=== PATIENT | male | born 1975 | race Caucasian/White ===

== ENCOUNTER → 2016-10-27 | Outpatient (CLI) | payer OTHER ==
--- NOTE | 2016-10-27 22:58 | CONS ---
DATE OF CONSULTATION: This patient is a 41-year-old male patient coming in for obstructive sleep apnea treatment. This patient was diagnosed having obstructive sleep apnea 12 years ago. Back then he was offered UPPP, and this was performed by Dr. Gómez. Over the years, the patient's condition gradually got worse, especially over the past one year when he gained around 25 pounds; he is at the point where he is having poor sleep quality, sleep fragmentation, frequent nocturnal arousals for urination in addition to loud snoring and witnessed apneas. He goes to bed around 6:30 p.m., as the patient feels very tired and fatigued, and he wakes up around 3:30 a.m. in the morning. He averages around 9 hours of sleep; however, he feels like he has slept only a few hours. He has no trouble falling asleep at any time. He works for [employer]. He works shifts between 7 a.m. and 3 p.m. Tuesdays through Fridays, and on Saturdays he works between 11 a.m. and 8 p.m. He gets exhausted by the end of the day, and by the time he arrives home he falls asleep immediately. No history of any motor vehicle accident because of feeling drowsy or sleepy. No falling asleep while driving. No falling asleep while doing day-to-day activities at the [facility]. His [place] score is 17. PAST MEDICAL HISTORY: 1. Obstructive sleep apnea with previous UPPP 12 years ago. 2. Hypertension. 3. Gout. 4. Obesity. 5. Diabetes. 6. Diabetic retinopathy. Surgical history includes: 1. UPPP. 2. Sinus surgery. 3. Appendectomy. 4. Bunionectomy. ALLERGIES: NOT KNOWN. Outpatient medication list includes: 1. Lasix 40 daily. 2. Paxil 40 daily. 3. Norvasc 10 daily. 4. Metformin 1000 mg twice a day. 5. Metoprolol 25 mg once a day. 6. Januvia 100 mg p.o. daily. 7. Allopurinol 100 daily. 8. Pravastatin 40 daily. 9. Lisinopril 20 mg twice a day. 10. Klor-Con 20 mEq twice a day. 11. Lomotil on a p.r.n. basis. SOCIAL HISTORY: The patient is a nonsmoker. No history of alcoholism. No history of IV drugs. FAMILY HISTORY: Noncontributory. REVIEW OF SYSTEMS: Twelve-point review of systems was done. Positive findings were all mentioned above in the history of present illness. BP is 128/78, pulse 70, respiration 16, temperature 97.9, saturation 95% on room air. Neck size 19-1/2. Weight is 267. Height is 6 feet 0 inches. BMI is 36.2. GENERAL APPEARANCE: Obese, calm, comfortable. HEENT: Short neck. Crowding of posterior pharynx. Soft palate is absent, as the patient is post UPPP. Nevertheless, despite this, the patient has significant crowding of the posterior pharynx. Mallampati class III. Tonsils are absent. LUNGS: Clear to auscultation. HEART: Sounds are regular rate and rhythm. Normal S1, S2. No S3. No S4. No murmurs. ABDOMEN: Soft, nontender. No organomegaly. EXTREMITIES: No edema. No cyanosis or clubbing. IMPRESSION: 1. Symptomatic obstructive sleep apnea. The patient is coming in for re-evaluation. His diagnosis was established 12 years ago and he is post UPPP. Despite that, the patient is actively symptomatic at this point. 2. Hypersomnia. [place] score of 17. 3. Obesity with a body mass index of 36.2. 4. Hypertension. 5. Gout. 6. Diabetes mellitus with diabetic retinopathy. PLAN: 1. Encourage weight loss. 2. No driving, especially while feeling drowsy or sleepy. 3. Proceed with a screening polysomnogram and CPAP therapy if needed.
== END | disposition home or self-care (01) ==
CPT/HCPCS: 99211

== ENCOUNTER → 2017-10-22 | Outpatient (CLI) | payer BC ==
--- NOTE | 2017-10-22 08:50 | CT ---
EXAMINATION TYPE: CT abdomen pelvis wo con DATE OF EXAM: 10/22/2017 COMPARISON: NONE HISTORY: 42-year-old male Bilateral flank pain, gross hematuria CT DLP: 1271.4 mGycm. Automated exposure control for dose reduction was used. TECHNIQUE: Contiguous axial scanning of the abdomen and pelvis without IV contrast. Coronal and sagit lewis reconstructions performed. FINDINGS: Heart normal size with trace anterior basilar pericardial fluid. A calcified granuloma basilar right middle lobe. No pleural effusion. Noncontrast appearance of the liver, adrenal glands, left kidney, spleen, and pancreas show no gross abnormality. There is a 3.4 cm hypodense lesion in the upper pole right kidney. The prior exam report dated 2002 is reviewed and makes no mention of a right kidney lesion. No nephrolithiasis, hydronephrosis, or suspicious calcification along the course of either ureter. No dilated small bowel, free fluid, or free air. No mesenteric or retroperitoneal lymphadenopathy. Sc attered small mesenteric lymph nodes are noted. Mild stool burden without pericolonic inflammatory change. Bladder urine distended. Multiple pelvic phleboliths. No abnormal fluid collection in the pelvis or p elvic lymphadenopathy seen. Bones: Mild degenerative changes at the hips and SI joints. No osseous destructive process. IMPRESSION: 1. No nephrolithiasis or hydronephrosis. 2. A 3.4 cm hypodense lesion upper pole right kidney most likely represents a cyst. Recommend confir mation with renal ultrasound.
== END | disposition home or self-care (01) ==
LOC: RADCTMAIN 06:45
PROVIDERS: ATTEND Family Medicine
DX: N28.9 Disorder of kidney and ureter, unspecified (principal)
CPT/HCPCS: 74176

== ENCOUNTER → 2017-11-16 | Outpatient (CLI) | payer BC ==
[2017-11-16 17:04] LABS: Appearance,Urine Clear (Clear); Bacteria,Urine Rare /hpf; Bilirubin,Urine Negative (Negative); Blood,Urine Small (Negative); Color,Urine Light Yellow; Glucose,Urine (UA) Negative (Negative); Ketones,Urine Negative (Negative); Leukocyte Esterase,Urine Negative (Negative); Mucus,Urine Rare /hpf; Nitrite,Urine Negative (Negative); PH, Urine 5.5 (5.0-8.0); Protein,Urine 2+ (Negative); RBC,Urine 1 /hpf (0-5); Specific Gravity,Urine 1.009 (1.001-1.035); Squamous Epithelial Cell,Urine <1 /hpf (0-4); Urobilinogen,Urine <2.0 mg/dL (<2.0); WBC,Urine <1 /hpf (0-5)
--- NOTE | 2017-11-17 09:11 | US ---
EXAMINATION TYPE: US kidneys/renal and bladder DATE OF EXAM: 11/16/2017 COMPARISON: CT abdomen pelvis 10/22/2017 without contrast CLINICAL HISTORY: R31.9 Hematuria. Hematuria, right kidney lesion seen on recent CT EXAM MEASUREMENTS: Right Kidney: 14.4 x 6.2 x 6.2 cm Left Kidney: 13.6 x 6.4 x 6.1 cm Difficult and limited study due to patient body habitus Right Kidney: 3.0 x 2.5 x 3.1cm hypoechoic lesion superior pole Left Kidney: no hydro or masses seen Bladder: wnl Bilateral Jets seen: yes The upper pole focus shows no abnormal internal echoes, imperceptible wall, increased through transmi ssion and is anechoic. No pathologic calcification or hydronephrosis bilaterally. Cortical medullary differentiation is maintained. IMPRESSION: Findings compatible with simple cyst upper pole right kidney. Hepatic steatosis suspected.
== END | disposition home or self-care (01) ==
LOC: RADUSMAIN 15:24
PROVIDERS: ATTEND Urology
DX: K76.0 Fatty (change of) liver, not elsewhere classified (principal); R31.21 Asymptomatic microscopic hematuria
CPT/HCPCS: 76770; 81001

== ENCOUNTER → 2019-03-09 | Outpatient (CLI) | payer BC ==
--- NOTE | 2019-03-09 15:22 | US ---
EXAMINATION TYPE: US kidneys/renal and bladder DATE OF EXAM: 03/09/2019 COMPARISON: US 11/16/2017, CT 10/22/2017 CLINICAL HISTORY: R94.4 ABN KIDNEY FUNCTIONS. EXAM MEASUREMENTS: Right Kidney: 14.0 x 7.0 x 6.6 cm Left Kidney: 12.6 x 6.1 x 6.1 cm Right Kidney: No hydronephrosis. Cystic mass visualized 2.4 x 2.3 x 2.2 cm . This previously measured up to 3.4 cm on the exam of 10/22/2017. Left Kidney: No hydronephrosis or masses seen Bladder: wnl Bilateral Jets seen: Yes There is no evidence for hydronephrosis at this point in time. No nephrolithiasis is seen. The urin jaren bladder is anechoic. Bilateral ureteral jets are seen. IMPRESSION: Similar size of the right renal cyst. No hydronephrosis or nephrolithiasis. Slightly lobulated contou r of both kidneys without other sonographic evidence of medical renal disease.
== END | disposition home or self-care (01) ==
LOC: RADUSWWP 14:38
PROVIDERS: ATTEND Family Medicine
DX: R94.4 Abnormal results of kidney function studies (principal); N28.1 Cyst of kidney, acquired
CPT/HCPCS: 76770

== ENCOUNTER → 2019-07-19 | Outpatient (CLI) | payer BC | LOC: LABWHC1 13:00 | PROVIDERS: ATTEND Internal Medicine | DX: N18.9 Chronic kidney disease, unspecified (principal) | CPT/HCPCS: 36415; 80051; 82565; 84520; 85025; 85610; 85730; 86850; 86900; 86901 ==

== ENCOUNTER → 2019-07-21 | Day surgery (SDC) | payer BC ==
[2019-07-19 14:49] LABS: Basophils # (A) 0.1 k/uL (0-0.2); Basophils % (A) 2 %; Eosinophils # (A) 0.2 k/uL (0-0.7); Eosinophils % (A) 4 %; HCT 37.6 % (39.0-53.0); HGB 11.8 gm/dL (13.0-17.5); Lymphocytes # (A) 0.8 k/uL (1.0-4.8); Lymphocytes % (A) 14 %; MCH 28.1 pg (25.0-35.0); MCHC 31.5 g/dL (31.0-37.0); MCV 89.2 fL (80.0-100.0); Mean Platelet Volume 7.4; Monocytes # (A) 0.6 k/uL (0-1.0); Monocytes % (A) 10 %; Neutrophils # (A) 3.9 k/uL (1.3-7.7); Neutrophils % (A) 67 %; Platelet Count 191 k/uL (150-450); RBC 4.21 m/uL (4.30-5.90); RDW 13.4 % (11.5-15.5); WBC 5.8 k/uL (3.8-10.6)
[2019-07-19 15:00] LABS: INR 0.9 (<1.2); Partial Thromboplastin Time 25.3 sec (22.0-30.0); Prothrombin Time 9.4 sec (9.0-12.0)
[2019-07-19 18:37] LABS: African American GFR (CKD) 28.7 (60.0-200.0); Anion Gap 9.1 mmol/L (4.00-12.00); Carbon Dioxide 17.9 mmol/L (21.6-31.8); Potassium 5.1 mmol/L (3.5-5.5)
[~2019-07-21] MED LIST: ALPRAZolam 0.5 MG TAB PO STA; DESMOPRESSIN ACETATE 36 MCG in SODIUM CHLORIDE 0.9% 50 ML IVPB ONE; HYDROmorphone 1 MG/ML 1 ML SYRINGE IVP STA; SODIUM CHLORIDE 0.9% 500 ML 250 ML IV ONE
[2019-07-21 08:20] VITALS: TEMP 97.9
[2019-07-21 13:18] VITALS: RESP 16
--- NOTE | 2019-07-21 14:30 | CT ---
DATE OF EXAM: 07/21/2019 COMPARISON: NONE CT DLP: 2484 mGycm HISTORY: Renal failure PROCEDURE: Maximal barrier technique was utilized. After informed consent, the skin overlying a suit able path to the left kidney was localized using CT guidance, the skin was prepped and draped. Lidoc daysi was used for local anesthesia. A skin nayana made with a scalpel. Using CT guidance, a 17-gauge needle was advanced into in position at the lateral and inferior cortex of the left kidney where coax ial placement of an 18-gauge needle was used and core biopsy obtained. Three passes made in total. Hemostasis was achieved. There was no immediate complication and patient remained in stable conditio n. Specimen submitted to Pathology. IMPRESSION: Status post CT guided core biopsy of left renal cortex, pathology pending. This procedur e performed by the undersigned.
[2019-07-21 14:51] LABS: Basophils % (A) 1 %; Eosinophils # (A) 0.2 k/uL (0-0.7); Eosinophils % (A) 3 %; HCT 33.4 % (39.0-53.0); HGB 10.7 gm/dL (13.0-17.5); Lymphocytes # (A) 0.7 k/uL (1.0-4.8); Lymphocytes % (A) 14 %; MCH 28.6 pg (25.0-35.0); MCHC 31.9 g/dL (31.0-37.0); MCV 89.6 fL (80.0-100.0); Mean Platelet Volume 7.4; Monocytes # (A) 0.4 k/uL (0-1.0); Monocytes % (A) 7 %; Neutrophils # (A) 3.9 k/uL (1.3-7.7); Neutrophils % (A) 73 %; Platelet Count 176 k/uL (150-450); RBC 3.73 m/uL (4.30-5.90); RDW 13.5 % (11.5-15.5); WBC 5.3 k/uL (3.8-10.6)
[2019-07-21 15:15] VITALS: BP 156/86; PULSE 75
== END ==
LOC: RADPROMAIN 07:57
PROVIDERS: ATTEND Internal Medicine
DX: I12.9 Hypertensive chronic kidney disease with stage 1 through stage 4 chronic kidney disease, or unspecified chronic kidney disease (principal); E11.22 Type 2 diabetes mellitus with diabetic chronic kidney disease; E11.21 Type 2 diabetes mellitus with diabetic nephropathy; N18.3 Chronic kidney disease, stage 3 (moderate); N17.9 Acute kidney failure, unspecified; R80.9 Proteinuria, unspecified; R60.0 Localized edema; E66.9 Obesity, unspecified; Z68.35 Body mass index [BMI] 35.0-35.9, adult; Z79.899 Other long term (current) drug therapy; Z79.4 Long term (current) use of insulin; Z98.890 Other specified postprocedural states; Z82.49 Family history of ischemic heart disease and other diseases of the circulatory system; Z84.1 Family history of disorders of kidney and ureter; Z83.3 Family history of diabetes mellitus; Z91.09 Other allergy status, other than to drugs and biological substances
CPT/HCPCS: 86900; 86901; 80051; 82565; 82947; 84520; 85025; 85610; 85730; 86850; 36415 ×2; 50200; 77012; J1170; J2597

== ENCOUNTER → 2019-09-21 | Outpatient (CLI) | payer BC ==
[2019-09-21 13:11] LABS: Basophils % (A) 0 %; Eosinophils # (A) 0.2 k/uL (0-0.7); Eosinophils % (A) 3 %; HCT 40.6 % (39.0-53.0); HGB 12.3 gm/dL (13.0-17.5); Lymphocytes # (A) 1.1 k/uL (1.0-4.8); Lymphocytes % (A) 17 %; MCH 27.4 pg (25.0-35.0); MCHC 30.4 g/dL (31.0-37.0); MCV 90.1 fL (80.0-100.0); Mean Platelet Volume 8.4; Monocytes # (A) 0.6 k/uL (0-1.0); Monocytes % (A) 9 %; Neutrophils # (A) 4.3 k/uL (1.3-7.7); Neutrophils % (A) 68 %; Platelet Count 197 k/uL (150-450); RBC 4.51 m/uL (4.30-5.90); RDW 12.8 % (11.5-15.5); WBC 6.4 k/uL (3.8-10.6)
[2019-09-21 13:55] LABS: Appearance,Urine Clear (Clear); Bilirubin,Urine Negative (Negative); Blood,Urine Negative (Negative); Color,Urine Yellow; Glucose,Urine (UA) Negative (Negative); Hyaline Casts,Urine 136 /lpf (0-2); Ketones,Urine Negative (Negative); Leukocyte Esterase,Urine Negative (Negative); Mucus,Urine Rare /hpf; Nitrite,Urine Negative (Negative); PH, Urine 5.5 (5.0-8.0); Protein,Urine 3+ (Negative); RBC,Urine 2 /hpf (0-5); Specific Gravity,Urine 1.014 (1.001-1.035); Squamous Epithelial Cell,Urine <1 /hpf (0-4); Urobilinogen,Urine <2.0 mg/dL (<2.0); WBC,Urine <1 /hpf (0-5)
[2019-09-21 14:19] LABS: ALT 28 U/L (4-49); AST 23 U/L (17-59); African American GFR (CKD) 28 (>60 ml/min/1.73 sqM); Albumin 4.5 g/dL (3.5-5.0); Albumin/Globulin Ratio 1.5; Alkaline Phosphatase 70 U/L (38-126); Anion Gap 8 mmol/L; Blood Urea Nitrogen 49 mg/dL (9-20); Calcium 9.6 mg/dL (8.4-10.2); Carbon Dioxide 21 mmol/L (22-30); Chloride 111 mmol/L (98-107); Globulin 3.1 g/dL; Glucose 130 mg/dL (74-99); Magnesium 2.1 mg/dL (1.6-2.3); Non-African American GFR(CKD) 24 (>60 ml/min/1.73 sqM); Sodium 140 mmol/L (137-145); Total Bilirubin 0.5 mg/dL (0.2-1.3); Total Protein 7.6 g/dL (6.3-8.2); Uric Acid 8.8 mg/dL (3.5-8.5)
[2019-09-21 14:50] LABS: Potassium 6.1 mmol/L (3.5-5.1)
[2019-09-21 19:23] LABS: % Iron Saturation 26.32 (15.00-50.00); Iron 85 ug/dL (65-175); Total Iron Binding Capacity 323 ug/dL (228-460)
== END | disposition home or self-care (01) ==
LOC: LABWHC1 12:37
PROVIDERS: ATTEND Nurse Practitioner Family
DX: I10 Essential (primary) hypertension (principal); E87.5 Hyperkalemia; Z79.899 Other long term (current) drug therapy
CPT/HCPCS: 36415; 80053; 81001; 82043; 82570; 82728; 83540; 83550; 83735; 83970; 84550; 85025

== ENCOUNTER 2020-05-16 08:34 | Observation (INO) | payer BC ==
--- NOTE | 2020-05-16 09:00 | ED ---
General Adult HPI - General Chief complaint: Abdominal Pain Stated complaint: Abd Pain, Diarrhea Time Seen by Provider: 05/16/20 08:40 Source: patient Mode of arrival: ambulatory Limitations: no limitations - History of Present Illness Initial comments: Dictation was produced using [employer] dictation software. please excuse any grammatical, word or spelling errors. This patient was cared for during a federal and state declared state of emergency secondary to Covid 19 Chief Complaint: 45-year-old male presents with concerns of kidney function. History of Present Illness: Patient 45-year-old male who has been having several days of diarrhea. Patient reports that he has history of kidney disease. He states that his kidney disease has been getting worse. Try to follow-up with his gunner's mate g. Recommendation by primary care physician however is his kidney doctor was in the office. Patient states he's had multiple days of foul- smelling diarrhea. Denies any recent antibiotic use. No recent hospitalizations. Denies any nausea. No vomiting. He does have some mild suprapubic abdominal pain. The ROS documented in this emergency department record has been reviewed and confirmed by me. Those systems with pertinent positive or negative responses have been documented in the HPI. All other systems are other negative and/or noncontributory. PHYSICAL EXAM: General Impression: Alert and oriented x3, not in acute distress HEENT: Normocephalic atraumatic, extra-ocular movements intact, pupils equal and reactive to light bilaterally, mucous membranes moist. Cardiovascular: Heart regular rate and rhythm Chest: Able to complete full sentences, no retractions, no tachypnea Abdomen: abdomen soft, mild tenderness to his regular care, non-distended, no organomegaly Musculoskeletal: Pulses present and equal in all extremities, no peripheral edema Motor: no focal deficits noted Neurological: CN II-XII grossly intact, no focal motor or sensory deficits noted Skin: Intact with no visualized rashes Psych: Normal affect and mood ED course: 45-year-old male presents with diarrhea and concerns of kidney function. Vital signs upon arrival are within acceptable limits. Laboratory evaluation obtained. CBC unremarkable. Metabolic panel was obtained. Patient's crit is elevated 2.55 with BUN of 60. This is slightly above patient's baseline. Patient's baseline is around 2.9. Patient given fluids. Urinalysis shows 2+ protein. Chart review shows that patient had a renal biopsy with diagnosis of diabetic nephropathy and glomerulosclerosis. Case is discussed with patient's gunner's mate g Dr. Stephenson.Dr. Stephenson at bedside and evaluated patient. He requested patient be admitted observation for monitoring of renal function. Patient given fluids. Discussed patient case Dr. Ghosh who is on-call for Dr. Roman was agreeable with patient's admission and observation. - Related Data Home Medications Medication Instructions Recorded Confirmed Insulin Glargine/Lixisenatide 42 units SQ DAILY 07/10/19 07/21/19 [Soliqua 100 Unit-33 Mcg/ml Pen] Loratadine [Claritin] 10 mg PO DAILY 07/10/19 07/21/19 Nebivolol HCl [Bystolic] 10 mg PO DAILY 07/10/19 07/21/19 Pravastatin Sodium [Pravachol] 40 mg PO DAILY 07/10/19 07/21/19 Vilazodone HCl [Viibryd] 40 mg PO DAILY 07/10/19 07/21/19 amLODIPine [Norvasc] 5 mg PO DAILY 07/10/19 07/21/19 hydrALAZINE HCL [Apresoline] 50 mg PO TID 07/10/19 07/21/19 metFORMIN HCL [Glucophage] 1,000 mg PO BID 07/10/19 07/21/19 sitaGLIPtin [Januvia] 100 mg PO DAILY 07/10/19 07/21/19 Allergies Allergy/AdvReac Type Severity Reaction Status Date / Time No Known Allergies Allergy Verified 07/21/19 08:20 Review of Systems ROS Statement: Those systems with pertinent positive or pertinent negative responses have been documented in the HPI. ROS Other: All systems not noted in ROS Statement are negative. Past Medical History Past Medical History: Diabetes Mellitus, Hyperlipidemia, Hypertension, Renal Disease, Sleep Apnea/CPAP/BIPAP Additional Past Medical History / Comment(s): Stage 4 kidney failure History of Any Multi-Drug Resistant Organisms: None Reported Past Surgical History: Appendectomy Additional Past Surgical History / Comment(s): bilateral knee sugery, "sleep apnea surgery" Past Anesthesia/Blood Transfusion Reactions: No Reported Reaction Past Psychological History: Depression Smoking Status: Never smoker Past Alcohol Use History: Rare Past Drug Use History: None Reported - Past Family History Mother Family Medical History: Renal Disease Additional Family Medical History / Comment(s): mother is on dialysis General Exam Limitations: no limitations Course Vital Signs 05/16/20 05/16/20 08:35 09:46 Temperature 97.9 F Pulse Rate 80 76 Respiratory 18 18 Rate Blood Pressure 162/94 127/72 O2 Sat by Pulse 97 98 Oximetry Medical Decision Making - Lab Data Result diagrams: 05/16/20 08:52 05/16/20 08:52 Lab Results 05/16/20 05/16/20 05/16/20 Range/Units 08:52 08:52 08:52 WBC 6.5 (3.8-10.6) k/uL RBC 4.60 (4.30-5.90) m/uL Hgb 12.9 L (13.0-17.5) gm/dL Hct 39.4 (39.0-53.0) % MCV 85.7 (80.0-100.0) fL MCH 28.0 (25.0-35.0) pg MCHC 32.7 (31.0-37.0) g/dL RDW 12.8 (11.5-15.5) % Plt Count 173 (150-450) k/uL Neutrophils % 70 % Lymphocytes % 15 % Monocytes % 10 % Eosinophils % 3 % Basophils % 1 % Neutrophils # 4.5 (1.3-7.7) k/uL Lymphocytes # 1.0 (1.0-4.8) k/uL Monocytes # 0.6 (0-1.0) k/uL Eosinophils # 0.2 (0-0.7) k/uL Basophils # 0.0 (0-0.2) k/uL Sodium 135 L (137-145) mmol/L Potassium 4.8 (3.5-5.1) mmol/L Chloride 101 (98-107) mmol/L Carbon Dioxide 24 (22-30) mmol/L Anion Gap 10 mmol/L BUN 60 H (9-20) mg/dL Creatinine 3.55 H (0.66-1.25) mg/dL Est GFR (CKD-EPI)AfAm 22 (>60 ml/min/1.73 sqM) Est GFR (CKD-EPI)NonAf 19 (>60 ml/min/1.73 sqM) Glucose 167 H (74-99) mg/dL Calcium 9.4 (8.4-10.2) mg/dL Total Bilirubin 0.7 (0.2-1.3) mg/dL AST 23 (17-59) U/L ALT 20 (4-49) U/L Alkaline Phosphatase 80 (38-126) U/L Total Protein 7.1 (6.3-8.2) g/dL Albumin 4.3 (3.5-5.0) g/dL Lipase 292 (23-300) U/L Urine Color Yellow Urine Appearance Clear (Clear) Urine pH 5.5 (5.0-8.0) Ur Specific [place] 1.011 (1.001-1.035) Urine Protein 2+ H (Negative) Urine Glucose (UA) Negative (Negative) Urine Ketones Negative (Negative) Urine Blood Negative (Negative) Urine Nitrite Negative (Negative) Urine Bilirubin Negative (Negative) Urine Urobilinogen <2.0 (<2.0) mg/dL Ur Leukocyte Esterase Negative (Negative) Urine RBC 1 (0-5) /hpf Hyaline Casts 4 H (0-2) /lpf Urine Mucus Rare H (None) /hpf Disposition Clinical Impression: KIRA (acute kidney injury) Disposition: ADMITTED IP TO THIS HOSP Condition: Fair Referrals: Amadou Roman MD [Primary Care Provider] - 1-2 days Decision Time: 10:01
[2020-05-16 09:22] LABS: Basophils % (A) 1 %; Eosinophils # (A) 0.2 k/uL (0-0.7); Eosinophils % (A) 3 %; HCT 39.4 % (39.0-53.0); HGB 12.9 gm/dL (13.0-17.5); Lymphocytes % (A) 15 %; MCHC 32.7 g/dL (31.0-37.0); MCV 85.7 fL (80.0-100.0); Mean Platelet Volume 8.2; Monocytes # (A) 0.6 k/uL (0-1.0); Monocytes % (A) 10 %; Neutrophils # (A) 4.5 k/uL (1.3-7.7); Neutrophils % (A) 70 %; Platelet Count 173 k/uL (150-450); RDW 12.8 % (11.5-15.5); WBC 6.5 k/uL (3.8-10.6)
[2020-05-16 09:34] LABS: Albumin 4.3 g/dL (3.5-5.0); Calcium 9.4 mg/dL (8.4-10.2); Potassium 4.8 mmol/L (3.5-5.1); Total Bilirubin 0.7 mg/dL (0.2-1.3); Total Protein 7.1 g/dL (6.3-8.2)
[2020-05-16 09:35] LABS: Appearance,Urine Clear (Clear); Bilirubin,Urine Negative (Negative); Blood,Urine Negative (Negative); Color,Urine Yellow; Glucose,Urine (UA) Negative (Negative); Hyaline Casts,Urine 4 /lpf (0-2); Ketones,Urine Negative (Negative); Leukocyte Esterase,Urine Negative (Negative); Mucus,Urine Rare /hpf; Nitrite,Urine Negative (Negative); PH, Urine 5.5 (5.0-8.0); Protein,Urine 2+ (Negative); RBC,Urine 1 /hpf (0-5); Specific Gravity,Urine 1.011 (1.001-1.035); Urobilinogen,Urine <2.0 mg/dL (<2.0)
[2020-05-16] MEDS ORDERED: SODIUM CHLORIDE 0.9% 1,000 ML IV STA ×2 (09:36→09:57)
[2020-05-16] MEDS ORDERED: NALOXONE 0.4 MG/ML 1 ML VIAL IV PRN (10:54)
--- NOTE | 2020-05-16 11:31 | P.NPCON ---
History of Present Illness - Reason for Consult acute renal failure, chronic renal failure - History of Present Illness Reason for consultation: Acute kidney injury on chronic kidney disease History of present illness: Patient is a 45-year-old male seen in consultation for acute kidney injury on chronic kidney disease. Patient has chronic kidney disease stage IV secondary to biopsy-proven diabetic kidney disease. Patient states he's been feeling unwell the last few days. She states he did see his primary care physician and have blood work done. Due to worsening GFR he was advised to come to the hospital. Patient states he developed severe diarrhea last night. He has been voiding. No hematuria or dysuria. She states his blood sugar has been running in the range of 200-250 recently. No fever or chills. No cough. No edema. He is maintained on Lasix 40 mg orally twice daily at home. No evidence of hypotension. Afebrile. No evidence of UTI. No other complaints at this time. He is awake and alert. No abdominal pain. No syncopal episodes. Vital signs are stable. General: The patient appeared well nourished and normally developed. HEENT: Head exam is unremarkable. Neck is without jugular venous distension. LUNGS: Lungs are clear to auscultation and percussion. Breath sounds decreased. HEART: Rate and Rhythm are regular. ABDOMEN: Soft, nontender. EXTREMITITES: No clubbing, cyanosis, or edema. Past Medical History Past Medical History: Diabetes Mellitus, Hyperlipidemia, Hypertension, Renal Disease, Sleep Apnea/CPAP/BIPAP Additional Past Medical History / Comment(s): Stage 4 kidney failure History of Any Multi-Drug Resistant Organisms: None Reported Past Surgical History: Appendectomy Additional Past Surgical History / Comment(s): bilateral knee sugery, "sleep apnea surgery" Past Anesthesia/Blood Transfusion Reactions: No Reported Reaction Past Psychological History: Depression Smoking Status: Never smoker Past Alcohol Use History: Rare Past Drug Use History: None Reported - Past Family History Mother Family Medical History: Renal Disease Additional Family Medical History / Comment(s): mother is on dialysis Medications and Allergies Home Medications Medication Instructions Recorded Confirmed Type Insulin Glargine/Lixisenatide 63 units SQ DAILY 07/10/19 05/16/20 History [Soliqua 100 Unit-33 Mcg/ml Pen] Nebivolol HCl [Bystolic] 10 mg PO DAILY 07/10/19 05/16/20 History Pravastatin Sodium [Pravachol] 40 mg PO HS 07/10/19 05/16/20 History Vilazodone HCl [Viibryd] 40 mg PO DAILY 07/10/19 05/16/20 History hydrALAZINE HCL [Apresoline] 100 mg PO TID 07/10/19 05/16/20 History Allopurinol [Zyloprim] 100 mg PO DAILY 05/16/20 05/16/20 History Ergocalciferol [Vitamin D2] 50,000 unit PO SA 05/16/20 05/16/20 History Fish Oil/Dha/Epa [Fish Oil 1,200 1 cap PO DAILY 05/16/20 05/16/20 History mg Fish Oil] Icosapent Ethyl [Vascepa] 2 gm PO BID 05/16/20 05/16/20 History Sodium Bicarbonate Tab 1,300 mg PO TID 05/16/20 05/16/20 History Spironolactone [Aldactone] 25 mg PO DAILY 05/16/20 05/16/20 History amLODIPine [Norvasc] 10 mg PO DAILY 05/16/20 05/16/20 History calcitrioL [Rocaltrol] 0.25 mcg PO TH 05/16/20 05/16/20 History cloNIDine HCL [Catapres] 0.2 mg PO TID 05/16/20 05/16/20 History Allergies Allergy/AdvReac Type Severity Reaction Status Date / Time No Known Allergies Allergy Verified 05/16/20 10:32 Physical Exam Vitals: Vital Signs Temp Pulse Resp BP Pulse Ox 05/16/20 11:22 76 18 139/84 99 05/16/20 09:46 76 18 127/72 98 05/16/20 08:35 97.9 F 80 18 162/94 97 Intake and Output 05/15/20 05/16/20 05/16/20 22:59 06:59 14:59 Other: Weight 117.934 kg Results - Lab Results Most recent lab results Calcium 9.4 mg/dL (8.4-10.2) 05/16/20 08:52 05/16/20 08:52 05/16/20 08:52 Assessment and Plan Plan: Assessment: 1. Acute kidney injury mostly prerenal secondary to intravascular volume depletion from diarrhea and diuretics. Creatinine 3.55 on admission. 2. Chronic kidney disease stage IV with baseline creatinine in the range of 2.5-3 secondary to biopsy-proven diabetic kidney disease. 3. Insulin-dependent diabetes mellitus. 4. Hypertension with chronic kidney disease. Stable. 5. Chronic kidney disease mineral bone disease maintained on calcitriol. Plan: Maintain normal saline at 70 mL an hour. Hold diuretics. Continue to monitor renal function and urine output. Thank you for the consultation. I will continue to follow the patient with you during his hospital stay.
--- NOTE | 2020-05-16 13:29 | P.HPIM ---
History of Present Illness H&P Date: 05/16/20 Chief Complaint: General malaise, progressing renal failure Mr. Novak is a 45-year-old male well-known to the practice was sent to the hospital this morning by one of the nurse practitioners regarding progressing renal disease. Patient stated he been feeling somewhat unwell for the last few days states that sugars have started to climb and he recently had blood work done at our office apparently on discussion with the patient he hasn't been drinking more than 40 fluid balance is a day of free water in addition he states he has 2 or 3 cups a copy and throughout the day he completes a 2 L of diet Mountain Dew Review of Systems Constitutional: Reports as per HPI Ears, nose, mouth and throat: Reports as per HPI Cardiovascular: Reports as per HPI Respiratory: Reports as per HPI Gastrointestinal: Reports as per HPI (Decreased outputs ongoing renal failure) Musculoskeletal: Reports as per HPI Integumentary: Reports as per HPI Neurological: Reports as per HPI Psychiatric: Reports as per HPI Endocrine: Reports as per HPI Past Medical History Past Medical History: Diabetes Mellitus, Hyperlipidemia, Hypertension, Renal Disease, Sleep Apnea/CPAP/BIPAP Additional Past Medical History / Comment(s): IDDM type II, diabetic nephropathy-stage IV and pt states it is getting worse, nephrolithiasis-pt passed stone on his own, diabetic retinopathy with bilateral retinal bleeds, gout bilateral elbows and R footOSA without device, History of Any Multi-Drug Resistant Organisms: None Reported Past Surgical History: Adenoidectomy, Appendectomy, Orthopedic Surgery, Tonsillectomy Additional Past Surgical History / Comment(s): UVPPP, renal biopsy, bilateral laser eye surgery for retinal bleeds, R knee arthroscopy, L knee open surgery for ACL Past Anesthesia/Blood Transfusion Reactions: No Reported Reaction Additional Past Anesthesia/Blood Transfusion Reaction / Comment(s): Issue with pt's sleep apnea during surgery. Smoking Status: Never smoker - Past Family History Mother Family Medical History: Renal Disease Additional Family Medical History / Comment(s): ESRD with dialysis-mother of renal failure at the age of 77yrs Father Family Medical History: No Reported History Additional Family Medical History / Comment(s): Father is healthy Medications and Allergies Home Medications Medication Instructions Recorded Confirmed Type Insulin Glargine/Lixisenatide 63 units SQ DAILY 07/10/19 05/16/20 History [Soliqua 100 Unit-33 Mcg/ml Pen] Nebivolol HCl [Bystolic] 10 mg PO DAILY 07/10/19 05/16/20 History Pravastatin Sodium [Pravachol] 40 mg PO HS 07/10/19 05/16/20 History Vilazodone HCl [Viibryd] 40 mg PO DAILY 07/10/19 05/16/20 History hydrALAZINE HCL [Apresoline] 100 mg PO TID 07/10/19 05/16/20 History Allopurinol [Zyloprim] 100 mg PO DAILY 05/16/20 05/16/20 History Ergocalciferol [Vitamin D2] 50,000 unit PO SA 05/16/20 05/16/20 History Fish Oil/Dha/Epa [Fish Oil 1,200 1 cap PO DAILY 05/16/20 05/16/20 History mg Fish Oil] Icosapent Ethyl [Vascepa] 2 gm PO BID 05/16/20 05/16/20 History Sodium Bicarbonate Tab 1,300 mg PO TID 05/16/20 05/16/20 History Spironolactone [Aldactone] 25 mg PO DAILY 05/16/20 05/16/20 History amLODIPine [Norvasc] 10 mg PO DAILY 05/16/20 05/16/20 History calcitrioL [Rocaltrol] 0.25 mcg PO TH 05/16/20 05/16/20 History cloNIDine HCL [Catapres] 0.2 mg PO TID 05/16/20 05/16/20 History Allergies Allergy/AdvReac Type Severity Reaction Status Date / Time No Known Allergies Allergy Verified 05/16/20 10:32 Physical Exam Osteopathic Statement: *. No significant issues noted on an osteopathic structural exam other than those noted in the History and Physical/Consult. Vitals: Vital Signs Temp Pulse Resp BP Pulse Ox 05/16/20 11:22 76 18 139/84 99 05/16/20 09:46 76 18 127/72 98 05/16/20 08:35 97.9 F 80 18 162/94 97 Intake and Output 05/15/20 05/16/20 05/16/20 22:59 06:59 14:59 Other: Weight 117.934 kg General: [Patient awake, alert and oriented times 3. Patient in no acute distress.] HEENT: [PERRL. EOMI. No pharyngeal erythema or exudate.] Neck: [No adenopathy.] Cardiac: [Heart regular in rate and rhythm. No S3. No S4. No clicks, rubs. No murmur.] Lungs: [Clear to auscultation bilaterally.] Abdomen: [No mass. No organomegaly. Bowel sounds presnt and normoactive in all 4 quadrants.] Obese, has had significant weight loss recently Extremes: [No edema no cyanosis no claudication normal pulses] : Normal male genitalia Musculoskeletal: [No joint erythema, edema or tenderness.] Skin: [No rash.] Neurologic: [No lateralizing deficits. CN II - XII grossly intact.] Lymphatic: [No adenopathy.] Results CBC & Chem 7: 05/16/20 08:52 05/16/20 08:52 Labs: Abnormal Lab Results - Last 24 Hours (Table) 05/16/20 05/16/20 05/16/20 Range/Units 08:52 08:52 08:52 Hgb 12.9 L (13.0-17.5) gm/dL Sodium 135 L (137-145) mmol/L BUN 60 H (9-20) mg/dL Creatinine 3.55 H (0.66-1.25) mg/dL Glucose 167 H (74-99) mg/dL Urine Protein 2+ H (Negative) Hyaline Casts 4 H (0-2) /lpf Urine Mucus Rare H (None) /hpf Thrombosis Risk Factor Assmnt - Choose All That Apply Any of the Below Risk Factors Present?: Yes Each Factor Represents 1 point: Age 41-60 years, Obesity (BMI >25) Other Risk Factors: No Other congenital or acquired thrombophilia - If yes, enter type in comment: No Thrombosis Risk Factor Assessment Total Risk Factor Score: 2 Thrombosis Risk Factor Assessment Level: Low Risk Assessment and Plan (1) DM (diabetes mellitus), secondary, with renal complications Current Visit: Yes Status: Acute Code(s): E13.29 - OTH DIABETES MELLITUS WITH OTH DIABETIC KIDNEY COMPLICATION SNOMED Code(s): 6670852 (2) Hypertension associated with chronic kidney disease due to type 2 diabetes mellitus Current Visit: Yes Status: Acute Code(s): E11.22 - TYPE 2 DIABETES MELLITUS W DIABETIC CHRONIC KIDNEY DISEASE; I12.9 - HYPERTENSIVE CHRONIC KIDNEY DISEASE W STG 1-4/UNSP CHR KDNY SNOMED Code(s): 94774628339591 Plan: Has been admitted for observation for her rehydration repeat kidney functions improved anticipate discharge home Patient has already been seen by Dr. Alejandro JAVED nephrology This date patient being followed up in the office Wednesday or Wednesday next week Time with Patient: Greater than 30
[2020-05-16 14:48] VITALS: PULSE 72
[2020-05-16 15:26] VITALS: BP 132/84; RESP 18; TEMP 97.9
[2020-05-16] MEDS ORDERED: ACETAMINOPHEN TAB 325 MG TAB PO PRN (16:40)
--- NOTE | 2020-05-16 18:24 | P.DS ---
Providers Date of admission: 05/16/20 10:54 Expected date of discharge: 05/16/20 Attending physician: Hollis Ghosh Consults: 05/16/20 09:56 Consult Physician Routine Consulting Provider: Andrew Stephenson Consult Reason/Comments: jaki Do you want consulting provider notified?: Already Contacted Primary care physician: Amadou Roman - Discharge Diagnosis(es) (1) DM (diabetes mellitus), secondary, with renal complications Current Visit: Yes Status: Acute (2) Hypertension associated with chronic kidney disease due to type 2 diabetes mellitus Current Visit: Yes Status: Acute Patient Condition at Discharge: Fair Plan - Discharge Summary Discharge Rx Participant: No New Discharge Prescriptions: No Action Pravastatin Sodium [Pravachol] 40 mg PO HS Nebivolol HCl [Bystolic] 10 mg PO DAILY hydrALAZINE HCL [Apresoline] 100 mg PO TID Vilazodone HCl [Viibryd] 40 mg PO DAILY Insulin Glargine/Lixisenatide [Soliqua 100 Unit-33 Mcg/ml Pen] 63 units SQ DAILY amLODIPine [Norvasc] 10 mg PO DAILY Icosapent Ethyl [Vascepa] 2 gm PO BID Allopurinol [Zyloprim] 100 mg PO DAILY Spironolactone [Aldactone] 25 mg PO DAILY RX: Sodium Bicarbonate Tab 1,300 mg PO TID Ergocalciferol [Vitamin D2] 50,000 unit PO SA cloNIDine HCL [Catapres] 0.2 mg PO TID calcitrioL [Rocaltrol] 0.25 mcg PO TH Fish Oil/Dha/Epa [Fish Oil 1,200 mg Fish Oil] 1 cap PO DAILY Discharge Medication List Insulin Glargine/Lixisenatide [Soliqua 100 Unit-33 Mcg/ml Pen] 63 units SQ DAILY 07/10/19 [History] Nebivolol HCl [Bystolic] 10 mg PO DAILY 07/10/19 [History] Pravastatin Sodium [Pravachol] 40 mg PO HS 07/10/19 [History] Vilazodone HCl [Viibryd] 40 mg PO DAILY 07/10/19 [History] hydrALAZINE HCL [Apresoline] 100 mg PO TID 07/10/19 [History] Allopurinol [Zyloprim] 100 mg PO DAILY 05/16/20 [History] Ergocalciferol [Vitamin D2] 50,000 unit PO SA 05/16/20 [History] Fish Oil/Dha/Epa [Fish Oil 1,200 mg Fish Oil] 1 cap PO DAILY 05/16/20 [History] Icosapent Ethyl [Vascepa] 2 gm PO BID 05/16/20 [History] RX: Sodium Bicarbonate Tab 1,300 mg PO TID 05/16/20 [History] Spironolactone [Aldactone] 25 mg PO DAILY 05/16/20 [History] amLODIPine [Norvasc] 10 mg PO DAILY 05/16/20 [History] calcitrioL [Rocaltrol] 0.25 mcg PO TH 05/16/20 [History] cloNIDine HCL [Catapres] 0.2 mg PO TID 05/16/20 [History] Follow up Appointment(s)/Referral(s): Amadou Roman MD [Primary Care Provider] - 1-2 days
== END 2020-05-16 18:35 | disposition home or self-care (01) ==
LOC: EC 08:34 → 1SOBS 10:54
PROVIDERS: ADMIT Family Medicine; ATTEND Family Medicine
DX: N17.9 Acute kidney failure, unspecified (principal); E86.9 Volume depletion, unspecified; E11.22 Type 2 diabetes mellitus with diabetic chronic kidney disease; N18.4 Chronic kidney disease, stage 4 (severe); I12.9 Hypertensive chronic kidney disease with stage 1 through stage 4 chronic kidney disease, or unspecified chronic kidney disease; E11.21 Type 2 diabetes mellitus with diabetic nephropathy; R19.7 Diarrhea, unspecified; R10.30 Lower abdominal pain, unspecified; E78.5 Hyperlipidemia, unspecified; F32.9 Major depressive disorder, single episode, unspecified; E11.319 Type 2 diabetes mellitus with unspecified diabetic retinopathy without macular edema; M1A.0220 Idiopathic chronic gout, left elbow, without tophus (tophi); M1A.0210 Idiopathic chronic gout, right elbow, without tophus (tophi); M1A.0710 Idiopathic chronic gout, right ankle and foot, without tophus (tophi); G47.33 Obstructive sleep apnea (adult) (pediatric); M89.9 Disorder of bone, unspecified; E83.9 Disorder of mineral metabolism, unspecified; E66.9 Obesity, unspecified; Z68.35 Body mass index [BMI] 35.0-35.9, adult; Z79.4 Long term (current) use of insulin; Z79.899 Other long term (current) drug therapy; Z99.89 Dependence on other enabling machines and devices; Z90.49 Acquired absence of other specified parts of digestive tract; Z98.890 Other specified postprocedural states; Z87.442 Personal history of urinary calculi; Z90.89 Acquired absence of other organs; Z87.39 Personal history of other diseases of the musculoskeletal system and connective tissue; Z91.89 Other specified personal risk factors, not elsewhere classified; Z84.1 Family history of disorders of kidney and ureter
CPT/HCPCS: 96360; 96361; 99285; 36415; 80053; 82565; 83690; 84520; 85025; 81001; G0378

== ENCOUNTER 2020-06-14 21:25 | Emergency (ER) | payer BC ==
[2020-06-14 21:38] VITALS: BP 121/69; PULSE 77; RESP 18; TEMP 98.5
--- NOTE | 2020-06-14 22:42 | ED ---
General Adult HPI - General Chief complaint: ENT Stated complaint: ENT Time Seen by Provider: 06/14/20 21:39 Source: patient, RN notes reviewed Mode of arrival: ambulatory Limitations: no limitations - History of Present Illness Initial comments: 45-year-old male presents to the emergency room for a chief complaint of moth in right ear. Patient states he was walking inside when a more often flew into his right ear. States it is still alive.Patient has no other complaints at this time including shortness of breath, chest pain, abdominal pain, nausea or vomiting, headache, or visual changes. - Related Data Home Medications Medication Instructions Recorded Confirmed Insulin Glargine/Lixisenatide 63 units SQ DAILY 07/10/19 05/16/20 [Soliqua 100 Unit-33 Mcg/ml Pen] Nebivolol HCl [Bystolic] 10 mg PO DAILY 07/10/19 05/16/20 Pravastatin Sodium [Pravachol] 40 mg PO HS 07/10/19 05/16/20 Vilazodone HCl [Viibryd] 40 mg PO DAILY 07/10/19 05/16/20 hydrALAZINE HCL [Apresoline] 100 mg PO TID 07/10/19 05/16/20 Allopurinol [Zyloprim] 100 mg PO DAILY 05/16/20 05/16/20 Ergocalciferol [Vitamin D2] 50,000 unit PO SA 05/16/20 05/16/20 Fish Oil/Dha/Epa [Fish Oil 1,200 1 cap PO DAILY 05/16/20 05/16/20 mg Fish Oil] Icosapent Ethyl [Vascepa] 2 gm PO BID 05/16/20 05/16/20 Sodium Bicarbonate Tab 1,300 mg PO TID 05/16/20 05/16/20 Spironolactone [Aldactone] 25 mg PO DAILY 05/16/20 05/16/20 amLODIPine [Norvasc] 10 mg PO DAILY 05/16/20 05/16/20 calcitrioL [Rocaltrol] 0.25 mcg PO TH 05/16/20 05/16/20 cloNIDine HCL [Catapres] 0.2 mg PO TID 05/16/20 05/16/20 Allergies Allergy/AdvReac Type Severity Reaction Status Date / Time No Known Allergies Allergy Verified 05/16/20 10:32 Review of Systems ROS Statement: Those systems with pertinent positive or pertinent negative responses have been documented in the HPI. ROS Other: All systems not noted in ROS Statement are negative. Past Medical History Past Medical History: Diabetes Mellitus, Hyperlipidemia, Hypertension, Renal Disease, Sleep Apnea/CPAP/BIPAP Additional Past Medical History / Comment(s): IDDM type II, diabetic nephropathy-stage IV and pt states it is getting worse, nephrolithiasis-pt passed stone on his own, diabetic retinopathy with bilateral retinal bleeds, gout bilateral elbows and R footOSA without device, History of Any Multi-Drug Resistant Organisms: None Reported Past Surgical History: Adenoidectomy, Appendectomy, Orthopedic Surgery, Tonsillectomy Additional Past Surgical History / Comment(s): UVPPP, renal biopsy, bilateral laser eye surgery for retinal bleeds, R knee arthroscopy, L knee open surgery for ACL Past Anesthesia/Blood Transfusion Reactions: No Reported Reaction Additional Past Anesthesia/Blood Transfusion Reaction / Comment(s): Issue with pt's sleep apnea during surgery. Past Psychological History: Depression Smoking Status: Never smoker - Past Family History Mother Family Medical History: Renal Disease Additional Family Medical History / Comment(s): ESRD with dialysis-mother of renal failure at the age of 77yrs Father Family Medical History: No Reported History Additional Family Medical History / Comment(s): Father is healthy General Exam Limitations: no limitations General appearance: alert, in no apparent distress Head exam: Present: atraumatic, normocephalic, normal inspection Eye exam: Present: normal appearance, PERRL, EOMI. Absent: scleral icterus, conjunctival injection, periorbital swelling ENT exam: Present: normal exam, normal oropharynx, mucous membranes moist, TM's normal bilaterally. Absent: normal external ear exam (Patient has live moth noted in right ear. No bleeding or drainage) Neck exam: Present: normal inspection, full ROM. Absent: tenderness, meningismus, lymphadenopathy Respiratory exam: Present: normal lung sounds bilaterally. Absent: respiratory distress, wheezes, rales, rhonchi, stridor Cardiovascular Exam: Present: regular rate, normal rhythm, normal heart sounds. Absent: systolic murmur, diastolic murmur, rubs, gallop, clicks Course Vital Signs 06/14/20 21:37 Temperature 98.5 F Pulse Rate 77 Respiratory 18 Rate Blood Pressure 121/69 O2 Sat by Pulse 98 Oximetry Procedures - Foreign Body Removal Ear Location: ear canal (R) Foreign Body Suspected: insect If Insect Suspected: ear canal instilled with Lidocaine Foreign Body Removed: yes Foreign Body Removal Technique: forceps Tympanic Membrane Intact: Yes Patient Tolerated Procedure: well Medical Decision Making - Medical Decision Making Lidocaine was instilled into the ear until moth . The ear was then irrigated with saline until moth was visible. It was then removed with forceps. Tympanic membrane was inspected and appears intact after removal. Patient will follow up with primary care and return for any worsening symptoms. Disposition Clinical Impression: Ear foreign body Disposition: HOME SELF-CARE Condition: Good Instructions (If sedation given, give patient instructions): Ear Foreign Body ( ED) Additional Instructions: Please follow up with primary care. If you have any drainage from the area return to the emergency room. Is patient prescribed a controlled substance at d/c from ED?: No Referrals: Amadou Roman MD [Primary Care Provider] - 1-2 days Time of Disposition: 22:42
== END 2020-06-14 22:57 | disposition home or self-care (01) ==
LOC: EC 21:25
DX: T16.1XXA Foreign body in right ear, initial encounter (principal); E78.5 Hyperlipidemia, unspecified; I10 Essential (primary) hypertension; E11.40 Type 2 diabetes mellitus with diabetic neuropathy, unspecified; E11.319 Type 2 diabetes mellitus with unspecified diabetic retinopathy without macular edema; M10.9 Gout, unspecified; F32.9 Major depressive disorder, single episode, unspecified; Z79.4 Long term (current) use of insulin; Z79.899 Other long term (current) drug therapy; X58.XXXA Exposure to other specified factors, initial encounter; Y93.01 Activity, walking, marching and hiking
CPT/HCPCS: 69200; 99282

== ENCOUNTER 2021-10-18 06:55 | Observation (INO) | payer BC ==
[2021-10-18] MEDS ORDERED: ASPIRIN 81 MG PO STA (07:18)
[2021-10-18] MEDS ORDERED: NITROGLYCERIN OINT 1 INCH/GM PACKET TOPICAL STA (07:18)
[2021-10-18] MEDS ORDERED: NITROGLYCERIN SL TABS 0.4 MG TAB SUBLINGUAL STA (07:18)
--- NOTE | 2021-10-18 07:23 | ED ---
Chest Pain HPI - General Chief Complaint: Chest Pain Stated Complaint: HBP, Chest Tightness, Covid+ Time Seen by Provider: 10/18/21 07:12 Source: patient, RN notes reviewed Mode of arrival: ambulatory Limitations: no limitations - History of Present Illness Initial Comments: This is a pleasant 46-year-old male with a history of renal dysfunction. Patient states that he tested positive yesterday for COVID-19 after having some symptoms. He states he had a mild headache and a runny nose. Patient states he woke up this morning with chest discomfort about 1 AM. He is describing a pressure type feeling across his chest which as been constant. No alleviating or exacerbating factors. No relationship to breathing. No shortness of breath. no fever or chills, no changes in vision or hearing, no sore throat or difficulty with speech, no neck pain, no shortness of breath, no abdominal pain, no nausea or vomiting, no changes in urination or bowel movements, no numbness or tingling, no extremity pain, no skin rashes or lesions. - Related Data Home Medications Medication Instructions Recorded Confirmed Insulin Glargine/Lixisenatide 100 units SQ DAILY 07/10/19 10/18/21 [Soliqua 100 Unit-33 Mcg/ml Pen] Nebivolol HCl [Bystolic] 10 mg PO DAILY 07/10/19 10/18/21 Pravastatin Sodium [Pravachol] 40 mg PO HS 07/10/19 10/18/21 hydrALAZINE HCL [Apresoline] 100 mg PO TID 07/10/19 10/18/21 Allopurinol [Zyloprim] 100 mg PO DAILY 05/16/20 10/18/21 Ergocalciferol [Vitamin D2] 50,000 unit PO SA 05/16/20 10/18/21 Fish Oil/Dha/Epa [Fish Oil 1,200 1 cap PO DAILY 05/16/20 10/18/21 mg Fish Oil] Sodium Bicarbonate Tab 650 mg PO TID 05/16/20 10/18/21 amLODIPine [Norvasc] 10 mg PO DAILY 05/16/20 10/18/21 calcitrioL [Rocaltrol] 0.25 mcg PO TUTH 05/16/20 10/18/21 cloNIDine HCL [Catapres] 0.2 mg PO TID 05/16/20 10/18/21 ALPRAZolam [Xanax] 0.25 mg PO Q6H PRN 10/18/21 10/18/21 Doxazosin [Cardura] 4 mg PO DAILY 10/18/21 10/18/21 Furosemide [Lasix] 20 mg PO DAILY 10/18/21 10/18/21 Sodium Zirconium Cyclosilicate 10 gm PO DAILY 10/18/21 10/18/21 [Lokelma] Spironolactone [Aldactone] 25 mg PO DAILY 10/18/21 10/18/21 Vortioxetine Hydrobromide 20 mg PO DAILY 10/18/21 10/18/21 [Trintellix] Zinc 50 mg PO DAILY 10/18/21 10/18/21 buPROPion HCL [buPROPion HCL Xl] 150 mg PO DAILY 10/18/21 10/18/21 Allergies Allergy/AdvReac Type Severity Reaction Status Date / Time No Known Allergies Allergy Verified 10/18/21 08:35 Review of Systems ROS Statement: Those systems with pertinent positive or pertinent negative responses have been documented in the HPI. ROS Other: All systems not noted in ROS Statement are negative. Past Medical History Past Medical History: Diabetes Mellitus, Hyperlipidemia, Hypertension, Renal Disease, Sleep Apnea/CPAP/BIPAP Additional Past Medical History / Comment(s): IDDM type II, diabetic nephropathy-stage IV and pt states it is getting worse, nephrolithiasis-pt passed stone on his own, diabetic retinopathy with bilateral retinal bleeds, gout bilateral elbows and R footOSA without device, History of Any Multi-Drug Resistant Organisms: None Reported Past Surgical History: Adenoidectomy, Appendectomy, Orthopedic Surgery, Tonsillectomy Additional Past Surgical History / Comment(s): UVPPP, renal biopsy, bilateral laser eye surgery for retinal bleeds, R knee arthroscopy, L knee open surgery for ACL Past Anesthesia/Blood Transfusion Reactions: No Reported Reaction Additional Past Anesthesia/Blood Transfusion Reaction / Comment(s): Issue with pt's sleep apnea during surgery. Past Psychological History: Depression Smoking Status: Never smoker Past Alcohol Use History: None Reported Past Drug Use History: None Reported - Past Family History Mother Family Medical History: Renal Disease Additional Family Medical History / Comment(s): ESRD with dialysis-mother of renal failure at the age of 77yrs Father Family Medical History: No Reported History Additional Family Medical History / Comment(s): Father is healthy General Exam - General Exam Comments Initial Comments: Nontoxic appearing male in no significant distress. Vital signs noted. Does not appear to be ill or toxic. Limitations: no limitations General appearance: alert, in no apparent distress Head exam: Present: atraumatic, normocephalic, normal inspection Eye exam: Present: normal appearance, PERRL, EOMI. Absent: scleral icterus, conjunctival injection, periorbital swelling ENT exam: Present: normal exam, mucous membranes moist Neck exam: Present: normal inspection. Absent: tenderness, meningismus, lymphadenopathy Respiratory exam: Present: normal lung sounds bilaterally. Absent: respiratory distress, wheezes, rales, rhonchi, stridor Cardiovascular Exam: Present: regular rate, normal rhythm, normal heart sounds. Absent: systolic murmur, diastolic murmur, rubs, gallop, clicks GI/Abdominal exam: Present: soft, normal bowel sounds. Absent: distended, tenderness, guarding, rebound, rigid Extremities exam: Present: normal inspection, full ROM, normal capillary refill. Absent: tenderness, pedal edema, joint swelling, calf tenderness Back exam: Present: normal inspection Neurological exam: Present: alert, oriented X3, CN II-XII intact Psychiatric exam: Present: normal affect, normal mood Skin exam: Present: warm, dry, intact, normal color. Absent: rash Course Vital Signs 10/18/21 10/18/21 10/18/21 07:05 08:08 09:00 Temperature 98.3 F Pulse Rate 79 82 81 Respiratory 22 18 18 Rate Blood Pressure 179/100 146/101 144/94 O2 Sat by Pulse 95 95 95 Oximetry 10/18/21 10:35 Temperature Pulse Rate 84 Respiratory 18 Rate Blood Pressure 132/83 O2 Sat by Pulse 97 Oximetry Chest Pain MDM - Differential Diagnosis AMI, ACS, Pericarditis, Pleurisy-Other, GERD, Esophageal Spasm, Biliary Colic, Pancreatitis At this is unlikely before embolism due to the pressure type feeling, heart - MDM Case discussed in detail with Dr. Fletcher who agrees to admit the patient for chest pain. Patient will be given monoclonal antibody due to positive COVID-19 and risk factors. However patient really has no issues with shortness of breath. Note that the patient is medically for chest pain and not for symptoms of COVID- 19. Disposition Clinical Impression: Chest pain, COVID-19 Disposition: ADMITTED IP TO THIS HOSP
[2021-10-18 07:44] LABS: Basophils % (A) 1 %; Eosinophils # (A) 0.4 k/uL (0-0.7); Eosinophils % (A) 7 %; HCT 39.9 % (39.0-53.0); Lymphocytes # (A) 0.9 k/uL (1.0-4.8); Lymphocytes % (A) 17 %; MCHC 32.6 g/dL (31.0-37.0); MCV 88.9 fL (80.0-100.0); Mean Platelet Volume 7.6; Monocytes # (A) 0.4 k/uL (0-1.0); Monocytes % (A) 7 %; Neutrophils # (A) 3.2 k/uL (1.3-7.7); Neutrophils % (A) 64 %; Platelet Count 178 k/uL (150-450); RBC 4.48 m/uL (4.30-5.90); RDW 13.4 % (11.5-15.5); WBC 4.9 k/uL (3.8-10.6)
[2021-10-18 07:52] LABS: Albumin 3.7 g/dL (3.5-5.0); Calcium 9.1 mg/dL (8.4-10.2); Total Bilirubin 0.8 mg/dL (0.2-1.3); Total Protein 6.9 g/dL (6.3-8.2)
[2021-10-18 07:55] LABS: Magnesium 1.9 mg/dL (1.6-2.3); Phosphorus 4.5 mg/dL (2.5-4.5); Potassium 5.1 mmol/L (3.5-5.1)
[2021-10-18 08:02] LABS: INR 0.9 (<1.2); Prothrombin Time 9.6 sec (9.0-12.0)
[2021-10-18 08:03] LABS: Partial Thromboplastin Time 21.6 sec (22.0-30.0)
--- NOTE | 2021-10-18 08:08 | XR ---
EXAMINATION TYPE: XR chest 1V DATE OF EXAM: 10/18/2021 COMPARISON: None HISTORY: Chest pain TECHNIQUE: Single frontal view of the chest is obtained. FINDINGS: There is no focal air space opacity, pleural effusion, or pneumothorax seen. The cardiac silhouette size is within normal limits. The osseous structures are intact. IMPRESSION: No acute process.
[2021-10-18] MEDS ORDERED: NITROGLYCERIN SL TABS 0.4 MG TAB SUBLINGUAL PRN (08:39)
[2021-10-18] MEDS ORDERED: SODIUM CHLORIDE 0.9% 50 ML IVPB ONE ×3 (09:15→09:45)
[2021-10-18] MEDS ORDERED: BAMLANIVIMAB (EUA) 700 MG, ETESEVIMAB (EUA) 1,400 MG in SODIUM CHLORIDE 0.9% 100 ML IVPB ONE ×3 (09:15→09:45)
[2021-10-18] MEDS ORDERED: ONDANSETRON 4 MG/2 ML VIAL IVP STA (09:29)
[2021-10-18] MEDS ORDERED: MORPHINE SULFATE 4 MG/ML SYRINGE IV STA (09:29)
[2021-10-18] MEDS ORDERED: ALPRAZolam 0.25 MG TAB PO PRN (12:29)
[2021-10-18] MEDS ORDERED: buPROPion XL 150 MG TAB.ER.24H PO SCH (12:30)
[2021-10-18] MEDS ORDERED: NON FORMULARY DRUG (Fish Oil/Dha/Epa [Fish Oil 1,200 Mg Fish Oil] 1 EACH Capsule) PO SCH (12:30)
[2021-10-18] MEDS ORDERED: amLODIPine 10 MG TAB PO SCH (12:30)
[2021-10-18] MEDS ORDERED: DOXAZOSIN 4 MG TAB PO SCH (12:30)
[2021-10-18] MEDS ORDERED: FUROSEMIDE 20 MG TAB PO SCH (12:30)
[2021-10-18] MEDS ORDERED: VORTIOXETINE HYDROBROMIDE 20 MG TABLET PO SCH (12:30)
[2021-10-18] MEDS ORDERED: SODIUM ZIRCONIUM CYCLOSILICATE 10 GM PACKET PO SCH (12:30)
[2021-10-18] MEDS ORDERED: ZINC SULFATE 220 MG CAP PO SCH (12:30)
[2021-10-18] MEDS ORDERED: SPIRONOLACTONE 25 MG TAB PO SCH (12:30)
[2021-10-18] MEDS ORDERED: allopurinoL 100 MG TAB PO SCH (12:30)
[2021-10-18] MEDS ORDERED: NEBIVOLOL 5 MG TAB PO SCH (12:30)
[2021-10-18 12:35] LABS: Glucose,Whole Blood 69 mg/dL (75-99)
[2021-10-18 12:55] LABS: Glucose,Whole Blood 69 mg/dL (75-99)
--- NOTE | 2021-10-18 13:26 | P.HPIM ---
History of Present Illness H&P Date: 10/18/21 Chief Complaint: covid 19 poss, chest pain primarily right side right epigas trium This is a 46-year-old gentleman well-known to my practice well-known to myself, type II diabetic fairly well controlled complaining of runny nose and mild sore throat and nasal congestion mild cough, tested positive for covid 19 with a home test. Patient has extremely mild symptoms for SARS Covid, was infused with monoclonal antibody in the emergency room prior to the admission, troponins thus far were negative and on further investigation patient complains of discomfort primarily radiating from the right lower chest and epigastrium across the lower chest which may be atypical presentation of cardiac discomfort however my index of suspicion for gallbladder disease has peaked, will obtain ultrasound of the abdomen with concentration on the gallbladder, patient also has cardiology co nsultation and echo ordered Review of Systems Constitutional: Reports malaise Ears, nose, mouth and throat: Reports nasal congestion (Anterior cervical adenopathy) Cardiovascular: Reports chest pain (Primarily on the right side) Respiratory: Reports congestion (Mild congestion) Gastrointestinal: Reports as per HPI, Reports belching (Right lower chest pain radiating across to the left and epigastrium) Genitourinary: Reports as per HPI Musculoskeletal: Reports as per HPI Integumentary: Reports as per HPI Past Medical History Past Medical History: Diabetes Mellitus, Hyperlipidemia, Hypertension, Renal Disease, Sleep Apnea/CPAP/BIPAP Additional Past Medical History / Comment(s): IDDM type II, diabetic nephropathy-stage IV and pt states it is getting worse, nephrolithiasis-pt passed stone on his own, diabetic retinopathy with bilateral retinal bleeds, gout bilateral elbows and R footOSA without device, History of Any Multi-Drug Resistant Organisms: None Reported Past Surgical History: Adenoidectomy, Appendectomy, Orthopedic Surgery, Tonsillectomy Additional Past Surgical History / Comment(s): UVPPP, renal biopsy, bilateral laser eye surgery for retinal bleeds, R knee arthroscopy, L knee open surgery for ACL Past Anesthesia/Blood Transfusion Reactions: No Reported Reaction Additional Past Anesthesia/Blood Transfusion Reaction / Comment(s): Issue with pt's sleep apnea during surgery. Past Psychological History: Depression Additional Psychological History / Comment(s): Pt resides with his adult son. Pt is independent. Smoking Status: Never smoker Past Alcohol Use History: None Reported Past Drug Use History: None Reported - Past Family History Mother Family Medical History: Renal Disease Additional Family Medical History / Comment(s): ESRD with dialysis-mother of renal failure at the age of 77yrs Father Family Medical History: No Reported History Additional Family Medical History / Comment(s): Father is healthy Medications and Allergies Home Medications Medication Instructions Recorded Confirmed Type Insulin Glargine/Lixisenatide 100 units SQ DAILY 07/10/19 10/18/21 History [Soliqua 100 Unit-33 Mcg/ml Pen] Nebivolol HCl [Bystolic] 10 mg PO DAILY 07/10/19 10/18/21 History Pravastatin Sodium [Pravachol] 40 mg PO HS 07/10/19 10/18/21 History hydrALAZINE HCL [Apresoline] 100 mg PO TID 07/10/19 10/18/21 History Allopurinol [Zyloprim] 100 mg PO DAILY 05/16/20 10/18/21 History Ergocalciferol [Vitamin D2] 50,000 unit PO SA 05/16/20 10/18/21 History Fish Oil/Dha/Epa [Fish Oil 1,200 1 cap PO DAILY 05/16/20 10/18/21 History mg Fish Oil] Sodium Bicarbonate Tab 650 mg PO TID 05/16/20 10/18/21 History amLODIPine [Norvasc] 10 mg PO DAILY 05/16/20 10/18/21 History calcitrioL [Rocaltrol] 0.25 mcg PO TUTH 05/16/20 10/18/21 History cloNIDine HCL [Catapres] 0.2 mg PO TID 05/16/20 10/18/21 History ALPRAZolam [Xanax] 0.25 mg PO Q6H PRN 10/18/21 10/18/21 History Doxazosin [Cardura] 4 mg PO DAILY 10/18/21 10/18/21 History Furosemide [Lasix] 20 mg PO DAILY 10/18/21 10/18/21 History Sodium Zirconium Cyclosilicate 10 gm PO DAILY 10/18/21 10/18/21 History [Lokelma] Spironolactone [Aldactone] 25 mg PO DAILY 10/18/21 10/18/21 History Vortioxetine Hydrobromide 20 mg PO DAILY 10/18/21 10/18/21 History [Trintellix] Zinc 50 mg PO DAILY 10/18/21 10/18/21 History buPROPion HCL [buPROPion HCL Xl] 150 mg PO DAILY 10/18/21 10/18/21 History Allergies Allergy/AdvReac Type Severity Reaction Status Date / Time No Known Allergies Allergy Verified 10/18/21 08:35 Physical Exam Osteopathic Statement: *. No significant issues noted on an osteopathic structural exam other than those noted in the History and Physical/Consult. Vitals: Vital Signs Temp Pulse Resp BP Pulse Ox 10/18/21 10:35 84 18 132/83 97 10/18/21 09:00 81 18 144/94 95 10/18/21 08:08 82 18 146/101 95 10/18/21 07:05 98.3 F 79 22 179/100 95 Intake and Output 10/17/21 10/18/21 10/18/21 22:59 06:59 14:59 Other: Weight 127.006 kg General: [Patient awake, alert and oriented times 3. Patient in no acute distress. Morbidly obese HEENT: [PERRL. EOMI. No pharyngeal erythema or exudate.] Neck: [No adenopathy.] Cardiac: [Heart regular in rate and rhythm. No S3. No S4. No clicks, rubs. No murmur.] Lungs: [Clear to auscultation bilaterally.] Abdomen: [No mass. No organomegaly. Bowel sounds presnt and normoactive in all 4 quadrants.] Extremes: [No edema no cyanosis no claudication normal pulses] : Normal male genitalia Musculoskeletal: [No joint erythema, edema or tenderness.] Skin: [No rash.] Neurologic: [No lateralizing deficits. CN II - XII grossly intact.] Lymphatic: [No adenopathy.] Results CBC & Chem 7: 10/18/21 07:35 10/18/21 07:35 Labs: Abnormal Lab Results - Last 24 Hours (Table) 10/18/21 10/18/21 10/18/21 Range/Units 07:35 07:35 07:35 Lymphocytes # 0.9 L (1.0-4.8) k/uL APTT 21.6 L (22.0-30.0) sec Sodium 135 L (137-145) mmol/L Chloride 108 H (98-107) mmol/L BUN 47 H (9-20) mg/dL Creatinine 3.00 H (0.66-1.25) mg/dL POC Glucose (mg/dL) (75-99) mg/dL 10/18/21 Range/Units 12:33 Lymphocytes # (1.0-4.8) k/uL APTT (22.0-30.0) sec Sodium (137-145) mmol/L Chloride (98-107) mmol/L BUN (9-20) mg/dL Creatinine (0.66-1.25) mg/dL POC Glucose (mg/dL) 69 L (75-99) mg/dL Thrombosis Risk Factor Assmnt - Choose All That Apply Each Factor Represents 1 point: Age 41-60 years, Obesity (BMI >25) Other Risk Factors: No Other congenital or acquired thrombophilia - If yes, enter type in comment: No Thrombosis Risk Factor Assessment Total Risk Factor Score: 2 Thrombosis Risk Factor Assessment Level: Low Risk Assessment and Plan (1) Right upper quadrant pain Current Visit: Yes Status: Acute Code(s): R10.11 - RIGHT UPPER QUADRANT PAIN SNOMED Code(s): 967446109 (2) COVID-19 Current Visit: Yes Status: Acute Code(s): U07.1 - COVID-19 SNOMED Code(s): 841958283 (3) Chest pain Current Visit: Yes Status: Acute Code(s): R07.9 - CHEST PAIN, UNSPECIFIED SNOMED Code(s): 76621022 (4) KIRA (acute kidney injury) Current Visit: No Status: Acute Code(s): N17.9 - ACUTE KIDNEY FAILURE, UNSPECIFIED SNOMED Code(s): 91627547 (5) DM (diabetes mellitus), secondary, with renal complications Current Visit: No Status: Acute Code(s): E13.29 - OTH DIABETES MELLITUS WITH OTH DIABETIC KIDNEY COMPLICATION SNOMED Code(s): 3614307 (6) Hypertension associated with chronic kidney disease due to type 2 diabetes mellitus Current Visit: No Status: Acute Code(s): E11.22 - TYPE 2 DIABETES MELLITUS W DIABETIC CHRONIC KIDNEY DISEASE; I12.9 - HYPERTENSIVE CHRONIC KIDNEY DISEASE W STG 1-4/UNSP CHR KDNY SNOMED Code(s): 62713597246280 Plan: Patient presents with chest discomfort across the lower chest radiating from right to left complains of mild right-sided back pain First 2 troponins are negative Doubt cardiac in nature Acute kidney injury Kidney stone versus biliary obstruction(less likely) Known history of gout Type 2 diabetes Hypertension We'll re-evaluate diagnostic studies in the morning possible discharge late this afternoon and ultrasound and troponins are negative Cardiology consultation pending Time with Patient: Greater than 30
[2021-10-18] MEDS: cloNIDine HCL 0.2 MG TAB PO SCH ×2 (13:31→17:33)
[2021-10-18] MEDS ORDERED: ONDANSETRON 4 MG/2 ML VIAL IVP PRN (13:47)
[2021-10-18] MEDS ORDERED: HYDROcodone/APAP 5-325MG 1 EACH TAB PO PRN (13:48)
[2021-10-18] MEDS: hydrALAZINE HCL 50 MG TAB PO SCH ×2 (14:27→16:25)
[2021-10-18] MEDS: SODIUM BICARBONATE TAB 650 MG TAB PO SCH ×2 (14:28→16:25)
--- NOTE | 2021-10-18 14:57 | US ---
EXAMINATION TYPE: US abdomen comp/pelvis limited DATE OF EXAM: 10/18/2021 COMPARISON: US 2018, CT 2019 CLINICAL HISTORY: ruq pain. Exam done portable on covid patient EXAM MEASUREMENTS: Liver Length: 20.2 cm Gallbladder Wall: 0.3 cm CBD: 0.4 cm Spleen: 14.9 cm Right Kidney: 12.1 x 5.6 x 5.3 cm Left Kidney: 11.9 x 6.3 x 5.0 cm Difficult and limited study due to patient body habitus Pancreas: obscured by overlying midline bowel gas Liver: enlarged, hyperattenuating heterogeneous parenchyma Gallbladder: wnl CBD: visualized portions wnl, limited by overlying bowel gas Spleen: visualized portions wnl, limited by overlying bowel gas Right Kidney: 1.3cm cystic area inferior pole, larger superior pole cystic area seen on previous lexi dy not seen on today's exam Left Kidney: wnl Upper IVC: wnl Abd Aorta: obscured by overlying midline bowel gas Bladder: wnl IMPRESSION: Limited study by patient body habitus and bowel gas. 1. Hyperechoic heterogeneous hepatic parenchyma suggestive of steatosis. A 4 mm hypoechoic/anechoic l esion in the left hepatic lobe is likely on the basis of cyst. Difficult to exclude other lesions due to heterogeneous parenchyma. 2. No sonographic evidence for cholelithiasis or acute cholecystitis. 3. A 1.3 cm hypoechoic lesion in the right kidney was not seen on prior study, may be reflective of s imple or complex cyst. This may be followed with ultrasound in 3-6 months.
[2021-10-18 14:58] LABS: Glucose,Whole Blood 75 mg/dL (75-99)
[2021-10-18 15:56] VITALS: BP 159/83; PULSE 72; RESP 17; TEMP 97.7
[2021-10-18 17:30] LABS: Glucose,Whole Blood 100 mg/dL (75-99)
[2021-10-18] MEDS ORDERED: PANTOPRAZOLE 40 MG/10 ML VIAL IVP SCH (17:30)
[2021-10-18] MEDS ORDERED: SCOPOLAMINE 1.5MG/72HR PATCH TRANSDERM SCH (17:30)
--- NOTE | 2021-10-18 17:51 | P.GSCN ---
History of Present Illness Consult date: 10/18/21 Reason for Consult: Hepatic and renal cysts, hepatic steatosis seen on ultrasound, epigastric abdominal pain, COVID-19 infection History of present illness: Patient is a 46-year-old gentleman who presents to [facility] emergency department 10/18/2020 with chief complaint of an approximately 24-hour history of nasal congestion and runny nose, sore throat, subjective fever and chills, nonproductive cough, malaise, nausea with dry heaves and nonbloody emesis, as well as epigastric and right upper quadrant abdominal pain. He denies a ttendance symptoms of dysphagia, no reported problems with heartburn. He hasn't had these kinds of symptoms in the past. He tested positive on a home COVID-19 test. Repeat testing in the ER was negative. He is reportedly been treated with antibody infusion and has been admitted for further workup of atypical chest pain. No previous endoscopy, no known personal history of peptic ulcer disease or H. pylori infection. He tells me that he was exposed to someone her tested positive for Covid about a week ago, sounds like his reclaimer or decreased and there have been multiple coworkers are of recently tested positive for Covid as well. Laboratory studies on presentation were essentially unimpressive. White blood cell count was 4.9, hemoglobin 13.0, platelet count of 178. MCV and MCH indices were within normal limits as was RDW. INR normal range of 0.9. Serum electrolytes revealed a trivially low sodium at 135, creatinine was elevated 3.0. Patient admits to chronic kidney disease and has reportedly been referred for transplant evaluation. He tells me is never been on hemodialysis. Patient's had some low blood glucose readings over the course of his stay thus far at around 69 this afternoon. All within normal limits with AST and healthy of 31 and 29 respectively, alkaline phosphatase of 56, total bilirubin normal at 0.8. Lipase acceptable at 228. Albumin normal range at 3.7. Serial troponins have been below detectable threshold. BNP was a bit elevated at 819. His re peat Covid PCR in the ER was negative. Abdominal ultrasound reveals a very small 4 mm left hepatic lobe cyst, no evidence of gallstones or gallbladder wall thickening, no pericholecystic fluid described, and a 1.3 cm right renal cyst was noted. Chest x-ray on admission was read as revealing no acute process. Inspection of the images does seem to show some mild cephalization of vasculature. He continues to have nausea and recurrent dry heaves and epigastric soreness. Review of Systems All systems: negative - Constitutional Reports as per HPI, Reports chills, Reports fatigue, Reports fever Past Medical History Past Medical History: Diabetes Mellitus, Hyperlipidemia, Hypertension, Renal Disease, Sleep Apnea/CPAP/BIPAP Additional Past Medical History / Comment(s): IDDM type II, diabetic nephropathy-stage IV and pt states it is getting worse, nephrolithiasis-pt passed stone on his own, diabetic retinopathy with bilateral retinal bleeds, gout bilateral elbows and R footOSA without device, History of Any Multi-Drug Resistant Organisms: None Reported Past Surgical History: Adenoidectomy, Appendectomy, Orthopedic Surgery, Tonsillectomy Additional Past Surgical History / Comment(s): UVPPP, renal biopsy, bilateral laser eye surgery for retinal bleeds, R knee arthroscopy, L knee open surgery for ACL Past Anesthesia/Blood Transfusion Reactions: No Reported Reaction Additional Past Anesthesia/Blood Transfusion Reaction / Comm: Issue with pt's sleep apnea during surgery. Past Psychological History: Depression Smoking Status: Never smoker Past Alcohol Use History: None Reported Past Drug Use History: None Reported - Past Family History Mother Family Medical History: Renal Disease Additional Family Medical History / Comment(s): ESRD with dialysis-mother of renal failure at the age of 77yrs Father Family Medical History: No Reported History Additional Family Medical History / Comment(s): Father is healthy Medications and Allergies Home Medications Medication Instructions Recorded Confirmed Type Insulin Glargine/Lixisenatide 100 units SQ DAILY 07/10/19 10/18/21 History [Soliqua 100 Unit-33 Mcg/ml Pen] Nebivolol HCl [Bystolic] 10 mg PO DAILY 07/10/19 10/18/21 History Pravastatin Sodium [Pravachol] 40 mg PO HS 07/10/19 10/18/21 History hydrALAZINE HCL [Apresoline] 100 mg PO TID 07/10/19 10/18/21 History Allopurinol [Zyloprim] 100 mg PO DAILY 05/16/20 10/18/21 History Ergocalciferol [Vitamin D2] 50,000 unit PO SA 05/16/20 10/18/21 History Fish Oil/Dha/Epa [Fish Oil 1,200 1 cap PO DAILY 05/16/20 10/18/21 History mg Fish Oil] Sodium Bicarbonate Tab 650 mg PO TID 05/16/20 10/18/21 History amLODIPine [Norvasc] 10 mg PO DAILY 05/16/20 10/18/21 History calcitrioL [Rocaltrol] 0.25 mcg PO TUTH 05/16/20 10/18/21 History cloNIDine HCL [Catapres] 0.2 mg PO TID 05/16/20 10/18/21 History ALPRAZolam [Xanax] 0.25 mg PO Q6H PRN 10/18/21 10/18/21 History Doxazosin [Cardura] 4 mg PO DAILY 10/18/21 10/18/21 History Furosemide [Lasix] 20 mg PO DAILY 10/18/21 10/18/21 History Sodium Zirconium Cyclosilicate 10 gm PO DAILY 10/18/21 10/18/21 History [Lokelma] Spironolactone [Aldactone] 25 mg PO DAILY 10/18/21 10/18/21 History Vortioxetine Hydrobromide 20 mg PO DAILY 10/18/21 10/18/21 History [Trintellix] Zinc 50 mg PO DAILY 10/18/21 10/18/21 History buPROPion HCL [buPROPion HCL Xl] 150 mg PO DAILY 10/18/21 10/18/21 History Allergies Allergy/AdvReac Type Severity Reaction Status Date / Time No Known Allergies Allergy Verified 10/18/21 08:35 Surgical - Exam Osteopathic Statement: *. No significant issues noted on an osteopathic structural exam other than those noted in the History and Physical/Consult. Vital Signs Temp Pulse Resp BP Pulse Ox 98.3 F 79 22 179/100 95 10/18/21 07:05 10/18/21 07:05 10/18/21 07:05 10/18/21 07:05 10/18/21 07:05 - General well developed, no distress, obese - Eyes PERRL - ENT normal pinna - Neck no masses - Respiratory normal expansion, normal respiratory effort - Cardiovascular Rhythm: regular - Abdomen Abdomen: soft, non tender - Neurologic normal coordination, normal sensation - Psychiatric oriented to time, oriented to person, oriented to place Results - Labs 10/18/21 07:35 01/15/22 07:35 Abnormal Lab Results - Last 24 Hours (Table) 10/18/21 10/18/21 10/18/21 Range/Units 07:35 07:35 07:35 Lymphocytes # 0.9 L (1.0-4.8) k/uL APTT 21.6 L (22.0-30.0) sec Sodium 135 L (137-145) mmol/L Chloride 108 H (98-107) mmol/L BUN 47 H (9-20) mg/dL Creatinine 3.00 H (0.66-1.25) mg/dL POC Glucose (mg/dL) (75-99) mg/dL 10/18/21 10/18/21 Range/Units 12:33 12:54 Lymphocytes # (1.0-4.8) k/uL APTT (22.0-30.0) sec Sodium (137-145) mmol/L Chloride (98-107) mmol/L BUN (9-20) mg/dL Creatinine (0.66-1.25) mg/dL POC Glucose (mg/dL) 69 L 69 L (75-99) mg/dL Diabetes panel 10/18/21 Range/Units 07:35 Sodium 135 L (137-145) mmol/L Potassium 5.1 (3.5-5.1) mmol/L Chloride 108 H (98-107) mmol/L Carbon Dioxide 22 (22-30) mmol/L BUN 47 H (9-20) mg/dL Creatinine 3.00 H (0.66-1.25) mg/dL Glucose 94 (74-99) mg/dL Calcium 9.1 (8.4-10.2) mg/dL AST 31 (17-59) U/L ALT 29 (4-49) U/L Alkaline Phosphatase 56 (38-126) U/L Total Protein 6.9 (6.3-8.2) g/dL Albumin 3.7 (3.5-5.0) g/dL Calcium panel 10/18/21 Range/Units 07:35 Calcium 9.1 (8.4-10.2) mg/dL Phosphorus 4.5 (2.5-4.5) mg/dL Albumin 3.7 (3.5-5.0) g/dL Pituitary panel 10/18/21 Range/Units 07:35 Sodium 135 L (137-145) mmol/L Potassium 5.1 (3.5-5.1) mmol/L Chloride 108 H (98-107) mmol/L Carbon Dioxide 22 (22-30) mmol/L BUN 47 H (9-20) mg/dL Creatinine 3.00 H (0.66-1.25) mg/dL Glucose 94 (74-99) mg/dL Calcium 9.1 (8.4-10.2) mg/dL Adrenal panel 10/18/21 Range/Units 07:35 Sodium 135 L (137-145) mmol/L Potassium 5.1 (3.5-5.1) mmol/L Chloride 108 H (98-107) mmol/L Carbon Dioxide 22 (22-30) mmol/L BUN 47 H (9-20) mg/dL Creatinine 3.00 H (0.66-1.25) mg/dL Glucose 94 (74-99) mg/dL Calcium 9.1 (8.4-10.2) mg/dL Total Bilirubin 0.8 (0.2-1.3) mg/dL AST 31 (17-59) U/L ALT 29 (4-49) U/L Alkaline Phosphatase 56 (38-126) U/L Total Protein 6.9 (6.3-8.2) g/dL Albumin 3.7 (3.5-5.0) g/dL Assessment and Plan Assessment: 46 year-old gentleman with epigastric abdominal pain and right upper quadrant pain in the setting of what appear to be acute viral illness, initial Covid screening test was positive at home, follow-up in the ER negative. Const ellation of symptoms and a history highly indicative of a COVID-19 infection. Nausea and recurrent dry heaves, may implicate a simple muscular strain injury. Patient's abdominal exam is entirely benign, no tenderness whatsoever on deep epigastric and right upper quadrant palpation. Liver function studies are all within normal limits. No evidence of leukocytosis. Patient is afebrile, normotensive to hypertensive and appears hemodynamically stable. No clinical signs of GI bleeding. The simple appearing hepatic cyst on ultrasound is miniscule, is not the kind of thing that could contribute to any manner of abdominal symptoms. His right renal cyst could be followed with a renal ultrasound in 3-6 months, patient is presently following with nephrology. There is no evidence of acute cholecystitis no gallbladder wall thickening no pericholecystic fluid no gallstone burden no appreciable microlithiasis seen on ultrasound. Transaminases within normal limits, lipase nonelevated, I don't suspect an acute pancreatitis at present. Possible underlying reflux or gastritis given reports of atypical chest pain on initial presentation. Plan: Patient was advised that his renal cyst, hepatic cyst and fatty hepatic infiltration don't require any manner of surgical intervention. An ultrasound guided liver biopsy at some point in the future could be of benefit to clarify presence or absence of steatohepatitis. A HIDA scan in the short-term to investigate for dyskinesia is not going to be of value in the setting of acute viral illness. If he did have signs of biliary colic on imaging, that is not the kind of thing that we would pursue surgically within 4-6 weeks of Covid diagnosis as patients are at a markedly increased risk for thromboembolic complications on the table and in the postoperative period. Patient's ultrasound shows no such evidence of gallstone burden. Will try to get a better handle on the patient's nausea and dry heaves with scopolamine patch. Add Protonix daily for empiric treatment of reflux or gastritis in the setting of atypical chest pain. Diagnostic EGD could be considered on an outpatient basis 4-6 weeks after recovery from Covid if the patient has persistent symptoms to screen for erosive esophagitis, gastritis and peptic ulcer disease in the absence of cardiac etiology. Serial troponins thus far nonelevated. Okay for discharge at any time from a surgical standpoint. Will reassess at your request.
[2021-10-18] MEDS ORDERED: PRAVASTATIN SODIUM 40 MG TAB PO SCH (21:00)
[2021-10-19] MEDS ORDERED: ASPIRIN 325 MG TAB PO SCH (09:00)
[2021-10-19] MEDS ORDERED: NON FORMULARY DRUG (Insulin Glargine/Lixisenatide [Soliqua 100 Unit-33 Mcg/Ml Pen] 3 ML In SQ SCH (09:00)
[2021-10-25] MEDS ORDERED: ERGOCALCIFEROL 1,250 MCG (50,000 IU) CAPSULE PO SCH (09:00)
--- NOTE | 2021-10-25 12:54 | P.DS ---
Providers Date of admission: 10/18/21 09:54 Expected date of discharge: 10/25/21 Attending physician: Hollis Ghosh Consults: 10/18/21 08:40 Consult Physician Urgent Consulting Provider: Al Yi Consult Reason/Comments: Chest pain Do you want consulting provider notified?: Yes 10/18/21 15:40 Consult Physician Routine Consulting Provider: Ariel Schaffer Consult Reason/Comments: fatty liver hepatic cyst and renal cyst Do you want consulting provider notified?: Yes Primary care physician: Amadou Roman - Discharge Diagnosis(es) (1) Right upper quadrant pain Status: Acute (2) COVID-19 Status: Acute (3) Chest pain Status: Acute (4) KIRA (acute kidney injury) Status: Acute (5) DM (diabetes mellitus), secondary, with renal complications Status: Acute (6) Hypertension associated with chronic kidney disease due to type 2 diabetes mellitus Status: Acute Hospital Course: General: [Patient awake, alert and oriented times 3. Patient in no acute distress.] HEENT: [PERRL. EOMI. No pharyngeal erythema or exudate.] Neck: [No adenopathy.] Cardiac: [Heart regular in rate and rhythm. No S3. No S4. No clicks, rubs. No murmur.] Lungs: Mild bibasilar crackles Abdomen: [No mass. No organomegaly. Bowel sounds presnt and normoactive in all 4 quadrants.] Extremes: [No edema no cyanosis no claudication normal pulses] : Normal male genitalia Musculoskeletal: [No joint erythema, edema or tenderness.] Skin: [No rash.] Neurologic: [No lateralizing deficits. CN II - XII grossly intact.] Lymphatic: [No adenopathy.] Assessment: Patient's covid Positive sats are stable Discharge home with specific instructions regarding personal care and returning to the hospital and patient becoming short of breath O2 desats We'll follow in the office on the next regular office today Known history of type 2 diabetes currently well controlled Known history of renal insufficiency stage III Known history of controlled hypertension We'll follow closely as needed Patient Condition at Discharge: Fair Plan - Discharge Summary Discharge Rx Participant: No New Discharge Prescriptions: No Action Pravastatin Sodium [Pravachol] 40 mg PO HS Nebivolol HCl [Bystolic] 10 mg PO DAILY hydrALAZINE HCL [Apresoline] 100 mg PO TID Insulin Glargine/Lixisenatide [Soliqua 100 Unit-33 Mcg/ml Pen] 100 units SQ DAILY amLODIPine [Norvasc] 10 mg PO DAILY Allopurinol [Zyloprim] 100 mg PO DAILY Sodium Bicarbonate Tab 650 mg PO TID Ergocalciferol [Vitamin D2] 50,000 unit PO SA cloNIDine HCL [Catapres] 0.2 mg PO TID calcitrioL [Rocaltrol] 0.25 mcg PO TUTH Fish Oil/Dha/Epa [Fish Oil 1,200 mg Fish Oil] 1 cap PO DAILY Zinc 50 mg PO DAILY Vortioxetine Hydrobromide [Trintellix] 20 mg PO DAILY buPROPion HCL [buPROPion HCL Xl] 150 mg PO DAILY ALPRAZolam [Xanax] 0.25 mg PO Q6H PRN PRN Reason: Anxiety Sodium Zirconium Cyclosilicate [Lokelma] 10 gm PO DAILY Furosemide [Lasix] 20 mg PO DAILY Doxazosin [Cardura] 4 mg PO DAILY Spironolactone [Aldactone] 25 mg PO DAILY Discharge Medication List Insulin Glargine/Lixisenatide [Soliqua 100 Unit-33 Mcg/ml Pen] 100 units SQ DAILY 07/10/19 [History] Nebivolol HCl [Bystolic] 10 mg PO DAILY 07/10/19 [History] Pravastatin Sodium [Pravachol] 40 mg PO HS 07/10/19 [History] hydrALAZINE HCL [Apresoline] 100 mg PO TID 07/10/19 [History] Allopurinol [Zyloprim] 100 mg PO DAILY 05/16/20 [History] Ergocalciferol [Vitamin D2] 50,000 unit PO SA 05/16/20 [History] Fish Oil/Dha/Epa [Fish Oil 1,200 mg Fish Oil] 1 cap PO DAILY 05/16/20 [History] Sodium Bicarbonate Tab 650 mg PO TID 05/16/20 [History] amLODIPine [Norvasc] 10 mg PO DAILY 05/16/20 [History] calcitrioL [Rocaltrol] 0.25 mcg PO TUTH 05/16/20 [History] cloNIDine HCL [Catapres] 0.2 mg PO TID 05/16/20 [History] ALPRAZolam [Xanax] 0.25 mg PO Q6H PRN 10/18/21 [History] Doxazosin [Cardura] 4 mg PO DAILY 10/18/21 [History] Furosemide [Lasix] 20 mg PO DAILY 10/18/21 [History] Sodium Zirconium Cyclosilicate [Lokelma] 10 gm PO DAILY 10/18/21 [History] Spironolactone [Aldactone] 25 mg PO DAILY 10/18/21 [History] Vortioxetine Hydrobromide [Trintellix] 20 mg PO DAILY 10/18/21 [History] Zinc 50 mg PO DAILY 10/18/21 [History] buPROPion HCL [buPROPion HCL Xl] 150 mg PO DAILY 10/18/21 [History] Follow up Appointment(s)/Referral(s): Amadou Roman MD [Primary Care Provider] - 1-2 days Patient Instructions/Handouts: Coronavirus Disease 2019 (COVID-19) Discharge Disposition: HOME SELF-CARE
== END 2021-10-18 18:18 | disposition home or self-care (01) ==
LOC: EC 06:55 → 6NMEDSUR 09:54
PROVIDERS: ADMIT Family Medicine; ATTEND Family Medicine
DX: R10.11 Right upper quadrant pain (principal); U07.1 COVID-19; R07.89 Other chest pain; N17.9 Acute kidney failure, unspecified; I12.9 Hypertensive chronic kidney disease with stage 1 through stage 4 chronic kidney disease, or unspecified chronic kidney disease; E11.22 Type 2 diabetes mellitus with diabetic chronic kidney disease; N18.4 Chronic kidney disease, stage 4 (severe); E11.319 Type 2 diabetes mellitus with unspecified diabetic retinopathy without macular edema; E78.5 Hyperlipidemia, unspecified; K76.89 Other specified diseases of liver; K76.0 Fatty (change of) liver, not elsewhere classified; N28.1 Cyst of kidney, acquired; G47.30 Sleep apnea, unspecified; M10.9 Gout, unspecified; R50.9 Fever, unspecified; R11.2 Nausea with vomiting, unspecified; R10.13 Epigastric pain; R09.81 Nasal congestion; R05.9 Cough, unspecified; R51.9 Headache, unspecified; R53.81 Other malaise; R06.02 Shortness of breath; R19.8 Other specified symptoms and signs involving the digestive system and abdomen; R11.0 Nausea; M54.9 Dorsalgia, unspecified; E66.01 Morbid (severe) obesity due to excess calories; Z68.38 Body mass index [BMI] 38.0-38.9, adult; F32.A Depression, unspecified; Z79.4 Long term (current) use of insulin; Z79.899 Other long term (current) drug therapy; Z87.442 Personal history of urinary calculi; Z90.49 Acquired absence of other specified parts of digestive tract; Z84.1 Family history of disorders of kidney and ureter
CPT/HCPCS: 99285; 96376; 96375 ×2; 96374; 36415; 93005; 83880; 80053; 83690; 83735; 84100; 84484; 85025; 85610; 85730; 87635; 71045; 76700; 76857; G0378; M0245; J2270; J2405; C9113; J3490

== ENCOUNTER → 2022-01-21 | Outpatient (CLI) | payer BC ==
--- NOTE | 2022-01-21 15:49 | US ---
EXAMINATION TYPE: US kidneys/renal and bladder DATE OF EXAM: 01/21/2022 COMPARISON: NONE CLINICAL HISTORY: Z01.818 PRE TRANSPLANT EVAL FOR KIDNEY TRANSPLANT. EXAM MEASUREMENTS: Right Kidney: 12.1 x 5.2 x 5.1 cm Left Kidney: 12.5 x 5.7 x 5.6 cm Right Kidney: 2 cysts measuring 1.4 x 1.1 x 1.5, and 1.0 x 1. 0 x 1.0cm, upper limites of normal i n size Left Kidney: measures large Bladder: wnl Bilateral Jets seen: Yes There is no evidence for hydronephrosis at this point in time. No nephrolithiasis is seen. No solid masses are identified. The urinary bladder is anechoic. Bilateral ureteral jets are seen. IMPRESSION: Simple cysts right kidney
== END | disposition home or self-care (01) ==
LOC: RADUSWWP 15:04
PROVIDERS: ATTEND Internal Medicine
DX: Z01.818 Encounter for other preprocedural examination (principal)
CPT/HCPCS: 76770

== ENCOUNTER → 2022-01-30 | Outpatient (CLI) | payer BC ==
[~2022-01-30] MED LIST changes: -ALPRAZolam 0.5 MG TAB PO STA; -DESMOPRESSIN ACETATE 36 MCG in SODIUM CHLORIDE 0.9% 50 ML IVPB ONE; +DOBUTamine DRIP for NUC MED 500 MG in DEXTROSE/WATER 1 250ML.BAG IV PRN; -HYDROmorphone 1 MG/ML 1 ML SYRINGE IVP STA; -SODIUM CHLORIDE 0.9% 500 ML 250 ML IV ONE
--- NOTE | 2022-01-30 11:26 | CA ---
Transthoracic Echo Report Name: Roge Novak Age: 46 Gender: M : 1975 Exam Date: 01/30/2022 09:39 Exam Location: [facility] Ht (in): 72 Wt (lb): 280 Ordering Physician: Kory Buitrago DO ([email or web address]) Attending/Referring Phys: Open Claims Representative Alem Rondon RDCS Procedure CPT: Indications: r06.02 Cardiac Hx: No cardiac HX Technical Quality: Good Contrast 1: Total Dose (mL): Contrast 2: Total Dose (mL): MEASUREMENTS (Male / Female) Normal Values 2D ECHO LA Volume 81.4 cm 18 - 58 / 22 - 52 cm M-MODE Aortic Root Diameter MM 4.0 cm LA Systolic Diameter MM 3.4 cm LA Ao Ratio MM 0.8 MV E Point Septal Separation 2.1 cm AV Cusp Separation MM 2.7 cm DOPPLER AV Peak Velocity 136.2 cm/s AV Peak Gradient 7.4 mmHg MV Area PHT 4.0 cm MR Peak Velocity 309.6 cm/s MR Peak Gradient 38.3 mmHg Mitral E Point Velocity 121.4 cm/s Mitral A Point Velocity 82.6 cm/s Mitral E to A Ratio 1.5 MV Deceleration Time 191.9 ms MV E' Velocity 9.8 cm/s Mitral E to MV E' Ratio 12.4 TR Peak Velocity 181.0 cm/s TR Peak Gradient 13.1 mmHg Right Ventricular Systolic Press 18.1 mmHg FINDINGS Left Ventricle Left ventricular ejection fraction is estimated at 55-60 %. .Normal Left ventricular size, wall thickness, systolic function with no obvious regional wall motion abnormalities. Normal Left ventricular diastolic filling pattern. Right Ventricle The right ventricle is normal in size and function. Right Atrium The right atrium is normal in size. Normal interatrial septum Left Atrium Severely increased left atrial volume. Mildly increased left atrial area. Mitral Valve Structurally normal mitral valve without significant stenosis or prolapse. There is a trace of mitral regurgitation. Aortic Valve Structurally normal aortic valve without significant sclerosis or stenosis. There is no aortic regurgitation. Tricuspid Valve Structurally normal tricuspid valve without significant stenosis. Pulmonary artery systolic pressure is normal. Trace tricuspid regurgitation. Pulmonic Valve Structurally normal pulmonic valve without significant stenosis. There is no pulmonic regurgitation. Pericardium Normal pericardium without effusion. Aorta Normal aortic root dimension. CONCLUSIONS Normal LV size and systolic function with mild concentric LVH. There is mitral valve calcification and aortic sclerosis without stenosis. No significant pulmonary hypertension no pericardial effusion Previewed by: Dr. Rona Guerra MD (Electronically Signed) Final Date: 30 January 2022 11:25
--- NOTE | 2022-01-30 13:35 | CA ---
Dobutamine Stress Echocardiogram Report Roge Novak Age: 46 Gender: M : 1975 Exam Date: 01/30/2022 10:24 Exam Location: [facility] Ordering Physician: Kory Buitrago DO ([email or web address]) Referring Physician: ,, Psychology Teacher: Alem Rondon RDCS Technologist: Ht (in): 72 Wt (lb): 280 Procedure CPT: Indication: r06.02 ICD-9 Codes: Rhythm: Patient History: Hypertension, Diabetes and Hypercholesterolemia Cardiac Medications: Protonix, Rizatuiptau, Loficur, Nortiptiline Medications in past 24 hours: Contrast: N/A Total Dose (mL): Stress Results Protocol: Dobutamine Peak Dose (g/kg/min): 40 Duration (min:sec): Atropine:(mg) 0.5 Target HR: 146 Double Product: Resting HR: 77 Resting BP: 133 / 73 Peak HR: 116 Peak BP: 171 / 60 Max Predicted HR: 172 67 % Max Predicted HR Stress Summary: BP Response: Reason for Termination: Exam terminated by Niranjan Song. Cardiac Symptoms: Asymptomatic ECG Analysis Resting EKG: Stress EKG: Arrhythmia: Echo Analysis Base Echo Analysis: Low Echo Anaylsis: Peak Echo Analysis: Recovery Echo: MEASUREMENTS (Male/Female) Normal Values CONCLUSIONS Baseline EKG revealed normal sinus rhythm without significant ST-T changes. With the dobutamine administration as per protocol and atropine 0.5 mg administration, heart rate went up to a maximum of 116 bpm which is less than 85% of predicted maximum. This is therefore an inconclusive stress test. The stress level there was no evidence of any ischemic changes. There was no arrhythmia. This is an inconclusive stress test with unremarkable EKG at a rate of 116 bpm There was no evidence of any ischemia on the stress echo at a heart rate of 116 bpm, but this is inconclusive because of inadequate chronotropic response with dobutamine and atropine. Dr. Rona Guerra MD (Electronically Signed) Final Date: 30 January 2022 13:33
== END | disposition home or self-care (01) ==
LOC: RADNMMAIN 09:25
PROVIDERS: ATTEND Internal Medicine
DX: R06.02 Shortness of breath (principal)
CPT/HCPCS: 93306; 93351

== ENCOUNTER 2022-02-02 08:04 | Emergency (ER) | payer BC ==
[2022-02-02 08:08] VITALS: RESP 16; TEMP 97.8
[2022-02-02 08:40] LABS: Glucose,Whole Blood 157 mg/dL (75-99)
[2022-02-02 09:08] LABS: Basophils % (A) 1 %; Eosinophils # (A) 0.2 k/uL (0-0.7); Eosinophils % (A) 4 %; HCT 36.8 % (39.0-53.0); Lymphocytes # (A) 0.8 k/uL (1.0-4.8); Lymphocytes % (A) 13 %; MCH 29.1 pg (25.0-35.0); MCHC 32.7 g/dL (31.0-37.0); Mean Platelet Volume 8.3; Monocytes # (A) 0.5 k/uL (0-1.0); Monocytes % (A) 8 %; Neutrophils # (A) 4.5 k/uL (1.3-7.7); Neutrophils % (A) 74 %; Platelet Count 206 k/uL (150-450); RBC 4.13 m/uL (4.30-5.90); RDW 13.2 % (11.5-15.5); WBC 6.1 k/uL (3.8-10.6)
--- NOTE | 2022-02-02 09:10 | ED ---
General Adult HPI - General Chief complaint: Abdominal Pain Stated complaint: dizziness, left side pain Time Seen by Provider: 02/02/22 08:05 Source: patient Mode of arrival: ambulatory Limitations: no limitations - History of Present Illness Initial comments: Dictation was produced using [employer] dictation software. please excuse any grammatical, word or spelling errors. Chief Complaint: 46-year-old male presents emergency Department with fatigue, body aches and left lower quadrant abdominal pain History of Present Illness: Patient is a 46-year-old male he has multiple comorbidities. As of late he has had worsening kidney function. He has hopes for being cleared for renal transplant for acute kidney injury. 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 He has past medical history of diabetes, dyslipidemia and hypertension. Over the last several hours he has developed left lower quadrant pain, fatigue and body aches. States body aches is more towards the left side of his body. His also been very fatigued able to perform his activities of daily living. He also has left lower quadrant pain. Denies any fever or constitutional symptoms. He has baseline diarrhea and denies any changes in his bowel habits. Patient has any history of diverticulitis. The ROS documented in this emergency department record has been reviewed and confirmed by me. Those systems with pertinent positive or negative responses have been documented in the HPI. All other systems are other negative and/or noncontributory. PHYSICAL EXAM: General Impression: Alert and oriented x3, not in acute distress HEENT: Normocephalic atraumatic, extra-ocular movements intact, pupils equal and reactive to light bilaterally, mucous membranes moist. Cardiovascular: Heart regular rate and rhythm Chest: Able to complete full sentences, no retractions, no tachypnea Abdomen: abdomen soft, palpatory tenderness to the left lower quadrant, non- distended, no organomegaly Musculoskeletal: Pulses present and equal in all extremities, no peripheral edema Motor: no focal deficits noted Neurological: CN II-XII grossly intact, no focal motor or sensory deficits noted Skin: Intact with no visualized rashes Psych: Normal affect and mood ED course: 46-year-old male presents emergency department for body aches, fatigue and left lower quadrant abdominal pain. Vital signs upon arrival are within acceptable limits. Laboratory evaluation obtained. CBC unremarkable. Metabolic panel shows creatinine of 4.79. This is above patient's baseline since October of this year. Coag tests negative. Computed tomography scan abdomen and pelvis shows small pericardial effusion, coronary artery disease. EKG interpretation: Ventricular rate 75, sinus rhythm,. 166, QS 80, QTc 423. No NH prolongation, no QTC prolongation, no ST or T-wave changes noted. Overall, this EKG is unremarkable Patient observed in the emergency department for 2 hours and 34 minutes. Patient reevaluated at bedside at 1040 and found to be in stable medical condition. Disposition options were discussed with patient. States that his GFR from recent nephrology appointment was 14. Today it is 13. Patient states his college professor is Dr. Stephenson. Spoke with patient's college professor Dr. Stephenson was made aware of patient's ER visitation today, the results of the CT and blood work. Dr. Stephenson reviewed patient's records in the office and request the patient be given 500 mL bolus of fluids before his appointment tomorrow. Dr. Stephenson did not feel patient met criteria for hospital admission today. - Related Data Home Medications Medication Instructions Recorded Confirmed Insulin Glargine/Lixisenatide 60 units SQ DAILY 07/10/19 02/02/22 [Soliqua 100 Unit-33 Mcg/ml Pen] Nebivolol HCl [Bystolic] 10 mg PO DAILY 07/10/19 02/02/22 Pravastatin Sodium [Pravachol] 40 mg PO HS 07/10/19 02/02/22 hydrALAZINE HCL [Apresoline] 100 mg PO TID 07/10/19 02/02/22 Allopurinol [Zyloprim] 100 mg PO DAILY 05/16/20 02/02/22 Sodium Bicarbonate Tab 650 mg PO BID 05/16/20 02/02/22 amLODIPine [Norvasc] 10 mg PO DAILY 05/16/20 02/02/22 calcitrioL [Rocaltrol] 0.25 mcg PO TUTH 05/16/20 02/02/22 cloNIDine HCL [Catapres] 0.2 mg PO TID 05/16/20 02/02/22 ALPRAZolam [Xanax] 0.25 mg PO Q6H PRN 10/18/21 02/02/22 Doxazosin [Cardura] 4 mg PO HS 10/18/21 02/02/22 Sodium Zirconium Cyclosilicate 10 gm PO DAILY 10/18/21 02/02/22 [Lokelma] Spironolactone [Aldactone] 25 mg PO DAILY 10/18/21 02/02/22 Vortioxetine Hydrobromide 20 mg PO DAILY 10/18/21 02/02/22 [Trintellix] buPROPion HCL [buPROPion HCL Xl] 150 mg PO DAILY 10/18/21 02/02/22 Ergocalciferol (Vitamin D2) 1,250 mcg PO SA 02/02/22 02/02/22 [Drisdol (50,000 Iu)] Furosemide [Lasix] 40 mg PO BID 02/02/22 02/02/22 Nortriptyline HCl [Pamelor] 10 mg PO HS 02/02/22 02/02/22 Nortriptyline [Pamelor] 25 mg PO HS 02/02/22 02/02/22 [place]-3 Fatty Acids/Fish Oil [Fish 1 cap PO BID 02/02/22 02/02/22 Oil 1,000 mg Softgel] Ondansetron [Zofran] 4 mg PO Q8HR PRN 02/02/22 02/02/22 Pantoprazole Sodium [Protonix] 40 mg PO DAILY 02/02/22 02/02/22 Rizatriptan Benzoate [Rizatriptan] 10 mg PO DAILY PRN 02/02/22 02/02/22 Allergies Allergy/AdvReac Type Severity Reaction Status Date / Time No Known Allergies Allergy Verified 02/02/22 09:56 Review of Systems ROS Statement: Those systems with pertinent positive or pertinent negative responses have been documented in the HPI. ROS Other: All systems not noted in ROS Statement are negative. Past Medical History Past Medical History: Diabetes Mellitus, Hyperlipidemia, Hypertension, Renal Disease, Sleep Apnea/CPAP/BIPAP Additional Past Medical History / Comment(s): IDDM type II, diabetic nephropathy-stage IV and pt states it is getting worse, nephrolithiasis-pt passed stone on his own, diabetic retinopathy with bilateral retinal bleeds, gout bilateral elbows and R footOSA without device, History of Any Multi-Drug Resistant Organisms: None Reported Past Surgical History: Adenoidectomy, Appendectomy, Orthopedic Surgery, Tonsillectomy Additional Past Surgical History / Comment(s): UVPPP, renal biopsy, bilateral laser eye surgery for retinal bleeds, R knee arthroscopy, L knee open surgery for ACL Past Anesthesia/Blood Transfusion Reactions: No Reported Reaction Additional Past Anesthesia/Blood Transfusion Reaction / Comment(s): Issue with pt's sleep apnea during surgery. Past Psychological History: Depression Smoking Status: Never smoker Past Alcohol Use History: None Reported Past Drug Use History: None Reported - Past Family History Mother Family Medical History: Renal Disease Additional Family Medical History / Comment(s): ESRD with dialysis-mother of renal failure at the age of 77yrs Father Family Medical History: No Reported History Additional Family Medical History / Comment(s): Father is healthy General Exam Limitations: no limitations Course Vital Signs 02/02/22 08:05 Temperature 97.8 F Pulse Rate 78 Respiratory 16 Rate Blood Pressure 112/68 O2 Sat by Pulse 95 Oximetry Medical Decision Making - Lab Data Result diagrams: 02/02/22 08:36 02/02/22 08:36 Lab Results 02/02/22 02/02/22 02/02/22 Range/Units 08:36 08:36 08:36 WBC 6.1 (3.8-10.6) k/uL RBC 4.13 L (4.30-5.90) m/uL Hgb 12.0 L (13.0-17.5) gm/dL Hct 36.8 L (39.0-53.0) % MCV 89.0 (80.0-100.0) fL MCH 29.1 (25.0-35.0) pg MCHC 32.7 (31.0-37.0) g/dL RDW 13.2 (11.5-15.5) % Plt Count 206 (150-450) k/uL MPV 8.3 Neutrophils % 74 % Lymphocytes % 13 % Monocytes % 8 % Eosinophils % 4 % Basophils % 1 % Neutrophils # 4.5 (1.3-7.7) k/uL Lymphocytes # 0.8 L (1.0-4.8) k/uL Monocytes # 0.5 (0-1.0) k/uL Eosinophils # 0.2 (0-0.7) k/uL Basophils # 0.0 (0-0.2) k/uL Sodium 137 (137-145) mmol/L Potassium 4.8 (3.5-5.1) mmol/L Chloride 105 (98-107) mmol/L Carbon Dioxide 22 (22-30) mmol/L Anion Gap 10 mmol/L BUN 68 H (9-20) mg/dL Creatinine 4.79 H (0.66-1.25) mg/dL Est GFR (CKD-EPI)AfAm 15 (>60 ml/min/1.73 sqM) Est GFR (CKD-EPI)NonAf 13 (>60 ml/min/1.73 sqM) Glucose 138 H (74-99) mg/dL POC Glucose (mg/dL) (75-99) mg/dL POC Glu Skinning Machine Feeder ID Calcium 8.3 L (8.4-10.2) mg/dL Total Bilirubin 0.7 (0.2-1.3) mg/dL AST 21 (17-59) U/L ALT 23 (4-49) U/L Alkaline Phosphatase 58 (38-126) U/L Total Protein 6.5 (6.3-8.2) g/dL Albumin 3.6 (3.5-5.0) g/dL Coronavirus (PCR) Not Detected (Not Detectd) 02/02/22 Range/Units 08:38 WBC (3.8-10.6) k/uL RBC (4.30-5.90) m/uL Hgb (13.0-17.5) gm/dL Hct (39.0-53.0) % MCV (80.0-100.0) fL MCH (25.0-35.0) pg MCHC (31.0-37.0) g/dL RDW (11.5-15.5) % Plt Count (150-450) k/uL MPV Neutrophils % % Lymphocytes % % Monocytes % % Eosinophils % % Basophils % % Neutrophils # (1.3-7.7) k/uL Lymphocytes # (1.0-4.8) k/uL Monocytes # (0-1.0) k/uL Eosinophils # (0-0.7) k/uL Basophils # (0-0.2) k/uL Sodium (137-145) mmol/L Potassium (3.5-5.1) mmol/L Chloride (98-107) mmol/L Carbon Dioxide (22-30) mmol/L Anion Gap mmol/L BUN (9-20) mg/dL Creatinine (0.66-1.25) mg/dL Est GFR (CKD-EPI)AfAm (>60 ml/min/1.73 sqM) Est GFR (CKD-EPI)NonAf (>60 ml/min/1.73 sqM) Glucose (74-99) mg/dL POC Glucose (mg/dL) 157 H (75-99) mg/dL POC Glu Skinning Machine Feeder ID Lucas Babcock Calcium (8.4-10.2) mg/dL Total Bilirubin (0.2-1.3) mg/dL AST (17-59) U/L ALT (4-49) U/L Alkaline Phosphatase (38-126) U/L Total Protein (6.3-8.2) g/dL Albumin (3.5-5.0) g/dL Coronavirus (PCR) (Not Detectd) Disposition Clinical Impression: Abdominal pain, Kidney injury, Weakness Disposition: HOME SELF-CARE Condition: Fair Instructions (If sedation given, give patient instructions): Acute Kidney Injury (DC) Is patient prescribed a controlled substance at d/c from ED?: No Referrals: Andrew Stephenson DO [STAFF PHYSICIAN] - 1-2 days
[2022-02-02 09:20] LABS: Albumin 3.6 g/dL (3.5-5.0); Calcium 8.3 mg/dL (8.4-10.2); Potassium 4.8 mmol/L (3.5-5.1); Total Bilirubin 0.7 mg/dL (0.2-1.3); Total Protein 6.5 g/dL (6.3-8.2)
--- NOTE | 2022-02-02 09:45 | CT ---
EXAMINATION TYPE: CT abdomen pelvis wo con DATE OF EXAM: 02/02/2022 COMPARISON: CT dated 10/22/2017 HISTORY: LLQ adbdominal pain, diverticulitis suspected CT DLP: 1385.4 mGycm Automated exposure control for dose reduction was used. TECHNIQUE: Helical acquisition of images from the lung bases through the pelvis. FINDINGS: Lack of contrast may compromise sensitivity. Small pericardial effusion and coronary calcif ications are present. Focal calcification is present along the epicardial fat on the right, benign. LUNG BASES: No significant abnormality is appreciated. AORTA: No significant abnormality is appreciated. LIVER/GB: Liver span is 21 cm, no mass, gallbladder normal. PANCREAS: No significant abnormality is seen. SPLEEN: No significant abnormality is seen. ADRENALS: No significant abnormality is seen. KIDNEYS: No significant interval change is seen. REPRODUCTIVE ORGANS: Transverse diameter of the prostate measures approximately 5.1 cm. URINARY BLADDER: No significant abnormality is seen. BOWEL: Hypodense stool present along the transverse and descending colon. FREE AIR: No Free Air is visible. ASCITES: None visible. PELVIC ADENOPATHY: None visualized. RETROPERITONEAL ADENOPATHY: No Retroperitoneal Adenopathy visible. OSSEOUS STRUCTURES: No significant abnormality is seen. IMPRESSION: NONCONTRAST EXAM. SMALL PERICARDIAL EFFUSION NOTED ANTERIORLY, CORONARY ARTERY DISEASE. NO ABNORMALIT Y EVIDENT TO ACCOUNT FOR PATIENT'S SYMPTOMS..
[2022-02-02] MEDS ORDERED: SODIUM CHLORIDE 0.9% 500 ML 500 ML IV STA (11:22)
[2022-02-02 12:02] VITALS: BP 121/60; PULSE 74
== END 2022-02-02 12:00 | disposition home or self-care (01) ==
LOC: EC 08:04
DX: S37.009A Unspecified injury of unspecified kidney, initial encounter (principal); E11.9 Type 2 diabetes mellitus without complications; I10 Essential (primary) hypertension; R53.1 Weakness; Z20.822 Contact with and (suspected) exposure to COVID-19
CPT/HCPCS: 36415; 74176; 80053; 85025; 87635; 99284

== ENCOUNTER 2022-02-16 06:29 | Day surgery (SDC) | payer BC ==
[2022-02-13 10:01] VITALS: BMI 38.0
[2022-02-16] MEDS ORDERED: SODIUM CHLORIDE 0.9% 1,000 ML IV ONE (06:55)
[2022-02-16 07:05] LABS: Glucose,Whole Blood 140 mg/dL (75-99)
[2022-02-16 07:10] VITALS: RESP 16
[2022-02-16] MEDS ORDERED: fentaNYL (PF) 50 MCG/ML 2 ML AMP ONE ×2 (07:33→08:26)
[2022-02-16] MEDS ORDERED: MIDAZOLAM 2 MG/2 ML VIAL IVP ONE ×3 (07:35→07:59)
--- NOTE | 2022-02-16 07:50 | P.ANPRN ---
Procedure Note - Anesthesia - Nerve Block Performed Left Supraclavicular Single Time Out Performed: Yes Date of Procedure: 02/16/22 Procedure Start Time: 07:32 Procedure Stop Time: 07:40 Location of Patient: [facility] Indication: Requested by Surgeon Specifically requested for management of pain by DrTracie: Mando Mccarty Sedation Type: Sedate with meaningful contact maintained Preparation: Sterile Prep Position: Supine Needle Types: Pajunk Needle Gauge: 21 Ultrasound used to visualize needle placement: Yes Ultrasound used to observe medication spread: Yes Injectate: 0.5% Ropivacaine (see comment for volume) (30) Blood Aspirated: No Pain Paresthesia on Injection Noted: No Resistance on Injection: Normal Image Stored and Saved: Yes Events: Uneventful and Well Tolerated
[2022-02-16] MEDS ORDERED: VERAPAMIL 2.5 MG/ML 2 ML AMP ONE (08:01)
[2022-02-16] MEDS ORDERED: HEPARIN SODIUM 1,000 UN/ML (10ML VL) ONE (08:01)
[2022-02-16 08:03] VITALS: TEMP 97.1
[2022-02-16] MEDS ORDERED: LIDOCAINE 2% INJ 20 MG/ML (2 ML VIAL) ONE (08:26)
[2022-02-16] MEDS ORDERED: KETAMINE 10 MG/ML 20 ML VIAL ONE (08:26)
[2022-02-16] MEDS ORDERED: ROPIVACAINE 5 MG/ML 30 ML VIAL ONE (08:26)
[2022-02-16] MEDS ORDERED: GLYCOPYRROLATE 0.2 MG/ML 2 ML VIAL ONE (08:26)
[2022-02-16] MEDS ORDERED: PROPOFOL 10 MG/ML 20 ML VIAL IV ONE (08:26)
[2022-02-16] MEDS ORDERED: MIDAZOLAM 2 MG/2 ML VIAL ONE (08:26)
[2022-02-16] MEDS: LIDOCAINE 1% INJ 10MG/ML (30 ML VIAL-PF) SQ ONE ×2 (08:47→08:58)
[2022-02-16] MEDS ORDERED: NITROGLYCERIN 1000MCG/10ML SYRINGE INTRAARTER ONE (08:50)
[2022-02-16] MEDS ORDERED: VERAPAMIL SYRINGE (5 MG/10 ML) INTRAARTER ONE (08:50)
[2022-02-16] MEDS ORDERED: HEPARIN SODIUM 1,000 UN/ML (10ML VL) IV ONE (08:50)
[2022-02-16 10:01] LABS: Albumin 4.1 g/dL (3.5-5.0); Calcium 8.7 mg/dL (8.4-10.2); Potassium 4.6 mmol/L (3.5-5.1); Total Bilirubin 0.5 mg/dL (0.2-1.3)
[2022-02-16] MEDS ORDERED: IOPAMIDOL-250 100ML BTL INTRAARTER ONE (10:19)
--- NOTE | 2022-02-16 10:38 | P.OP ---
Date of Procedure: 02/16/22 Preoperative Diagnosis: ESRD Postoperative Diagnosis: same Procedure(s) Performed: 1. Ultrasound guided left radial artery and vein access 2. Selective left radial artery angiogram 3. Selective left radial vein venogram 4. Left medial brachial vein coil embolization with Penumbra 5x30mm and 4x15mm packing coil 5. Left radial artery to radial vein endovascular [place] Q fistula creation 6. Left upper extremity fistulagram 7. Right tunneled hemodialysis catheter via ultrasound guided right internal jugular vein access Anesthesia: MAC Surgeon: Mando Mccarty Estimated Blood Loss (ml): 20 Pathology: none sent Condition: stable Disposition: PACU Indications for Procedure: 46 year old gentleman with renal disease presents to the label printer for percutaneous fistula creation of the left upper extremity. He underwent ultrasound and had poor cephalic vein at the wrist and therefore due to his age a percutaneous fistula was recommended. His numbers had worsened and he is in need of urgent dialysis and therefore we will place a tunneled HD catheter as well. Description of Procedure: After written and informed consent was obtained from the patient and all risks, benefits, and complications were discussed the patient was brought to the operative suite and laid in a supine position with her [] arm outstretched on an arm board. A block was performed in PACU per anesthesia. The area of the left arm was prepped and draped in the usual fashion. Time out was performed and antibiotics were administered prior to access. Under ultrasound guidance the left radial artery and radial vein were accessed and a 5F sheath was placed in each vessel utilizing Seldinger technique. Once access was obtained a 3000 units heparin, 2.5mg verapamil and 400mcg of nitro mixture was injected into the artery and vein. Selective angiogram was then obtained through the radial artery sheath demonstrating good radial and ulnar anatomy. 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 A wire follow by a angled catheter was placed into the brachial vein and utilizing 5x30mm and 4x15 Penumbra coils the vein was embolized to improve flow to the basilic and cephalic veins. The radial veins were good size at the desired fistula site. Two 014 wires were placed into the radial artery and radial vein and the Bard 4F [place]Q arterial catheter was then advanced in a monorail fashion over the 014 wire to the designated fistula site. The Bard 4F [place]Q venous catheter was then guided to the same location. The filament on the venous catheter was seen bowing at the arterial catheter site indicating appropriate coaptation. Once this was deemed adequate the wires were removed and the catheters were turned on and the fistula was created with good coaptation. The catheter was fired and fistula was created. Once completed the venous catheter was removed and fistulagram was performed demonstrating good fistula creation with filling of the cephalic and basilic veins. . All catheters and sheaths were removed and pressure was held for hemostasis. The area was cleaned and dressings were placed. Attention was then placed to the tunneled hemodialysis catheter placement, the right neck and chest was prepped and draped in usual sterile fashion. Utilizing ultrasound the right internal jugular vein was located and shown to be patent without any thrombus. Utilizing a micro-access needle after local anesthetic wa s infused overlying the access area the internal jugular vein was accessed. A guidewire was placed followed by a 4-Korean sheath and the sheath was upsized to an 035 Glidewire. This was directed into the inferior vena cava. A 23 cm palindrome straight hemodialysis catheter was then chosen and measured. Proximal a 2 finger breaths below the angle of the clavicle a small incision was created with 11 blade scalpel after this area was infused with local anesthetic. The tunneled tract was then localized as well aerated the 23 cm hemodialysis catheter was tunneled to the neck incision site. Serial dilation was then performed over the wire and breakaway sheath was placed under direct visualization of fluoroscopy. The catheter was then guided through the breakaway sheath and sheath was removed. The sheath was then assessed for patency injured flushed easily and then was hep-locked. He was sutured in place with 3-0 nylon suture. The skin incision at the neck was closed with 4-0 Vicryl suture. The area was then cleansed and dressings were placed. Patient tolerated procedure well and was sent to recovery for chest x-ray. Plan - Discharge Summary Discharge Rx Participant: Yes New Discharge Prescriptions: No Action Pravastatin Sodium [Pravachol] 40 mg PO HS Nebivolol HCl [Bystolic] 10 mg PO DAILY hydrALAZINE HCL [Apresoline] 100 mg PO TID Insulin Glargine/Lixisenatide [[place] 100 Unit-33 Mcg/ml Pen] 60 units SQ DAILY amLODIPine [Norvasc] 10 mg PO DAILY Allopurinol [Zyloprim] 100 mg PO DAILY Sodium Bicarbonate Tab 650 mg PO BID cloNIDine HCL [Catapres] 0.2 mg PO TID calcitrioL [Rocaltrol] 0.25 mcg PO TH Vortioxetine Hydrobromide [Trintellix] 20 mg PO DAILY ALPRAZolam [Xanax] 0.25 mg PO Q6H PRN PRN Reason: Anxiety [place]-3 Fatty Acids/Fish Oil [Fish Oil 1,000 mg Softgel] 1,000 cap PO BID Rizatriptan Benzoate [Rizatriptan] 10 mg PO DAILY PRN PRN Reason: Migraine Headache Pantoprazole Sodium [Protonix] 40 mg PO DAILY Ergocalciferol (Vitamin D2) [Drisdol (50,000 Iu)] 1,250 mcg PO TUSA Ondansetron [Zofran] 8 mg PO QID PRN PRN Reason: Nausea Nortriptyline [Pamelor] 25 mg PO HS Sodium Zirconium Cyclosilicate [Lokelma] 10 gm PO HS Doxazosin [Cardura] 4 mg PO HS Spironolactone [Aldactone] 25 mg PO DAILY Nortriptyline HCl [Pamelor] 10 mg PO HS Furosemide [Lasix] 40 mg PO BID buPROPion [Wellbutrin] 75 mg PO QAM Discharge Medication List Insulin Glargine/Lixisenatide [[place] 100 Unit-33 Mcg/ml Pen] 60 units SQ DAILY 07/10/19 [History] Nebivolol HCl [Bystolic] 10 mg PO DAILY 07/10/19 [History] Pravastatin Sodium [Pravachol] 40 mg PO HS 07/10/19 [History] hydrALAZINE HCL [Apresoline] 100 mg PO TID 07/10/19 [History] Allopurinol [Zyloprim] 100 mg PO DAILY 05/16/20 [History] Sodium Bicarbonate Tab 650 mg PO BID 05/16/20 [History] amLODIPine [Norvasc] 10 mg PO DAILY 05/16/20 [History] calcitrioL [Rocaltrol] 0.25 mcg PO TH 05/16/20 [History] cloNIDine HCL [Catapres] 0.2 mg PO TID 05/16/20 [History] ALPRAZolam [Xanax] 0.25 mg PO Q6H PRN 10/18/21 [History] Doxazosin [Cardura] 4 mg PO HS 10/18/21 [History] Spironolactone [Aldactone] 25 mg PO DAILY 10/18/21 [History] Vortioxetine Hydrobromide [Trintellix] 20 mg PO DAILY 10/18/21 [History] Ergocalciferol (Vitamin D2) [Drisdol (50,000 Iu)] 1,250 mcg PO TUSA 02/02/22 [History] Furosemide [Lasix] 40 mg PO BID 02/02/22 [History] Nortriptyline HCl [Pamelor] 10 mg PO HS 02/02/22 [History] Nortriptyline [Pamelor] 25 mg PO HS 02/02/22 [History] [place]-3 Fatty Acids/Fish Oil [Fish Oil 1,000 mg Softgel] 1,000 cap PO BID 02/02/22 [History] Ondansetron [Zofran] 8 mg PO QID PRN 02/02/22 [History] Pantoprazole Sodium [Protonix] 40 mg PO DAILY 02/02/22 [History] Rizatriptan Benzoate [Rizatriptan] 10 mg PO DAILY PRN 02/02/22 [History] Sodium Zirconium Cyclosilicate [Lokelma] 10 gm PO HS 02/13/22 [History] buPROPion [Wellbutrin] 75 mg PO QAM 02/13/22 [History] Follow up Appointment(s)/Referral(s): Mando Mccarty DO [STAFF PHYSICIAN] - 2 Weeks Patient Instructions/Handouts: Moderate Sedation (DC), Peripheral Nerve Block (DC) Activity/Diet/Wound Care/Special Instructions: no lifting greater than 15lbs x 1 week. squeeze left hand 10x/hour with stress ball. Discharge Disposition: HOME SELF-CARE
--- NOTE | 2022-02-16 11:05 | XR ---
EXAMINATION TYPE: XR chest 1V portable DATE OF EXAM: 02/16/2022 COMPARISON: 10/18/2021 HISTORY: Post catheter placement TECHNIQUE: Single frontal view of the chest is obtained. FINDINGS: There is no focal air space opacity, pleural effusion, or pneumothorax seen. The cardiac silhouette size is within normal limits. The osseous structures are intact. Dialysis catheter seen with the tip overlying the SVC. Heart size normal. No overt failure. IMPRESSION: No acute process.
--- NOTE | 2022-02-16 11:48 | IR ---
EXAMINATION TYPE: IR cvc insert central tunneled DATE OF EXAM: 02/16/2022 COMPARISON: NONE HISTORY: Fluoroscopy time. Fluoroscopy was provided to the referring clinician.
--- NOTE | 2022-02-16 11:49 | IR ---
EXAMINATION TYPE: IR fistula/abscess/sinus tract DATE OF EXAM: 02/16/2022 COMPARISON: NONE HISTORY: Fluoroscopy time. Fluoroscopy was provided to the referring clinician.
[2022-02-16] MEDS ORDERED: HYDROcodone/APAP 7.5-325MG 1 EACH TAB ONE (12:41)
[2022-02-16 14:57] LABS: Hepatitis B Surface AB- Quant 3.5 mIU/mL; Hepatitis B Surface Antibody Nonreactive (Nonreactive)
[2022-02-16 15:10] LABS: Hepatitis A Antibody IgM Nonreactive (Nonreactive); Hepatitis B Core IgM Nonreactive (Nonreactive); Hepatitis B Surface Antigen Nonreactive (Nonreactive); Hepatitis C IgG Antibody Nonreactive (Nonreactive)
[2022-02-16 15:56] VITALS: BP 128/74; PULSE 64
== END 2022-02-16 14:35 | disposition home or self-care (01) ==
LOC: OR 06:29
PROVIDERS: ATTEND Surgery
DX: E11.22 Type 2 diabetes mellitus with diabetic chronic kidney disease (principal); I13.11 Hypertensive heart and chronic kidney disease without heart failure, with stage 5 chronic kidney disease, or end stage renal disease; N18.6 End stage renal disease; D63.1 Anemia in chronic kidney disease; Z86.16 Personal history of COVID-19; F32.A Depression, unspecified; R60.9 Edema, unspecified; E21.3 Hyperparathyroidism, unspecified; H35.30 Unspecified macular degeneration; E11.40 Type 2 diabetes mellitus with diabetic neuropathy, unspecified; E55.9 Vitamin D deficiency, unspecified; Z90.49 Acquired absence of other specified parts of digestive tract; Z98.890 Other specified postprocedural states; Z82.49 Family history of ischemic heart disease and other diseases of the circulatory system; Z83.3 Family history of diabetes mellitus; Z80.9 Family history of malignant neoplasm, unspecified; Z79.84 Long term (current) use of oral hypoglycemic drugs; Z79.4 Long term (current) use of insulin; Z79.899 Other long term (current) drug therapy; Z84.1 Family history of disorders of kidney and ureter
CPT/HCPCS: 36558; 77001; 37241; 64415; 76942; 80053; 80074; 86706; 71045; C1894 ×2; C1769 ×4; C1750; C1889; G2171; J2250; J2001 ×2; J3010; J1644; J2795; J2704; Q9966; 64999; 76937

== ENCOUNTER 2022-02-18 15:23 | Emergency (ER) | payer BC ==
[2022-02-18 15:57] VITALS: TEMP 98.8
--- NOTE | 2022-02-18 18:50 | ED ---
General Adult HPI - General Chief complaint: Recheck/Abnormal Lab/Rx Stated complaint: 02/16 Procedure Done/Not feeling well Time Seen by Provider: 02/18/22 18:40 Source: patient, family, RN notes reviewed, old records reviewed Mode of arrival: ambulatory Limitations: no limitations - History of Present Illness Initial comments: 46-year-old male, alert and oriented 4, presents to the emergency room with complaints of shortness of breath and lightheadedness. Patient was supposed to go to dialysis for the first time today but was not feeling well and they wanted a negative covid test. He did call his offbearer Dr. Stephenson who recommended he come to the emergency room for evaluation. Patient had a recent port placed on Wednesday for dialysis which has not been used yet. -: days(s) (1) Severity scale (1-10): 8 Associated Symptoms: shortness of breath, weakness - Related Data Home Medications Medication Instructions Recorded Confirmed Insulin Glargine/Lixisenatide 60 units SQ DAILY 07/10/19 02/18/22 [Soliqua 100 Unit-33 Mcg/ml Pen] Nebivolol HCl [Bystolic] 10 mg PO DAILY 07/10/19 02/18/22 Pravastatin Sodium [Pravachol] 40 mg PO HS 07/10/19 02/18/22 hydrALAZINE HCL [Apresoline] 100 mg PO TID 07/10/19 02/18/22 Allopurinol [Zyloprim] 100 mg PO DAILY 05/16/20 02/18/22 Sodium Bicarbonate Tab 650 mg PO BID 05/16/20 02/18/22 amLODIPine [Norvasc] 10 mg PO DAILY 05/16/20 02/18/22 calcitrioL [Rocaltrol] 0.25 mcg PO TH 05/16/20 02/18/22 cloNIDine HCL [Catapres] 0.2 mg PO TID 05/16/20 02/18/22 ALPRAZolam [Xanax] 0.25 mg PO Q6H PRN 10/18/21 02/18/22 Doxazosin [Cardura] 4 mg PO HS 10/18/21 02/18/22 Spironolactone [Aldactone] 25 mg PO DAILY 10/18/21 02/18/22 Vortioxetine Hydrobromide 20 mg PO DAILY 10/18/21 02/18/22 [Trintellix] Ergocalciferol (Vitamin D2) 1,250 mcg PO TUSA 02/02/22 02/18/22 [Drisdol (50,000 Iu)] Furosemide [Lasix] 40 mg PO BID 02/02/22 02/18/22 Nortriptyline HCl [Pamelor] 10 mg PO HS 02/02/22 02/18/22 Nortriptyline [Pamelor] 25 mg PO HS 02/02/22 02/18/22 [place]-3 Fatty Acids/Fish Oil [Fish 1,000 cap PO BID 02/02/22 02/18/22 Oil 1,000 mg Softgel] Ondansetron [Zofran] 4 mg PO Q6H PRN 02/02/22 02/18/22 Pantoprazole Sodium [Protonix] 40 mg PO DAILY 02/02/22 02/18/22 Rizatriptan Benzoate [Rizatriptan] 10 mg PO DAILY PRN 02/02/22 02/18/22 Sodium Zirconium Cyclosilicate 10 gm PO HS 02/13/22 02/18/22 [Lokelma] HYDROcodone/APAP 7.5-325MG [[place] 1 tab PO Q6H PRN 02/18/22 02/18/22 7.5-325] buPROPion HCL [Wellbutrin XL] 150 mg PO DAILY 02/18/22 02/18/22 Allergies Allergy/AdvReac Type Severity Reaction Status Date / Time No Known Allergies Allergy Verified 02/18/22 19:13 Review of Systems ROS Statement: Those systems with pertinent positive or pertinent negative responses have been documented in the HPI. ROS Other: All systems not noted in ROS Statement are negative. Past Medical History Past Medical History: Diabetes Mellitus, Hyperlipidemia, Hypertension, Prostate Disorder, Renal Disease, Sleep Apnea/CPAP/BIPAP Additional Past Medical History / Comment(s): renal disease-stage IV(waiting kidney transplant), diabetic retinopathy with bilateral retinal bleeds, gout, no cpap used, gastroporesis, anemia, high potassium History of Any Multi-Drug Resistant Organisms: None Reported Past Surgical History: Adenoidectomy, Appendectomy, Orthopedic Surgery, Tonsillectomy Additional Past Surgical History / Comment(s): UVPPP, renal biopsy, bilateral laser eye surgery for retinal bleeds, R knee arthroscopy, L knee open surgery for ACL, colonoscopy. dialysis port Past Anesthesia/Blood Transfusion Reactions: No Reported Reaction Additional Past Anesthesia/Blood Transfusion Reaction / Comment(s): Issue with pt's sleep apnea during surgery.-pt denies Past Psychological History: Anxiety, Depression Smoking Status: Never smoker Past Alcohol Use History: None Reported Past Drug Use History: None Reported - Past Family History Mother Family Medical History: Cancer, Renal Disease Additional Family Medical History / Comment(s): ESRD with dialysis-mother of renal failure at the age of 77yrs Father Family Medical History: No Reported History Additional Family Medical History / Comment(s): Father is healthy General Exam Limitations: no limitations General appearance: alert, in no apparent distress Respiratory exam: Present: normal lung sounds bilaterally. Absent: respiratory distress, accessory muscle use Cardiovascular Exam: Present: regular rate GI/Abdominal exam: Present: soft. Absent: tenderness Extremities exam: Present: full ROM, normal capillary refill, pedal edema (2+ bilateral lower extremity) Neurological exam: Present: alert, oriented X3 Psychiatric exam: Present: normal affect, normal mood Skin exam: Present: warm, normal color. Absent: cyanosis, diaphoretic Course Vital Signs 02/18/22 02/18/22 15:53 19:39 Temperature 98.8 F Pulse Rate 77 76 Respiratory 18 16 Rate Blood Pressure 108/71 138/92 O2 Sat by Pulse 93 L 96 Oximetry EKG Findings - EKG Results: EKG: sinus rhythm (Ventricular rate of 73, HI interval 0.178, QRS 0.93, QTC 0.431) Medical Decision Making - Medical Decision Making Potassium is 4.7, BUN 72 and creatinine is 4.27 which is consistent with patient's previous labs. There is no evidence of lactic acidosis. Urinalysis is clear. Coronavirus test is negative. EKG shows no ST elevation in troponin is negative at 0.012. Patient has been afebrile. Abdomen is soft and nontender. No nausea vomiting or diarrhea. No chest pain. Lungs are clear. Chest x-ray shows no acute cardiopulmonary disease. Covid test is negative. Blood cultures were sent as patient had dialysis catheter placed on Wednesday. Patient is likely not feeling well related to his need for dialysis however there is no emergent need at this time. Patient is stable to be discharged home and he was directed to follow up with his primary care doctor and reschedule dialysis. Patient is agreeable to this plan of care. Case discussed with Dr. Trinidad - Lab Data Result diagrams: 02/18/22 19:24 02/18/22 19:24 Lab Results 02/18/22 02/18/22 02/18/22 Range/Units 19:24 19:24 19:24 WBC 6.6 (3.8-10.6) k/uL RBC 4.00 L (4.30-5.90) m/uL Hgb 11.5 L (13.0-17.5) gm/dL Hct 35.6 L (39.0-53.0) % MCV 88.9 (80.0-100.0) fL MCH 28.7 (25.0-35.0) pg MCHC 32.3 (31.0-37.0) g/dL RDW 12.8 (11.5-15.5) % Plt Count 192 (150-450) k/uL MPV 7.4 Neutrophils % 65 % Lymphocytes % 16 % Monocytes % 9 % Eosinophils % 6 % Basophils % 1 % Neutrophils # 4.3 (1.3-7.7) k/uL Lymphocytes # 1.1 (1.0-4.8) k/uL Monocytes # 0.6 (0-1.0) k/uL Eosinophils # 0.4 (0-0.7) k/uL Basophils # 0.1 (0-0.2) k/uL PT 10.5 (9.0-12.0) sec INR 1.0 (<1.2) Sodium (137-145) mmol/L Potassium (3.5-5.1) mmol/L Chloride (98-107) mmol/L Carbon Dioxide (22-30) mmol/L Anion Gap mmol/L BUN (9-20) mg/dL Creatinine (0.66-1.25) mg/dL Est GFR (CKD-EPI)AfAm (>60 ml/min/1.73 sqM) Est GFR (CKD-EPI)NonAf (>60 ml/min/1.73 sqM) Glucose (74-99) mg/dL Plasma Lactic Acid [place] (0.7-2.0) mmol/L Calcium (8.4-10.2) mg/dL Total Bilirubin (0.2-1.3) mg/dL AST (17-59) U/L ALT (4-49) U/L Alkaline Phosphatase (38-126) U/L Total Protein (6.3-8.2) g/dL Albumin (3.5-5.0) g/dL Urine Color Light Yellow Urine Appearance Clear (Clear) Urine pH 6.0 (5.0-8.0) Ur Specific [place] 1.011 (1.001-1.035) Urine Protein 3+ H (Negative) Urine Glucose (UA) Negative (Negative) Urine Ketones Negative (Negative) Urine Blood Negative (Negative) Urine Nitrite Negative (Negative) Urine Bilirubin Negative (Negative) Urine Urobilinogen <2.0 (<2.0) mg/dL Ur Leukocyte Esterase Negative (Negative) Urine RBC 1 (0-5) /hpf Urine WBC 1 (0-5) /hpf Urine Mucus Rare H (None) /hpf Coronavirus (PCR) (Not Detectd) 02/18/22 02/18/22 02/18/22 Range/Units 19:24 19:24 19:24 WBC (3.8-10.6) k/uL RBC (4.30-5.90) m/uL Hgb (13.0-17.5) gm/dL Hct (39.0-53.0) % MCV (80.0-100.0) fL MCH (25.0-35.0) pg MCHC (31.0-37.0) g/dL RDW (11.5-15.5) % Plt Count (150-450) k/uL MPV Neutrophils % % Lymphocytes % % Monocytes % % Eosinophils % % Basophils % % Neutrophils # (1.3-7.7) k/uL Lymphocytes # (1.0-4.8) k/uL Monocytes # (0-1.0) k/uL Eosinophils # (0-0.7) k/uL Basophils # (0-0.2) k/uL PT (9.0-12.0) sec INR (<1.2) Sodium 135 L (137-145) mmol/L Potassium 4.7 (3.5-5.1) mmol/L Chloride 102 (98-107) mmol/L Carbon Dioxide 22 (22-30) mmol/L Anion Gap 11 mmol/L BUN 72 H (9-20) mg/dL Creatinine 4.27 H (0.66-1.25) mg/dL Est GFR (CKD-EPI)AfAm 18 (>60 ml/min/1.73 sqM) Est GFR (CKD-EPI)NonAf 15 (>60 ml/min/1.73 sqM) Glucose 89 (74-99) mg/dL Plasma Lactic Acid [place] 0.5 L (0.7-2.0) mmol/L Calcium 8.2 L (8.4-10.2) mg/dL Total Bilirubin 0.4 (0.2-1.3) mg/dL AST 21 (17-59) U/L ALT 15 (4-49) U/L Alkaline Phosphatase 65 (38-126) U/L Total Protein 6.8 (6.3-8.2) g/dL Albumin 4.0 (3.5-5.0) g/dL Urine Color Urine Appearance (Clear) Urine pH (5.0-8.0) Ur Specific [place] (1.001-1.035) Urine Protein (Negative) Urine Glucose (UA) (Negative) Urine Ketones (Negative) Urine Blood (Negative) Urine Nitrite (Negative) Urine Bilirubin (Negative) Urine Urobilinogen (<2.0) mg/dL Ur Leukocyte Esterase (Negative) Urine RBC (0-5) /hpf Urine WBC (0-5) /hpf Urine Mucus (None) /hpf Coronavirus (PCR) Not Detected (Not Detectd) Disposition Clinical Impression: Shortness of breath Disposition: HOME SELF-CARE Condition: Good Instructions (If sedation given, give patient instructions): Shortness of Breath (ED) Additional Instructions: Call your primary care doctor and offbearer to reschedule your dialysis appointment. Return to the emergency room with any new or concerning symptoms including fever, persistent nausea or vomiting, chest pain or worsening difficulty in breathing. Is patient prescribed a controlled substance at d/c from ED?: No Referrals: Hollis Ghosh Jr, DO [Primary Care Provider] - 1-2 days Time of Disposition: 20:59
--- NOTE | 2022-02-18 19:27 | XR ---
EXAMINATION TYPE: XR chest 2V DATE OF EXAM: 02/18/2022 COMPARISON: 02/16/2022 HISTORY: Shortness of breath TECHNIQUE: Frontal and lateral views of the chest are obtained. FINDINGS: There is no focal air space opacity, pleural effusion, or pneumothorax seen. The cardiac silhouette size is within normal limits. The osseous structures are intact. The right IJ dialysis t ype catheter remains in place. IMPRESSION: No acute cardiopulmonary process.
[2022-02-18 19:40] VITALS: BP 138/92; PULSE 76; RESP 16
[2022-02-18 19:40] LABS: Basophils # (A) 0.1 k/uL (0-0.2); Basophils % (A) 1 %; Eosinophils # (A) 0.4 k/uL (0-0.7); Eosinophils % (A) 6 %; HCT 35.6 % (39.0-53.0); HGB 11.5 gm/dL (13.0-17.5); Lymphocytes # (A) 1.1 k/uL (1.0-4.8); Lymphocytes % (A) 16 %; MCH 28.7 pg (25.0-35.0); MCHC 32.3 g/dL (31.0-37.0); MCV 88.9 fL (80.0-100.0); Mean Platelet Volume 7.4; Monocytes # (A) 0.6 k/uL (0-1.0); Monocytes % (A) 9 %; Neutrophils # (A) 4.3 k/uL (1.3-7.7); Neutrophils % (A) 65 %; Platelet Count 192 k/uL (150-450); RDW 12.8 % (11.5-15.5); WBC 6.6 k/uL (3.8-10.6)
[2022-02-18 19:51] LABS: Prothrombin Time 10.5 sec (9.0-12.0)
[2022-02-18 19:56] LABS: Calcium 8.2 mg/dL (8.4-10.2); Potassium 4.7 mmol/L (3.5-5.1); Total Bilirubin 0.4 mg/dL (0.2-1.3); Total Protein 6.8 g/dL (6.3-8.2)
[2022-02-18 20:39] LABS: Appearance,Urine Clear (Clear); Bilirubin,Urine Negative (Negative); Blood,Urine Negative (Negative); Color,Urine Light Yellow; Glucose,Urine (UA) Negative (Negative); Ketones,Urine Negative (Negative); Leukocyte Esterase,Urine Negative (Negative); Mucus,Urine Rare /hpf; Nitrite,Urine Negative (Negative); Protein,Urine 3+ (Negative); RBC,Urine 1 /hpf (0-5); Specific Gravity,Urine 1.011 (1.001-1.035); Urobilinogen,Urine <2.0 mg/dL (<2.0); WBC,Urine 1 /hpf (0-5)
== END 2022-02-18 21:15 | disposition home or self-care (01) ==
LOC: EC 15:23
DX: E11.9 Type 2 diabetes mellitus without complications (principal); I10 Essential (primary) hypertension; E78.5 Hyperlipidemia, unspecified; R06.02 Shortness of breath; Z20.822 Contact with and (suspected) exposure to COVID-19
CPT/HCPCS: 36415; 71046; 80053; 81001; 83605; 85025; 85610; 87040; 87635; 93005; 99285

== ENCOUNTER 2022-03-10 09:24 | Inpatient (IN) | payer BC, MEDICARE ==
[2022-03-10 10:16] LABS: Basophils # (A) 0.1 k/uL (0-0.2); Basophils % (A) 1 %; Eosinophils # (A) 0.2 k/uL (0-0.7); Eosinophils % (A) 4 %; HCT 35.6 % (39.0-53.0); HGB 11.4 gm/dL (13.0-17.5); Lymphocytes # (A) 0.7 k/uL (1.0-4.8); Lymphocytes % (A) 14 %; MCH 28.2 pg (25.0-35.0); MCHC 32.1 g/dL (31.0-37.0); MCV 88.1 fL (80.0-100.0); Mean Platelet Volume 8.4; Monocytes # (A) 0.6 k/uL (0-1.0); Monocytes % (A) 12 %; Neutrophils # (A) 3.5 k/uL (1.3-7.7); Neutrophils % (A) 67 %; Platelet Count 176 k/uL (150-450); RBC 4.04 m/uL (4.30-5.90); RDW 12.2 % (11.5-15.5); WBC 5.3 k/uL (3.8-10.6)
[2022-03-10 10:27] LABS: VBG PH 7.4 (7.31-7.41)
[2022-03-10 10:28] LABS: Albumin 4.1 g/dL (3.5-5.0); Calcium 8.7 mg/dL (8.4-10.2); Magnesium 2.1 mg/dL (1.6-2.3); Total Bilirubin 0.4 mg/dL (0.2-1.3); Total Protein 7.3 g/dL (6.3-8.2)
[2022-03-10 10:32] LABS: Appearance,Urine Clear (Clear); Bilirubin,Urine Negative (Negative); Blood,Urine Negative (Negative); Color,Urine Yellow; Glucose,Urine (UA) Negative (Negative); Ketones,Urine Negative (Negative); Leukocyte Esterase,Urine Negative (Negative); Nitrite,Urine Negative (Negative); Protein,Urine 3+ (Negative); RBC,Urine 2 /hpf (0-5); Specific Gravity,Urine 1.009 (1.001-1.035); Squamous Epithelial Cell,Urine <1 /hpf (0-4); Urobilinogen,Urine <2.0 mg/dL (<2.0); WBC,Urine <1 /hpf (0-5)
[2022-03-10] MEDS ORDERED: ACETAMINOPHEN TAB 500 MG TAB PO STA (10:45)
--- NOTE | 2022-03-10 10:46 | ED ---
General Adult HPI - General Chief complaint: Neuro Symptoms/Deficit Stated complaint: Tremors after dialysis Time Seen by Provider: 03/10/22 09:31 Source: patient, RN notes reviewed, old records reviewed Mode of arrival: ambulatory Limitations: no limitations - History of Present Illness Initial comments: 46-year-old male presenting with tremor, shaking chills, this began yesterday. Patient had his third vaccine on Wednesday. He's had symptoms since that time for the past. 4 days. He has right chest wall permacath and is currently on hemodialysis. He had a left upper extremity fistula which is not currently being used. He denies measured fever. - Related Data Home Medications Medication Instructions Recorded Confirmed Insulin Glargine/Lixisenatide 60 units SQ DAILY 07/10/19 03/10/22 [Soliqua 100 Unit-33 Mcg/ml Pen] Nebivolol HCl [Bystolic] 10 mg PO DAILY 07/10/19 03/10/22 Pravastatin Sodium [Pravachol] 40 mg PO HS 07/10/19 03/10/22 hydrALAZINE HCL [Apresoline] 100 mg PO TID 07/10/19 03/10/22 Allopurinol [Zyloprim] 100 mg PO DAILY 05/16/20 03/10/22 Sodium Bicarbonate Tab 650 mg PO BID 05/16/20 03/10/22 amLODIPine [Norvasc] 10 mg PO DAILY 05/16/20 03/10/22 calcitrioL [Rocaltrol] 0.25 mcg PO TH 05/16/20 03/10/22 cloNIDine HCL [Catapres] 0.2 mg PO TID 05/16/20 03/10/22 ALPRAZolam [Xanax] 0.25 mg PO Q6H PRN 10/18/21 03/10/22 Doxazosin [Cardura] 4 mg PO HS 10/18/21 03/10/22 Spironolactone [Aldactone] 25 mg PO DAILY 10/18/21 03/10/22 Vortioxetine Hydrobromide 20 mg PO DAILY 10/18/21 03/10/22 [Trintellix] Ergocalciferol (Vitamin D2) 1,250 mcg PO TUSA 02/02/22 03/10/22 [Drisdol (50,000 Iu)] Furosemide [Lasix] 40 mg PO BID 02/02/22 03/10/22 Nortriptyline HCl [Pamelor] 10 mg PO HS 02/02/22 03/10/22 Nortriptyline [Pamelor] 25 mg PO HS 02/02/22 03/10/22 [place]-3 Fatty Acids/Fish Oil [Fish 1,000 cap PO BID 02/02/22 03/10/22 Oil 1,000 mg Softgel] Ondansetron [Zofran] 4 mg PO Q6H PRN 02/02/22 03/10/22 Pantoprazole Sodium [Protonix] 40 mg PO DAILY 02/02/22 03/10/22 Rizatriptan Benzoate [Rizatriptan] 10 mg PO DAILY PRN 02/02/22 03/10/22 Sodium Zirconium Cyclosilicate 10 gm PO HS 02/13/22 03/10/22 [Lokelma] buPROPion HCL [Wellbutrin XL] 150 mg PO DAILY 02/18/22 03/10/22 Cephalexin [Keflex] 500 mg PO QID 03/10/22 03/10/22 HYDROcodone/APAP 5-325MG [[place] 1 tab PO Q4HR PRN 03/10/22 03/10/22 5-325] Allergies Allergy/AdvReac Type Severity Reaction Status Date / Time No Known Allergies Allergy Verified 03/10/22 11:03 Review of Systems ROS Statement: Those systems with pertinent positive or pertinent negative responses have been documented in the HPI. ROS Other: All systems not noted in ROS Statement are negative. Past Medical History Past Medical History: Diabetes Mellitus, Hyperlipidemia, Hypertension, Prostate Disorder, Renal Disease, Sleep Apnea/CPAP/BIPAP Additional Past Medical History / Comment(s): renal disease-stage IV(waiting kidney transplant), diabetic retinopathy with bilateral retinal bleeds, gout, no cpap used, gastroporesis, anemia, high potassium History of Any Multi-Drug Resistant Organisms: None Reported Past Surgical History: Adenoidectomy, Appendectomy, Orthopedic Surgery, Tonsillectomy Additional Past Surgical History / Comment(s): UVPPP, renal biopsy, bilateral laser eye surgery for retinal bleeds, R knee arthroscopy, L knee open surgery fo r ACL, colonoscopy. dialysis port Past Anesthesia/Blood Transfusion Reactions: No Reported Reaction Additional Past Anesthesia/Blood Transfusion Reaction / Comment(s): Issue with pt's sleep apnea during surgery.-pt denies Past Psychological History: Anxiety, Depression Smoking Status: Never smoker Past Alcohol Use History: None Reported Past Drug Use History: None Reported - Past Family History Mother Family Medical History: Cancer, Renal Disease Additional Family Medical History / Comment(s): ESRD with dialysis-mother of renal failure at the age of 77yrs Father Family Medical History: No Reported History Additional Family Medical History / Comment(s): Father is healthy General Exam Limitations: no limitations General appearance: alert, in no apparent distress, appears intoxicated Head exam: Present: atraumatic, normocephalic Eye exam: Present: normal appearance, PERRL Neck exam: Present: normal inspection Respiratory exam: Present: normal lung sounds bilaterally. Absent: respiratory distress, wheezes Cardiovascular Exam: Present: regular rate, normal rhythm GI/Abdominal exam: Present: soft. Absent: distended, tenderness Extremities exam: Present: normal inspection, normal capillary refill Neurological exam: Present: alert, oriented X3, CN II-XII intact. Absent: motor sensory deficit Psychiatric exam: Present: normal affect, normal mood Skin exam: Present: warm, dry, intact. Absent: cyanosis, diaphoretic Course Vital Signs 03/10/22 03/10/22 03/10/22 09:25 09:32 11:30 Temperature 97.3 F L 98.8 F 98.9 F Pulse Rate 86 87 82 Respiratory 16 18 18 Rate Blood Pressure 194/100 150/98 146/88 O2 Sat by Pulse 97 96 97 Oximetry - Reevaluation(s) Reevaluation #1: 03/10/22 10:45 I did discuss case with Dr. Stephenson would send the patient, recommends cultures and vancomycin. 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 Blood cultures are obtained both peripherally and from his permacath. Laboratory studies are obtained which are consistent with end-stage renal disease without other acute abnormality. She started on IV antibiotics. Was preferred that the patient be admitted awaiting culture results for continued IV antibiotics. Admitted to Dr. Ghosh who is aware. - Lab Data Result diagrams: 03/10/22 09:46 03/10/22 09:46 Lab Results 03/10/22 03/10/22 03/10/22 Range/Units 09:46 09:46 09:46 WBC 5.3 (3.8-10.6) k/uL RBC 4.04 L (4.30-5.90) m/uL Hgb 11.4 L (13.0-17.5) gm/dL Hct 35.6 L (39.0-53.0) % MCV 88.1 (80.0-100.0) fL MCH 28.2 (25.0-35.0) pg MCHC 32.1 (31.0-37.0) g/dL RDW 12.2 (11.5-15.5) % Plt Count 176 (150-450) k/uL MPV 8.4 Neutrophils % 67 % Lymphocytes % 14 % Monocytes % 12 % Eosinophils % 4 % Basophils % 1 % Neutrophils # 3.5 (1.3-7.7) k/uL Lymphocytes # 0.7 L (1.0-4.8) k/uL Monocytes # 0.6 (0-1.0) k/uL Eosinophils # 0.2 (0-0.7) k/uL Basophils # 0.1 (0-0.2) k/uL VBG pH (7.31-7.41) VBG pCO2 (37-51) mmHg VBG HCO3 (24-28) mmol/L Sodium (137-145) mmol/L Potassium (3.5-5.1) mmol/L Chloride (98-107) mmol/L Carbon Dioxide (22-30) mmol/L Anion Gap mmol/L BUN (9-20) mg/dL Creatinine (0.66-1.25) mg/dL Est GFR (CKD-EPI)AfAm (>60 ml/min/1.73 sqM) Est GFR (CKD-EPI)NonAf (>60 ml/min/1.73 sqM) Glucose (74-99) mg/dL Calcium (8.4-10.2) mg/dL Magnesium (1.6-2.3) mg/dL Total Bilirubin (0.2-1.3) mg/dL AST (17-59) U/L ALT (4-49) U/L Alkaline Phosphatase (38-126) U/L Total Protein (6.3-8.2) g/dL Albumin (3.5-5.0) g/dL Urine Color Urine Appearance (Clear) Urine pH (5.0-8.0) Ur Specific [place] (1.001-1.035) Urine Protein (Negative) Urine Glucose (UA) (Negative) Urine Ketones (Negative) Urine Blood (Negative) Urine Nitrite (Negative) Urine Bilirubin (Negative) Urine Urobilinogen (<2.0) mg/dL Ur Leukocyte Esterase (Negative) Urine RBC (0-5) /hpf Urine WBC (0-5) /hpf Ur Squamous Epith Cells (0-4) /hpf Coronavirus (PCR) Not Detected (Not Detectd) Influenza Type A RNA Not Detected (Not Detectd) Influenza Type B (PCR) Not Detected (Not Detectd) 03/10/22 03/10/22 03/10/22 Range/Units 09:46 09:46 09:46 WBC (3.8-10.6) k/uL RBC (4.30-5.90) m/uL Hgb (13.0-17.5) gm/dL Hct (39.0-53.0) % MCV (80.0-100.0) fL MCH (25.0-35.0) pg MCHC (31.0-37.0) g/dL RDW (11.5-15.5) % Plt Count (150-450) k/uL MPV Neutrophils % % Lymphocytes % % Monocytes % % Eosinophils % % Basophils % % Neutrophils # (1.3-7.7) k/uL Lymphocytes # (1.0-4.8) k/uL Monocytes # (0-1.0) k/uL Eosinophils # (0-0.7) k/uL Basophils # (0-0.2) k/uL VBG pH 7.40 (7.31-7.41) VBG pCO2 52 H (37-51) mmHg VBG HCO3 32 H (24-28) mmol/L Sodium 138 (137-145) mmol/L Potassium 5.0 (3.5-5.1) mmol/L Chloride 99 (98-107) mmol/L Carbon Dioxide 33 H (22-30) mmol/L Anion Gap 6 mmol/L BUN 26 H (9-20) mg/dL Creatinine 3.19 H (0.66-1.25) mg/dL Est GFR (CKD-EPI)AfAm 25 (>60 ml/min/1.73 sqM) Est GFR (CKD-EPI)NonAf 22 (>60 ml/min/1.73 sqM) Glucose 138 H (74-99) mg/dL Calcium 8.7 (8.4-10.2) mg/dL Magnesium 2.1 (1.6-2.3) mg/dL Total Bilirubin 0.4 (0.2-1.3) mg/dL AST 41 (17-59) U/L ALT 45 (4-49) U/L Alkaline Phosphatase 76 (38-126) U/L Total Protein 7.3 (6.3-8.2) g/dL Albumin 4.1 (3.5-5.0) g/dL Urine Color Yellow Urine Appearance Clear (Clear) Urine pH 8.0 (5.0-8.0) Ur Specific [place] 1.009 (1.001-1.035) Urine Protein 3+ H (Negative) Urine Glucose (UA) Negative (Negative) Urine Ketones Negative (Negative) Urine Blood Negative (Negative) Urine Nitrite Negative (Negative) Urine Bilirubin Negative (Negative) Urine Urobilinogen <2.0 (<2.0) mg/dL Ur Leukocyte Esterase Negative (Negative) Urine RBC 2 (0-5) /hpf Urine WBC <1 (0-5) /hpf Ur Squamous Epith Cells <1 (0-4) /hpf Coronavirus (PCR) (Not Detectd) Influenza Type A RNA (Not Detectd) Influenza Type B (PCR) (Not Detectd) Disposition Clinical Impression: Shaking chills Narrative: Concern for bacteremia Disposition: ADMITTED IP TO THIS HOSP Condition: Stable Is patient prescribed a controlled substance at d/c from ED?: No Referrals: Amadou Roman MD [Primary Care Provider] - 1-2 days Time of Disposition: 12:16
--- NOTE | 2022-03-10 11:25 | XR ---
EXAMINATION TYPE: XR chest 2V DATE OF EXAM: 03/10/2022 COMPARISON: 02/19/2020 TECHNIQUE: PA and lateral views submitted. HISTORY: Fever FINDINGS: A dialysis catheter is seen with elevated left hemidiaphragm and subsegmental linear changes. Biapica l pleural thickening. No overt failure. Heart size normal. Hypertrophic changes of the spine. IMPRESSION: 1. Bibasilar linear changes more typical of atelectasis from hemidiaphragm elevation.
[2022-03-10] MEDS ORDERED: VANCOMYCIN 2,500 MG in SODIUM CHLORIDE 0.9% 500 ML 500 ML IVPB ONE (11:30)
[2022-03-10] MEDS ORDERED: VANCOMYCIN 2,250 MG in SODIUM CHLORIDE 0.9% 500 ML 500 ML IVPB ONE (11:30)
[2022-03-10] MEDS ORDERED: ACETAMINOPHEN TAB 325 MG TAB PO PRN (12:10)
[2022-03-10] MEDS ORDERED: NALOXONE 0.4 MG/ML 1 ML VIAL IV PRN (12:10)
[2022-03-10] MEDS ORDERED: cefTRIAXone IN SWFI 1,000 MG/10 ML SYRINGE IVP STA (12:12)
--- NOTE | 2022-03-10 12:37 | P.NPCON ---
History of Present Illness - Reason for Consult end stage renal disease - History of Present Illness Reason for consultation: End-stage renal disease History of present illness: Patient is a 46-year-old male seen in consultation for end-stage renal disease. Patient was seen and examined in the emergency room. He is maintained on hemodialysis on Wednesday schedule via permacath. Etiology is biopsy proven diabetic kidney disease and arterionephrosclerosis. He does have a left upper extremity AV graft which is currently not being used. Patient states he got the Moderna Covid booster vaccine on Wednesday. Wednesday he felt weak with body aches. He did go to hemodialysis on Wednesday but Wednesday night developed severe night sweats and tremors. This morning he came to the hospital due to the tremors primarily. Patient states he was also admitted in [facility] about a week ago and at that time was being treated for infection of his graft. Patient states he still completing oral antibiotics. Hemodynamically stable. No fever in the hospital. He is on room air. Denies vomiting or diarrhea. Oral intake is fair. He does make urine. He denies any drainage from his graft site or the permacath. Vital signs are stable. General: Awake and alert. No acute distress. HEENT: Head exam is unremarkable. LUNGS: Breath sounds decreased. HEART: Rate and Rhythm are regular. ABDOMEN: Soft, no distention. EXTREMITITES: No edema. Past Medical History Past Medical History: Diabetes Mellitus, Hyperlipidemia, Hypertension, Prostate Disorder, Renal Disease, Sleep Apnea/CPAP/BIPAP Additional Past Medical History / Comment(s): renal disease-stage IV(waiting kidney transplant), diabetic retinopathy with bilateral retinal bleeds, gout, no cpap used, gastroporesis, anemia, high potassium History of Any Multi-Drug Resistant Organisms: None Reported Past Surgical History: Adenoidectomy, Appendectomy, Orthopedic Surgery, Tonsillectomy Additional Past Surgical History / Comment(s): UVPPP, renal biopsy, bilateral laser eye surgery for retinal bleeds, R knee arthroscopy, L knee open surgery for ACL, colonoscopy. dialysis port Past Anesthesia/Blood Transfusion Reactions: No Reported Reaction Additional Past Anesthesia/Blood Transfusion Reaction / Comment(s): Issue with pt's sleep apnea during surgery.-pt denies Past Psychological History: Anxiety, Depression Smoking Status: Never smoker Past Alcohol Use History: None Reported Past Drug Use History: None Reported - Past Family History Mother Family Medical History: Cancer, Renal Disease Additional Family Medical History / Comment(s): ESRD with dialysis-mother of renal failure at the age of 77yrs Father Family Medical History: No Reported History Additional Family Medical History / Comment(s): Father is healthy Medications and Allergies Home Medications Medication Instructions Recorded Confirmed Type Insulin Glargine/Lixisenatide 60 units SQ DAILY 07/10/19 03/10/22 History [[place] 100 Unit-33 Mcg/ml Pen] Nebivolol HCl [Bystolic] 10 mg PO DAILY 07/10/19 03/10/22 History Pravastatin Sodium [Pravachol] 40 mg PO HS 07/10/19 03/10/22 History hydrALAZINE HCL [Apresoline] 100 mg PO TID 07/10/19 03/10/22 History Allopurinol [Zyloprim] 100 mg PO DAILY 05/16/20 03/10/22 History Sodium Bicarbonate Tab 650 mg PO BID 05/16/20 03/10/22 History amLODIPine [Norvasc] 10 mg PO DAILY 05/16/20 03/10/22 History calcitrioL [Rocaltrol] 0.25 mcg PO TH 05/16/20 03/10/22 History cloNIDine HCL [Catapres] 0.2 mg PO TID 05/16/20 03/10/22 History ALPRAZolam [Xanax] 0.25 mg PO Q6H PRN 10/18/21 03/10/22 History Doxazosin [Cardura] 4 mg PO HS 10/18/21 03/10/22 History Spironolactone [Aldactone] 25 mg PO DAILY 10/18/21 03/10/22 History Vortioxetine Hydrobromide 20 mg PO DAILY 10/18/21 03/10/22 History [Trintellix] Ergocalciferol (Vitamin D2) 1,250 mcg PO TUSA 02/02/22 03/10/22 History [Drisdol (50,000 Iu)] Furosemide [Lasix] 40 mg PO BID 02/02/22 03/10/22 History Nortriptyline HCl [Pamelor] 10 mg PO HS 02/02/22 03/10/22 History Nortriptyline [Pamelor] 25 mg PO HS 02/02/22 03/10/22 History [place]-3 Fatty Acids/Fish Oil [Fish 1,000 cap PO BID 02/02/22 03/10/22 History Oil 1,000 mg Softgel] Ondansetron [Zofran] 4 mg PO Q6H PRN 02/02/22 03/10/22 History Pantoprazole Sodium [Protonix] 40 mg PO DAILY 02/02/22 03/10/22 History Rizatriptan Benzoate [Rizatriptan] 10 mg PO DAILY PRN 02/02/22 03/10/22 History Sodium Zirconium Cyclosilicate 10 gm PO HS 02/13/22 03/10/22 History [Lokelma] buPROPion HCL [Wellbutrin XL] 150 mg PO DAILY 02/18/22 03/10/22 History Cephalexin [Keflex] 500 mg PO QID 03/10/22 03/10/22 History HYDROcodone/APAP 5-325MG [[place] 1 tab PO Q4HR PRN 03/10/22 03/10/22 History 5-325] Allergies Allergy/AdvReac Type Severity Reaction Status Date / Time No Known Allergies Allergy Verified 03/10/22 11:03 Physical Exam Vitals: Vital Signs Temp Pulse Resp BP Pulse Ox 03/10/22 11:30 98.9 F 82 18 146/88 97 03/10/22 09:32 98.8 F 87 18 150/98 96 03/10/22 09:25 97.3 F L 86 16 194/100 97 Intake and Output 03/09/22 03/10/22 03/10/22 22:59 06:59 14:59 Other: Weight 123.377 kg Results - Lab Results Most recent lab results Calcium 8.7 mg/dL (8.4-10.2) 03/10/22 09:46 Magnesium 2.1 mg/dL (1.6-2.3) 03/10/22 09:46 03/10/22 09:46 03/10/22 09:46 Assessment and Plan Plan: Assessment: 1. End-stage renal disease maintained on hemodialysis on Wednesday schedule via permacath. Has a maturing left upper extremity AV graft. Etiology is diabetic kidney disease and arterionephrosclerosis. 2. Recent AV graft infection. 3. Shakes and tremors. Concern for infection. 4. Diabetes mellitus. 5. Chronic kidney disease mineral bone disease. 6. Hypertension with chronic kidney disease. Stable. Plan: Hemodialysis tomorrow. Patient given dose of IV vancomycin and Rocephin. Follow-up blood cultures. I will also check cultures from the permacat. Vascular surgery consulted. Consult infectious diseases well. Check phosphorus level. Resume home dose Lasix. Home antihypertensives to be resumed. Thank you for the consultation. I will continue to follow the patient with you during his hospital stay.
[2022-03-10] MEDS ORDERED: ALPRAZolam 0.25 MG TAB PO PRN (14:03)
[2022-03-10] MEDS: hydrALAZINE HCL 50 MG TAB PO SCH ×2 (14:20→22:24)
[2022-03-10] MEDS: cloNIDine HCL 0.2 MG TAB PO SCH ×2 (14:20→22:24)
[2022-03-10] MEDS: PANTOPRAZOLE 40 MG/10 ML VIAL IVP SCH (15:59)
[2022-03-10] MEDS: FUROSEMIDE 40 MG TAB PO SCH (16:01)
[2022-03-10 17:42] LABS: Glucose,Whole Blood 101 mg/dL (75-99)
[2022-03-10] MEDS: INSULIN ASPART (NovoLOG) 100 UNIT/ML VIAL SQ SCH ×2 (18:32→22:24)
[2022-03-10] MEDS ORDERED: SUMAtriptan succinate 50 MG TAB PO PRN (19:30)
[2022-03-10] MEDS ORDERED: HYDROcodone/APAP 5-325MG 1 EACH TAB PO PRN (19:30)
[2022-03-10] MEDS ORDERED: ONDANSETRON 4 MG TAB PO PRN (19:30)
[2022-03-10] MEDS ORDERED: ONDANSETRON 4 MG/2 ML VIAL IVP PRN (19:39)
[2022-03-10 20:40] LABS: Glucose,Whole Blood 156 mg/dL (75-99)
[2022-03-10] MEDS: PRAVASTATIN SODIUM 40 MG TAB PO SCH (22:24)
[2022-03-10] MEDS: NORTRIPTYLINE 25 MG CAP PO SCH (22:24)
[2022-03-10] MEDS: SODIUM BICARBONATE TAB 650 MG TAB PO SCH (22:24)
[2022-03-10] MEDS: SODIUM ZIRCONIUM CYCLOSILICATE 10 GM PACKET PO SCH (22:25)
[2022-03-10] MEDS: NORTRIPTYLINE 10 MG CAP PO SCH (22:25)
[2022-03-10] MEDS: DOXAZOSIN 4 MG TAB PO SCH (22:25)
--- NOTE | 2022-03-11 06:45 | P.CONS ---
History of Present Illness - Reason for Consult Consult date: 03/10/22 AV graft infection Requesting physician: Andrew Stephenson - Chief Complaint Shaking chills x one day - History of Present Illness Patient is a 46-year-old male with a past medical history significant for diabetes mellitus hypertension hyperlipidemia with recent diagnosis of end- stage renal disease with the patient be started on hemodialysis through the [facility], the patient recently had left upper extremity AV graft placement, patient has also got his Moderna COVID booster shot this Wednesday on Wednesday the patient started having feeling weak and did have body aches and the patient did went for his dialysis on Wednesday did okay that night but developed night sweats and tremors and the patient also complaining of pain to the left upper extremity at the site of his AV graft patient described the pain to be more of a sharp in nature 6-7 out of 10 and no radiation did have some associated swelling and patient mention there was some redness however by the time of my evaluation there was no redness patient apparently was recently treated at [facility] for his left arm AV graft site infection and the patient was supposed to be on some oral antibiotics however the patient not sure about the any specific positive culture on antibiotic he has been taking on presentation to the hospital the patient has been afebrile patient did have a normal white count. Care has been elevated liver enzymes are normal urine was negative cunningham and influenza PCR were negative patient did have a chest x-ray bibasilar atelectasis no consolidation the patient was started on vancomycin concerning for left arm AV graft infection infectious was consulted for further management of antibiotic therapy Review of Systems Positive point has been mentioned in the HPI rest of the systems are negative Past Medical History Past Medical History: Diabetes Mellitus, Hyperlipidemia, Hypertension, Prostate Disorder, Renal Disease, Sleep Apnea/CPAP/BIPAP Additional Past Medical History / Comment(s): renal disease-stage IV(waiting kidney transplant), diabetic retinopathy with bilateral retinal bleeds, gout, no cpap used, gastroporesis, anemia, high potassium History of Any Multi-Drug Resistant Organisms: None Reported Past Surgical History: Adenoidectomy, Appendectomy, Orthopedic Surgery, Tonsillectomy Additional Past Surgical History / Comment(s): UVPPP, renal biopsy, bilateral laser eye surgery for retinal bleeds, R knee arthroscopy, L knee open surgery for ACL, colonoscopy. dialysis port Past Anesthesia/Blood Transfusion Reactions: No Reported Reaction Additional Past Anesthesia/Blood Transfusion Reaction / Comm: Issue with pt's sleep apnea during surgery.-pt denies Past Psychological History: Anxiety, Depression Smoking Status: Never smoker Past Alcohol Use History: None Reported Past Drug Use History: None Reported - Past Family History Mother Family Medical History: Cancer, Renal Disease Additional Family Medical History / Comment(s): ESRD with dialysis-mother of renal failure at the age of 77yrs Father Family Medical History: No Reported History Additional Family Medical History / Comment(s): Father is healthy Medications and Allergies Home Medications Medication Instructions Recorded Confirmed Type Insulin Glargine/Lixisenatide 60 units SQ DAILY 07/10/19 03/10/22 History [[place] 100 Unit-33 Mcg/ml Pen] Nebivolol HCl [Bystolic] 10 mg PO DAILY 07/10/19 03/10/22 History Pravastatin Sodium [Pravachol] 40 mg PO HS 07/10/19 03/10/22 History hydrALAZINE HCL [Apresoline] 100 mg PO TID 07/10/19 03/10/22 History Sodium Bicarbonate Tab 650 mg PO BID 05/16/20 03/10/22 History allopurinoL [Zyloprim] 100 mg PO DAILY 05/16/20 03/10/22 History amLODIPine [Norvasc] 10 mg PO DAILY 05/16/20 03/10/22 History calcitrioL [Rocaltrol] 0.25 mcg PO TH 05/16/20 03/10/22 History cloNIDine HCL [Catapres] 0.2 mg PO TID 05/16/20 03/10/22 History ALPRAZolam [Xanax] 0.25 mg PO Q6H PRN 10/18/21 03/10/22 History Doxazosin [Cardura] 4 mg PO HS 10/18/21 03/10/22 History Spironolactone [Aldactone] 25 mg PO DAILY 10/18/21 03/10/22 History Vortioxetine Hydrobromide 20 mg PO DAILY 10/18/21 03/10/22 History [Trintellix] Ergocalciferol (Vitamin D2) 1,250 mcg PO TUSA 02/02/22 03/10/22 History [Drisdol (50,000 Iu)] Furosemide [Lasix] 40 mg PO BID 02/02/22 03/10/22 History Nortriptyline HCl [Pamelor] 10 mg PO HS 02/02/22 03/10/22 History Nortriptyline [Pamelor] 25 mg PO HS 02/02/22 03/10/22 History [place]-3 Fatty Acids/Fish Oil [Fish 1,000 cap PO BID 02/02/22 03/10/22 History Oil 1,000 mg Softgel] Ondansetron [Zofran] 4 mg PO Q6H PRN 02/02/22 03/10/22 History Pantoprazole Sodium [Protonix] 40 mg PO DAILY 02/02/22 03/10/22 History Rizatriptan Benzoate [Rizatriptan] 10 mg PO DAILY PRN 02/02/22 03/10/22 History Sodium Zirconium Cyclosilicate 10 gm PO HS 02/13/22 03/10/22 History [Lokelma] buPROPion HCL [Wellbutrin XL] 150 mg PO DAILY 02/18/22 03/10/22 History Cephalexin [Keflex] 500 mg PO QID 03/10/22 03/10/22 History HYDROcodone/APAP 5-325MG [[place] 1 tab PO Q4HR PRN 03/10/22 03/10/22 History 5-325] Allergies Allergy/AdvReac Type Severity Reaction Status Date / Time No Known Allergies Allergy Verified 03/10/22 11:03 Physical Exam Vitals: Vital Signs Temp Pulse Resp BP Pulse Ox 03/10/22 14:00 80 18 149/104 97 03/10/22 13:40 80 16 149/104 03/10/22 12:00 98.9 F 82 18 146/88 97 03/10/22 11:30 98.9 F 82 18 146/88 97 03/10/22 09:32 98.8 F 87 18 150/98 96 03/10/22 09:25 97.3 F L 86 16 194/100 97 Intake and Output 03/10/22 03/10/22 03/10/22 06:59 14:59 22:59 Other: Weight 123.377 kg GENERAL DESCRIPTION: Middle-aged male lying in bed, no distress. No tachypnea or accessory muscle of respiration use. HEENT: Shows Pallor , no scleral icterus. Oral mucous membrane is dry. No pharyngeal erythema or thrush NECK: Trachea central, no thyromegaly. LUNGS: Unlabored breathing. Clear to auscultation anteriorly. No wheeze or crackle. HEART: S1, S2, regular rate and rhythm. No loud murmur ABDOMEN: Soft, no tenderness , guarding or rigidity, no organomegaly EXTREMITIES: Left forearm currently with no swelling no redness or any drainage SKIN: No rash, no masses palpable. NEUROLOGICAL: The patient is awake, alert, oriented x3, mood and affect normal. Results CBC & Chem 7: 03/12/22 05:37 03/12/22 05:37 Labs: Abnormal Lab Results - Last 24 Hours (Table) 03/10/22 03/10/22 03/10/22 Range/Units 09:46 09:46 09:46 RBC 4.04 L (4.30-5.90) m/uL Hgb 11.4 L (13.0-17.5) gm/dL Hct 35.6 L (39.0-53.0) % Lymphocytes # 0.7 L (1.0-4.8) k/uL VBG pCO2 (37-51) mmHg VBG HCO3 (24-28) mmol/L Carbon Dioxide 33 H (22-30) mmol/L BUN 26 H (9-20) mg/dL Creatinine 3.19 H (0.66-1.25) mg/dL Glucose 138 H (74-99) mg/dL Urine Protein 3+ H (Negative) 03/10/22 Range/Units 09:46 RBC (4.30-5.90) m/uL Hgb (13.0-17.5) gm/dL Hct (39.0-53.0) % Lymphocytes # (1.0-4.8) k/uL VBG pCO2 52 H (37-51) mmHg VBG HCO3 32 H (24-28) mmol/L Carbon Dioxide (22-30) mmol/L BUN (9-20) mg/dL Creatinine (0.66-1.25) mg/dL Glucose (74-99) mg/dL Urine Protein (Negative) Assessment and Plan (1) Shaking chills Status: Acute Code(s): R68.83 - CHILLS (WITHOUT FEVER) SNOMED Code(s): 73396304 Plan: 1patient presented to hospital with not feeling well and chills and pain to his left arm AV graft patient mention there was some redness I did not appreciate any redness patient did not have any fever or elevated white count making the graft site infection to be less likely not entirely excluded. 2we will wait for the blood culture to finalize and check inflammatory markers. 3vancomycin pharmacy to dose while waiting for the culture to finalize. We will follow on clinical condition and cultures to further adjust medication if needed Thank you for this consultation will follow this patient along with you Time with Patient: Less than 30
[2022-03-11 06:53] LABS: Glucose,Whole Blood 152 mg/dL (75-99)
[2022-03-11 07:21] LABS: African American GFR (CKD) 21 (>60 ml/min/1.73 sqM); Non-African American GFR(CKD) 18 (>60 ml/min/1.73 sqM)
[2022-03-11] MEDS: INSULIN DETEMIR (LEVEMIR) 100 UNIT/ML SYR SQ SCH (07:49)
[2022-03-11] MEDS: SODIUM BICARBONATE TAB 650 MG TAB PO SCH (07:49)
[2022-03-11] MEDS: allopurinoL 100 MG TAB PO SCH (07:49)
[2022-03-11] MEDS: PANTOPRAZOLE 40 MG/10 ML VIAL IVP SCH (07:49)
[2022-03-11] MEDS: FUROSEMIDE 40 MG TAB PO SCH ×2 (07:49→16:56)
[2022-03-11] MEDS: INSULIN ASPART (NovoLOG) 100 UNIT/ML VIAL SQ SCH ×4 (07:49→20:55)
[2022-03-11] MEDS: amLODIPine 10 MG TAB PO SCH (07:50)
[2022-03-11] MEDS: cloNIDine HCL 0.2 MG TAB PO SCH ×3 (07:50→21:13)
[2022-03-11] MEDS: hydrALAZINE HCL 50 MG TAB PO SCH ×3 (07:50→21:13)
[2022-03-11] MEDS: buPROPion XL 150 MG TAB.ER.24H PO SCH (07:50)
[2022-03-11] MEDS: NEBIVOLOL 5 MG TAB PO SCH (07:50)
[2022-03-11] MEDS: VORTIOXETINE HYDROBROMIDE 20 MG TABLET PO SCH (07:51)
[2022-03-11] MEDS ORDERED: VANCOMYCIN IV PER PHARMACY 1 EACH MISC MISCELLANE PRN (08:40)
[2022-03-11] MEDS ORDERED: SPIRONOLACTONE 25 MG TAB PO SCH (09:00)
--- NOTE | 2022-03-11 10:44 | P.PN ---
Subjective Patient is seen in follow-up for end-stage renal disease. He is maintained on hemodialysis on Wednesday schedule. Denies chest pain or shortness of breath. Tremors resolved. Afebrile. No active complaints. Vital signs are stable. General: Awake and alert. No acute distress. HEENT: Head exam is unremarkable. LUNGS: Breath sounds decreased. HEART: Rate and Rhythm are regular. ABDOMEN: Soft, no distention. EXTREMITITES: No edema. Objective - Vital Signs Vital signs: Vital Signs Temp 99.6 F 03/11/22 08:00 Pulse 70 03/11/22 08:00 Resp 16 03/11/22 08:00 BP 140/82 03/11/22 08:00 Pulse Ox 92 L 03/11/22 08:00 FiO2 Intake & Output 03/10/22 03/11/22 03/11/22 18:59 06:59 18:59 Intake Total 222 Balance 222 Weight 123.377 kg 123.377 kg Intake: Oral 222 Other: Voiding Method Toilet Toilet - Labs CBC & Chem 7: 03/10/22 09:46 03/11/22 05:47 Labs: Abnormal Lab Results - Last 24 Hours (Table) 03/10/22 03/10/22 03/11/22 Range/Units 17:39 20:35 05:47 Creatinine 3.66 H (0.66-1.25) mg/dL POC Glucose (mg/dL) 101 H 156 H (75-99) mg/dL 03/11/22 Range/Units 06:51 Creatinine (0.66-1.25) mg/dL POC Glucose (mg/dL) 152 H (75-99) mg/dL Assessment and Plan Plan: Assessment: 1. End-stage renal disease maintained on hemodialysis on Wednesday schedule via permacath. Has a maturing left upper extremity AV graft. Etiology is diabetic kidney disease and arterionephrosclerosis. 2. Recent AV graft infection. 3. Shakes and tremors. Concern for infection. Seen by infectious disease. On IV antibiotics. 4. Diabetes mellitus. 5. Chronic kidney disease mineral bone disease maintained on calcitriol. Phosphorus level III.7 dated 03/10/2022. 6. Hypertension with chronic kidney disease. Stable. Plan: Hemodialysis today. Antibiotics per infectious disease. Monitor vancomycin levels. Dose to be adjusted for renal function. Follow-up cultures. Maintain oral Lasix. Stop Aldactone. Stop bicarb.
--- NOTE | 2022-03-11 11:35 | P.GSCN ---
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 Stephenson. Apparently on Wednesday he went to dialysis and had tremors and was not feeling well and it was questionable whether or not he had an infection from his recent AV graft placement. Apparently patient had his Moderna booster on Wednesday and Wednesday felt feverish, achy and chills. He was diagnosed with end-stage renal disease and started hemodialysis in February of this year. He follows with Dr. Stephenson. On 02/16/2022 Dr. Mccarty placed a right IJ tunneled catheter as well as a left radial vein [place] Q fistula. Apparently 2-3 days after the fistula was placed the patient was concerned that there was redness and swelling and was instructed to go to emergency department at [facility]. He states that at that time he did see Dr. Mccarty who is recommended some oral antibiotics for possible infection. Due to his tremors and body aches Dr. Socorro Umanzor recommended he come to the emergency department to be evaluated for possible infection. He does state that he has some discomfort in that arm and feels like it's pulsating however he's denies any redness no drainage he has full range of motion of the left upper extremity. He's been afebrile. WBC 5.3 hemoglobin 11.4 hematocrit 35 platelet count 176,000 sodium 138 potassium 5.0 BUN 26 creatinine 3.19 glucose 138. She denies any shortness of breath, chest pain, abdominal pain, fevers or chills. Review of Systems A 14 point review systems was completed all pertinent positives and negatives as stated in the HPI. Past Medical History Past Medical History: Diabetes Mellitus, Hyperlipidemia, Hypertension, Prostate Disorder, Renal Disease, Sleep Apnea/CPAP/BIPAP Additional Past Medical History / Comment(s): renal disease-stage IV(waiting kidney transplant), diabetic retinopathy with bilateral retinal bleeds, gout, no cpap used, gastroporesis, anemia, high potassium History of Any Multi-Drug Resistant Organisms: None Reported Past Surgical History: Adenoidectomy, Appendectomy, Orthopedic Surgery, Tonsillectomy Additional Past Surgical History / Comment(s): UVPPP, renal biopsy, bilateral laser eye surgery for retinal bleeds, R knee arthroscopy, L knee open surgery for ACL, colonoscopy. dialysis port Past Anesthesia/Blood Transfusion Reactions: No Reported Reaction Additional Past Anesthesia/Blood Transfusion Reaction / Comm: Issue with pt's sleep apnea during surgery.-pt denies Past Psychological History: Anxiety, Depression Smoking Status: Never smoker Past Alcohol Use History: None Reported Past Drug Use History: None Reported - Past Family History Mother Family Medical History: Cancer, Renal Disease Additional Family Medical History / Comment(s): ESRD with dialysis-mother of renal failure at the age of 77yrs Father Family Medical History: No Reported History Additional Family Medical History / Comment(s): Father is healthy Medications and Allergies Home Medications Medication Instructions Recorded Confirmed Type Insulin Glargine/Lixisenatide 60 units SQ DAILY 07/10/19 03/10/22 History [Soliqua 100 Unit-33 Mcg/ml Pen] Nebivolol HCl [Bystolic] 10 mg PO DAILY 07/10/19 03/10/22 History Pravastatin Sodium [Pravachol] 40 mg PO HS 07/10/19 03/10/22 History hydrALAZINE HCL [Apresoline] 100 mg PO TID 07/10/19 03/10/22 History Allopurinol [Zyloprim] 100 mg PO DAILY 05/16/20 03/10/22 History Sodium Bicarbonate Tab 650 mg PO BID 05/16/20 03/10/22 History amLODIPine [Norvasc] 10 mg PO DAILY 05/16/20 03/10/22 History calcitrioL [Rocaltrol] 0.25 mcg PO TH 05/16/20 03/10/22 History cloNIDine HCL [Catapres] 0.2 mg PO TID 05/16/20 03/10/22 History ALPRAZolam [Xanax] 0.25 mg PO Q6H PRN 10/18/21 03/10/22 History Doxazosin [Cardura] 4 mg PO HS 10/18/21 03/10/22 History Spironolactone [Aldactone] 25 mg PO DAILY 10/18/21 03/10/22 History Vortioxetine Hydrobromide 20 mg PO DAILY 10/18/21 03/10/22 History [Trintellix] Ergocalciferol (Vitamin D2) 1,250 mcg PO TUSA 02/02/22 03/10/22 History [Drisdol (50,000 Iu)] Furosemide [Lasix] 40 mg PO BID 02/02/22 03/10/22 History Nortriptyline HCl [Pamelor] 10 mg PO HS 02/02/22 03/10/22 History Nortriptyline [Pamelor] 25 mg PO HS 02/02/22 03/10/22 History [place]-3 Fatty Acids/Fish Oil [Fish 1,000 cap PO BID 02/02/22 03/10/22 History Oil 1,000 mg Softgel] Ondansetron [Zofran] 4 mg PO Q6H PRN 02/02/22 03/10/22 History Pantoprazole Sodium [Protonix] 40 mg PO DAILY 02/02/22 03/10/22 History Rizatriptan Benzoate [Rizatriptan] 10 mg PO DAILY PRN 02/02/22 03/10/22 History Sodium Zirconium Cyclosilicate 10 gm PO HS 02/13/22 03/10/22 History [Lokelma] buPROPion HCL [Wellbutrin XL] 150 mg PO DAILY 02/18/22 03/10/22 History Cephalexin [Keflex] 500 mg PO QID 03/10/22 03/10/22 History HYDROcodone/APAP 5-325MG [[place] 1 tab PO Q4HR PRN 03/10/22 03/10/22 History 5-325] Allergies Allergy/AdvReac Type Severity Reaction Status Date / Time No Known Allergies Allergy Verified 03/10/22 11:03 Surgical - Exam Vital Signs Temp Pulse Resp BP Pulse Ox 97.3 F L 86 16 194/100 97 03/10/22 09:25 03/10/22 09:25 03/10/22 09:25 03/10/22 09:25 03/10/22 09:25 General appearance: The patient is alert, oriented, appears in no acute distress. HET: Head is normocephalic and atraumatic. Pupils are equal and reactive. Neck: Supple without lymphadenopathy. Trachea midline. Heart: S1 S2. Regular rate and rhythm. Lungs: Clear to auscultation bilaterally. Abdomen: Soft, nontender, nondistended. Extremities: Normal skin color and turgor. No cyanosis, rash, ulceration, clubbing, or edema. Radial and pedal pulses are 2/4 bilaterally. Left upper extremity fistula with audible bruit, palpable thrill. Neurological: No focal deficits. Strength and sensation are grossly intact. Results - Labs 03/11/22 05:47 03/12/22 05:37 Abnormal Lab Results - Last 24 Hours (Table) 03/10/22 03/10/22 03/10/22 Range/Units 09:46 09:46 09:46 RBC 4.04 L (4.30-5.90) m/uL Hgb 11.4 L (13.0-17.5) gm/dL Hct 35.6 L (39.0-53.0) % Lymphocytes # 0.7 L (1.0-4.8) k/uL VBG pCO2 (37-51) mmHg VBG HCO3 (24-28) mmol/L Carbon Dioxide 33 H (22-30) mmol/L BUN 26 H (9-20) mg/dL Creatinine 3.19 H (0.66-1.25) mg/dL Glucose 138 H (74-99) mg/dL POC Glucose (mg/dL) (75-99) mg/dL Urine Protein 3+ H (Negative) 03/10/22 03/10/22 03/10/22 Range/Units 09:46 17:39 20:35 RBC (4.30-5.90) m/uL Hgb (13.0-17.5) gm/dL Hct (39.0-53.0) % Lymphocytes # (1.0-4.8) k/uL VBG pCO2 52 H (37-51) mmHg VBG HCO3 32 H (24-28) mmol/L Carbon Dioxide (22-30) mmol/L BUN (9-20) mg/dL Creatinine (0.66-1.25) mg/dL Glucose (74-99) mg/dL POC Glucose (mg/dL) 101 H 156 H (75-99) mg/dL Urine Protein (Negative) 03/11/22 03/11/22 Range/Units 05:47 06:51 RBC (4.30-5.90) m/uL Hgb (13.0-17.5) gm/dL Hct (39.0-53.0) % Lymphocytes # (1.0-4.8) k/uL VBG pCO2 (37-51) mmHg VBG HCO3 (24-28) mmol/L Carbon Dioxide (22-30) mmol/L BUN (9-20) mg/dL Creatinine 3.66 H (0.66-1.25) mg/dL Glucose (74-99) mg/dL POC Glucose (mg/dL) 152 H (75-99) mg/dL Urine Protein (Negative) Diabetes panel 03/10/22 03/11/22 Range/Units 09:46 05:47 Sodium 138 (137-145) mmol/L Potassium 5.0 (3.5-5.1) mmol/L Chloride 99 (98-107) mmol/L Carbon Dioxide 33 H (22-30) mmol/L BUN 26 H (9-20) mg/dL Creatinine 3.19 H 3.66 H (0.66-1.25) mg/dL Glucose 138 H (74-99) mg/dL Calcium 8.7 (8.4-10.2) mg/dL AST 41 (17-59) U/L ALT 45 (4-49) U/L Alkaline Phosphatase 76 (38-126) U/L Total Protein 7.3 (6.3-8.2) g/dL Albumin 4.1 (3.5-5.0) g/dL Calcium panel 03/10/22 03/10/22 Range/Units 09:46 09:46 Calcium 8.7 (8.4-10.2) mg/dL Phosphorus 3.7 (2.4-5.1) mg/dL Albumin 4.1 (3.5-5.0) g/dL Pituitary panel 03/10/22 03/11/22 Range/Units 09:46 05:47 Sodium 138 (137-145) mmol/L Potassium 5.0 (3.5-5.1) mmol/L Chloride 99 (98-107) mmol/L Carbon Dioxide 33 H (22-30) mmol/L BUN 26 H (9-20) mg/dL Creatinine 3.19 H 3.66 H (0.66-1.25) mg/dL Glucose 138 H (74-99) mg/dL Calcium 8.7 (8.4-10.2) mg/dL Adrenal panel 03/10/22 03/11/22 Range/Units 09:46 05:47 Sodium 138 (137-145) mmol/L Potassium 5.0 (3.5-5.1) mmol/L Chloride 99 (98-107) mmol/L Carbon Dioxide 33 H (22-30) mmol/L BUN 26 H (9-20) mg/dL Creatinine 3.19 H 3.66 H (0.66-1.25) mg/dL Glucose 138 H (74-99) mg/dL Calcium 8.7 (8.4-10.2) mg/dL Total Bilirubin 0.4 (0.2-1.3) mg/dL AST 41 (17-59) U/L ALT 45 (4-49) U/L Alkaline Phosphatase 76 (38-126) U/L Total Protein 7.3 (6.3-8.2) g/dL Albumin 4.1 (3.5-5.0) g/dL Assessment and Plan Assessment: 1. End-stage renal disease requiring hemodialysis 2. Recent placement of right IJ tunneled catheter and left radial vein [place] Q fistula on 02/16/22 3. Chills/body aches concern for possible bacteremia 4. Diabetes mellitus 5. Recent COVID-19 Moderno booster 03/07/22 Plan: 1. Continue dialysis as ordered per recommendations from nephrology 2. There is no signs of infection at graft site or tunneled fistula site. Low suspicion for infected fistula. Likely chills and body aches due to vaccine. 3. Continue medical management 4. Await recommendations from infectious disease Thank you for this consultation, the patient is cleared from vascular surgery f or discharge The impression and plan of care has been dictated as directed. Dr. Perez I performed a history and examination of this patient, discussed the same with the dictator. I agree with the dictator's note ,documented as a scribe. Any additional findings or plans will be noted.
[2022-03-11 11:49] LABS: Glucose,Whole Blood 196 mg/dL (75-99)
[2022-03-11 11:59] LABS: Basophils % (A) 1 %; Eosinophils # (A) 0.2 k/uL (0-0.7); Eosinophils % (A) 6 %; HCT 34.2 % (39.0-53.0); Lymphocytes # (A) 0.6 k/uL (1.0-4.8); Lymphocytes % (A) 16 %; MCH 29.2 pg (25.0-35.0); MCV 91.1 fL (80.0-100.0); Mean Platelet Volume 8.5; Monocytes # (A) 0.4 k/uL (0-1.0); Monocytes % (A) 10 %; Neutrophils # (A) 2.6 k/uL (1.3-7.7); Neutrophils % (A) 64 %; Platelet Count 186 k/uL (150-450); RBC 3.75 m/uL (4.30-5.90); RDW 12.8 % (11.5-15.5)
[2022-03-11] MEDS ORDERED: VANCOMYCIN 2,000 MG in SODIUM CHLORIDE 0.9% 500 ML 500 ML IVPB ONE (12:00)
[2022-03-11 12:04] LABS: Anion Gap 10 mmol/L; Blood Urea Nitrogen 32 mg/dL (9-20); Calcium 8.9 mg/dL (8.4-10.2); Carbon Dioxide 26 mmol/L (22-30); Chloride 100 mmol/L (98-107); Glucose 141 mg/dL (74-99); Potassium 4.8 mmol/L (3.5-5.1); Sodium 136 mmol/L (137-145)
--- NOTE | 2022-03-11 13:30 | P.HPIM ---
History of Present Illness H&P Date: 03/11/22 This is a 46-year-old gentleman with past medical history of end-stage renal disease, hemodialysis Wednesday, Wednesday, Wednesday via permacath, awaiting kidney transplant, diabetes mellitus, diabetic retinopathy, anemia, hypertension, hyperlipidemia, prostate disorder, sleep apnea, wears BiPAP, anxiety, depression, obesity and multiple other medical issues. He reports he recently received his fourth [place]/Covid vaccine-booster on Wednesday and on Wednesday developed increased weakness, body aches, chills. Wednesday morning proceeded to Dr. Buitrago's for chemical stress test followed by HD. Wednesday night after dialysis developed tremors with night sweats. Denies nausea vomiting or diarrhea. Denies abdominal pain. Denies chest pain, palpitations or shortness of breath. Denies syncope. Reports evaluated by vascular surgery at [facility] ER approximately 2 weeks ago and placed on empiric Keflex. Left arm site without redness, or drainage T-max 99.6, WBC 5.3. Coronavirus, influenza type a and B not detected. Shaking and chills have subsided. Denies nausea vomiting or diarrhea. Denies lightheadedness, dizziness or focal deficits. Denies chest pain, palpitations or shortness of breath. Vascular, nephrology, infectious disease consult in place. Currently maintained on IV vancomycin per pharmacy dosing. Review of Systems ROS Statement: Those systems with pertinent positive or pertinent negative responses have been documented in the HPI. ROS Other: All systems not noted in ROS Statement are negative. Past Medical History Past Medical History: Diabetes Mellitus, Hyperlipidemia, Hypertension, Prostate Disorder, Renal Disease, Sleep Apnea/CPAP/BIPAP Additional Past Medical History / Comment(s): renal disease-stage IV(waiting kidney transplant), diabetic retinopathy with bilateral retinal bleeds, gout, no cpap used, gastroporesis, anemia, high potassium History of Any Multi-Drug Resistant Organisms: None Reported Past Surgical History: Adenoidectomy, Appendectomy, Orthopedic Surgery, Tons illectomy Additional Past Surgical History / Comment(s): UVPPP, renal biopsy, bilateral laser eye surgery for retinal bleeds, R knee arthroscopy, L knee open surgery for ACL, colonoscopy. dialysis port Past Anesthesia/Blood Transfusion Reactions: No Reported Reaction Additional Past Anesthesia/Blood Transfusion Reaction / Comment(s): Issue with pt's sleep apnea during surgery.-pt denies Past Psychological History: Anxiety, Depression Smoking Status: Never smoker Past Alcohol Use History: None Reported Past Drug Use History: None Reported - Past Family History Mother Family Medical History: Cancer, Renal Disease Additional Family Medical History / Comment(s): ESRD with dialysis-mother of renal failure at the age of 77yrs Father Family Medical History: No Reported History Additional Family Medical History / Comment(s): Father is healthy Medications and Allergies Home Medications Medication Instructions Recorded Confirmed Type Insulin Glargine/Lixisenatide 60 units SQ DAILY 07/10/19 03/10/22 History [Soliqua 100 Unit-33 Mcg/ml Pen] Nebivolol HCl [Bystolic] 10 mg PO DAILY 07/10/19 03/10/22 History Pravastatin Sodium [Pravachol] 40 mg PO HS 07/10/19 03/10/22 History hydrALAZINE HCL [Apresoline] 100 mg PO TID 07/10/19 03/10/22 History Allopurinol [Zyloprim] 100 mg PO DAILY 05/16/20 03/10/22 History Sodium Bicarbonate Tab 650 mg PO BID 05/16/20 03/10/22 History amLODIPine [Norvasc] 10 mg PO DAILY 05/16/20 03/10/22 History calcitrioL [Rocaltrol] 0.25 mcg PO TH 05/16/20 03/10/22 History cloNIDine HCL [Catapres] 0.2 mg PO TID 05/16/20 03/10/22 History ALPRAZolam [Xanax] 0.25 mg PO Q6H PRN 10/18/21 03/10/22 History Doxazosin [Cardura] 4 mg PO HS 10/18/21 03/10/22 History Spironolactone [Aldactone] 25 mg PO DAILY 10/18/21 03/10/22 History Vortioxetine Hydrobromide 20 mg PO DAILY 10/18/21 03/10/22 History [Trintellix] Ergocalciferol (Vitamin D2) 1,250 mcg PO TUSA 02/02/22 03/10/22 History [Drisdol (50,000 Iu)] Furosemide [Lasix] 40 mg PO BID 02/02/22 03/10/22 History Nortriptyline HCl [Pamelor] 10 mg PO HS 02/02/22 03/10/22 History Nortriptyline [Pamelor] 25 mg PO HS 02/02/22 03/10/22 History [place]-3 Fatty Acids/Fish Oil [Fish 1,000 cap PO BID 02/02/22 03/10/22 History Oil 1,000 mg Softgel] Ondansetron [Zofran] 4 mg PO Q6H PRN 02/02/22 03/10/22 History Pantoprazole Sodium [Protonix] 40 mg PO DAILY 02/02/22 03/10/22 History Rizatriptan Benzoate [Rizatriptan] 10 mg PO DAILY PRN 02/02/22 03/10/22 History Sodium Zirconium Cyclosilicate 10 gm PO HS 02/13/22 03/10/22 History [Lokelma] buPROPion HCL [Wellbutrin XL] 150 mg PO DAILY 02/18/22 03/10/22 History Cephalexin [Keflex] 500 mg PO QID 03/10/22 03/10/22 History HYDROcodone/APAP 5-325MG [[place] 1 tab PO Q4HR PRN 03/10/22 03/10/22 History 5-325] Allergies Allergy/AdvReac Type Severity Reaction Status Date / Time No Known Allergies Allergy Verified 03/10/22 11:03 Physical Exam Vitals: Vital Signs Temp Pulse Pulse Resp BP BP Pulse Ox 03/11/22 08:00 99.6 F 70 16 140/82 92 L 03/11/22 00:48 97.3 F L 70 15 130/75 96 03/10/22 19:03 98.0 F 70 15 140/85 96 03/10/22 18:34 74 18 158/100 94 L 03/10/22 17:47 68 16 139/94 94 L 03/10/22 14:00 80 18 149/104 97 03/10/22 13:40 80 16 149/104 03/10/22 12:00 98.9 F 82 18 146/88 97 03/10/22 11:30 98.9 F 82 18 146/88 97 Intake and Output 03/10/22 03/11/22 03/11/22 22:59 06:59 14:59 Intake Total 222 Balance 222 Intake: Oral 222 Other: Voiding Method Toilet Toilet Weight 123.377 kg General: [Sitting up at side of bed, Awake, alert and oriented times 3. No acute distress.] HEENT: [PERRL. EOMI. No pharyngeal erythema or exudate.] Right chest permacath present. Neck: [Supple, no JVD, No adenopathy.] Cardiac: [Heart regular in rate and rhythm. No S3. No S4. No clicks, rubs. No murmur.] Lungs: [Clear to auscultation bilaterally.] Abdomen: [Soft, nontender ,No organomegaly. No guarding. Bowel sounds presnt and normoactive in all 4 quadrants.] Extremes: [No edema no cyanosis no claudication normal pulses. Left arm fistula present with positive auscultated bruit, no palpable thrill,no redness, no drainage, no edema appreciated.] Skin: [Warm and dry, No rash.] Neurologic: Cranial nerves II through XII grossly intact. No focal deficits. Strength and sensation grossly intact. Results CBC & Chem 7: 03/11/22 05:47 03/11/22 05:47 Labs: Abnormal Lab Results - Last 24 Hours (Table) 03/10/22 03/10/22 03/11/22 Range/Units 17:39 20:35 05:47 Creatinine 3.66 H (0.66-1.25) mg/dL POC Glucose (mg/dL) 101 H 156 H (75-99) mg/dL 03/11/22 Range/Units 06:51 Creatinine (0.66-1.25) mg/dL POC Glucose (mg/dL) 152 H (75-99) mg/dL Thrombosis Risk Factor Assmnt - Choose All That Apply Each Factor Represents 1 point: Age 41-60 years, Obesity (BMI >25) Thrombosis Risk Factor Assessment Total Risk Factor Score: 2 Thrombosis Risk Factor Assessment Level: Low Risk Assessment and Plan Assessment: Left radial fistula pain , recently placed on 02/16/2022 accompanied by tremors, chills, body aches, status post 4th Moderna Vaccine On Wednesday03/07/2022, Chemical stress test and HD on Wednesday03/09/2022, ruling out bacteremia, T-max 99.6, WBC normal. Reports evaluated by vascular surgery at [facility] and placed on empiric Keflex. End-stage renal disease, HD on via permacath Diabetes mellitus, A1c pending, reports his hemoglobin A1c 6.1, blood sugars controlled Anxiety Hypertension Hyperlipidemia Prostate disorder Sleep apnea, wears BiPAP Depression Plan: Continue on current medication regime ,monitoring and symptomatic treatment. Blood cultures pending, continue on IV antibiotics as per ID. Evaluated by vascular surgery with recommendations noted and appreciated and they have signed off. Recommending ice and Tylenol for arm pain that is currently subsided. Hemodialysis pending today. Discharge planning in progress for potentially as early as tomorrow pending clearance from both nephrology and infectious disease. The impression and plan of care has been dictated as directed. : I performed a history and examination of this patient, discussed the same with the dictator. I agree with the dictator's note ,documented as a scribe. Any additional findings or plans will be noted.
[2022-03-11 16:51] LABS: Glucose,Whole Blood 117 mg/dL (75-99)
[2022-03-11 20:27] LABS: Glucose,Whole Blood 165 mg/dL (75-99)
[2022-03-11] MEDS: PRAVASTATIN SODIUM 40 MG TAB PO SCH (20:53)
[2022-03-11] MEDS: DOXAZOSIN 4 MG TAB PO SCH (20:55)
[2022-03-11] MEDS: NORTRIPTYLINE 25 MG CAP PO SCH (20:55)
[2022-03-11] MEDS: NORTRIPTYLINE 10 MG CAP PO SCH (20:55)
[2022-03-11] MEDS: SODIUM ZIRCONIUM CYCLOSILICATE 10 GM PACKET PO SCH (20:56)
[2022-03-12 06:57] LABS: African American GFR (CKD) 24 (>60 ml/min/1.73 sqM); Anion Gap 7 mmol/L; Blood Urea Nitrogen 34 mg/dL (9-20); Calcium 8.4 mg/dL (8.4-10.2); Carbon Dioxide 27 mmol/L (22-30); Chloride 104 mmol/L (98-107); Glucose 161 mg/dL (74-99); Non-African American GFR(CKD) 21 (>60 ml/min/1.73 sqM); Potassium 4.8 mmol/L (3.5-5.1); Sodium 138 mmol/L (137-145)
[2022-03-12 07:09] LABS: Glucose,Whole Blood 162 mg/dL (75-99)
[2022-03-12 07:44] VITALS: BP 133/77; PULSE 76; RESP 17; TEMP 98.1
[2022-03-12 07:55] LABS: Vancomycin,Random 18.4 ug/mL
[2022-03-12] MEDS: INSULIN DETEMIR (LEVEMIR) 100 UNIT/ML SYR SQ SCH (09:13)
[2022-03-12] MEDS: INSULIN ASPART (NovoLOG) 100 UNIT/ML VIAL SQ SCH ×2 (09:13→11:43)
[2022-03-12] MEDS: VORTIOXETINE HYDROBROMIDE 20 MG TABLET PO SCH (09:13)
[2022-03-12] MEDS: hydrALAZINE HCL 50 MG TAB PO SCH (09:13)
[2022-03-12] MEDS: NEBIVOLOL 5 MG TAB PO SCH (09:13)
[2022-03-12] MEDS: cloNIDine HCL 0.2 MG TAB PO SCH (09:14)
[2022-03-12] MEDS: FUROSEMIDE 40 MG TAB PO SCH (09:14)
[2022-03-12] MEDS: amLODIPine 10 MG TAB PO SCH (09:14)
[2022-03-12] MEDS: buPROPion XL 150 MG TAB.ER.24H PO SCH (09:14)
[2022-03-12] MEDS: allopurinoL 100 MG TAB PO SCH (09:14)
[2022-03-12 09:24] LABS: Basophils # (A) 0.05 X 10*3/uL (0.00-0.10); Eosinophils # (A) 0.23 X 10*3/uL (0.04-0.35); Eosinophils % (A) 4.6 %; HCT 32.6 % (39.6-50.0); HGB 10.3 g/dL (13.0-17.0); Immature Grans, Automated 0.6 %; Lymphocytes % (A) 16.1 %; MCHC 31.6 g/dL (32.0-37.0); MCV 88.6 fL (80.0-97.0); Mean Platelet Volume 10.2 fL (9.5-12.2); Monocytes # (A) 0.61 X 10*3/uL (0.20-1.00); Monocytes % (A) 12.2 %; NRBC Per 100 WBC 0 /100 WBCS (0.0-0.0); Neutrophils # (A) 3.26 X 10*3/uL (1.80-7.70); Neutrophils % (A) 65.5 %; Platelet Count 186 X 10*3/uL (140-440); RBC 3.68 X 10*6/uL (4.40-5.60); RDW 12.1 % (11.5-14.5); WBC 4.98 X 10*3/uL (4.50-10.00)
[2022-03-12] MEDS: PANTOPRAZOLE 40 MG/10 ML VIAL IVP SCH (09:53)
[2022-03-12] MEDS ORDERED: VANCOMYCIN 2,000 MG in SODIUM CHLORIDE 0.9% 500 ML 500 ML IVPB ONE (10:00)
--- NOTE | 2022-03-12 10:28 | P.PN ---
Subjective Patient is seen in follow-up for end-stage renal disease. He is maintained on hemodialysis on Wednesday schedule. Denies chest pain or shortness of breath. Tremors resolved. Afebrile. No active complaints. Blood cultures negative so far. Vital signs are stable. General: Awake and alert. No acute distress. HEENT: Head exam is unremarkable. LUNGS: Breath sounds decreased. HEART: Rate and Rhythm are regular. ABDOMEN: Soft, no distention. EXTREMITITES: No edema. Objective - Vital Signs Vital signs: Vital Signs Temp 98.1 F 03/12/22 07:43 Pulse 76 03/12/22 07:43 Resp 17 03/12/22 07:43 BP 133/77 03/12/22 07:43 Pulse Ox 93 L 03/12/22 07:43 FiO2 Intake & Output 03/11/22 03/12/22 03/12/22 18:59 06:59 18:59 Intake Total 220 Output Total 1000 Balance -780 Intake: Oral 220 Output: Hemodialysis 1000 Other: Voiding Method Toilet Toilet # Voids 1 2 # Bowel Movements 2 - Labs CBC & Chem 7: 03/12/22 05:37 03/12/22 05:37 Labs: Abnormal Lab Results - Last 24 Hours (Table) 03/11/22 03/11/22 03/11/22 Range/Units 05:47 05:47 11:45 RBC 3.75 L (4.30-5.90) m/uL Hgb 11.0 L (13.0-17.5) gm/dL Hct 34.2 L (39.0-53.0) % MCHC (32.0-37.0) g/dL Lymphocytes # 0.6 L (1.0-4.8) k/uL Sodium 136 L (137-145) mmol/L BUN 32 H (9-20) mg/dL Creatinine 3.66 H (0.66-1.25) mg/dL Glucose 141 H (74-99) mg/dL POC Glucose (mg/dL) 196 H (75-99) mg/dL 03/11/22 03/11/22 03/12/22 Range/Units 16:49 20:20 05:37 RBC (4.30-5.90) m/uL Hgb (13.0-17.5) gm/dL Hct (39.0-53.0) % MCHC (32.0-37.0) g/dL Lymphocytes # (1.0-4.8) k/uL Sodium (137-145) mmol/L BUN 34 H (9-20) mg/dL Creatinine 3.30 H (0.66-1.25) mg/dL Glucose 161 H (74-99) mg/dL POC Glucose (mg/dL) 117 H 165 H (75-99) mg/dL 03/12/22 03/12/22 Range/Units 05:37 07:06 RBC 3.68 L (4.30-5.90) m/uL Hgb 10.3 L (13.0-17.5) gm/dL Hct 32.6 L (39.0-53.0) % MCHC 31.6 L (32.0-37.0) g/dL Lymphocytes # 0.80 L (1.0-4.8) k/uL Sodium (137-145) mmol/L BUN (9-20) mg/dL Creatinine (0.66-1.25) mg/dL Glucose (74-99) mg/dL POC Glucose (mg/dL) 162 H (75-99) mg/dL Microbiology - Last 24 Hours (Table) 03/10/22 09:46 Blood Culture - Preliminary Blood No Growth after 24 hours 03/10/22 09:46 Blood Culture - Preliminary Blood No Growth after 24 hours Assessment and Plan Plan: Assessment: 1. End-stage renal disease maintained on hemodialysis on Wednesday ay schedule via permacath. Has a maturing left upper extremity AV graft. Etiology is diabetic kidney disease and arterionephrosclerosis. 2. Recent AV graft infection. 3. Shakes and tremors. Concern for infection. Seen by infectious disease. On IV antibiotics. 4. Diabetes mellitus. 5. Chronic kidney disease mineral bone disease maintained on calcitriol. Phosphorus level III.7 dated 03/10/2022. 6. Hypertension with chronic kidney disease. Stable. Plan: Hemodialysis tomorrow. Antibiotics per infectious disease. Monitor vancomycin levels. Dose to be adjusted for renal function. Follow-up cultures. Maintain oral Lasix. Stable to be discharged home from nephrology standpoint once cleared by infectious disease.
[2022-03-12 11:31] LABS: Glucose,Whole Blood 110 mg/dL (75-99)
--- NOTE | 2022-03-12 15:37 | P.DS ---
Providers Date of admission: 03/10/22 12:12 Expected date of discharge: 03/12/22 Attending physician: Hollis Ghosh Consults: 03/10/22 12:11 Consult Physician Routine Consulting Provider: Mando Mccarty Consult Reason/Comments: Recent left upper extremity AV fistula Do you want consulting provider notified?: Yes Consult Physician Routine Consulting Provider: Andrew Stephenson Consult Reason/Comments: Shaking chills, end-stage renal disease Do you want consulting provider notified?: Yes 03/10/22 12:34 Consult Physician Routine Consulting Provider: Nakita Acevedo Consult Reason/Comments: avf graft infection Do you want consulting provider notified?: Yes Primary care physician: [facility] [place] Course: Final Diagnoses: Left AV fistula pain , recently placed on 02/16/2022 accompanied by tremors, chills, body aches, status post 4th Moderna Vaccine On Wednesday03/07/2022, Chemical stress test and HD on Wednesday03/09/2022, ruling out bacteremia, T-max 99.6, WBC normal. Reports evaluated by vascular surgery at [facility] and placed on empiric Keflex. End-stage renal disease, HD on via permacath Diabetes mellitus, hemoglobin A1c 6.0, blood sugars controlled Anxiety Hypertension Hyperlipidemia Prostate disorder Sleep apnea, wears BiPAP Depression Hospital course:This is a 46-year-old gentleman with past medical history of end-stage renal disease, hemodialysis Wednesday, Wednesday, Wednesday via permacath, awaiting kidney transplant, diabetes mellitus, diabetic retinopathy, anemia, hypertension, hyperlipidemia, prostate disorder, sleep apnea, wears BiPAP, anxiety, depression, obesity and multiple other medical issues. He reports he recently received his fourth Maderna/Covid vaccine-booster on Wednesday and on Wednesday developed increased weakness, body aches, chills. Wednesday morning proceeded to Dr. Buitrago's for chemical stress test followed by HD. Wednesday night after dialysis developed tremors with night sweats. Denies nausea vomiting or diarrhea. Denies abdominal pain. Denies chest pain, palpitations or shortness of breath. Denies syncope. Reports evaluated by vascular surgery at [facility] approximately 2 weeks ago and placed on empiric Keflex. Left arm site without redness, or drainage T-max 99.6, WBC 5.3. Coronavirus, influenza type a and B not detected. Shaking and chills have subsided. Denies nausea vomiting or diarrhea. Denies lightheadedness, dizziness or focal deficits. Denies chest pain, palpitations or shortness of breath. Vascular, nephrology, infectious disease consult in place. Currently maintained on IV vancomycin per pharmacy dosing. Maintained on empiric IV antibiotics of vancomycin per pharmacy dosing as per ID. Preliminary Blood cultures reporting no growth after 48 hours. Afebrile , T-max 99.6, normal WBC. Evaluated by a vascular surgery, cleared patient for discharge. Completed hemodialysis yesterday afternoon, tolerating well. Tremors have resolved. Denies chest pain, palpitations or shortness of breath. Denies lightheadedness, dizziness, focal deficits. Significant clinical improvement. Patient will be discharged home today in a stable condition with guarded prognosis pending infectious disease and nephrology clearance. The impression and plan of care has been dictated as directed. : I performed a history and examination of this patient, discussed the same with the dictator. I agree with the dictator's note ,documented as a scribe. Any additional findings or plans will be noted. Patient Condition at Discharge: Stable Plan - Discharge Summary New Discharge Prescriptions: No Action Pravastatin Sodium [Pravachol] 40 mg PO HS Nebivolol HCl [Bystolic] 10 mg PO DAILY hydrALAZINE HCL [Apresoline] 100 mg PO TID Insulin Glargine/Lixisenatide [[place] 100 Unit-33 Mcg/ml Pen] 60 units SQ DAILY amLODIPine [Norvasc] 10 mg PO DAILY Allopurinol [Zyloprim] 100 mg PO DAILY Sodium Bicarbonate Tab 650 mg PO BID cloNIDine HCL [Catapres] 0.2 mg PO TID calcitrioL [Rocaltrol] 0.25 mcg PO TH Vortioxetine Hydrobromide [Trintellix] 20 mg PO DAILY ALPRAZolam [Xanax] 0.25 mg PO Q6H PRN PRN Reason: Anxiety [place]-3 Fatty Acids/Fish Oil [Fish Oil 1,000 mg Softgel] 1,000 cap PO BID Rizatriptan Benzoate [Rizatriptan] 10 mg PO DAILY PRN PRN Reason: Migraine Headache Pantoprazole Sodium [Protonix] 40 mg PO DAILY Ergocalciferol (Vitamin D2) [Drisdol (50,000 Iu)] 1,250 mcg PO TUSA Ondansetron [Zofran] 4 mg PO Q6H PRN PRN Reason: Nausea Nortriptyline [Pamelor] 25 mg PO HS Sodium Zirconium Cyclosilicate [Lokelma] 10 gm PO HS Cephalexin [Keflex] 500 mg PO QID Doxazosin [Cardura] 4 mg PO HS Spironolactone [Aldactone] 25 mg PO DAILY Nortriptyline HCl [Pamelor] 10 mg PO HS Furosemide [Lasix] 40 mg PO BID buPROPion HCL [Wellbutrin XL] 150 mg PO DAILY HYDROcodone/APAP 5-325MG [[place] 5-325] 1 tab PO Q4HR PRN PRN Reason: Pain Discharge Medication List Insulin Glargine/Lixisenatide [[place] 100 Unit-33 Mcg/ml Pen] 60 units SQ DAILY 07/10/19 [History] Nebivolol HCl [Bystolic] 10 mg PO DAILY 07/10/19 [History] Pravastatin Sodium [Pravachol] 40 mg PO HS 07/10/19 [History] hydrALAZINE HCL [Apresoline] 100 mg PO TID 07/10/19 [History] Allopurinol [Zyloprim] 100 mg PO DAILY 05/16/20 [History] Sodium Bicarbonate Tab 650 mg PO BID 05/16/20 [History] amLODIPine [Norvasc] 10 mg PO DAILY 05/16/20 [History] calcitrioL [Rocaltrol] 0.25 mcg PO TH 05/16/20 [History] cloNIDine HCL [Catapres] 0.2 mg PO TID 05/16/20 [History] ALPRAZolam [Xanax] 0.25 mg PO Q6H PRN 10/18/21 [History] Doxazosin [Cardura] 4 mg PO HS 10/18/21 [History] Spironolactone [Aldactone] 25 mg PO DAILY 10/18/21 [History] Vortioxetine Hydrobromide [Trintellix] 20 mg PO DAILY 10/18/21 [History] Ergocalciferol (Vitamin D2) [Drisdol (50,000 Iu)] 1,250 mcg PO TUSA 02/02/22 [History] Furosemide [Lasix] 40 mg PO BID 02/02/22 [History] Nortriptyline HCl [Pamelor] 10 mg PO HS 02/02/22 [History] Nortriptyline [Pamelor] 25 mg PO HS 02/02/22 [History] [place]-3 Fatty Acids/Fish Oil [Fish Oil 1,000 mg Softgel] 1,000 cap PO BID 02/02/22 [History] Ondansetron [Zofran] 4 mg PO Q6H PRN 02/02/22 [History] Pantoprazole Sodium [Protonix] 40 mg PO DAILY 02/02/22 [History] Rizatriptan Benzoate [Rizatriptan] 10 mg PO DAILY PRN 02/02/22 [History] Sodium Zirconium Cyclosilicate [Lokelma] 10 gm PO HS 02/13/22 [History] buPROPion HCL [Wellbutrin XL] 150 mg PO DAILY 02/18/22 [History] Cephalexin [Keflex] 500 mg PO QID 03/10/22 [History] HYDROcodone/APAP 5-325MG [[place] 5-325] 1 tab PO Q4HR PRN 03/10/22 [History] Follow up Appointment(s)/Referral(s): Amadou Roman MD [Primary Care Provider] - 03/16/22 10:30 am Andrew Stephenson DO [STAFF PHYSICIAN] - 1 Week Discharge Disposition: HOME SELF-CARE
--- NOTE | 2022-03-17 19:37 | CDI ---
Documentation Clarification Form Date: 03/17/2022 From: JENNA Robles Admit Date: 03/10/2022 12:12:00 PM Patient Name: Roge Novak Visit Number: [id number] Discharge Date: 03/12/2022 02:48:00 PM ATTENTION: The Clinical Documentation Specialists (CDI) and [facility] Coding Staff appreciate your assistance in clarifying documentation. Please respond to the clarification below the line at the bottom and electronically sign. The CDI & [facility] Coding staff will review the response and follow-up if needed. Please note: Queries are made part of the Legal Health Record. If you have any questions, please contact the author of this message via ITS. Dr. Hollis Ghosh, DO Recent COVID booster shot is documented on the H&P, Consult 03/10 and 03/11 and also on the Discharge Summary and the patient is admitted with tremors, chills, body aches and felt feverish. Please clarify if there is a relationship between the COVID booster shot and the presenting symptoms. History/Risk Factors: Patient got his Moderna COVID booster shot this Wednesday on Wednesday the patient started having feeling weak and did have body aches and the patient did went for his dialysis on Wednesday did okay that night but developed night sweats and tremors Clinical Indicators: T-max 99.6, WBC normal, bacteremia ruled out Please clarify the relationship, if any, which is clinically appropriate for this patient: [ x] Body aches, chills, tremors, fever is due to COVID booster shot [ ] Body aches, chills, tremors, fever is not due to COVID booster shot [ ] Other explanation of clinical findings (please specify) [ ] Unable to determine (no explanation for clinical findings) I believe patient had recently undergone Covid booster and subsequently contracted the disease shortly after MTDD
--- NOTE | 2022-03-19 22:02 | P.PN ---
Subjective Progress Note Date: 03/11/22 Principal diagnosis: AV graft infection Patient is a 46-year-old male past medical history significant for diabetes mellitus hypertension hyperlipidemia and end-stage renal disease and this patient did have a left forearm AV graft recently placed presented to hospital with rigors and chills and concern for possible left arm AV graft infection. On today's evaluation that is 03/11/2022, patient denies having any fever or chills, patient pain to the left forearm has decreased in intensity patient currently do not have any of the wound or any drainage, no chest pain shortness of Objective - Vital Signs Vital signs: Vital Signs Temp 99.6 F 03/11/22 08:00 Pulse 70 03/11/22 08:00 Resp 16 03/11/22 08:00 BP 140/82 03/11/22 08:00 Pulse Ox 92 L 03/11/22 08:00 FiO2 Intake & Output 03/10/22 03/11/22 03/11/22 18:59 06:59 18:59 Intake Total 222 Balance 222 Weight 123.377 kg 123.377 kg Intake: Oral 222 Other: Voiding Method Toilet Toilet - Exam GENERAL DESCRIPTION: Middle-age male lying in bed in no distress RESPIRATORY SYSTEM: Unlabored breathing , decreased breath sounds at bases HEART: S1 S2 regular rate and rhythm , ABDOMEN: Soft , no tenderness EXTREMITIES: Left forearm currently with no swelling no redness or drainage - Labs CBC & Chem 7: 03/12/22 05:37 03/12/22 05:37 Labs: Abnormal Lab Results - Last 24 Hours (Table) 03/10/22 03/10/22 03/11/22 Range/Units 17:39 20:35 05:47 RBC (4.30-5.90) m/uL Hgb (13.0-17.5) gm/dL Hct (39.0-53.0) % Lymphocytes # (1.0-4.8) k/uL Sodium 136 L (137-145) mmol/L BUN 32 H (9-20) mg/dL Creatinine 3.66 H (0.66-1.25) mg/dL Glucose 141 H (74-99) mg/dL POC Glucose (mg/dL) 101 H 156 H (75-99) mg/dL 03/11/22 03/11/22 03/11/22 Range/Units 05:47 06:51 11:45 RBC 3.75 L (4.30-5.90) m/uL Hgb 11.0 L (13.0-17.5) gm/dL Hct 34.2 L (39.0-53.0) % Lymphocytes # 0.6 L (1.0-4.8) k/uL Sodium (137-145) mmol/L BUN (9-20) mg/dL Creatinine (0.66-1.25) mg/dL Glucose (74-99) mg/dL POC Glucose (mg/dL) 152 H 196 H (75-99) mg/dL Microbiology - Last 24 Hours (Table) 03/10/22 09:46 Blood Culture - Preliminary Blood No Growth after 24 hours 03/10/22 09:46 Blood Culture - Preliminary Blood No Growth after 24 hours Assessment and Plan (1) Shaking chills Status: Acute Code(s): R68.83 - CHILLS (WITHOUT FEVER) SNOMED Code(s): 75572784 Plan: 1patient presented to hospital with not feeling well and chills and pain to his left arm AV graft patient mention there was some redness I did not appreciate any redness patient did not have any fever or elevated white count making the graft site infection to be less likely not entirely excluded. 2we will wait for the blood culture to finalize . 3vancomycin pharmacy to dose while waiting for the culture to finalize.
--- NOTE | 2022-03-19 22:04 | P.PN ---
Subjective Progress Note Date: 03/12/22 Principal diagnosis: AV graft infection Patient is a 46-year-old male past medical history significant for diabetes mellitus hypertension hyperlipidemia and end-stage renal disease and this patient did have a left forearm AV graft recently placed presented to hospital with rigors and chills and concern for possible left arm AV graft infection. On today's evaluation that is 03/12/2022, patient continues to be afebrile, patient denies pain to the left forearm denies any chest pain shortness of breath and no cough no abdominal pain no diarrhea overall feeling better Objective - Vital Signs Vital signs: Vital Signs Temp 98.1 F 03/12/22 07:43 Pulse 76 03/12/22 07:43 Resp 17 03/12/22 07:43 BP 133/77 03/12/22 07:43 Pulse Ox 93 L 03/12/22 07:43 FiO2 Intake & Output 03/11/22 03/12/22 03/12/22 18:59 06:59 18:59 Intake Total 220 Output Total 1000 Balance -780 Intake: Oral 220 Output: Hemodialysis 1000 Other: Voiding Method Toilet Toilet # Voids 1 2 # Bowel Movements 2 - Exam GENERAL DESCRIPTION: Middle-age male lying in bed in no distress RESPIRATORY SYSTEM: Unlabored breathing , decreased breath sounds at bases HEART: S1 S2 regular rate and rhythm , ABDOMEN: Soft , no tenderness EXTREMITIES: Left forearm currently with no swelling no redness or drainage - Labs CBC & Chem 7: 03/12/22 05:37 03/12/22 05:37 Labs: Abnormal Lab Results - Last 24 Hours (Table) 03/11/22 03/11/22 03/12/22 Range/Units 16:49 20:20 05:37 RBC (4.40-5.60) X 10*6/uL Hgb (13.0-17.0) g/dL Hct (39.6-50.0) % MCHC (32.0-37.0) g/dL Lymphocytes # (0.90-5.00) X 10*3/uL BUN 34 H (9-20) mg/dL Creatinine 3.30 H (0.66-1.25) mg/dL Glucose 161 H (74-99) mg/dL POC Glucose (mg/dL) 117 H 165 H (75-99) mg/dL 03/12/22 03/12/22 03/12/22 Range/Units 05:37 07:06 11:28 RBC 3.68 L (4.40-5.60) X 10*6/uL Hgb 10.3 L (13.0-17.0) g/dL Hct 32.6 L (39.6-50.0) % MCHC 31.6 L (32.0-37.0) g/dL Lymphocytes # 0.80 L (0.90-5.00) X 10*3/uL BUN (9-20) mg/dL Creatinine (0.66-1.25) mg/dL Glucose (74-99) mg/dL POC Glucose (mg/dL) 162 H 110 H (75-99) mg/dL Microbiology - Last 24 Hours (Table) 03/10/22 09:46 Blood Culture - Preliminary Blood No Growth after 24 hours 03/10/22 09:46 Blood Culture - Preliminary Blood No Growth after 24 hours Assessment and Plan (1) Shaking chills Status: Acute Code(s): R68.83 - CHILLS (WITHOUT FEVER) SNOMED Code(s): 88448895 Plan: 1patient presented to hospital with not feeling well and shaking chills and pain to his left arm AV graft patient mention there was some redness I did not appreciate any redness patient did not have any fever or elevated white count making the graft site infection to be less likely not entirely excluded. 2blood culture has been negative 3with no evidence of any cellulitis clinically, cultures negative recommended discontinue vancomycin and no need for antibiotic on discharge Time with Patient: Less than 30
--- NOTE | 2022-03-20 16:34 | CDI ---
Documentation Clarification Form Date: 03/20/2022 From: JENNA Robles Admit Date: 03/10/2022 12:12:00 PM Patient Name: Roge Novak Visit Number: [id number] Discharge Date: 03/12/2022 02:48:00 PM ATTENTION: The Clinical Documentation Specialists (CDI) and [facility] Coding Staff appreciate your assistance in clarifying documentation. Please respond to the clarification below the line at the bottom and electronically sign. The CDI & [facility] Coding staff will review the response and follow-up if needed. Please note: Queries are made part of the Legal Health Record. If you have any questions, please contact the author of this message via ITS. Dr. Hollis Ghosh There is documentation of 'ruling out bacteremia' on the H&P and DC Summary. ED note and Consult 03/11 notes 'concern for bacteremia' and 'concern for possible bacteremia' respectively. Bacteremia is considered a lab finding. Additional clarification regarding bacteremia is requested. ED: Patient history/risk factors: 46-year-old male presenting with shaking, chills, patient was sent in by his financial specialist for concern for bacteremia. Clinical Impression: Concern for bacteremia H&P: Assessment: Left radial fistula pain , recently placed on 02/16/2022 accompanied by tremors, chills, body aches. T-max 99.6, WBC normal. Reports evaluated by vascular surgery at [facility] and placed on empiric Keflex. Treatment: IV Antibiotics Please provide additional clarification regarding the etiology/cause and/or clinical significance of the bacteremia: [ ] Bacteremia is ruled in and related to the presence of the left AV fistula [ ] Bacteremia is ruled in but not related to the presence of the left AV fistula [ ] Bacteremia is ruled out [ ] Bacteremia is due to infectious process, please specify: [x ] Other, please specify [ ] Unable to determine I believe patient was diagnosed with COVID-19 [id number] MTDD
== END 2022-03-12 14:48 | disposition home or self-care (01) | DRG 864 ==
LOC: EC 09:24 → 4SSUR 12:12
PROVIDERS: ADMIT Family Medicine; ATTEND Family Medicine
PROC: 5A1D70Z Performance of Urinary Filtration, Intermittent, Less than 6 Hours Per Day (ICD-10-PCS; principal; 2022-03-11)
DX: R50.83 Postvaccination fever (principal); N18.6 End stage renal disease; I12.0 Hypertensive chronic kidney disease with stage 5 chronic kidney disease or end stage renal disease; T82.848A Pain due to vascular prosthetic devices, implants and grafts, initial encounter; T50.B95A Adverse effect of other viral vaccines, initial encounter; R25.1 Tremor, unspecified; E11.22 Type 2 diabetes mellitus with diabetic chronic kidney disease; E11.319 Type 2 diabetes mellitus with unspecified diabetic retinopathy without macular edema; E78.5 Hyperlipidemia, unspecified; F41.9 Anxiety disorder, unspecified; F32.A Depression, unspecified; M89.8X9 Other specified disorders of bone, unspecified site; N42.9 Disorder of prostate, unspecified; Z20.822 Contact with and (suspected) exposure to COVID-19; D63.1 Anemia in chronic kidney disease; G47.30 Sleep apnea, unspecified; Y71.3 Surgical instruments, materials and cardiovascular devices (including sutures) associated with adverse incidents; E66.9 Obesity, unspecified; M10.9 Gout, unspecified; E11.43 Type 2 diabetes mellitus with diabetic autonomic (poly)neuropathy; K31.84 Gastroparesis; Z99.2 Dependence on renal dialysis; Z79.4 Long term (current) use of insulin; Z79.899 Other long term (current) drug therapy; Z68.36 Body mass index [BMI] 36.0-36.9, adult; Z86.19 Personal history of other infectious and parasitic diseases
CPT/HCPCS: 36415; 36556; 71046; 80048; 80053; 80202; 81001; 82803; 83036; 83735; 84100; 85025; 87040; 87502; 87635; 90935; 96365; 96366; 96375; 99285

== ENCOUNTER 2022-04-17 10:08 | Day surgery (SDC) | payer BC ==
[2022-04-17] MEDS ORDERED: SODIUM CHLORIDE 0.9% 1,000 ML IV ONE (10:35)
[2022-04-17 10:39] LABS: Glucose,Whole Blood 123 mg/dL (70-110)
[2022-04-17 10:39] LABS: Basophils # (A) 0.1 k/uL (0-0.2); Basophils % (A) 1 %; Eosinophils # (A) 0.4 k/uL (0-0.7); Eosinophils % (A) 5 %; HCT 38.7 % (39.0-53.0); HGB 12.5 gm/dL (13.0-17.5); Lymphocytes # (A) 0.7 k/uL (1.0-4.8); Lymphocytes % (A) 9 %; MCHC 32.4 g/dL (31.0-37.0); MCV 89.5 fL (80.0-100.0); Mean Platelet Volume 7.8; Monocytes # (A) 0.6 k/uL (0-1.0); Monocytes % (A) 7 %; Neutrophils # (A) 6.1 k/uL (1.3-7.7); Neutrophils % (A) 77 %; Platelet Count 198 k/uL (150-450); RBC 4.32 m/uL (4.30-5.90); RDW 12.5 % (11.5-15.5); WBC 7.8 k/uL (3.8-10.6)
[2022-04-17 10:50] LABS: Calcium 9.2 mg/dL (8.4-10.2); Potassium 4.3 mmol/L (3.5-5.1)
[2022-04-17] MEDS ORDERED: MIDAZOLAM 2 MG/2 ML VIAL IV ONE (12:43)
[2022-04-17] MEDS ORDERED: fentaNYL (PF) 50 MCG/ML 2 ML AMP ONE (12:46)
[2022-04-17] MEDS: fentaNYL (PF) 50 MCG/ML 2 ML AMP IV ONE ×2 (12:48→13:19)
[2022-04-17] MEDS ORDERED: VERAPAMIL 2.5 MG/ML 2 ML AMP ONE (12:54)
[2022-04-17] MEDS ORDERED: VERAPAMIL SYRINGE (5 MG/10 ML) INTRAARTER ONE (12:56)
[2022-04-17] MEDS: MIDAZOLAM 2 MG/2 ML VIAL IV ONE ×2 (12:57→13:02)
[2022-04-17] MEDS ORDERED: HEPARIN SODIUM 1,000 UN/ML (10ML VL) IV ONE (12:57)
[2022-04-17] MEDS ORDERED: NITROGLYCERIN 1000MCG/10ML SYRINGE INTRAARTER ONE (12:57)
[2022-04-17] MEDS ORDERED: HYDROmorphone 1 MG/ML 1 ML SYRINGE IVP ONE (13:30)
[2022-04-17] MEDS ORDERED: IOPAMIDOL-250 100ML BTL INTRAARTER ONE (13:47)
--- NOTE | 2022-04-17 14:24 | IR ---
Fluoroscopy HISTORY: Venous stenosis 14.9 minutes fluoroscopy time supplied to the referring clinician. 190 intraoperative C-arm images d ocument the procedure. See dictated report from vascular surgery.
--- NOTE | 2022-04-17 14:41 | P.OP ---
Date of Procedure: 04/17/22 Preoperative Diagnosis: ESRD, outflow stenosis left upper extremity percutaneous fistula outflow stenosis. Malfunctioning hemodialysis catheter Postoperative Diagnosis: Left upper extremity outflow stenosis at bung sewer and radial vein Procedure(s) Performed: 1. Ultrasound guided left radial artery retrograde access 2. Fistulagram left upper extremity 3. PTBA of the left radial vein and bung sewer vein 4. PTBA of the radial-radial anastomosis 5. Central SVC venogram 6. Conscious sedation x 65 minutes Anesthesia: local Surgeon: Mando Mccarty Estimated Blood Loss (ml): 5 Pathology: none sent Condition: stable Disposition: PACU Indications for Procedure: 47 year old male with history of ESRD with history of left upper extremity percutaneous fistula creation presents to the slabbing machine operator for fistulagram and possible intervention due to outflow stenosis and decreased flows to the cephalic and basilic veins. He also has been having some issues with his tunneled catheter and presents for evaluation and possible replacement. Operative Findings: Outflow stenosis at the radial, bung sewer and antecubital veins with appearance of scarring. Residual stenosis around 30%. Description of Procedure: After written and informed consent was obtained and all risks, benefits and complications were discussed the patient was brought to the slabbing machine operator and placed in a supine position with left arm outstretched on an armboard. The area of the left upper extremity was prepped and draped in the usual fashion. Timeout was done in usual fashion. Utilizing ultrasound the left radial artery was located and shown to be patent without any plaque noted. It was accessed in a retrograde fashion under ultrasound guidance. A 5F slender sheath was placed in usual fashion. A cocktail of heparin, nitro and verapamil was injected through the sheath. A retrograde angiogram was obtained demonstrating severe stenosis >90% just distal to the anastomosis involving the bung sewer and antecubital vein. A guidewire was placed across the area into the cephalic vein with the assistance of an angled glide catheter. Once in the cephalic vein multiple balloon angioplasties was performed across the stenosis with 4mm, and 5mm b alloons. There still was severe stenosis and the wire was exchanged for an 018 wire and utilizing an a cutting balloon was utilized across the lesion. A 5mm x 60mm Lutonix balloon was then placed and there still was severe stenosis across the area. A 5mm x 20mm balloon was then placed and angioplasty was performed with improvement noted with residual stenosis around 30%. Flow was brisk throughout and central venogram was obtained demonstrating no evidence of stenosis. All guidewires and catheter were removed and TR-band was placed for hemostasis. Attention was then placed to the central catheter which was prepped and draped in usual fashion. Central venogram through the catheter was obtained demonstrating brisk flow without any evidence of thrombus or kink in the catheter. The catheter was in the appropriate position as well. After discussion with the patient he does not want it exchanged unless he is put to sleep and therefore we will schedule at another time when anesthesia is available if his catheter malfunctions. He tolerated the procedure well and was sent to recovery in stable condition. Plan - Discharge Summary Discharge Rx Participant: No New Discharge Prescriptions: No Action Pravastatin Sodium [Pravachol] 40 mg PO HS Nebivolol HCl [Bystolic] 10 mg PO DAILY hydrALAZINE HCL [Apresoline] 100 mg PO TID Insulin Glargine/Lixisenatide [Soliqua 100 Unit-33 Mcg/ml Pen] 60 units SQ DAILY amLODIPine [Norvasc] 10 mg PO DAILY allopurinoL [Zyloprim] 100 mg PO DAILY cloNIDine HCL [Catapres] 0.2 mg PO TID calcitrioL [Rocaltrol] 0.25 mcg PO TUTH Vortioxetine Hydrobromide [Trintellix] 20 mg PO DAILY ALPRAZolam [Xanax] 0.25 mg PO Q6H PRN PRN Reason: Anxiety [place]-3 Fatty Acids/Fish Oil [Fish Oil 1,000 mg Softgel] 1,000 cap PO BID Rizatriptan Benzoate [Rizatriptan] 10 mg PO DAILY PRN PRN Reason: Migraine Headache Pantoprazole Sodium [Protonix] 40 mg PO DAILY Ergocalciferol (Vitamin D2) [Drisdol (50,000 Iu)] 1,250 mcg PO TUSA Ondansetron [Zofran] 4 mg PO Q6H PRN PRN Reason: Nausea Nortriptyline [Pamelor] 25 mg PO HS Sodium Zirconium Cyclosilicate [Lokelma] 10 gm PO HS Doxazosin [Cardura] 4 mg PO HS Spironolactone [Aldactone] 25 mg PO DAILY Nortriptyline HCl [Pamelor] 10 mg PO HS Furosemide [Lasix] 40 mg PO BID buPROPion HCL [Wellbutrin XL] 150 mg PO DAILY HYDROcodone/APAP 5-325MG [[place] 5-325] 1 tab PO Q4HR PRN PRN Reason: Pain Discharge Medication List Insulin Glargine/Lixisenatide [[place]iqu[place] 100 Unit-33 Mcg/ml Pen] 60 units SQ DAILY 07/10/19 [History] Nebivolol HCl [Bystolic] 10 mg PO DAILY 07/10/19 [History] Pravastatin Sodium [Pravachol] 40 mg PO HS 07/10/19 [History] hydrALAZINE HCL [Apresoline] 100 mg PO TID 07/10/19 [History] allopurinoL [Zyloprim] 100 mg PO DAILY 05/16/20 [History] amLODIPine [Norvasc] 10 mg PO DAILY 05/16/20 [History] calcitrioL [Rocaltrol] 0.25 mcg PO TUTH 05/16/20 [History] cloNIDine HCL [Catapres] 0.2 mg PO TID 05/16/20 [History] ALPRAZolam [Xanax] 0.25 mg PO Q6H PRN 10/18/21 [History] Doxazosin [Cardura] 4 mg PO HS 10/18/21 [History] Spironolactone [Aldactone] 25 mg PO DAILY 10/18/21 [History] Vortioxetine Hydrobromide [Trintellix] 20 mg PO DAILY 10/18/21 [History] Ergocalciferol (Vitamin D2) [Drisdol (50,000 Iu)] 1,250 mcg PO TUSA 02/02/22 [History] Furosemide [Lasix] 40 mg PO BID 02/02/22 [History] Nortriptyline HCl [Pamelor] 10 mg PO HS 02/02/22 [History] Nortriptyline [Pamelor] 25 mg PO HS 02/02/22 [History] [place]-3 Fatty Acids/Fish Oil [Fish Oil 1,000 mg Softgel] 1,000 cap PO BID 02/02/22 [History] Ondansetron [Zofran] 4 mg PO Q6H PRN 02/02/22 [History] Pantoprazole Sodium [Protonix] 40 mg PO DAILY 02/02/22 [History] Rizatriptan Benzoate [Rizatriptan] 10 mg PO DAILY PRN 02/02/22 [History] Sodium Zirconium Cyclosilicate [Lokelma] 10 gm PO HS 02/13/22 [History] buPROPion HCL [Wellbutrin XL] 150 mg PO DAILY 02/18/22 [History] HYDROcodone/APAP 5-325MG [[place] 5-325] 1 tab PO Q4HR PRN 03/10/22 [History] Follow up Appointment(s)/Referral(s): Mando Mccarty DO [STAFF PHYSICIAN] - 2 Weeks Discharge Disposition: HOME SELF-CARE
[2022-04-17 15:45] VITALS: BP 123/75; PULSE 74; RESP 18; TEMP 97.3
== END 2022-04-17 19:36 | disposition home or self-care (01) ==
LOC: OR 10:08 → 6NMEDSUR 14:19 → OR 19:36
PROVIDERS: ATTEND Surgery
DX: I87.1 Compression of vein (principal); I12.0 Hypertensive chronic kidney disease with stage 5 chronic kidney disease or end stage renal disease; E11.22 Type 2 diabetes mellitus with diabetic chronic kidney disease; Z99.2 Dependence on renal dialysis; S37.009A Unspecified injury of unspecified kidney, initial encounter; N18.6 End stage renal disease; Z79.4 Long term (current) use of insulin; Z79.899 Other long term (current) drug therapy; D64.9 Anemia, unspecified; Z86.16 Personal history of COVID-19; F32.A Depression, unspecified; R60.0 Localized edema; E21.3 Hyperparathyroidism, unspecified; H35.30 Unspecified macular degeneration; E11.40 Type 2 diabetes mellitus with diabetic neuropathy, unspecified; E55.9 Vitamin D deficiency, unspecified; Z90.49 Acquired absence of other specified parts of digestive tract; Z98.890 Other specified postprocedural states; Z82.49 Family history of ischemic heart disease and other diseases of the circulatory system; Z80.51 Family history of malignant neoplasm of kidney; Z83.3 Family history of diabetes mellitus
CPT/HCPCS: 36598; 36902; 80048; 85025; C1769 ×6; C1725 ×2; C1894; J2250; J3010; J1644; J1170; Q9966

== ENCOUNTER 2022-05-03 11:11 | Emergency (ER) | payer BC ==
[2022-05-03 11:36] VITALS: BP 128/73; PULSE 79; RESP 18; TEMP 97.5
[2022-05-03 12:36] LABS: Basophils # (A) 0.1 k/uL (0-0.2); Basophils % (A) 1 %; Eosinophils # (A) 0.3 k/uL (0-0.7); Eosinophils % (A) 7 %; HCT 35.6 % (39.0-53.0); HGB 11.7 gm/dL (13.0-17.5); Lymphocytes # (A) 0.8 k/uL (1.0-4.8); Lymphocytes % (A) 18 %; MCHC 32.9 g/dL (31.0-37.0); MCV 88.1 fL (80.0-100.0); Mean Platelet Volume 8.4; Monocytes # (A) 0.4 k/uL (0-1.0); Monocytes % (A) 9 %; Neutrophils # (A) 2.9 k/uL (1.3-7.7); Neutrophils % (A) 63 %; Platelet Count 150 k/uL (150-450); RBC 4.04 m/uL (4.30-5.90); RDW 12.6 % (11.5-15.5); WBC 4.6 k/uL (3.8-10.6)
[2022-05-03 12:45] LABS: Calcium 8.9 mg/dL (8.4-10.2); Potassium 5.1 mmol/L (3.5-5.1); Total Bilirubin 0.4 mg/dL (0.2-1.3); Total Protein 6.7 g/dL (6.3-8.2)
--- NOTE | 2022-05-03 12:51 | XR ---
EXAMINATION TYPE: XR chest 2V DATE OF EXAM: 05/03/2022 COMPARISON: 03/10/2022 INDICATION: Catheter placement TECHNIQUE: Frontal and lateral views of the chest are obtained. FINDINGS: The heart size is normal. The pulmonary vasculature is normal. The lungs are clear. There is a double-lumen catheter on right with the tips in the distal superior vena cava proximal rig ht atrium. This may advanced slightly over the interval IMPRESSION: 1. No acute pulmonary process. 2. Double lumen catheter on the right may have advanced somewhat from the comparison image.
--- NOTE | 2022-05-03 12:52 | XR ---
EXAMINATION TYPE: XR soft tissue neck DATE OF EXAM: 05/03/2022 COMPARISON: None HISTORY: Catheter placement TECHNIQUE: 2 view soft tissue neck FINDINGS: Prevertebral space is normal. Epiglottis is unremarkable. No suspicious radiographic findin gs evident IMPRESSION: 1. Normal soft tissue neck.
--- NOTE | 2022-05-03 13:27 | ED ---
General Adult HPI - General Chief complaint: Recheck/Abnormal Lab/Rx Stated complaint: heart cath issue Time Seen by Provider: 05/03/22 11:51 Source: patient, family Mode of arrival: ambulatory Limitations: no limitations - History of Present Illness Initial comments: Patient is a 47-year-old male presenting with chief complaint of permacath issues. Patient had permacath placed at the end of February for dialysis. Patient states that over the last 3 days it has felt like there something wrong with it. He states that when pressing directly over the catheter it feels as though it's broken or cane. He also states it feels "funny" when he swallows. Patient last received dialysis on Wednesday and is next scheduled received dialysis tomorrow. Patient states that he is working to have an appointment with Dr. Mccarty soon, as he has been having some issues with the catheter during dialysis. He denies any chest pain, shortness of breath, fever, chills, nausea, vomiting, abdominal pain, dysphasia, diarrhea, hematochezia, melena, dysuria, hematuria, pa lpitations, weakness. - Related Data Home Medications Medication Instructions Recorded Confirmed Insulin Glargine/Lixisenatide 60 units SQ DAILY 07/10/19 04/17/22 [Soliqua 100 Unit-33 Mcg/ml Pen] Nebivolol HCl [Bystolic] 10 mg PO DAILY 07/10/19 04/15/22 Pravastatin Sodium [Pravachol] 40 mg PO HS 07/10/19 04/15/22 hydrALAZINE HCL [Apresoline] 100 mg PO TID 07/10/19 04/15/22 allopurinoL [Zyloprim] 100 mg PO DAILY 05/16/20 04/15/22 amLODIPine [Norvasc] 10 mg PO DAILY 05/16/20 04/15/22 calcitrioL [Rocaltrol] 0.25 mcg PO TUTH 05/16/20 04/15/22 cloNIDine HCL [Catapres] 0.2 mg PO TID 05/16/20 04/15/22 ALPRAZolam [Xanax] 0.25 mg PO Q6H PRN 10/18/21 04/15/22 Doxazosin [Cardura] 4 mg PO HS 10/18/21 04/15/22 Spironolactone [Aldactone] 25 mg PO DAILY 10/18/21 04/15/22 Vortioxetine Hydrobromide 20 mg PO DAILY 10/18/21 04/15/22 [Trintellix] Ergocalciferol (Vitamin D2) 1,250 mcg PO TUSA 02/02/22 04/15/22 [Drisdol (50,000 Iu)] Furosemide [Lasix] 40 mg PO BID 02/02/22 04/15/22 Nortriptyline HCl [Pamelor] 10 mg PO HS 02/02/22 04/15/22 Nortriptyline [Pamelor] 25 mg PO HS 02/02/22 04/15/22 [place]-3 Fatty Acids/Fish Oil [Fish 1,000 cap PO BID 02/02/22 04/15/22 Oil 1,000 mg Softgel] Ondansetron [Zofran] 4 mg PO Q6H PRN 02/02/22 04/15/22 Pantoprazole Sodium [Protonix] 40 mg PO DAILY 02/02/22 04/15/22 Rizatriptan Benzoate [Rizatriptan] 10 mg PO DAILY PRN 02/02/22 04/15/22 Sodium Zirconium Cyclosilicate 10 gm PO 02/13/22 04/17/22 [Lokelma] buPROPion HCL [Wellbutrin XL] 150 mg PO DAILY 02/18/22 04/15/22 HYDROcodone/APAP 5-325MG [[place] 1 tab PO Q4HR PRN 03/10/22 04/15/22 5-325] Allergies Allergy/AdvReac Type Severity Reaction Status Date / Time No Known Allergies Allergy Verified 05/03/22 11:36 Review of Systems ROS Statement: Those systems with pertinent positive or pertinent negative responses have been documented in the HPI. ROS Other: All systems not noted in ROS Statement are negative. Past Medical History Past Medical History: Diabetes Mellitus, Hyperlipidemia, Hypertension, Prostate Disorder, Renal Disease, Sleep Apnea/CPAP/BIPAP Additional Past Medical History / Comment(s): renal disease-stage IV(waiting kidney transplant), diabetic retinopathy with bilateral retinal bleeds, gout, no cpap used, gastroporesis, anemia, high potassium, edema to bilateral lower legs. History of Any Multi-Drug Resistant Organisms: None Reported Past Surgical History: Adenoidectomy, Appendectomy, Orthopedic Surgery, Tonsillectomy Additional Past Surgical History / Comment(s): UVPPP, renal biopsy, bilateral laser eye surgery for retinal bleeds, R knee arthroscopy, L knee open surgery for ACL, colonoscopy. dialysis port Past Anesthesia/Blood Transfusion Reactions: No Reported Reaction Additional Past Anesthesia/Blood Transfusion Reaction / Comment(s): Issue with pt's sleep apnea during surgery.-pt denies Past Psychological History: Anxiety, Depression Smoking Status: Never smoker - Past Family History Mother Family Medical History: Cancer, Renal Disease Additional Family Medical History / Comment(s): ESRD with dialysis-mother of renal failure at the age of 77yrs Father Family Medical History: No Reported History Additional Family Medical History / Comment(s): Father is healthy General Exam Limitations: no limitations General appearance: alert, in no apparent distress Head exam: Present: atraumatic, normocephalic, normal inspection Eye exam: Present: normal appearance, EOMI, scleral icterus. Absent: periorbital swelling Neck exam: Present: normal inspection Respiratory exam: Present: normal lung sounds bilaterally. Absent: respiratory distress, wheezes, rales, rhonchi, stridor Cardiovascular Exam: Present: regular rate, normal rhythm, normal heart sounds. Absent: systolic murmur, diastolic murmur, rubs, gallop, clicks Neurological exam: Present: alert, oriented X3, CN II-XII intact Psychiatric exam: Present: normal affect, normal mood Skin exam: Present: warm, dry, intact, normal color. Absent: rash Course Vital Signs 05/03/22 11:33 Temperature 97.5 F L Pulse Rate 79 Respiratory 18 Rate Blood Pressure 128/73 O2 Sat by Pulse 97 Oximetry Medical Decision Making - Medical Decision Making Patient is a 47-year-old male presenting to the ER for evaluation of his permacath. Patient states that the catheter has felt like "there is something wrong" for the last 3 days. Patient states that at dialysis are not able to achieve the full volume they wish to. He admits to a strange sensation when swallowing. On examination there is no redness, swelling, warmth over the site. Patient denies any chest pain or shortness of breath. Heart and lungs are clear to auscultation. Patient's creatinine BUN are elevated, this appears consistent with his condition. No leukocytosis. Chest x-ray confirms proper placement of the catheter. No abnormalities seen on soft tissue neck x-ray. Patient will be discharged and instructed to follow-up with Dr. Mccarty. Report back to ER if any new or worsening symptoms. Discussed return parameters answered all questions. Patient conveyed verbal understanding and agreed to the plan. I discussed this case with my attending Dr. Trinidad. - Lab Data Result diagrams: 05/03/22 12:20 05/03/22 12:20 Lab Results 05/03/22 05/03/22 05/03/22 Range/Units 12:20 12:20 12:20 WBC 4.6 (3.8-10.6) k/uL RBC 4.04 L (4.30-5.90) m/uL Hgb 11.7 L (13.0-17.5) gm/dL Hct 35.6 L (39.0-53.0) % MCV 88.1 (80.0-100.0) fL MCH 29.0 (25.0-35.0) pg MCHC 32.9 (31.0-37.0) g/dL RDW 12.6 (11.5-15.5) % Plt Count 150 (150-450) k/uL MPV 8.4 Neutrophils % 63 % Lymphocytes % 18 % Monocytes % 9 % Eosinophils % 7 % Basophils % 1 % Neutrophils # 2.9 (1.3-7.7) k/uL Lymphocytes # 0.8 L (1.0-4.8) k/uL Monocytes # 0.4 (0-1.0) k/uL Eosinophils # 0.3 (0-0.7) k/uL Basophils # 0.1 (0-0.2) k/uL ABG Lactic Acid 0.7 (0.5-1.6) mmol/L Sodium 134 L (137-145) mmol/L Potassium 5.1 (3.5-5.1) mmol/L Chloride 102 (98-107) mmol/L Carbon Dioxide 25 (22-30) mmol/L Anion Gap 7 mmol/L BUN 48 H (9-20) mg/dL Creatinine 4.26 H (0.66-1.25) mg/dL Est GFR (CKD-EPI)AfAm 18 (>60 ml/min/1.73 sqM) Est GFR (CKD-EPI)NonAf 15 (>60 ml/min/1.73 sqM) Glucose 183 H (74-99) mg/dL Calcium 8.9 (8.4-10.2) mg/dL Total Bilirubin 0.4 (0.2-1.3) mg/dL AST 20 (17-59) U/L ALT 27 (4-49) U/L Alkaline Phosphatase 63 (38-126) U/L Total Protein 6.7 (6.3-8.2) g/dL Albumin 4.0 (3.5-5.0) g/dL Disposition Clinical Impression: Vascular dialysis catheter in place Disposition: HOME SELF-CARE Condition: Good Instructions (If sedation given, give patient instructions): Perma-cath Placement (DC) Additional Instructions: Follow-up with PCP and Dr. Mccarty in one to 2 days. Report back to ER with any new or worsening symptoms. Is patient prescribed a controlled substance at d/c from ED?: No Referrals: Hollis Ghosh Jr, DO [Primary Care Provider] - 1-2 days Mando Mccarty DO [STAFF PHYSICIAN] - 1-2 days Time of Disposition: 13:26
== END 2022-05-03 13:51 | disposition home or self-care (01) ==
LOC: EC 11:11
DX: Z49.01 Encounter for fitting and adjustment of extracorporeal dialysis catheter (principal); E11.9 Type 2 diabetes mellitus without complications; E78.5 Hyperlipidemia, unspecified; I10 Essential (primary) hypertension
CPT/HCPCS: 36415; 70360; 71046; 80053; 83605; 85025; 99283

== ENCOUNTER 2022-05-06 07:43 | Day surgery (SDC) | payer BC ==
[~2022-05-06 07:43] MED LIST changes: -DOBUTamine DRIP for NUC MED 500 MG in DEXTROSE/WATER 1 250ML.BAG IV PRN; +LACTATED RINGERS 1,000 ML IV SCH; +fentaNYL (PF) 50 MCG/ML 2 ML AMP IV PRN
[2022-05-06 08:04] VITALS: RESP 18; TEMP 97.7
[2022-05-06 08:05] LABS: Glucose,Whole Blood 139 mg/dL (70-110)
[2022-05-06] MEDS ORDERED: SODIUM CHLORIDE 0.9% 1,000 ML IV ONE (08:06)
[2022-05-06] MEDS ORDERED: MIDAZOLAM 2 MG/2 ML VIAL ONE (09:32)
[2022-05-06] MEDS ORDERED: PROPOFOL 10 MG/ML 20 ML VIAL IV ONE (09:32)
[2022-05-06] MEDS ORDERED: KETAMINE 10 MG/ML 20 ML VIAL ONE (09:32)
[2022-05-06] MEDS ORDERED: fentaNYL (PF) 50 MCG/ML 2 ML AMP ONE (09:32)
[2022-05-06] MEDS ORDERED: LIDOCAINE 1% INJ 10MG/ML (30 ML VIAL-PF) SQ ONE (09:55)
[2022-05-06] MEDS ORDERED: HYDROcodone/APAP 5-325MG 1 EACH TAB PO STA (11:23)
[2022-05-06] MEDS ORDERED: HYDROcodone/APAP 5-325MG 1 EACH TAB ONE (11:24)
--- NOTE | 2022-05-06 11:30 | P.OP ---
Date of Procedure: 05/06/22 Preoperative Diagnosis: Malfunctioning tunneled hemodialysis catheter. Postoperative Diagnosis: Same. Procedure(s) Performed: Guidewire exchange of a tunneled hemodialysis catheter with fluoroscopic guidance. Anesthesia: MAC, local (1% Xylocaine.) Surgeon: Alberto Hartley Estimated Blood Loss (ml): 10 Urine output (ml): 0 Pathology: none sent Condition: stable Disposition: no change Indications for Procedure: Patient is a 47-year-old male who suffers from chronic kidney disease requiring hemodialysis. He had a tunneled hemodialysis catheter placed via the right internal jugular vein approach. Unfortunately this catheter has not functioned generally well recently and patient is offered exchange of dysfunctional catheter for a new catheter. The procedure, risks and benefits were discussed with the patient. Patient wished to proceed. Description of Procedure: Patient was brought to the special procedures suite. He received 1 g of Ancef in the perioperative phase for prophylactic antibiotic therapy. He received attended anesthesia delivered by the department anesthesiology. The right lateral neck supraclavicular and anterior chest wall areas were sterilely prepped and draped in usual manner. 1% Xylocaine was utilized for local anesthesia of the tissues overlying the cuff portion of the catheter as well as at the previous neck wound and at the proposed new insertion site. Skin incision was made overlying the cuffed catheter through the anesthetized area. The incision was deepened through the subcutaneous tissues. The cuffed segment of the catheter was identified and dissected free of investing tissues. The catheter was then transected and the distal part discarded. A hemostat was placed on the catheter to avoid any air embolism as well as to secure the catheter in its subcutaneous tunnel. An incision was made through the anesthetized area in the neck at the site of previous incision. An incision was made through this anesthetized area and carried down through the subcu change tissues. The catheter was identified and mobilized. Hemostat was utilized to secure the catheter. Guidewire was advanced through the catheter into the superior vena cava. Its position was confirmed with fluoroscopy. The remaining segment of the catheter was fully removed and vessel dilator was advanced over the guidewire into the vein venotomy for hemostatic purposes. Skin incision was made just lateral to the previous cyst entry wound through which the catheter was tunneled to the neck wound. The dilator was removed and replaced over the guidewire with the catheter introducer sheath and dilator. The dilator and guidewire were withdrawn and the catheter was advanced through the introducer sheath and the sheath was peeled away. Fluoroscopy demonstrated the catheter to the without any acute angulation and to be in proper position at the level of the right heart. Blood was easily aspirated through both lumens of the catheter and each lumen was then flushed with heparinized saline solution and blocked with appropriate volume of heparinized saline solution. Caps were placed on each lumen of the catheter. The catheter was then secured to the skin with nylon suture. Surgical wounds were closed with Vicryl for deep sutures and nylon for skin. Proper dressings were applied. Patient tolerated procedure well and was transferred to the outpatient area satisfactory and stable condition. Plan - Discharge Summary New Discharge Prescriptions: No Action Pravastatin Sodium [Pravachol] 40 mg PO HS Nebivolol HCl [Bystolic] 10 mg PO DAILY hydrALAZINE HCL [Apresoline] 100 mg PO TID Insulin Glargine/Lixisenatide [Soliqua 100 Unit-33 Mcg/ml Pen] 60 units SQ DAILY amLODIPine [Norvasc] 10 mg PO DAILY allopurinoL [Zyloprim] 100 mg PO DAILY cloNIDine HCL [Catapres] 0.2 mg PO TID calcitrioL [Rocaltrol] 0.25 mcg PO TUTH Vortioxetine Hydrobromide [Trintellix] 20 mg PO DAILY ALPRAZolam [Xanax] 0.25 mg PO Q6H PRN PRN Reason: Anxiety [place]-3 Fatty Acids/Fish Oil [Fish Oil 1,000 mg Softgel] 1,000 cap PO BID Rizatriptan Benzoate [Rizatriptan] 10 mg PO DAILY PRN PRN Reason: Migraine Headache Pantoprazole Sodium [Protonix] 40 mg PO DAILY Ergocalciferol (Vitamin D2) [Drisdol (50,000 Iu)] 1,250 mcg PO TUSA Ondansetron [Zofran] 4 mg PO Q6H PRN PRN Reason: Nausea Nortriptyline [Pamelor] 25 mg PO HS Sodium Zirconium Cyclosilicate [Lokelma] 10 gm PO HS Doxazosin [Cardura] 4 mg PO HS Spironolactone [Aldactone] 25 mg PO DAILY Nortriptyline HCl [Pamelor] 10 mg PO HS Furosemide [Lasix] 40 mg PO BID buPROPion HCL [Wellbutrin XL] 150 mg PO DAILY HYDROcodone/APAP 5-325MG [[place] 5-325] 1 tab PO Q4HR PRN PRN Reason: Pain Discharge Medication List Insulin Glargine/Lixisenatide [Sol[place] 100 Unit-33 Mcg/ml Pen] 60 units SQ DAILY 07/10/19 [History] Nebivolol HCl [Bystolic] 10 mg PO DAILY 07/10/19 [History] Pravastatin Sodium [Pravachol] 40 mg PO HS 07/10/19 [History] hydrALAZINE HCL [Apresoline] 100 mg PO TID 07/10/19 [History] allopurinoL [Zyloprim] 100 mg PO DAILY 05/16/20 [History] amLODIPine [Norvasc] 10 mg PO DAILY 05/16/20 [History] calcitrioL [Rocaltrol] 0.25 mcg PO TUTH 05/16/20 [History] cloNIDine HCL [Catapres] 0.2 mg PO TID 05/16/20 [History] ALPRAZolam [Xanax] 0.25 mg PO Q6H PRN 10/18/21 [History] Doxazosin [Cardura] 4 mg PO HS 10/18/21 [History] Spironolactone [Aldactone] 25 mg PO DAILY 10/18/21 [History] Vortioxetine Hydrobromide [Trintellix] 20 mg PO DAILY 10/18/21 [History] Ergocalciferol (Vitamin D2) [Drisdol (50,000 Iu)] 1,250 mcg PO TUSA 02/02/22 [History] Furosemide [Lasix] 40 mg PO BID 02/02/22 [History] Nortriptyline HCl [Pamelor] 10 mg PO HS 02/02/22 [History] Nortriptyline [Pamelor] 25 mg PO HS 02/02/22 [History] [place]-3 Fatty Acids/Fish Oil [Fish Oil 1,000 mg Softgel] 1,000 cap PO BID 02/02/22 [History] Ondansetron [Zofran] 4 mg PO Q6H PRN 02/02/22 [History] Pantoprazole Sodium [Protonix] 40 mg PO DAILY 02/02/22 [History] Rizatriptan Benzoate [Rizatriptan] 10 mg PO DAILY PRN 02/02/22 [History] Sodium Zirconium Cyclosilicate [Lokelma] 10 gm PO HS 02/13/22 [History] buPROPion HCL [Wellbutrin XL] 150 mg PO DAILY 02/18/22 [History] HYDROcodone/APAP 5-325MG [[place] 5-325] 1 tab PO Q4HR PRN 03/10/22 [History] Follow up Appointment(s)/Referral(s): Alberto Hartley DO [Doctor of Osteopathic Medicine] - 1 Week (APPOINTMENT MADE ON May @ 12:[address] DUGAN ) Patient Instructions/Handouts: Perma-cath Placement (DC), Hemodialysis (DC) Activity/Diet/Wound Care/Special Instructions: *YOU MAY SHOWER BUT KEEP THE SITE COVERED AND DRY
[2022-05-06 11:35] VITALS: BP 135/80; PULSE 69
--- NOTE | 2022-05-06 13:52 | IR ---
EXAMINATION TYPE: IR cvc insert central tunneled DATE OF EXAM: 05/06/2022 COMPARISON: NONE HISTORY: Renal failure, needs central venous catheter for dialysis Fluoroscopy support supplied to the referring clinician. See dictated report from vascular surgery, 0.1 minutes fluoroscopy time, 73 intraoperative C-arm images document the procedure
== END 2022-05-06 11:50 | disposition home or self-care (01) ==
LOC: CATHCVL 07:43
PROVIDERS: ATTEND Surgery
DX: T82.41XA Breakdown (mechanical) of vascular dialysis catheter, initial encounter (principal); I12.0 Hypertensive chronic kidney disease with stage 5 chronic kidney disease or end stage renal disease; E11.22 Type 2 diabetes mellitus with diabetic chronic kidney disease; N18.6 End stage renal disease; Z99.2 Dependence on renal dialysis; E11.40 Type 2 diabetes mellitus with diabetic neuropathy, unspecified; E78.5 Hyperlipidemia, unspecified; G47.33 Obstructive sleep apnea (adult) (pediatric); N42.9 Disorder of prostate, unspecified; F32.A Depression, unspecified; E21.3 Hyperparathyroidism, unspecified; H35.30 Unspecified macular degeneration; E55.9 Vitamin D deficiency, unspecified; Z79.899 Other long term (current) drug therapy; Z90.89 Acquired absence of other organs; Z90.49 Acquired absence of other specified parts of digestive tract; Z98.890 Other specified postprocedural states; Z82.49 Family history of ischemic heart disease and other diseases of the circulatory system; Z84.1 Family history of disorders of kidney and ureter; Z83.3 Family history of diabetes mellitus
CPT/HCPCS: 36581; C1769 ×3; J2250; J2001; J3010; J2704

== ENCOUNTER 2022-07-29 14:55 | Inpatient (IN) | payer MEDICARE, OTHER ==
[2022-07-29] MEDS ORDERED: ACETAMINOPHEN TAB 500 MG TAB PO STA (16:18)
[2022-07-29 18:13] LABS: Basophils # (A) 0.1 k/uL (0-0.2); Basophils % (A) 1 %; Eosinophils # (A) 0.2 k/uL (0-0.7); Eosinophils % (A) 5 %; HGB 12.2 gm/dL (13.0-17.5); Lymphocytes # (A) 1.1 k/uL (1.0-4.8); Lymphocytes % (A) 24 %; MCH 29.6 pg (25.0-35.0); MCHC 33.8 g/dL (31.0-37.0); MCV 87.6 fL (80.0-100.0); Mean Platelet Volume 8.2; Monocytes # (A) 0.5 k/uL (0-1.0); Monocytes % (A) 10 %; Neutrophils # (A) 2.7 k/uL (1.3-7.7); Neutrophils % (A) 58 %; Platelet Count 164 k/uL (150-450); RDW 12.4 % (11.5-15.5); WBC 4.6 k/uL (3.8-10.6)
[2022-07-29 18:21] LABS: Calcium 8.7 mg/dL (8.4-10.2); Potassium 4.6 mmol/L (3.5-5.1); Total Bilirubin 0.5 mg/dL (0.2-1.3); Total Protein 6.6 g/dL (6.3-8.2)
--- NOTE | 2022-07-29 18:33 | ED ---
General Adult HPI - General Chief complaint: Recheck/Abnormal Lab/Rx Stated complaint: Dialysis cath issues Time Seen by Provider: 07/29/22 16:06 Source: patient Mode of arrival: ambulatory Limitations: no limitations - History of Present Illness Initial comments: Patient is a 47-year-old male with a past medical history of hypertension, hyperlipidemia, diabetes mellitus, and end-stage renal disease on hemodialysis M/W/F who presents to the emergency department per Dr. Stephenson due to positive cultures on his dialysis catheter. Patient has a temporary catheter in his right chest that was found to be infected with discharge on Wednesday. Patient had blood cultures which per Dr. Stephenson who I spoke with personally, showed gram- positive on the stain. Patient received vancomycin through his left fistula on Wednesday and today. He denies fever, chills, nausea, vomiting, pain near catheter site. Reports mild headache.Dr. Stephenson requests patient is admitted for IV antibiotics and consult to infectious disease. Does not request any further antibiotics in the emergency department. - Related Data Home Medications Medication Instructions Recorded Confirmed Nebivolol HCl [Bystolic] 10 mg PO DAILY 07/10/19 07/29/22 Pravastatin Sodium [Pravachol] 40 mg PO HS 07/10/19 07/29/22 allopurinoL [Zyloprim] 100 mg PO DAILY 05/16/20 07/29/22 amLODIPine [Norvasc] 10 mg PO DAILY 05/16/20 07/29/22 calcitrioL [Rocaltrol] [facility] 05/16/20 07/29/22 ALPRAZolam [Xanax] 0.25 mg PO DAILY PRN 10/18/21 07/29/22 Doxazosin [Cardura] 4 mg PO HS 10/18/21 07/29/22 Vortioxetine Hydrobromide 20 mg PO DAILY 10/18/21 07/29/22 [Trintellix] Ergocalciferol (Vitamin D2) 1,250 mcg PO SA 02/02/22 07/29/22 [Drisdol (50,000 Iu)] Furosemide [Lasix] 40 mg PO BID 02/02/22 07/29/22 Nortriptyline HCl [Pamelor] 10 mg PO HS 02/02/22 07/29/22 Nortriptyline [Pamelor] 25 mg PO 02/02/22 07/29/22 buPROPion HCL [Wellbutrin XL] 150 mg PO DAILY 02/18/22 07/29/22 Dulaglutide [Trulicity] 1.5 mg SQ TH 07/29/22 07/29/22 Insulin Glargine,Hum.rec.anlog 40 units SQ W/SUPPER 07/29/22 07/29/22 [[place] Solostar] icosapent ethyL [Icosapent Ethyl] 2 gm PO BID 07/29/22 07/29/22 Allergies Allergy/AdvReac Type Severity Reaction Status Date / Time No Known Allergies Allergy Verified 07/29/22 16:57 Review of Systems ROS Statement: Those systems with pertinent positive or pertinent negative responses have been documented in the HPI. ROS Other: All systems not noted in ROS Statement are negative. Past Medical History Past Medical History: Diabetes Mellitus, Hyperlipidemia, Hypertension, Prostate Disorder, Renal Disease, Sleep Apnea/CPAP/BIPAP Additional Past Medical History / Comment(s): renal disease-stage IV(waiting kidney transplant), diabetic retinopathy with bilateral retinal bleeds, gout, no cpap used, gastroporesis, anemia, high potassium, edema to bilateral lower legs. History of Any Multi-Drug Resistant Organisms: None Reported Past Surgical History: Adenoidectomy, Appendectomy, Orthopedic Surgery, Tonsillectomy Additional Past Surgical History / Comment(s): UVPPP, renal biopsy, bilateral laser eye surgery for retinal bleeds, R knee arthroscopy, L knee open surgery for ACL, colonoscopy. dialysis port Past Anesthesia/Blood Transfusion Reactions: No Reported Reaction Additional Past Anesthesia/Blood Transfusion Reaction / Comment(s): Issue with pt's sleep apnea during surgery.-pt denies Past Psychological History: Anxiety, Depression Smoking Status: Never smoker - Past Family History Mother Family Medical History: Cancer, Renal Disease Additional Family Medical History / Comment(s): ESRD with dialysis-mother of renal failure at the age of 77yrs Father Family Medical History: No Reported History Additional Family Medical History / Comment(s): Father is healthy General Exam Limitations: no limitations General appearance: alert, in no apparent distress Head exam: Present: atraumatic, normocephalic, normal inspection Eye exam: Present: normal appearance, PERRL, EOMI. Absent: scleral icterus, conjunctival injection, periorbital swelling Respiratory exam: Present: normal lung sounds bilaterally, other (right dialysis catheter in place without surrounding erythema or swelling. No drainage currently). Absent: respiratory distress, wheezes, rales, rhonchi, stridor, chest wall tenderness Cardiovascular Exam: Present: regular rate, normal rhythm, normal heart sounds. Absent: systolic murmur, diastolic murmur, rubs, gallop, clicks GI/Abdominal exam: Present: soft, normal bowel sounds. Absent: distended, tenderness, guarding, rebound, rigid Neurological exam: Present: alert, oriented X3, CN II-XII intact Psychiatric exam: Present: normal affect, normal mood Skin exam: Present: warm, dry, intact, normal color. Absent: rash Course Vital Signs 07/29/22 15:34 Temperature 98.5 F Pulse Rate 84 Respiratory 16 Rate Blood Pressure 106/67 O2 Sat by Pulse 96 Oximetry Medical Decision Making - Medical Decision Making This is a 47-year-old male presenting for positive cultures of his right chest dialysis catheter. Patient well-appearing and in no apparent distress. No fever, no tachycardia. Blood pressure stable. Laboratory studies obtained. There is no leukocytosis. Kidney function consis tent with end-stage renal disease. Vancomycin trough is 6.1. Will defer further antibiotics to infectious disease. Tylenol given for headache. Patient states headache is improved. He is agreeable to admission. Case discussed with Dr. Ghsoh who accepts admission. Infectious disease on consult as well as vascular surgery for possible replacement of dialysis catheter. Dr. Rodriguez is my attending. - Lab Data Result diagrams: 07/29/22 16:49 07/29/22 16:49 Lab Results 07/29/22 07/29/22 07/29/22 Range/Units 16:49 16:49 16:49 WBC 4.6 (3.8-10.6) k/uL RBC 4.10 L (4.30-5.90) m/uL Hgb 12.2 L (13.0-17.5) gm/dL Hct 36.0 L (39.0-53.0) % MCV 87.6 (80.0-100.0) fL MCH 29.6 (25.0-35.0) pg MCHC 33.8 (31.0-37.0) g/dL RDW 12.4 (11.5-15.5) % Plt Count 164 (150-450) k/uL MPV 8.2 Neutrophils % 58 % Lymphocytes % 24 % Monocytes % 10 % Eosinophils % 5 % Basophils % 1 % Neutrophils # 2.7 (1.3-7.7) k/uL Lymphocytes # 1.1 (1.0-4.8) k/uL Monocytes # 0.5 (0-1.0) k/uL Eosinophils # 0.2 (0-0.7) k/uL Basophils # 0.1 (0-0.2) k/uL Sodium 137 (137-145) mmol/L Potassium 4.6 (3.5-5.1) mmol/L Chloride 96 L (98-107) mmol/L Carbon Dioxide 29 (22-30) mmol/L Anion Gap 12 mmol/L BUN 22 H (9-20) mg/dL Creatinine 3.04 H (0.66-1.25) mg/dL Est GFR (CKD-EPI)AfAm 27 (>60 ml/min/1.73 sqM) Est GFR (CKD-EPI)NonAf 23 (>60 ml/min/1.73 sqM) Glucose 116 H (74-99) mg/dL Plasma Lactic Acid [place] 1.1 (0.7-2.0) mmol/L Calcium 8.7 (8.4-10.2) mg/dL Total Bilirubin 0.5 (0.2-1.3) mg/dL AST 24 (17-59) U/L ALT 27 (4-49) U/L Alkaline Phosphatase 71 (38-126) U/L Total Protein 6.6 (6.3-8.2) g/dL Albumin 4.0 (3.5-5.0) g/dL Vancomycin Trough ug/mL 07/29/22 Range/Units 16:49 WBC (3.8-10.6) k/uL RBC (4.30-5.90) m/uL Hgb (13.0-17.5) gm/dL Hct (39.0-53.0) % MCV (80.0-100.0) fL MCH (25.0-35.0) pg MCHC (31.0-37.0) g/dL RDW (11.5-15.5) % Plt Count (150-450) k/uL MPV Neutrophils % % Lymphocytes % % Monocytes % % Eosinophils % % Basophils % % Neutrophils # (1.3-7.7) k/uL Lymphocytes # (1.0-4.8) k/uL Monocytes # (0-1.0) k/uL Eosinophils # (0-0.7) k/uL Basophils # (0-0.2) k/uL Sodium (137-145) mmol/L Potassium (3.5-5.1) mmol/L Chloride (98-107) mmol/L Carbon Dioxide (22-30) mmol/L Anion Gap mmol/L BUN (9-20) mg/dL Creatinine (0.66-1.25) mg/dL Est GFR (CKD-EPI)AfAm (>60 ml/min/1.73 sqM) Est GFR (CKD-EPI)NonAf (>60 ml/min/1.73 sqM) Glucose (74-99) mg/dL Plasma Lactic Acid [place] (0.7-2.0) mmol/L Calcium (8.4-10.2) mg/dL Total Bilirubin (0.2-1.3) mg/dL AST (17-59) U/L ALT (4-49) U/L Alkaline Phosphatase (38-126) U/L Total Protein (6.3-8.2) g/dL Albumin (3.5-5.0) g/dL Vancomycin Trough 6.1 ug/mL Disposition Clinical Impression: ESRD (end stage renal disease) on dialysis, Hemodialysis catheter infection, Headache Disposition: ADMITTED IP TO THIS HOSP Condition: Good Referrals: Hollis Ghosh Jr, [Primary Care Provider] - 1-2 days
[2022-07-29 21:17] LABS: Glucose,Whole Blood 92 mg/dL (70-110)
[2022-07-30] MEDS: DOXAZOSIN 4 MG TAB PO SCH ×2 (01:26→21:56)
[2022-07-30] MEDS: NORTRIPTYLINE 25 MG CAP PO SCH ×2 (01:26→21:56)
[2022-07-30] MEDS: FUROSEMIDE 40 MG TAB PO SCH ×3 (01:26→15:58)
[2022-07-30] MEDS: PRAVASTATIN SODIUM 40 MG TAB PO SCH ×2 (01:26→21:56)
[2022-07-30] MEDS: INSULIN ASPART (NovoLOG) 100 UNIT/ML VIAL SQ SCH ×4 (07:04→21:57)
[2022-07-30 07:13] LABS: Glucose,Whole Blood 115 mg/dL (70-110)
[2022-07-30] MEDS: allopurinoL 100 MG TAB PO SCH (09:31)
[2022-07-30] MEDS: amLODIPine 10 MG TAB PO SCH (09:31)
[2022-07-30] MEDS: VORTIOXETINE HYDROBROMIDE 20 MG TABLET PO SCH (09:32)
[2022-07-30] MEDS: NEBIVOLOL 5 MG TAB PO SCH (09:32)
[2022-07-30] MEDS: buPROPion XL 150 MG TAB.ER.24H PO SCH (09:32)
[2022-07-30] MEDS: NON FORMULARY DRUG (Icosapent Ethyl [Icosapent Ethyl] 1 GM Capsule) PO SCH ×2 (09:33→21:40)
--- NOTE | 2022-07-30 10:30 | P.NPCON ---
History of Present Illness - Reason for Consult end stage renal disease - History of Present Illness Reason for consultation: End-stage renal disease History of present illness: Patient is a 47-year-old male seen in renal consultation for end-stage renal disease. He is maintained on hemodialysis on Wednesday schedule via left upper extremity AV fistula. The fistula has been used without any problems the last 2 weeks. Patient also has a right chest permacath. Patient complained of drainage around the catheter site earlier this week and cultures were drawn along with blood cultures. Patient blood culture came back positive for gram-positive cocci in clusters. Patient has received 2 doses of IV vancomycin at the dialysis unit. He denies chest pain or shortness of breath. No fever or chills. Bicarb normal. Patient does have history of diabetes. No vomiting or diarrhea. No chest pain or shortness of breath. Oral intake is fair. Vital signs are stable. General: Awake. No acute distress. HEENT: Head exam is unremarkable. LUNGS: Breath sounds decreased. HEART: Rate and Rhythm are regular. ABDOMEN: Soft, no distention. EXTREMITITES: 1+ edema. Past Medical History Past Medical History: Diabetes Mellitus, Hyperlipidemia, Hypertension, Prostate Disorder, Renal Disease, Sleep Apnea/CPAP/BIPAP Additional Past Medical History / Comment(s): renal disease-stage IV(waiting kidney transplant), diabetic retinopathy with bilateral retinal bleeds, gout, no cpap used, gastroporesis, anemia, high potassium, edema to bilateral lower legs. History of Any Multi-Drug Resistant Organisms: None Reported Past Surgical History: Adenoidectomy, Appendectomy, Orthopedic Surgery, Tonsillectomy Additional Past Surgical History / Comment(s): UVPPP, renal biopsy, bilateral laser eye surgery for retinal bleeds, R knee arthroscopy, L knee open surgery for ACL, colonoscopy. dialysis port. Eye injection last week (2021) Past Anesthesia/Blood Transfusion Reactions: No Reported Reaction Additional Past Anesthesia/Blood Transfusion Reaction / Comment(s): Issue with pt's sleep apnea during surgery.-pt denies Past Psychological History: Anxiety, Depression Additional Psychological History / Comment(s): . Smoking Status: Never smoker Past Alcohol Use History: None Reported Past Drug Use History: None Reported - Past Family History Mother Family Medical History: Cancer, Renal Disease Additional Family Medical History / Comment(s): ESRD with dialysis-mother of renal failure at the age of 77yrs Father Family Medical History: No Reported History Additional Family Medical History / Comment(s): Father is healthy Medications and Allergies Home Medications Medication Instructions Recorded Confirmed Type Nebivolol HCl [Bystolic] 10 mg PO DAILY 07/10/19 07/29/22 History Pravastatin Sodium [Pravachol] 40 mg PO HS 07/10/19 07/29/22 History allopurinoL [Zyloprim] 100 mg PO DAILY 05/16/20 07/29/22 History amLODIPine [Norvasc] 10 mg PO DAILY 05/16/20 07/29/22 History calcitrioL [Rocaltrol] 0.25 mcg PO TUTH 05/16/20 07/29/22 History ALPRAZolam [Xanax] 0.25 mg PO DAILY PRN 10/18/21 07/29/22 History Doxazosin [Cardura] 4 mg PO HS 10/18/21 07/29/22 History Vortioxetine Hydrobromide 20 mg PO DAILY 10/18/21 07/29/22 History [Trintellix] Ergocalciferol (Vitamin D2) 1,250 mcg PO SA 02/02/22 07/29/22 History [Drisdol (50,000 Iu)] Furosemide [Lasix] 40 mg PO BID 02/02/22 07/29/22 History Nortriptyline HCl [Pamelor] 10 mg PO HS 02/02/22 07/29/22 History Nortriptyline [Pamelor] 25 mg PO HS 02/02/22 07/29/22 History buPROPion HCL [Wellbutrin XL] 150 mg PO DAILY 02/18/22 07/29/22 History Dulaglutide [Trulicity] 1.5 mg SQ TH 07/29/22 07/29/22 History Insulin Glargine,Hum.rec.anlog 40 units SQ W/SUPPER 07/29/22 07/29/22 History [Tousteveo Solostar] icosapent ethyL [Icosapent Ethyl] 2 gm PO BID 07/29/22 07/29/22 History Allergies Allergy/AdvReac Type Severity Reaction Status Date / Time No Known Allergies Allergy Verified 07/29/22 16:57 Physical Exam Vitals: Vital Signs Temp Pulse Pulse Resp BP BP Pulse Ox 07/30/22 07:59 97.9 F 83 16 165/92 95 07/30/22 01:50 97.6 F 90 17 156/92 95 07/29/22 21:15 97.9 F 87 16 165/86 93 L 07/29/22 15:34 98.5 F 84 16 106/67 96 Intake and Output 07/29/22 07/30/22 07/30/22 22:59 06:59 14:59 Other: # Voids 3 Weight 124.738 kg Results - Lab Results Most recent lab results Calcium 8.7 mg/dL (8.4-10.2) 07/29/22 16:49 07/29/22 16:49 07/29/22 16:49 Assessment and Plan Plan: Assessment: 1. End-stage renal disease maintained on hemodialysis on Wednesday schedule via left upper extremity AV fistula. Also has a permacath. 2. Gram-positive bacteremia with concern for permacath infection. Status post 2 doses of IV vancomycin at the dialysis unit this week. 3. Hypertension with chronic kidney disease. 4. Diabetes mellitus. 5. Chronic kidney disease mineral bone disease maintained on calcitriol. 6. Diabetes mellitus. Plan: Hemodialysis tomorrow. DC permacath - currently using AVF for HD. Vascular surgery consulted. Follow-up cultures. Culture from permacath was also drawn yesterday. Home antihypertensives resumed. Antibiotics per ID. Check phosphorus level. Thank you for the consultation. I will continue to follow the patient with you during his hospital stay.
[2022-07-30] MEDS ORDERED: LIDOCAINE 1% INJ 10MG/ML (10 ML MDV) SQ ONE (11:48)
[2022-07-30] MEDS ORDERED: LIDOCAINE (PF) 10 MG/ML 2 ML VIAL SQ ONE (12:00)
[2022-07-30 12:12] LABS: Glucose,Whole Blood 107 mg/dL (70-110)
--- NOTE | 2022-07-30 15:02 | P.GSCN ---
History of Present Illness Consult date: 07/30/22 History of present illness: Patient is a 47-year-old male with end-stage renal disease who gets dialysis on Wednesday and Wednesday via a left upper extremity AV fistula. This has been used without any issues in the past 2 weeks. He also has a right chest permacath. There was complaints of drainage of the catheter site cultures. Reportedly blood cultures were taken and the blood cultures were positive for the patient was sent to the hospital for his bacteremia. Request is made to remove the tunneled dialysis catheter as his fistula is now functional. He denies any fevers, chills, nausea or vomiting or changes otherwise. Past Medical History Past Medical History: Diabetes Mellitus, Hyperlipidemia, Hypertension, Prostate Disorder, Renal Disease, Sleep Apnea/CPAP/BIPAP Additional Past Medical History / Comment(s): renal disease-stage IV(waiting kidney transplant), diabetic retinopathy with bilateral retinal bleeds, gout, no cpap used, gastroporesis, anemia, high potassium, edema to bilateral lower legs. History of Any Multi-Drug Resistant Organisms: None Reported Past Surgical History: Adenoidectomy, Appendectomy, Orthopedic Surgery, Tonsillectomy Additional Past Surgical History / Comment(s): UVPPP, renal biopsy, bilateral laser eye surgery for retinal bleeds, R knee arthroscopy, L knee open surgery for ACL, colonoscopy. dialysis port. Eye injection last week (2021) Past Anesthesia/Blood Transfusion Reactions: No Reported Reaction Additional Past Anesthesia/Blood Transfusion Reaction / Comm: Issue with pt's sleep apnea during surgery.-pt denies Past Psychological History: Anxiety, Depression Additional Psychological History / Comment(s): . Smoking Status: Never smoker Past Alcohol Use History: None Reported Past Drug Use History: None Reported - Past Family History Mother Family Medical History: Cancer, Renal Disease Additional Family Medical History / Comment(s): ESRD with dialysis-mother of renal failure at the age of 77yrs Father Family Medical History: No Reported History Additional Family Medical History / Comment(s): Father is healthy Medications and Allergies Home Medications Medication Instructions Recorded Confirmed Type Nebivolol HCl [Bystolic] 10 mg PO DAILY 07/10/19 07/29/22 History Pravastatin Sodium [Pravachol] 40 mg PO HS 07/10/19 07/29/22 History allopurinoL [Zyloprim] 100 mg PO DAILY 05/16/20 07/29/22 History amLODIPine [Norvasc] 10 mg PO DAILY 05/16/20 07/29/22 History calcitrioL [Rocaltrol] 0.25 mcg PO TUTH 05/16/20 07/29/22 History ALPRAZolam [Xanax] 0.25 mg PO DAILY PRN 10/18/21 07/29/22 History Doxazosin [Cardura] 4 mg PO HS 10/18/21 07/29/22 History Vortioxetine Hydrobromide 20 mg PO DAILY 10/18/21 07/29/22 History [Trintellix] Ergocalciferol (Vitamin D2) 1,250 mcg PO SA 02/02/22 07/29/22 History [Drisdol (50,000 Iu)] Furosemide [Lasix] 40 mg PO BID 02/02/22 07/29/22 History Nortriptyline HCl [Pamelor] 10 mg PO HS 02/02/22 07/29/22 History Nortriptyline [Pamelor] 25 mg PO HS 02/02/22 07/29/22 History buPROPion HCL [Wellbutrin XL] 150 mg PO DAILY 02/18/22 07/29/22 History Dulaglutide [Trulicity] 1.5 mg SQ TH 07/29/22 07/29/22 History Insulin Glargine,Hum.rec.anlog 40 units SQ W/SUPPER 07/29/22 07/29/22 History [Toujeo Solostar] icosapent ethyL [Icosapent Ethyl] 2 gm PO BID 07/29/22 07/29/22 History Allergies Allergy/AdvReac Type Severity Reaction Status Date / Time No Known Allergies Allergy Verified 07/29/22 16:57 Surgical - Exam Vital Signs Temp Pulse Resp BP Pulse Ox 98.5 F 84 16 106/67 96 07/29/22 15:34 07/29/22 15:34 07/29/22 15:34 07/29/22 15:34 07/29/22 15:34 Gen. is a pleasant cooperative male in no acute distress. HEENT is normal cephalic. Atraumatic. Extraocular motion intact. Heart appears regular. Lungs are clear bilaterally. Abdomen is soft. The right chest wall catheter appears clean and dry. No obvious purulent drainage or discharge. The left upper extremity fistula has a palpable thrill through the cephalic vein. Results - Labs 07/29/22 16:49 07/29/22 16:49 Abnormal Lab Results - Last 24 Hours (Table) 07/29/22 07/29/22 07/30/22 Range/Units 16:49 16:49 07:12 RBC 4.10 L (4.30-5.90) m/uL Hgb 12.2 L (13.0-17.5) gm/dL Hct 36.0 L (39.0-53.0) % Chloride 96 L (98-107) mmol/L BUN 22 H (9-20) mg/dL Creatinine 3.04 H (0.66-1.25) mg/dL Glucose 116 H (74-99) mg/dL POC Glucose (mg/dL) 115 H (70-110) mg/dL Diabetes panel 07/29/22 Range/Units 16:49 Sodium 137 (137-145) mmol/L Potassium 4.6 (3.5-5.1) mmol/L Chloride 96 L (98-107) mmol/L Carbon Dioxide 29 (22-30) mmol/L BUN 22 H (9-20) mg/dL Creatinine 3.04 H (0.66-1.25) mg/dL Glucose 116 H (74-99) mg/dL Calcium 8.7 (8.4-10.2) mg/dL AST 24 (17-59) U/L ALT 27 (4-49) U/L Alkaline Phosphatase 71 (38-126) U/L Total Protein 6.6 (6.3-8.2) g/dL Albumin 4.0 (3.5-5.0) g/dL Calcium panel 07/29/22 Range/Units 16:49 Calcium 8.7 (8.4-10.2) mg/dL Albumin 4.0 (3.5-5.0) g/dL Pituitary panel 07/29/22 Range/Units 16:49 Sodium 137 (137-145) mmol/L Potassium 4.6 (3.5-5.1) mmol/L Chloride 96 L (98-107) mmol/L Carbon Dioxide 29 (22-30) mmol/L BUN 22 H (9-20) mg/dL Creatinine 3.04 H (0.66-1.25) mg/dL Glucose 116 H (74-99) mg/dL Calcium 8.7 (8.4-10.2) mg/dL Adrenal panel 07/29/22 Range/Units 16:49 Sodium 137 (137-145) mmol/L Potassium 4.6 (3.5-5.1) mmol/L Chloride 96 L (98-107) mmol/L Carbon Dioxide 29 (22-30) mmol/L BUN 22 H (9-20) mg/dL Creatinine 3.04 H (0.66-1.25) mg/dL Glucose 116 H (74-99) mg/dL Calcium 8.7 (8.4-10.2) mg/dL Total Bilirubin 0.5 (0.2-1.3) mg/dL AST 24 (17-59) U/L ALT 27 (4-49) U/L Alkaline Phosphatase 71 (38-126) U/L Total Protein 6.6 (6.3-8.2) g/dL Albumin 4.0 (3.5-5.0) g/dL Assessment and Plan Assessment: End-stage renal disease Functioning AV fistula Reportedly positive blood cultures Plan: Procedure: After appropriate verbal consent, timeout was performed and all parties were in agreement. The right chest wall catheter was prepped and draped in usual sterile fashion. The subcutaneous tissues were infiltrated with 1% lidocaine plain. Using manual traction and blunt debridement, the catheter was removed from its subcutaneous tissues the level of the cuff. This was mildly difficult due to the cuff being close to the level of the clavicle. This was able to be done at the bedside without further incisions. Once the subcutaneous tissues were detached from its surrounding, the catheter was removed and manual pressure was held at the site of the internal jugular. Hemostasis was achieved and a dressing was placed. The patient tolerated the procedure well. We'll continue to utilize the AV fistula in the left upper extremity. No further plans for vascular intervention. Please call if further need arises
[2022-07-30] MEDS ORDERED: VANCOMYCIN IV PER PHARMACY 1 EACH MISC MISCELLANE PRN (15:41)
[2022-07-30] MEDS ORDERED: VANCOMYCIN 2,000 MG in SODIUM CHLORIDE 0.9% 500 ML 500 ML IVPB SCH (16:00)
[2022-07-30 17:07] LABS: Glucose,Whole Blood 105 mg/dL (70-110)
--- NOTE | 2022-07-30 17:18 | P.HPIM ---
History of Present Illness H&P Date: 07/30/22 This is a 47-year-old pleasant gentleman with past medical history of end-stage renal disease, hemodialysis Wednesday, Wednesday, Wednesday via left AV fistula , functional 2 weeks, awaiting kidney transplant, diabetes mellitus, diabetic retinopathy, anemia, hypertension, hyperlipidemia, prostate disorder, sleep apnea, wears BiPAP, anxiety, depression, obesity and multiple other medical issues, sent to the ER for positive blood cultures. Patient has a right chest permacath ,reported drainage of the catheter site, cultured in addition to Blood cultures at the dialysis center. Blood cultures have been reported positive for gram-positive cocci in clusters. IV vancomycin initiated in the dialysis unit. Vancomycin trough 6.1. Denies chest pain, palpitations or shortness of breath. Denies lightheadedness dizziness focal deficits. Denies nausea vomiting or diarrhea. Denies abdominal pain. Bicarb 29, blood sugars controlled. Afebrile, normal WBC.Denies chest pain, palpitations or shortness of breath. Evaluated by nephrology with recommendations noted. Vascular, infectious disease consults in place. Review of Systems ROS Statement: Those systems with pertinent positive or pertinent negative responses have been documented in the HPI. ROS Other: All systems not noted in ROS Statement are negative. Past Medical History Past Medical History: Diabetes Mellitus, Hyperlipidemia, Hypertension, Prostate Disorder, Renal Disease, Sleep Apnea/CPAP/BIPAP Additional Past Medical History / Comment(s): renal disease-stage IV(waiting kidney transplant), diabetic retinopathy with bilateral retinal bleeds, gout, no cpap used, gastroporesis, anemia, high potassium, edema to bilateral lower legs. History of Any Multi-Drug Resistant Organisms: None Reported Past Surgical History: Adenoidectomy, Appendectomy, Orthopedic Surgery, Tonsillectomy Additional Past Surgical History / Comment(s): UVPPP, renal biopsy, bilateral laser eye surgery for retinal bleeds, R knee arthroscopy, L knee open surgery for ACL, colonoscopy. dialysis port. Eye injection last week (2021) Past Anesthesia/Blood Transfusion Reactions: No Reported Reaction Additional Past Anesthesia/Blood Transfusion Reaction / Comment(s): Issue with pt's sleep apnea during surgery.-pt denies Past Psychological History: Anxiety, Depression Additional Psychological History / Comment(s): . Smoking Status: Never smoker Past Alcohol Use History: None Reported Past Drug Use History: None Reported - Past Family History Mother Family Medical History: Cancer, Renal Disease Additional Family Medical History / Comment(s): ESRD with dialysis-mother of renal failure at the age of 77yrs Father Family Medical History: No Reported History Additional Family Medical History / Comment(s): Father is healthy Medications and Allergies Home Medications Medication Instructions Recorded Confirmed Type Nebivolol HCl [Bystolic] 10 mg PO DAILY 07/10/19 07/29/22 History Pravastatin Sodium [Pravachol] 40 mg PO HS 07/10/19 07/29/22 History allopurinoL [Zyloprim] 100 mg PO DAILY 05/16/20 07/29/22 History amLODIPine [Norvasc] 10 mg PO DAILY 05/16/20 07/29/22 History calcitrioL [Rocaltrol] 0.25 mcg PO TUTH 05/16/20 07/29/22 History ALPRAZolam [Xanax] 0.25 mg PO DAILY PRN 10/18/21 07/29/22 History Doxazosin [Cardura] 4 mg PO HS 10/18/21 07/29/22 History Vortioxetine Hydrobromide 20 mg PO DAILY 10/18/21 07/29/22 History [Trintellix] Ergocalciferol (Vitamin D2) 1,250 mcg PO SA 02/02/22 07/29/22 History [Drisdol (50,000 Iu)] Furosemide [Lasix] 40 mg PO BID 02/02/22 07/29/22 History Nortriptyline HCl [Pamelor] 10 mg PO HS 02/02/22 07/29/22 History Nortriptyline [Pamelor] 25 mg PO HS 02/02/22 07/29/22 History buPROPion HCL [Wellbutrin XL] 150 mg PO DAILY 02/18/22 07/29/22 History Dulaglutide [Trulicity] 1.5 mg SQ TH 07/29/22 07/29/22 History Insulin Glargine,Hum.rec.anlog 40 units SQ W/SUPPER 07/29/22 07/29/22 History [Tojoyce Solostar] icosapent ethyL [Icosapent Ethyl] 2 gm PO BID 07/29/22 07/29/22 History Allergies Allergy/AdvReac Type Severity Reaction Status Date / Time No Known Allergies Allergy Verified 07/29/22 16:57 Physical Exam Vitals: Vital Signs Temp Pulse Pulse Resp BP BP Pulse Ox 07/30/22 07:59 97.9 F 83 16 165/92 95 07/30/22 01:50 97.6 F 90 17 156/92 95 07/29/22 21:15 97.9 F 87 16 165/86 93 L 07/29/22 15:34 98.5 F 84 16 106/67 96 Intake and Output 07/29/22 07/30/22 07/30/22 22:59 06:59 14:59 Other: # Voids 3 Weight 124.738 kg General: [Sitting up in chair, Awake, alert and oriented times 3. No acute distress.] HEENT: [PERRL. EOMI. No pharyngeal erythema or exudate.] Right chest wall permacath. site without drainage, clean and dry. Neck: [Supple, no JVD, No adenopathy.] Cardiac: [Heart regular in rate and rhythm. No S3. No S4. No clicks, rubs. No murmur.] Lungs: [Clear to auscultation bilaterally.] Abdomen: [Soft, nontender ,No organomegaly. No guarding. Bowel sounds presnt and normoactive in all 4 quadrants.] Extremes: [No edema no cyanosis no claudication normal pulses. Left arm fistula present with positive auscultated bruit and palpable thrill.] Skin: [Warm and dry, No rash.] Neurologic: Cranial nerves II through XII grossly intact. No focal deficits. Strength and sensation grossly intact. Results CBC & Chem 7: 07/29/22 16:49 07/29/22 16:49 Labs: Abnormal Lab Results - Last 24 Hours (Table) 07/29/22 07/29/22 07/30/22 Range/Units 16:49 16:49 07:12 RBC 4.10 L (4.30-5.90) m/uL Hgb 12.2 L (13.0-17.5) gm/dL Hct 36.0 L (39.0-53.0) % Chloride 96 L (98-107) mmol/L BUN 22 H (9-20) mg/dL Creatinine 3.04 H (0.66-1.25) mg/dL Glucose 116 H (74-99) mg/dL POC Glucose (mg/dL) 115 H (70-110) mg/dL Thrombosis Risk Factor Assmnt - Choose All That Apply Each Factor Represents 1 point: Age 41-60 years, Obesity (BMI >25) Thrombosis Risk Factor Assessment Total Risk Factor Score: 2 Thrombosis Risk Factor Assessment Level: Low Risk Assessment and Plan Assessment: Bacteremia , gram-positive, possible permacath infection, reported gram-positive cocci in clusters obtained outpatient. DC permacath pending. End-stage renal disease, HD on via AV fistula Diabetes mellitus, blood sugars controlled Anxiety Hypertension Hyperlipidemia Prostate disorder Sleep apnea, wears BiPAP Depression Plan: Continue on current medication regime ,monitoring and symptomatic treatment. Outside culture results being obtained. Repeat cultures in progress.Antibiotics as per infectious disease. Vascular surgery on consult, regarding DC of permacath/ recommendations pending. The impression and plan of care has been dictated as directed. : I performed a history and examination of this patient, discussed the same with the dictator. I agree with the dictator's note ,documented as a scribe. Any additional findings or plans will be noted.
[2022-07-30] MEDS: INSULIN DETEMIR (LEVEMIR) 100 UNIT/ML SYR SQ SCH (17:56)
[2022-07-30 20:31] LABS: Glucose,Whole Blood 167 mg/dL (70-110)
[2022-07-31 05:56] LABS: Glucose,Whole Blood 125 mg/dL (70-110)
[2022-07-31] MEDS: INSULIN ASPART (NovoLOG) 100 UNIT/ML VIAL SQ SCH ×3 (06:25→17:23)
[2022-07-31] MEDS: NON FORMULARY DRUG (Icosapent Ethyl [Icosapent Ethyl] 1 GM Capsule) PO SCH (07:09)
[2022-07-31] MEDS: FUROSEMIDE 40 MG TAB PO SCH ×2 (07:10→17:35)
[2022-07-31] MEDS: buPROPion XL 150 MG TAB.ER.24H PO SCH (07:10)
[2022-07-31] MEDS: NEBIVOLOL 5 MG TAB PO SCH (07:10)
[2022-07-31] MEDS: VORTIOXETINE HYDROBROMIDE 20 MG TABLET PO SCH (07:10)
[2022-07-31] MEDS: allopurinoL 100 MG TAB PO SCH (07:10)
[2022-07-31] MEDS: amLODIPine 10 MG TAB PO SCH (07:10)
--- NOTE | 2022-07-31 11:22 | P.PN ---
Subjective Patient is seen in follow-up for end-stage renal disease. He is maintained on hemodialysis on Wednesday schedule. Schedule for dialysis today. Permacath removed. AV fistula being used outpatient. No active complaints. Vital signs are stable. General: Awake. No acute distress. HEENT: Head exam is unremarkable. LUNGS: Breath sounds decreased. HEART: Rate and Rhythm are regular. ABDOMEN: Soft, no distention. EXTREMITITES: 1+ edema. Objective - Vital Signs Vital signs: Vital Signs Temp 98.6 F 07/31/22 07:49 Pulse 84 07/31/22 07:49 Resp 16 07/31/22 07:49 BP 152/96 07/31/22 07:49 Pulse Ox 94 L 07/31/22 07:49 FiO2 Intake & Output 07/30/22 07/31/22 07/31/22 18:59 06:59 18:59 Output Total 100 Balance -100 Output: Urine 100 Other: Voiding Method Toilet # Voids 2 - Labs CBC & Chem 7: 07/29/22 16:49 07/31/22 08:19 Labs: Abnormal Lab Results - Last 24 Hours (Table) 07/29/22 07/30/22 07/31/22 Range/Units 16:19 20:24 05:54 Creatinine (0.66-1.25) mg/dL POC Glucose (mg/dL) 167 H 125 H (70-110) mg/dL Hemoglobin A1c 6.8 H (0.0-6.0) % 07/31/22 Range/Units 08:19 Creatinine 4.51 H (0.66-1.25) mg/dL POC Glucose (mg/dL) (70-110) mg/dL Hemoglobin A1c (0.0-6.0) % Microbiology - Last 24 Hours (Table) 07/29/22 17:00 Blood Culture - Preliminary Blood No Growth after 24 hours 07/29/22 16:45 Blood Culture - Preliminary Blood No Growth after 24 hours Assessment and Plan Plan: Assessment: 1. End-stage renal disease maintained on hemodialysis on Wednesday schedule via left upper extremity AV fistula. 2. Gram-positive bacteremia with concern for permacath infection. Status post 2 doses of IV vancomycin at the dialysis unit this week. 3. Hypertension with chronic kidney disease. 4. Diabetes mellitus. 5. Chronic kidney disease mineral bone disease maintained on calcitriol. Phosphorus 3.0 dated 07/29/2022. 6. Diabetes mellitus. Plan: Hemodialysis today. Permacath removed 07/30/2022. Follow-up cultures. Culture from permacath were also drawn. Tip has also been sent for culture. Antibiotics per ID. Stable for discharge from nephrology standpoint after cleared by ID.
[2022-07-31 11:29] LABS: Glucose,Whole Blood 112 mg/dL (70-110)
[2022-07-31] MEDS ORDERED: VANCOMYCIN IV PER PHARMACY 1 EACH MISC MISCELLANE PRN (11:40)
--- NOTE | 2022-07-31 11:58 | P.CONS ---
History of Present Illness - Reason for Consult Consult date: 07/30/22 - History of Present Illness Patient is a 47-year-old male with a past medical history significant for hypertension hyperlipidemia diabetes mellitus in this patient with history of end-stage renal disease on dialysis Wednesday patient did have port in left upper extremity fistula currently has been working for the last 2 weeks patient also have a right subclavian permacatheter that was used for di alysis previously, patient apparently was noticed to have some drainage around the right subclavian dialysis catheter site and apparently did have a positive culture for the patient been sent to the ER for further evaluation, patient currently denies having any fever or images, patient denies having any chest pain or shortness of breath or cough no nausea no vomiting no abdominal pain no diarrhea may symptom remains to be slight drainage around the dialysis catheter but no significant pain, patient on presentation to the hospital was afebrile the patient did have a normal white count blood culture has been obtained which are currently pending, patient was given vancomycin has been admitted to Hospital infectious disease was consulted for further management of antibiotic therapy Past Medical History Past Medical History: Diabetes Mellitus, Hyperlipidemia, Hypertension, Prostate Disorder, Renal Disease, Sleep Apnea/CPAP/BIPAP Additional Past Medical History / Comment(s): renal disease-stage IV(waiting kidney transplant), diabetic retinopathy with bilateral retinal bleeds, gout, no cpap used, gastroporesis, anemia, high potassium, edema to bilateral lower legs. History of Any Multi-Drug Resistant Organisms: None Reported Past Surgical History: Adenoidectomy, Appendectomy, Orthopedic Surgery, Tonsillectomy Additional Past Surgical History / Comment(s): UVPPP, renal biopsy, bilateral laser eye surgery for retinal bleeds, R knee arthroscopy, L knee open surgery for ACL, colonoscopy. dialysis port. Eye injection last week ([id number]) Past Anesthesia/Blood Transfusion Reactions: No Reported Reaction Additional Past Anesthesia/Blood Transfusion Reaction / Comm: Issue with pt's sleep apnea during surgery.-pt denies Past Psychological History: Anxiety, Depression Additional Psychological History / Comment(s): . Smoking Status: Never smoker Past Alcohol Use History: None Reported Past Drug Use History: None Reported - Past Family History Mother Family Medical History: Cancer, Renal Disease Additional Family Medical History / Comment(s): ESRD with dialysis-mother of renal failure at the age of 77yrs Father Family Medical History: No Reported History Additional Family Medical History / Comment(s): Father is healthy Medications and Allergies Home Medications Medication Instructions Recorded Confirmed Type Nebivolol HCl [Bystolic] 10 mg PO DAILY 07/10/19 07/29/22 History Pravastatin Sodium [Pravachol] 40 mg PO HS 07/10/19 07/29/22 History allopurinoL [Zyloprim] 100 mg PO DAILY 05/16/20 07/29/22 History amLODIPine [Norvasc] 10 mg PO DAILY 05/16/20 07/29/22 History calcitrioL [Rocaltrol] 0.25 mcg PO TUTH 05/16/20 07/29/22 History ALPRAZolam [Xanax] 0.25 mg PO DAILY PRN 10/18/21 07/29/22 History Doxazosin [Cardura] 4 mg PO HS 10/18/21 07/29/22 History Vortioxetine Hydrobromide 20 mg PO DAILY 10/18/21 07/29/22 History [Trintellix] Ergocalciferol (Vitamin D2) 1,250 mcg PO SA 02/02/22 07/29/22 History [Drisdol (50,000 Iu)] Furosemide [Lasix] 40 mg PO BID 02/02/22 07/29/22 History Nortriptyline HCl [Pamelor] 10 mg PO HS 02/02/22 07/29/22 History Nortriptyline [Pamelor] 25 mg PO HS 02/02/22 07/29/22 History buPROPion HCL [Wellbutrin XL] 150 mg PO DAILY 02/18/22 07/29/22 History Dulaglutide [Trulicity] 1.5 mg SQ TH 07/29/22 07/29/22 History Insulin Glargine,Hum.rec.anlog 40 units SQ W/SUPPER 07/29/22 07/29/22 History [Tojoyce Solostar] icosapent ethyL [Icosapent Ethyl] 2 gm PO BID 07/29/22 07/29/22 History Allergies Allergy/AdvReac Type Severity Reaction Status Date / Time No Known Allergies Allergy Verified 07/29/22 16:57 Physical Exam Vitals: Vital Signs Temp Pulse Pulse Resp BP BP Pulse Ox 10/27/22 07:59 97.9 F 83 16 165/92 95 07/30/22 01:50 97.6 F 90 17 156/92 95 07/29/22 21:15 97.9 F 87 16 165/86 93 L 07/29/22 15:34 98.5 F 84 16 106/67 96 Intake and Output 07/29/22 07/30/22 07/30/22 22:59 06:59 14:59 Other: # Voids 3 Weight 124.738 kg Results CBC & Chem 7: 07/29/22 16:49 07/31/22 08:19 Labs: Abnormal Lab Results - Last 24 Hours (Table) 07/29/22 07/29/22 07/30/22 Range/Units 16:49 16:49 07:12 RBC 4.10 L (4.30-5.90) m/uL Hgb 12.2 L (13.0-17.5) gm/dL Hct 36.0 L (39.0-53.0) % Chloride 96 L (98-107) mmol/L BUN 22 H (9-20) mg/dL Creatinine 3.04 H (0.66-1.25) mg/dL Glucose 116 H (74-99) mg/dL POC Glucose (mg/dL) 115 H (70-110) mg/dL Assessment and Plan Plan: 1patient with a end-stage renal disease on hemodialysis patient admitted to the hospital with complaint for drainage around his dialysis catheter site and apparently on patient culture showing gram-positive cocci, blood culture drawn here has been pending so far. 2we will try to obtain cultures from the dialysis unit and to make sure the patient is not bacteremic. 3vascular surgery has been consulted for removal of the dialysis catheter tip should be sent for culture. 4vancomycin pharmacy to dose to continue while waiting for the cultures to finalize. We will follow on clinical condition and cultures to further adjust medication if needed Thank you for this consultation will follow this patient with you Time with Patient: Less than 30
[2022-07-31] MEDS ORDERED: VANCOMYCIN 2,000 MG in SODIUM CHLORIDE 0.9% 500 ML 500 ML IVPB ONE (13:00)
--- NOTE | 2022-07-31 16:27 | P.DS ---
Providers Date of admission: 07/29/22 18:51 Expected date of discharge: 07/31/22 Attending physician: Hollis Ghosh Consults: 07/29/22 18:45 Consult Physician Routine Consulting Provider: Nakita Acevedo Consult Reason/Comments: positive right chest dialysis catheter cultures at office Do you want consulting provider notified?: Yes 07/30/22 09:22 Consult Physician Routine Consulting Provider: Andrew Stephenson Consult Reason/Comments: hemodialysis pt Do you want consulting provider notified?: Already Contacted Primary care physician: [facility] Course: Final Diagnoses: Bacteremia , gram-positive, possible permacath infection, reported gram-positive cocci in clusters obtained outpatient. Permacath DC'd. End-stage renal disease, HD on via AV fistula Diabetes mellitus, blood sugars controlled Anxiety Hypertension Hyperlipidemia Prostate disorder Sleep apnea, wears BiPAP Depression Hospital course:This is a 47-year-old pleasant gentleman with past medical history of end-stage renal disease, hemodialysis Wednesday, Wednesday, Wednesday via left AV fistula , functional 2 weeks, awaiting kidney transplant, diabetes mellitus, diabetic retinopathy, anemia, hypertension, hyperlipidemia, prostate disorder, sleep apnea, wears BiPAP, anxiety, depression, obesity and multiple other medical issues, sent to the ER for positive blood cultures. Patient has a right chest permacath ,reported drainage of the catheter site, cultured in addition to Blood cultures at the dialysis center. Blood cultures have been reported positive for gram-positive cocci in clusters. IV vancomycin initiated in the dialysis unit. Vancomycin trough 6.1. Denies chest pain, palpitations or shortness of breath. Denies lightheadedness dizziness focal deficits. Denies nausea vomiting or diarrhea. Denies abdominal pain. Bicarb 29, blood sugars controlled. Afebrile, normal WBC.Denies chest pain, palpitations or shortness of breath. Evaluated by nephrology with recommendations noted. Vascular, infectious disease consults in place. Evaluated by vascular surgery, permacath discontinued, tolerated procedure well. No further plans for vascular intervention, continue utilizing the AV fistula in the left upper extremity. Hemodialysis today. Denies chest pain, palpitations or shortness of breath. Denies lightheadedness, dizziness or focal deficits. Patient will be discharged today in a stable condition with guarded prognosis pending final DC recommendations as antibiotics and clearance as per ID. Microbiology 07/29/22 17:00 Blood Blood Culture - Preliminary No Growth after 24 hours 07/29/22 16:45 Blood Blood Culture - Preliminary No Growth after 24 hours The impression and plan of care has been dictated as directed. : I performed a history and examination of this patient, discussed the same with the dictator. I agree with the dictator's note ,documented as a scribe. Any additional findings or plans will be noted. Patient Condition at Discharge: Stable Plan - Discharge Summary Discharge Rx Participant: Yes New Discharge Prescriptions: Continue Pravastatin Sodium [Pravachol] 40 mg PO HS Nebivolol HCl [Bystolic] 10 mg PO DAILY amLODIPine [Norvasc] 10 mg PO DAILY allopurinoL [Zyloprim] 100 mg PO DAILY calcitrioL [Rocaltrol] 0.25 mcg PO TUTH Vortioxetine Hydrobromide [Trintellix] 20 mg PO DAILY ALPRAZolam [Xanax] 0.25 mg PO DAILY PRN PRN Reason: Anxiety Ergocalciferol (Vitamin D2) [Drisdol (50,000 Iu)] 1,250 mcg PO SA Nortriptyline [Pamelor] 25 mg PO HS icosapent ethyL [Icosapent Ethyl] 2 gm PO BID Dulaglutide [Trulicity] 1.5 mg SQ TH Doxazosin [Cardura] 4 mg PO HS Nortriptyline HCl [Pamelor] 10 mg PO HS Furosemide [Lasix] 40 mg PO BID buPROPion HCL [Wellbutrin XL] 150 mg PO DAILY Insulin Glargine,Hum.rec.anlog [Dorita Burnett] 40 units SQ W/SUPPER Discharge Medication List Nebivolol HCl [Bystolic] 10 mg PO DAILY 07/10/19 [History] Pravastatin Sodium [Pravachol] 40 mg PO HS 07/10/19 [History] allopurinoL [Zyloprim] 100 mg PO DAILY 05/16/20 [History] amLODIPine [Norvasc] 10 mg PO DAILY 05/16/20 [History] calcitrioL [Rocaltrol] 0.25 mcg PO TUTH 05/16/20 [History] ALPRAZolam [Xanax] 0.25 mg PO DAILY PRN 10/18/21 [History] Doxazosin [Cardura] 4 mg PO HS 10/18/21 [History] Vortioxetine Hydrobromide [Trintellix] 20 mg PO DAILY 10/18/21 [History] Ergocalciferol (Vitamin D2) [Drisdol (50,000 Iu)] 1,250 mcg PO SA 02/02/22 [History] Furosemide [Lasix] 40 mg PO BID 02/02/22 [History] Nortriptyline HCl [Pamelor] 10 mg PO HS 02/02/22 [History] Nortriptyline [Pamelor] 25 mg PO HS 02/02/22 [History] buPROPion HCL [Wellbutrin XL] 150 mg PO DAILY 02/18/22 [History] Dulaglutide [Trulicity] 1.5 mg SQ TH 07/29/22 [History] Insulin Glargine,Hum.rec.anlog [Tousteveo Solostar] 40 units SQ W/SUPPER 07/29/22 [History] icosapent ethyL [Icosapent Ethyl] 2 gm PO BID 07/29/22 [History] Follow up Appointment(s)/Referral(s): [facility] [NON-STAFF] - 08/03/22 (Antibiotic will be administered during hemo dialysis.) Hollis Ghosh Jr, [Primary Care Provider] - 3 Days
[2022-07-31 16:49] LABS: Glucose,Whole Blood 112 mg/dL (70-110)
[2022-07-31] MEDS: INSULIN DETEMIR (LEVEMIR) 100 UNIT/ML SYR SQ SCH (17:57)
[2022-07-31 20:31] VITALS: BP 162/83; PULSE 99; RESP 17; TEMP 98.1
[2022-08-01] MEDS ORDERED: ERGOCALCIFEROL 1,250 MCG (50,000 IU) CAPSULE PO SCH (09:00)
== END 2022-07-31 20:40 | disposition home or self-care (01) | DRG 314 ==
LOC: EC 14:55 → 5NMEDONC 18:50 → UNDOADMIN 18:50 → 5NMEDONC 18:51 → 4SSUR 19:46
PROVIDERS: ADMIT Family Medicine; ATTEND Family Medicine
PROC: 5A1D70Z Performance of Urinary Filtration, Intermittent, Less than 6 Hours Per Day (ICD-10-PCS; principal; 2022-07-31)
DX: T80.211A Bloodstream infection due to central venous catheter, initial encounter (principal); N18.6 End stage renal disease; I12.0 Hypertensive chronic kidney disease with stage 5 chronic kidney disease or end stage renal disease; E11.22 Type 2 diabetes mellitus with diabetic chronic kidney disease; E11.319 Type 2 diabetes mellitus with unspecified diabetic retinopathy without macular edema; E87.5 Hyperkalemia; E78.5 Hyperlipidemia, unspecified; B96.89 Other specified bacterial agents as the cause of diseases classified elsewhere; F32.A Depression, unspecified; F41.9 Anxiety disorder, unspecified; G47.30 Sleep apnea, unspecified; E83.89 Other disorders of mineral metabolism; N42.9 Disorder of prostate, unspecified; Y84.8 Other medical procedures as the cause of abnormal reaction of the patient, or of later complication, without mention of misadventure at the time of the procedure; Z79.899 Other long term (current) drug therapy; Z99.2 Dependence on renal dialysis; R51.9 Headache, unspecified; Z84.1 Family history of disorders of kidney and ureter
CPT/HCPCS: 36415; 80053; 80202; 82565; 83036; 83605; 84100; 85025; 87040; 90935; 99284

== ENCOUNTER 2023-01-11 10:03 | Day surgery (SDC) | payer MEDICARE, OTHER ==
[2023-01-06 17:50] VITALS: BMI 37.3
[~2023-01-11 10:03] MED LIST changes: +LIDOCAINE 1% (10MG/ML) FOR IV START INTRADERMA PRN; +ONDANSETRON 4 MG/2 ML VIAL IVP ONE; +ceFAZolin 3 GM in SODIUM CHLORIDE 0.9% 100 ML IVPB PRN
[2023-01-11] MEDS ORDERED: LIDOCAINE 1% (10MG/ML) FOR IV START INTRADERMA ONE (10:25)
[2023-01-11] MEDS ORDERED: SODIUM CHLORIDE 0.9% 1,000 ML IV ONE ×3 (10:25→14:46)
[2023-01-11] MEDS ORDERED: ceFAZolin 2 GM in SODIUM CHLORIDE 0.9% 500 ML 500 ML IRRIGATION ONE ×5 (10:27→15:17)
[2023-01-11 10:28] VITALS: TEMP 97.9
[2023-01-11] MEDS ORDERED: HEPARIN SODIUM,PORCINE 2,000 UNIT in SODIUM CHLORIDE 0.9% 500 ML 500 ML IRRIGATION ONE ×5 (10:28→15:16)
[2023-01-11] MEDS ORDERED: ONDANSETRON 4 MG/2 ML VIAL IVP ONE ×3 (10:35→16:41)
[2023-01-11] MEDS ORDERED: GELATIN SPONGE,ABSORB (LARGE) 1 EACH SPONGE TOPICAL ONE ×3 (10:40→14:32)
[2023-01-11] MEDS ORDERED: THROMBIN (BOVINE) 5,000 UNIT VIAL TOPICAL ONE ×3 (10:40→14:32)
[2023-01-11] MEDS ORDERED: BUPIVACAINE (PF) 0.25% 30 ML VIAL SQ ONE ×2 (10:41→11:43)
[2023-01-11] MEDS ORDERED: MIDAZOLAM 2 MG/2 ML VIAL IV ONE (10:41)
[2023-01-11 10:43] LABS: Glucose,Whole Blood 138 mg/dL (70-110)
--- NOTE | 2023-01-11 10:59 | P.ANPRN ---
Procedure Note - Anesthesia - Nerve Block Performed Left Axillary Single Time Out Performed: Yes Date of Procedure: 01/11/23 Procedure Start Time: 10:41 Procedure Stop Time: 10:52 Location of Patient: PreOp Indication: Acute Post-Operative Pain, Requested by Surgeon Sedation Type: Sedate with meaningful contact maintained Preparation: Sterile Prep, Sterile Dressing Position: Supine Catheter: None Needle Types: Facet Needle Gauge: 20 Ultrasound used to visualize needle placement: Yes Ultrasound used to observe medication spread: Yes Injectate: 0.5% Ropivacaine (see comment for volume) (30 ml + decadron 4 mg) Blood Aspirated: No Pain Paresthesia on Injection Noted: No Resistance on Injection: Normal Image Stored and Saved: Yes Events: Uneventful and Well Tolerated
[2023-01-11] MEDS ORDERED: SUCCINYLCHOLINE CHLORIDE 200 MG/10 ML VIAL IV ONE ×2 (11:12→14:41)
[2023-01-11] MEDS ORDERED: LIDOCAINE 2% INJ 20 MG/ML (2 ML VIAL) ONE (11:12)
[2023-01-11] MEDS ORDERED: PROPOFOL 10 MG/ML 20 ML VIAL IV ONE ×2 (11:12→14:41)
[2023-01-11] MEDS ORDERED: KETAMINE 10 MG/ML 20 ML VIAL ONE (11:12)
[2023-01-11] MEDS ORDERED: ePHEDrine 50 MG/ML 1 ML VIAL ONE (11:12)
[2023-01-11] MEDS ORDERED: ROPIVACAINE 5 MG/ML 30 ML VIAL ONE (11:12)
[2023-01-11] MEDS ORDERED: HYDROmorphone (PF) 1 MG/ML ONE (11:12)
[2023-01-11] MEDS ORDERED: fentaNYL (PF) 50 MCG/ML 2 ML AMP ONE ×2 (11:12→14:41)
[2023-01-11] MEDS ORDERED: DEXAMETHASONE SOD PHOSPHATE 4 MG/ML 1 ML VIAL ONE (11:12)
[2023-01-11] MEDS ORDERED: PHENYLEPHRINE-0.9% NACL SYG 1,000 MCG/10 ML SYRINGE ONE ×2 (11:12→14:41)
[2023-01-11] MEDS ORDERED: WATER FOR INJECTION, STERILE 10 ML VIAL IV ONE (11:12)
[2023-01-11] MEDS ORDERED: MIDAZOLAM 2 MG/2 ML VIAL ONE ×2 (11:12→14:41)
--- NOTE | 2023-01-11 14:38 | P.OP ---
Date of Procedure: 01/11/23 Preoperative Diagnosis: Dysfunctional left upper extremity arteriovenous fistula Postoperative Diagnosis: Same Procedure(s) Performed: Left upper extremity fistula revision Left brachial-cephalic arteriovenous fistula creation Left upper extremity cephalic branches ligation Anesthesia: DEVAN Surgeon: Mando Mccarty Estimated Blood Loss (ml): 30 Pathology: none sent Condition: stable Disposition: PACU Indications for Procedure: 47 year old male with history of ESRD, left upper extremity percutaneous fistula creation and left upper extremity fistula dysfunction presents to the hospital for revision of left upper extremity fistula with possible branch ligation versus creation of left brachial cephalic fistula. Operative Findings: multiple branches noted from cephalic vein. Inflammatory changes noted at the cephalic vein and antecubital fossa Description of Procedure: After written and informed consent was obtained from the patient and all risks, benefits and complications were described the patient was brought to the operative suite and laid in a supine position with his left arm on an armboard. The left arm was prepped and draped in the usual sterile fashion after appropriate anesthesia was performed per the anesthesiologist. A transverse incision was then created above the elbow overlying the brachial artery with a 10 blade scalpel and dissection was carried down to the brachial artery. Meticulous dissection was carried around the artery, proximal and distal control was obtained with vessel loops. Attention was then placed to the cephalic vein. dissection was carried around the antecubital vein and the cephalic vein in a circumferential manner. The branches were dissected free and ligated and the cephalic vein was brought over to the brachial artery for anastomosis. The vein was spatulated and arteriotomy was performed at the brachial artery with an 11 blade scalpel and extended with Penaloza scissors. An end to side anastomosis was then created with 6-0 Prolene suture in normal fashion. Once completed control was released distally with good back bleeding noted as well as proximally with good pulsatile blood flow through the cephalic vein. Good thrill was noted but there was a decrease at the mid portion and therefore ultrasound was utilized and 3 large branches were located coming off the cephalic vein. A small incision was created over this area and dissection was carried down to the branches and they were then suture ligated with 4-0 Silk suture. Thrill was improved and the area was irrigated with antibiotic solution. The incision was hemostatic and then closed in a multi-layer fashion. The skin was cleansed and then glue was placed. The patient tolerated the procedure well and had a palpable thrill and was sent to PACU for recovery.
--- NOTE | 2023-01-11 14:40 | P.PN ---
Progress Note - Text Progress Note Date: 01/11/23 patient seen in the PACU- blood pressure elevated 170's and swelling at the incision site. Skin taught, patient in pain with hematoma noted extending up the arm. Will take back for exploration and bleeding control. Discussed with patient and anesthesia.
[2023-01-11] MEDS ORDERED: VASOPRESSIN 20 UNIT/ML 1 ML VIAL ONE (14:41)
[2023-01-11] MEDS ORDERED: SODIUM CHLORIDE 0.9% 50 ML with ceFAZolin 3,000 MG IV ONE ×2 (15:15)
[2023-01-11 16:10] LABS: Glucose,Whole Blood 226 mg/dL (70-110)
--- NOTE | 2023-01-11 16:42 | P.OP ---
Date of Procedure: 01/11/23 Preoperative Diagnosis: Left upper extremity hematoma with expanding hematoma Postoperative Diagnosis: Same Left upper extremity venous bleed Procedure(s) Performed: Exploration of left upper arm Hemorrhage control with suture repair of antecubital vein Anesthesia: DEVAN Surgeon: Mando Mccatry Estimated Blood Loss (ml): 50 Pathology: none sent Condition: stable Disposition: PACU Indications for Procedure: 47 year old gentleman who just underwent revision of his left upper extremity fistula was seen in the PACU and had blood pressure in the 180's and noted to have expanding hematoma at the incision site and upper arm. He was having significant pain, non palpable thrill in the fistula and therefore taken to the OR for immediate exploration and hemorrhage control. Operative Findings: antecubital vein bleeding from previously suture ligated site Description of Procedure: Patient brought to the OR emergently. The area of the left upper arm was prepped and draped in the usual sterile fashion. Timeout was performed in usual fashion and incision site was re-opened after appropriate anesthesia was performed. Upon opening previous incision site a large hematoma was encountered and active bleeding from the antecubital vein. Pressure control was obtained and the venotomy was closed with 6-0 Prolene suture in a running fashion. No further bleeding was noted. The fistula had a good thrill and bruits. The woun d was irrigated with antibiotic solution and closed in a multi-layer fashion. The skin was cleansed and dressings placed. The patient tolerated the procedure well and was sent to PACU for recovery.
[2023-01-11] MEDS ORDERED: INSULIN ASPART (NovoLOG) 100 UNIT/ML VIAL SQ ONE (16:51)
[2023-01-11 17:07] VITALS: RESP 16
[2023-01-11 17:24] VITALS: BP 146/80; PULSE 101
== END 2023-01-11 17:44 | disposition home or self-care (01) ==
LOC: OR 10:03
PROVIDERS: ATTEND Surgery
DX: T82.898A Other specified complication of vascular prosthetic devices, implants and grafts, initial encounter (principal); Y83.2 Surgical operation with anastomosis, bypass or graft as the cause of abnormal reaction of the patient, or of later complication, without mention of misadventure at the time of the procedure; I12.0 Hypertensive chronic kidney disease with stage 5 chronic kidney disease or end stage renal disease; N18.6 End stage renal disease; Z99.2 Dependence on renal dialysis; E11.22 Type 2 diabetes mellitus with diabetic chronic kidney disease; J45.909 Unspecified asthma, uncomplicated; G47.33 Obstructive sleep apnea (adult) (pediatric); E21.3 Hyperparathyroidism, unspecified; F32.A Depression, unspecified; Z79.4 Long term (current) use of insulin; Z79.51 Long term (current) use of inhaled steroids; Z79.52 Long term (current) use of systemic steroids; Z79.899 Other long term (current) drug therapy; Z98.890 Other specified postprocedural states
CPT/HCPCS: 36832; 37607; 64415; 76942; J2250; J0330; J1644; J0690 ×2; J2405; J3010; J2370; J2704

== ENCOUNTER 2023-03-09 06:05 | Observation (INO) | payer MEDICARE, OTHER ==
--- NOTE | 2023-03-09 06:29 | ED ---
General Adult HPI - General Chief complaint: Shortness of Breath Stated complaint: SOB,High BP,High Blood Sugar, PO Surgery Time Seen by Provider: 03/09/23 06:16 Source: family Mode of arrival: wheelchair Limitations: no limitations - History of Present Illness Initial comments: 47-year-old male with past medical history significant for stage V CK D and type 1 diabetes presents to the ED with chief complaint of shortness of breath. Patient had repaired to his AV fistula on the left yesterday. Last dialysis was on Wednesday. Patient goes to dialysis on . this morning, patient states he woke up with shortness of breath and palpitations. States palpitations feel as if his heart is beating fast. Does not describe it as his heart beating irr egularly. Additionally, patient noticed that his blood pressure was high this morning in 220s systolic. He also noticed that his blood sugar was reading high in the 400s and notes that his device only read high after some period of time. States he took 25 units of insulin for this. Reports it is now in the 300s. Patient reports making minimal urine. Denies chest pain, abdominal pain, nausea, vomiting. - Related Data Home Medications Medication Instructions Recorded Confirmed Pravastatin Sodium [Pravachol] 40 mg PO HS 07/10/19 01/06/23 allopurinoL [Zyloprim] 100 mg PO DAILY PRN 05/16/20 01/06/23 amLODIPine [Norvasc] 10 mg PO QAM 05/16/20 01/06/23 calcitrioL [Rocaltrol] 0.25 mcg PO [facility] 05/16/20 01/06/23 ALPRAZolam [Xanax] 0.25 mg PO DAILY PRN 10/18/21 01/06/23 Doxazosin [Cardura] 4 mg PO HS 10/18/21 01/06/23 Vortioxetine Hydrobromide 20 mg PO QAM 10/18/21 01/06/23 [Trintellix] Ergocalciferol (Vitamin D2) 1,250 mcg PO SA 02/02/22 01/06/23 [Drisdol (50,000 Iu)] Furosemide [Lasix] 40 mg PO BID 02/02/22 01/06/23 Nortriptyline [Pamelor] 35 mg PO HS 02/02/22 01/06/23 buPROPion HCL [Wellbutrin XL] 150 mg PO QAM 02/18/22 01/06/23 Dulaglutide [Trulicity] 3 - 4.5 mg SQ TH 07/29/22 01/06/23 Insulin Glargine,Hum.rec.anlog 52 units SQ W/SUPPER 07/29/22 01/06/23 [Toujeo Solostar] [place]-3/Dha/Epa/Fish Oil [Fish Oil 1 each PO BID 01/06/23 01/06/23 1,000 mg Softgel] Allergies Allergy/AdvReac Type Severity Reaction Status Date / Time No Known Allergies Allergy Verified 01/11/23 10:23 Review of Systems ROS Statement: Those systems with pertinent positive or pertinent negative responses have been documented in the HPI. ROS Other: All systems not noted in ROS Statement are negative. Past Medical History Past Medical History: Diabetes Mellitus, Hyperlipidemia, Hypertension, Prostate Disorder, Renal Disease, Sleep Apnea/CPAP/BIPAP Additional Past Medical History / Comment(s): currently left av vistula not having good flow,renal disease-stage 5 (waiting kidney transplant), diabetic retinopathy with bilateral retinal bleeds, gout, no cpap used, gastroporesis, anemia, high potassium, edema to bilateral lower legs. usual hemodialysis s chedule is M-W-F History of Any Multi-Drug Resistant Organisms: None Reported Past Surgical History: Adenoidectomy, Appendectomy, Orthopedic Surgery, Tonsillectomy Additional Past Surgical History / Comment(s): UVPPP, renal biopsy, bilateral laser eye surgery for retinal bleeds, R knee arthroscopy, L knee open surgery for ACL, colonoscopy. dialysis port, left av fistula,Eye injections Past Anesthesia/Blood Transfusion Reactions: No Reported Reaction Additional Past Anesthesia/Blood Transfusion Reaction / Comment(s): no known hx blood transfusion Past Psychological History: Anxiety, Depression Smoking Status: Never smoker - Past Family History Mother Family Medical History: Cancer, Renal Disease Additional Family Medical History / Comment(s): ESRD with dialysis-mother of renal failure at the age of 77yrs Father Family Medical History: No Reported History Additional Family Medical History / Comment(s): Father is healthy General Exam Limitations: no limitations General appearance: alert Head exam: Present: atraumatic, normocephalic Eye exam: Present: normal appearance Neck exam: Present: normal inspection Respiratory exam: Present: normal lung sounds bilaterally Cardiovascular Exam: Present: regular rate, normal rhythm GI/Abdominal exam: Present: soft Extremities exam: Present: other (AV fistula in LUE) Neurological exam: Present: alert, oriented X3 Psychiatric exam: Present: normal affect, normal mood Skin exam: Present: warm, dry Course Vital Signs 03/09/23 03/09/23 06:06 06:46 Temperature 97.8 F Pulse Rate 103 H Respiratory 20 20 Rate Blood Pressure 176/89 O2 Sat by Pulse 93 L Oximetry Medical Decision Making - Medical Decision Making Was pt. sent in by a medical professional or institution (, PA, RECRUITING CONSULTANT, urgent care, hospital, or usp...) When possible be specific @ -[No] Did you speak to anyone other than the patient for history (EMS, parent, family, police, friend...)? What history was obtained from this source @ -[No] Did you review nursing and triage notes (agree or disagree)? Why? @ -[I reviewed and agree with nursing and triage notes] Were old charts reviewed (outside hosp., previous admission, EMS record, old EKG, old radiological studies, urgent care reports/EKG's, usp records)? Report findings @ -Old charts reviewed showing a prior history of COPD and diabetes. Differential Diagnosis (chest pain, altered mental status, abdominal pain women, abdominal pain men, vaginal bleeding, weakness, fever, dyspnea, syncope, headache, dizziness, GI bleed, back pain, seizure, CVA, palpatations, mental health, musculoskeletal)? @ -Differential Dyspnea: Coronary syndrome, arrhythmia, tamponade, asthma, COPD, pulmonary embolism, pneumonia, pneumothorax, pulmonary effusion, anaphylaxis, diabetic ketoacidosis, flailed chest, pulmonary contusion, diaphragmatic rupture, anemia, neuromuscular , this is not meant to be an all-inclusive list. EKG interpreted by me (3pts min.). @ -[As above] X-rays interpreted by me (1pt min.). @ -X-ray showed pulmonary vascular congestion with some left atelectasis. CT interpreted by me (1pt min.). @ -[None done] U/S interpreted by me (1pt. min.). @ -[None done] What testing was considered but not performed or refused? (CT, X-rays, U/S, labs)? Why? @ -[None] What meds were considered but not given or refused? Why? @ -[None] Did you discuss the management of the patient with other professionals (professionals i.e. , PA, RECRUITING CONSULTANT, lab, RT, psych nurse, social service worker, blind slat stapling machine operator, teacher, control officer, piano case maker)? Give summary @ -[No] Was smoking cessation discussed for >3mins.? @ -[No] Was critical care preformed (if so, how long)? @ -[No] Were there social determinants of health that impacted care today? How? (Homelessness, low income, unemployed, alcoholism, drug addiction, transporta tion, low edu. Level, literacy, decrease access to med. care, longterm, rehab)? @ -[No] Was there de-escalation of care discussed even if they declined (Discuss DNR or withdrawal of care, Hospice)? DNR status @ -[No] What co-morbidities impacted this encounter? (DM, HTN, Smoking, COPD, CAD, Cancer, CVA, ARF, Chemo, Hep., AIDS, mental health diagnosis, sleep apnea, morbid obesity)? @ -[None] Was patient admitted / discharged? Hospital course, mention meds given and route, prescriptions, significant lab abnormalities, going to OR and other pertinent info. @ -Admitted. Labs showed no significant electrolyte disturbances. However x- ray did show some pulmonary congestion with some atelectasis. Patient to be admitted for dialysis. Undiagnosed new problem with uncertain prognosis? @ -[No] Drug Therapy requiring intensive monitoring for toxicity (Heparin, Nitro, Insulin, Cardizem)? @ -[No] Were any procedures done? @ -[No] Diagnosis/symptom? @ -Pulmonary edema Acute, or Chronic, or Acute on Chronic? @ -Acute Uncomplicated (without systemic symptoms) or Complicated (systemic symptoms)? @ -Complicated Side effects of treatment? @ -[No] Exacerbation, Progression, or Severe Exacerbation? @ -[No] Poses a threat to life or bodily function? How? (Chest pain, [place], [place], pneumonia, PE, COPD, DKA, ARF, appy, cholecystitis, CVA, Diverticulitis, Homicidal, Suicidal, threat to staff... and all critical care pts) @ -Yes, pulmonary edema causing dyspnea, possible respiratory failure - Lab Data Result diagrams: 03/09/23 06:40 03/09/23 06:40 Lab Results 03/09/23 03/09/23 03/09/23 Range/Units 06:40 06:40 06:40 WBC 6.9 (3.8-10.6) k/uL RBC 4.38 (4.30-5.90) m/uL Hgb 12.8 L (13.0-17.5) gm/dL Hct 39.2 (39.0-53.0) % MCV 89.4 (80.0-100.0) fL MCH 29.1 (25.0-35.0) pg MCHC 32.6 (31.0-37.0) g/dL RDW 12.8 (11.5-15.5) % Plt Count 195 (150-450) k/uL MPV 8.0 Neutrophils % 84 % Lymphocytes % 8 % Monocytes % 7 % Eosinophils % 0 % Basophils % 0 % Neutrophils # 5.8 (1.3-7.7) k/uL Lymphocytes # 0.5 L (1.0-4.8) k/uL Monocytes # 0.5 (0-1.0) k/uL Eosinophils # 0.0 (0-0.7) k/uL Basophils # 0.0 (0-0.2) k/uL D-Dimer 0.33 (<0.60) mg/L FEU Sodium (137-145) mmol/L Potassium (3.5-5.1) mmol/L Chloride (98-107) mmol/L Carbon Dioxide (22-30) mmol/L Anion Gap mmol/L BUN (9-20) mg/dL Creatinine (0.66-1.25) mg/dL Est GFR (CKD-EPI)AfAm (>60 ml/min/1.73 sqM) Est GFR (CKD-EPI)NonAf (>60 ml/min/1.73 sqM) Glucose (74-99) mg/dL Calcium (8.4-10.2) mg/dL Magnesium (1.6-2.3) mg/dL Total Bilirubin (0.2-1.3) mg/dL AST (17-59) U/L ALT (4-49) U/L Alkaline Phosphatase (38-126) U/L Troponin I <0.012 (0.000-0.034) ng/mL NT-Pro-B Natriuret Pep pg/mL Total Protein (6.3-8.2) g/dL Albumin (3.5-5.0) g/dL 03/09/23 03/09/23 Range/Units 06:40 06:40 WBC (3.8-10.6) k/uL RBC (4.30-5.90) m/uL Hgb (13.0-17.5) gm/dL Hct (39.0-53.0) % MCV (80.0-100.0) fL MCH (25.0-35.0) pg MCHC (31.0-37.0) g/dL RDW (11.5-15.5) % Plt Count (150-450) k/uL MPV Neutrophils % % Lymphocytes % % Monocytes % % Eosinophils % % Basophils % % Neutrophils # (1.3-7.7) k/uL Lymphocytes # (1.0-4.8) k/uL Monocytes # (0-1.0) k/uL Eosinophils # (0-0.7) k/uL Basophils # (0-0.2) k/uL D-Dimer (<0.60) mg/L FEU Sodium 135 L (137-145) mmol/L Potassium 5.2 H (3.5-5.1) mmol/L Chloride 96 L (98-107) mmol/L Carbon Dioxide 25 (22-30) mmol/L Anion Gap 14 mmol/L BUN 57 H (9-20) mg/dL Creatinine 7.53 H* (0.66-1.25) mg/dL Est GFR (CKD-EPI)AfAm 9 (>60 ml/min/1.73 sqM) Est GFR (CKD-EPI)NonAf 8 (>60 ml/min/1.73 sqM) Glucose 321 H (74-99) mg/dL Calcium 9.3 (8.4-10.2) mg/dL Magnesium 2.4 H (1.6-2.3) mg/dL Total Bilirubin 0.3 (0.2-1.3) mg/dL AST 21 (17-59) U/L ALT 23 (4-49) U/L Alkaline Phosphatase 89 (38-126) U/L Troponin I (0.000-0.034) ng/mL NT-Pro-B Natriuret Pep 637 pg/mL Total Protein 7.0 (6.3-8.2) g/dL Albumin 4.3 (3.5-5.0) g/dL - EKG Data -: EKG Interpreted by Me EKG Comments: Sinus rhythm with no acute ST or T-wave changes. Rate of 97, W[place] 162, QRS 94, QT QTC 347/401 Disposition Clinical Impression: Pulmonary edema Disposition: ADMITTED IP TO THIS HOSP Condition: Fair Referrals: Hollis Ghosh Jr, [Primary Care Provider] - 1-2 days Time of Disposition: 07:20
[2023-03-09 07:01] LABS: Basophils % (A) 0 %; Eosinophils % (A) 0 %; HCT 39.2 % (39.0-53.0); HGB 12.8 gm/dL (13.0-17.5); Lymphocytes # (A) 0.5 k/uL (1.0-4.8); Lymphocytes % (A) 8 %; MCH 29.1 pg (25.0-35.0); MCHC 32.6 g/dL (31.0-37.0); MCV 89.4 fL (80.0-100.0); Monocytes # (A) 0.5 k/uL (0-1.0); Monocytes % (A) 7 %; Neutrophils # (A) 5.8 k/uL (1.3-7.7); Neutrophils % (A) 84 %; Platelet Count 195 k/uL (150-450); RBC 4.38 m/uL (4.30-5.90); RDW 12.8 % (11.5-15.5); WBC 6.9 k/uL (3.8-10.6)
--- NOTE | 2023-03-09 07:04 | XR ---
EXAMINATION TYPE: XR chest 2V DATE OF EXAM: 03/09/2023 COMPARISON: 05/03/2022 HISTORY: 47 year-old male shortness of breath TECHNIQUE: PA and lateral views FINDINGS: Heart mildly enlarged. Diffuse interstitial and vascular prominence. Asymmetric elevation left hemidi aphragm likely due to prominent air distending the fundus of the stomach. Patchy posterior basilar op acity on the lateral view. No sizable pleural effusion. IMPRESSION: Hypoventilatory changes and possible pulmonary vascular congestion. Patchy left basilar atelectasis v ersus early infiltrate. Clinically correlate.
[2023-03-09 07:09] LABS: ALT 23 U/L (4-49); AST 21 U/L (17-59); African American GFR (CKD) 9 (>60 ml/min/1.73 sqM); Albumin 4.3 g/dL (3.5-5.0); Alkaline Phosphatase 89 U/L (38-126); Anion Gap 14 mmol/L; Blood Urea Nitrogen 57 mg/dL (9-20); Calcium 9.3 mg/dL (8.4-10.2); Carbon Dioxide 25 mmol/L (22-30); Chloride 96 mmol/L (98-107); Glucose 321 mg/dL (74-99); Magnesium 2.4 mg/dL (1.6-2.3); Non-African American GFR(CKD) 8 (>60 ml/min/1.73 sqM); Potassium 5.2 mmol/L (3.5-5.1); Sodium 135 mmol/L (137-145); Total Bilirubin 0.3 mg/dL (0.2-1.3)
[2023-03-09] MEDS ORDERED: NALOXONE 0.4 MG/ML 1 ML VIAL IV PRN (08:14)
[2023-03-09] MEDS ORDERED: MORPHINE SULFATE 2 MG/ML SYRINGE IVP ONE (08:22)
[2023-03-09] MEDS ORDERED: ALPRAZolam 0.25 MG TAB PO STA (09:22)
[2023-03-09] MEDS ORDERED: ALPRAZolam 0.25 MG TAB PO PRN (09:23)
[2023-03-09] MEDS ORDERED: MORPHINE SULFATE 2 MG/ML SYRINGE IVP STA (11:19)
--- NOTE | 2023-03-09 12:40 | P.NPCON ---
History of Present Illness - Reason for Consult end stage renal disease - History of Present Illness Patient is a 47-year-old male with history of end-stage renal disease on hemodialysis on a Wednesday schedule. Patient was admitted with complaints of chest pain, shortness of breath and severely elevated blood pressure with systolic above 200. Patient reports having had surgery on his AV fistula yesterday. He did run on 03/06/2023 in anticipation for surgery on Wednesday. No history of fever chills nausea vomiting diarrhea or cough. Chest x-ray shows evidence of coronary vascular congestion. Systolic blood pressure was in the 220s on admission. Blood sugar was also high in the 300 range. Review of Systems As per HPI Past Medical History Past Medical History: Diabetes Mellitus, Hyperlipidemia, Hypertension, Prostate Disorder, Renal Disease, Sleep Apnea/CPAP/BIPAP Additional Past Medical History / Comment(s): currently left av vistula not having good flow,renal disease-stage 5 (waiting kidney transplant), diabetic retinopathy with bilateral retinal bleeds, gout, no cpap used, gastroporesis, anemia, high potassium, edema to bilateral lower legs. usual hemodialysis schedule is History of Any Multi-Drug Resistant Organisms: None Reported Past Surgical History: Adenoidectomy, Appendectomy, Orthopedic Surgery, Tonsil lectomy Additional Past Surgical History / Comment(s): UVPPP, renal biopsy, bilateral laser eye surgery for retinal bleeds, R knee arthroscopy, L knee open surgery for ACL, colonoscopy. dialysis port, left av fistula,Eye injections Past Anesthesia/Blood Transfusion Reactions: No Reported Reaction Additional Past Anesthesia/Blood Transfusion Reaction / Comment(s): no known hx blood transfusion Past Psychological History: Anxiety, Depression Smoking Status: Never smoker - Past Family History Mother Family Medical History: Cancer, Renal Disease Additional Family Medical History / Comment(s): ESRD with dialysis-mother of renal failure at the age of 77yrs Father Family Medical History: No Reported History Additional Family Medical History / Comment(s): Father is healthy Medications and Allergies Home Medications Medication Instructions Recorded Confirmed Type allopurinoL [Zyloprim] 100 mg PO DAILY 05/16/20 03/09/23 History ALPRAZolam [Xanax] 0.25 mg PO Q8H PRN 10/18/21 03/09/23 History Doxazosin [Cardura] 4 mg PO HS 10/18/21 03/09/23 History Vortioxetine Hydrobromide 20 mg PO QAM 10/18/21 03/09/23 History [Trintellix] Furosemide [Lasix] 40 mg PO BID 02/02/22 03/09/23 History Nortriptyline [Pamelor] 25 mg PO HS 02/02/22 03/09/23 History buPROPion HCL [Wellbutrin XL] 150 mg PO QAM 02/18/22 03/09/23 History Dulaglutide [Trulicity] 4.5 mg SQ TH 07/29/22 03/09/23 History Insulin Glargine,Hum.rec.anlog 52 units SQ W/SUPPER 07/29/22 03/09/23 History [Toujeo Solostar] [place]-3/Dha/Epa/Fish Oil [Fish Oil 1 cap PO DAILY 01/06/23 03/09/23 History 1,000 mg Softgel] Insulin Lispro-Aabc [Lyumjev 10 units SQ AC-TID 03/09/23 03/09/23 History Kwikpen U-100] Nortriptyline [Pamelor] 10 mg PO HS 03/09/23 03/09/23 History Allergies Allergy/AdvReac Type Severity Reaction Status Date / Time No Known Allergies Allergy Verified 03/09/23 08:06 Physical Exam Vitals: Vital Signs Temp Pulse Resp BP Pulse Ox 03/09/23 11:15 85 18 147/95 94 L 03/09/23 08:46 94 18 155/95 95 03/09/23 06:46 20 03/09/23 06:06 97.8 F 103 H 20 176/89 93 L Intake and Output 03/08/23 03/09/23 03/09/23 22:59 06:59 14:59 Other: Weight 124.738 kg Patient is awake, comfortable, no acute distress Examination of the heart S1 and S2 Examination of the lungs bilateral breath sounds are heard with decreased breath sounds at the bases abdomen is soft nontender Examination lower extremity shows no significant edema Left arm in sling SIGNAL CONSTRUCTOR exam grossly intact Results - Lab Results Most recent lab results Calcium 9.3 mg/dL (8.4-10.2) 03/09/23 06:40 Magnesium 2.4 mg/dL (1.6-2.3) H 03/09/23 06:40 03/09/23 06:40 03/09/23 06:40 Assessment and Plan Assessment: 1. End-stage renal disease on hemodialysis on a Wednesday schedule via left arm AV fistula 2. Status post recent intervention on AV fistula yesterday on 03/08/2023. Fistula is cleared for use. 3. Volume overload 4. Hypertensive urgency 5. CK D mineral bone disorder Plan: Hemodialysis today. Patient can be discharged from nephrology standpoint and follow for hemodialysis again tomorrow as outpatient.
[2023-03-09] MEDS ORDERED: INSULIN ASPART (NovoLOG) 100 UNIT/ML VIAL SQ SCH (13:38)
[2023-03-09] MEDS ORDERED: DEXTROSE 50% SYRINGE 50 ML IVP PRN ×2 (13:38)
[2023-03-09] MEDS ORDERED: INSULIN DETEMIR (LEVEMIR) 100 UNIT/ML SYR SQ SCH (13:45)
--- NOTE | 2023-03-09 14:08 | P.HPIM ---
History of Present Illness H&P Date: 03/09/23 Chief Complaint: Shortness of breath, hypertension, hyperglycemia History and Physical and Discharge Summary: This is a 47-year-old pleasant gentleman with past medical history of end-stage renal disease, hemodialysis Wednesday, Wednesday, Wednesday, awaiting kidney transplant, diabetes mellitus, diabetic retinopathy, anemia, hypertension, hyperlipidemia, prostate disorder, sleep apnea, wears BiPAP, anxiety, depression, obesity and multiple other medical issues, wearing sling on his left arm states he had surgery yesterday on his AV fistula with Dr. Mccarty. Last hemodialysis Wednesday related to having surgery on his scheduled Wednesday. Reports he woke up at 0300 with shortness of breath, hypertension, took his blood pressure states it was in the 200s accompanied by a high blood sugars of 400 and presented to the ER. Denies fever, chills, cough, congestion. Denies nausea, vomiting, diarrhea. Denies lightheadedness, dizziness or focal defic its. Denies chest pain, palpitations. On admission, afebrile, temperature 97.8, pulse 103, respiratory rate 18-20, blood pressure 176/89, O2 sat 93% on room air, bicarb 25 , BNP 637 ,glucose 321, troponin negative 1. Hematology panel unremarkable with hemoglobin 12.8, baseline, sodium 135, potassium 5.2, chloride 96, magnesium 2.4, LFTs within normal limits. Chest x-ray reported hypoventilatory changes and possible pulmonary vascular congestion, patchy left basilar atelectasis versus early infiltrate. EKG reported sinus rhythm. Review of Systems ROS Statement: Those systems with pertinent positive or pertinent negative responses have been documented in the HPI. ROS Other: All systems not noted in ROS Statement are negative. Past Medical History Past Medical History: Diabetes Mellitus, Hyperlipidemia, Hypertension, Prostate Disorder, Renal Disease, Sleep Apnea/CPAP/BIPAP Additional Past Medical History / Comment(s): currently left av vistula not having good flow,renal disease-stage 5 (waiting kidney transplant), diabetic retinopathy with bilateral retinal bleeds, gout, no cpap used, gastroporesis, anemia, high potassium, edema to bilateral lower legs. usual hemodialysis schedule is - History of Any Multi-Drug Resistant Organisms: None Reported Past Surgical History: Adenoidectomy, Appendectomy, Orthopedic Surgery, Tonsillectomy Additional Past Surgical History / Comment(s): UVPPP, renal biopsy, bilateral laser eye surgery for retinal bleeds, R knee arthroscopy, L knee open surgery for ACL, colonoscopy. dialysis port, left av fistula,Eye injections Past Anesthesia/Blood Transfusion Reactions: No Reported Reaction Additional Past Anesthesia/Blood Transfusion Reaction / Comment(s): no known hx blood transfusion Past Psychological History: Anxiety, Depression Smoking Status: Never smoker - Past Family History Mother Family Medical History: Cancer, Renal Disease Additional Family Medical History / Comment(s): ESRD with dialysis-mother of renal failure at the age of 77yrs Father Family Medical History: No Reported History Additional Family Medical History / Comment(s): Father is healthy Medications and Allergies Home Medications Medication Instructions Recorded Confirmed Type allopurinoL [Zyloprim] 100 mg PO DAILY 05/16/20 03/09/23 History ALPRAZolam [Xanax] 0.25 mg PO Q8H PRN 10/18/21 03/09/23 History Doxazosin [Cardura] 4 mg PO HS 10/18/21 03/09/23 History Vortioxetine Hydrobromide 20 mg PO QAM 10/18/21 03/09/23 History [Trintellix] Furosemide [Lasix] 40 mg PO BID 02/02/22 03/09/23 History Nortriptyline [Pamelor] 25 mg PO HS 02/02/22 03/09/23 History buPROPion HCL [Wellbutrin XL] 150 mg PO QAM 02/18/22 03/09/23 History Dulaglutide [Trulicity] 4.5 mg SQ TH 07/29/22 03/09/23 History Insulin Glargine,Hum.rec.anlog 52 units SQ W/SUPPER 07/29/22 03/09/23 History [Toujeo Solostar] [place]-3/Dha/Epa/Fish Oil [Fish Oil 1 cap PO DAILY 01/06/23 03/09/23 History 1,000 mg Softgel] Insulin Lispro-Aabc [Lyumjev 10 units SQ AC-TID 03/09/23 03/09/23 History Kwikpen U-100] Nortriptyline [Pamelor] 10 mg PO HS 03/09/23 03/09/23 History Allergies Allergy/AdvReac Type Severity Reaction Status Date / Time No Known Allergies Allergy Verified 03/09/23 08:06 Physical Exam Vitals: Vital Signs Temp Pulse Resp BP Pulse Ox 03/09/23 11:15 85 18 147/95 94 L 03/09/23 08:46 94 18 155/95 95 03/09/23 06:46 20 03/09/23 06:06 97.8 F 103 H 20 176/89 93 L Intake and Output 03/08/23 03/09/23 03/09/23 22:59 06:59 14:59 Other: Weight 124.738 kg General: [Sitting up in chair, Awake, alert and oriented times 3. No acute distress. HEENT: [PERRL. EOMI. No pharyngeal erythema or exudate.] Neck: [Supple, no JVD, No adenopathy.] Cardiac: [Heart regular in rate and rhythm. No S3. No S4. No clicks, rubs. No murmur.] Lungs: Unlabored, Clear to auscultation bilaterally.] Abdomen: [Soft, nontender ,No organomegaly. No guarding. Bowel sounds presnt and normoactive in all 4 quadrants.] Extremes: [No edema no cyanosis no claudication normal pulses. Left arm in sling. Skin: [Warm and dry, No rash.] Neurologic: Cranial nerves II through XII grossly intact. No focal deficits. Strength and sensation grossly intact. Results CBC & Chem 7: 03/09/23 06:40 03/09/23 06:40 Labs: Abnormal Lab Results - Last 24 Hours (Table) 03/09/23 03/09/23 Range/Units 06:40 06:40 Hgb 12.8 L (13.0-17.5) gm/dL Lymphocytes # 0.5 L (1.0-4.8) k/uL Sodium 135 L (137-145) mmol/L Potassium 5.2 H (3.5-5.1) mmol/L Chloride 96 L (98-107) mmol/L BUN 57 H (9-20) mg/dL Creatinine 7.53 H* (0.66-1.25) mg/dL Glucose 321 H (74-99) mg/dL Magnesium 2.4 H (1.6-2.3) mg/dL Assessment and Plan Assessment: Fluid volume overload ,Status post intervention of AV fistula yesterday,03/08/23, per nephrology fistula is cleared for use in a patient with End-stage renal disease, HD on W . Hypertensive urgency, resolved Diabetes mellitus, hyperglycemic Anxiety Hypertension Hyperlipidemia Prostate disorder Sleep apnea, wears BiPAP Depression Plan: Continue on current medication regime ,monitoring and symptomatic treatment. Blood sugars on admission 321. Lantus ordered to be given now along with a sliding scale. Evaluated by nephrology; scheduled for hemodialysis now and then has been cleared for discharge with orders to continue following up tomorrow morning for hemodialysis as previously scheduled. Patient will be discharged home today in a stable condition with guarded prognosis. Follow-up with PCP in 1-2 days. Discharge Medication List allopurinoL [Zyloprim] 100 mg PO DAILY 05/16/20 [History] ALPRAZolam [Xanax] 0.25 mg PO Q8H PRN 10/18/21 [History] Doxazosin [Cardura] 4 mg PO HS 10/18/21 [History] Vortioxetine Hydrobromide [Trintellix] 20 mg PO QAM 10/18/21 [History] Furosemide [Lasix] 40 mg PO BID 02/02/22 [History] Nortriptyline [Pamelor] 25 mg PO HS 02/02/22 [History] buPROPion HCL [Wellbutrin XL] 150 mg PO QAM 02/18/22 [History] Dulaglutide [Trulicity] 4.5 mg SQ TH 07/29/22 [History] [place]-3/Dha/Epa/Fish Oil [Fish Oil 1,000 mg Softgel] 1 cap PO DAILY 01/06/23 [History] Insulin Glargine,Hum.rec.anlog [Tousteveo Solostar] 52 units SQ W/SUPPER #0 03/09/23 [Rx] Insulin Lispro-Aabc [Lyumjev Kwikpen U-100] 10 units SQ AC-TID 03/09/23 [History] Nortriptyline [Pamelor] 10 mg PO HS 03/09/23 [History] The impression and plan of care has been dictated as directed. : I performed a history and examination of this patient, discussed the same with the dictator. I agree with the dictator's note ,documented as a scribe. Any additional findings or plans will be noted.
[2023-03-09 18:20] VITALS: TEMP 97.7
[2023-03-09 18:37] VITALS: BP 146/90; PULSE 88; RESP 15
[2023-03-09] MEDS ORDERED: NORTRIPTYLINE 10 MG CAP PO SCH (21:00)
[2023-03-09] MEDS ORDERED: NORTRIPTYLINE 25 MG CAP PO SCH (21:00)
[2023-03-09 22:30] LABS: Hepatitis B Surface AB- Quant 3.5 mIU/mL; Hepatitis B Surface Antigen Nonreactive
[2023-03-10] MEDS ORDERED: allopurinoL 100 MG TAB PO SCH (09:00)
== END 2023-03-09 18:36 | disposition home or self-care (01) ==
LOC: EC 06:05 → 6NMEDSUR 07:33
PROVIDERS: ADMIT Family Medicine; ATTEND Family Medicine
DX: I12.0 Hypertensive chronic kidney disease with stage 5 chronic kidney disease or end stage renal disease (principal); N18.6 End stage renal disease; E87.70 Fluid overload, unspecified; I16.0 Hypertensive urgency; E10.22 Type 1 diabetes mellitus with diabetic chronic kidney disease; E10.319 Type 1 diabetes mellitus with unspecified diabetic retinopathy without macular edema; G47.30 Sleep apnea, unspecified; N42.9 Disorder of prostate, unspecified; E78.5 Hyperlipidemia, unspecified; M89.8X9 Other specified disorders of bone, unspecified site; E10.43 Type 1 diabetes mellitus with diabetic autonomic (poly)neuropathy; K31.84 Gastroparesis; M10.9 Gout, unspecified; Z99.2 Dependence on renal dialysis; F32.A Depression, unspecified; F41.9 Anxiety disorder, unspecified; Z76.82 Awaiting organ transplant status; Z79.4 Long term (current) use of insulin; Z79.899 Other long term (current) drug therapy; Z79.85 Long-term (current) use of injectable non-insulin antidiabetic drugs; Z90.49 Acquired absence of other specified parts of digestive tract; Z98.890 Other specified postprocedural states; Z84.1 Family history of disorders of kidney and ureter; Z80.9 Family history of malignant neoplasm, unspecified
CPT/HCPCS: 96374; 99285; 36415; 93005; 85379; 83880; 80053; 83735; 84484; 85025; 86706; 87340; 86704; 71046; G0378; G0257; J2270; 90935

== ENCOUNTER 2023-07-07 05:35 | Day surgery (SDC) | payer MEDICARE, OTHER ==
[2023-07-02 12:36] VITALS: BMI 38.8
[2023-07-07] MEDS ORDERED: SODIUM CHLORIDE 0.9% 500 ML 500 ML IV SCH (05:54)
[2023-07-07] MEDS ORDERED: SODIUM CHLORIDE 0.9% 1,000 ML IV ONE (06:05)
[2023-07-07 06:21] LABS: Glucose,Whole Blood 130 mg/dL (70-110)
[2023-07-07 06:31] LABS: Basophils % (A) 1 %; Eosinophils # (A) 0.3 k/uL (0-0.7); Eosinophils % (A) 5 %; HCT 42.1 % (39.0-53.0); HGB 13.9 gm/dL (13.0-17.5); Lymphocytes # (A) 0.9 k/uL (1.0-4.8); Lymphocytes % (A) 19 %; MCH 29.2 pg (25.0-35.0); MCV 88.4 fL (80.0-100.0); Mean Platelet Volume 7.4; Monocytes # (A) 0.5 k/uL (0-1.0); Monocytes % (A) 10 %; Neutrophils # (A) 3.1 k/uL (1.3-7.7); Neutrophils % (A) 63 %; Platelet Count 194 k/uL (150-450); RBC 4.76 m/uL (4.30-5.90); RDW 13.2 % (11.5-15.5)
[2023-07-07 06:33] VITALS: RESP 16; TEMP 98.1
[2023-07-07 06:46] LABS: African American GFR (CKD) 10 (>60 ml/min/1.73 sqM); Anion Gap 12 mmol/L; Blood Urea Nitrogen 50 mg/dL (9-20); Calcium 9.2 mg/dL (8.4-10.2); Carbon Dioxide 27 mmol/L (22-30); Chloride 99 mmol/L (98-107); Glucose 131 mg/dL (74-99); Non-African American GFR(CKD) 8 (>60 ml/min/1.73 sqM); Potassium 4.9 mmol/L (3.5-5.1); Sodium 138 mmol/L (137-145)
[2023-07-07] MEDS ORDERED: LIDOCAINE 1% INJ 10MG/ML (20 ML MDV) ONE (07:20)
[2023-07-07] MEDS ORDERED: fentaNYL (PF) 50 MCG/ML 2 ML AMP ONE (07:20)
[2023-07-07] MEDS ORDERED: MIDAZOLAM 2 MG/2 ML VIAL IVP ONE ×2 (07:25→07:37)
[2023-07-07] MEDS ORDERED: fentaNYL (PF) 50 MCG/1 ML VIAL IVP ONE (07:25)
[2023-07-07] MEDS: LIDOCAINE 1% INJ 10MG/ML (20 ML MDV) SQ ONE ×2 (07:26→07:50)
[2023-07-07] MEDS ORDERED: HYDROmorphone 1 MG/ML 1 ML SYRINGE IVP ONE (07:30)
[2023-07-07] MEDS ORDERED: IOPAMIDOL-370 100ML BTL INJ ONE (07:50)
--- NOTE | 2023-07-07 08:02 | P.OP ---
Date of Procedure: 07/07/23 Description of Procedure: Preoperative diagnosis: End-stage renal disease, left upper extremity arteriovenous fistula malfunction Postoperative diagnosis: Same, outflow stenosis Procedure: Left Upper extremity fistulogram with ultrasound guided access, percutaneous transluminal balloon angioplasty of the outflow stenosis Surgeon: Mando Mccarty DO Anesthesia : Local Estimated blood loss: Minimal Complications: None Condition: Stable Disposition: Palpable thrill Indications: 48-year-old gentleman with history of incisional disease on hemodialysis via left upper extremity arteriovenous fistula presents to the hospital for elective fistulogram due to malfunction of his fistula. Her the patient and the dialysis center his flows have been diminished and he has been bleeding excessively after dialysis likely due to outflow stenosis. He did undergo an ultrasound which demonstrated some increase in velocities in the middle of the fistula consistent with possible stenosis. Operative narrative: After written informed consent was obtained the patient all risks benefits competitions were described the patient is brought to the Post[facility]ist and laid in a supine position with their left arm outstretched on an armboard. The area of the arm was prepped and draped in usual sterile fashion. Utilizing local anesthetic the fistula was accessed under ultrasound guidance and a 6-Tajik sheath was placed. Fistulogram was then obtained demonstrating moderate caliber change from the access sites to the chilkat cephalic vein consistent with 50% stenosis. A Glidewire was then placed across this area and a 10 x 40 mm high pressure balloon was utilized for angioplasty. Once completed another drug-eluting balloon 9 x 40 mm was placed and balloon angioplasty was performed with slight improvement of the stenosis. Final angiogram demonstrated brisk flow through this area with less than 30% stenosis. His inflow demonstrated patency without any evidence of stenosis. All guidewires and catheters were then removed. Sheath was removed and suture was placed for hemostasis. Patient tolerated the procedure well and was sent to recovery. Plan - Discharge Summary Discharge Rx Participant: No New Discharge Prescriptions: No Action allopurinoL [Zyloprim] 100 mg PO DAILY Vortioxetine Hydrobromide [Trintellix] 20 mg PO QAM ALPRAZolam [Xanax] 0.25 mg PO Q8H PRN PRN Reason: Anxiety Nortriptyline [Pamelor] 50 mg PO HS Dulaglutide [Trulicity] 4.5 mg SQ TH Insulin Lispro-Aabc [Lyumjev Kwikpen U-100] 15 units SQ AC-TID Doxazosin [Cardura] 4 mg PO HS Furosemide [Lasix] 40 mg PO BID buPROPion HCL [Wellbutrin XL] 150 mg PO QAM [place]-3/Dha/Epa/Fish Oil [Fish Oil 1,000 mg Softgel] 1 cap PO DAILY Insulin Glargine,Hum.rec.anlog [Alexstevearmando Franksaudra] 52 units SQ W/SUPPER #0 amLODIPine 10 mg PO DAILY Ergocalciferol (Vitamin D2) [Drisdol (50,000 Iu)] 1,250 mcg PO WEEKLY Discharge Medication List allopurinoL [Zyloprim] 100 mg PO DAILY 05/16/20 [History] ALPRAZolam [Xanax] 0.25 mg PO Q8H PRN 10/18/21 [History] Doxazosin [Cardura] 4 mg PO HS 10/18/21 [History] Vortioxetine Hydrobromide [Trintellix] 20 mg PO QAM 10/18/21 [History] Furosemide [Lasix] 40 mg PO BID 02/02/22 [History] Nortriptyline [Pamelor] 50 mg PO HS 02/02/22 [History] buPROPion HCL [Wellbutrin XL] 150 mg PO QAM 02/18/22 [History] Dulaglutide [Trulicity] 4.5 mg SQ TH 07/29/22 [History] [place]-3/Dha/Epa/Fish Oil [Fish Oil 1,000 mg Softgel] 1 cap PO DAILY 01/06/23 [History] Insulin Glargine,Hum.rec.anlog [Bennettjoyce Franksaudra] 52 units SQ W/SUPPER #0 03/09/23 [Rx] Insulin Lispro-Aabc [Lyumjev Kwikpen U-100] 15 units SQ AC-TID 03/09/23 [History] Ergocalciferol (Vitamin D2) [Drisdol (50,000 Iu)] 1,250 mcg PO WEEKLY 07/07/23 [History] amLODIPine 10 mg PO DAILY 07/07/23 [History] Follow up Appointment(s)/Referral(s): Mando Mccarty DO [STAFF PHYSICIAN] - 4 Weeks Discharge Disposition: HOME SELF-CARE
[2023-07-07 08:59] VITALS: BP 165/79; PULSE 92
--- NOTE | 2023-07-07 09:41 | IR ---
EXAMINATION TYPE: IR fistula/abscess/sinus tract DATE OF EXAM: 07/07/2023 COMPARISON: NONE HISTORY: Fluoroscopy time. Fluoroscopy was provided to the referring clinician.
== END 2023-07-07 08:58 | disposition home or self-care (01) ==
LOC: CATHCVL 05:35
PROVIDERS: ATTEND Surgery
DX: T82.858A Stenosis of other vascular prosthetic devices, implants and grafts, initial encounter (principal); N18.6 End stage renal disease; F10.90 Alcohol use, unspecified, uncomplicated; Y83.8 Other surgical procedures as the cause of abnormal reaction of the patient, or of later complication, without mention of misadventure at the time of the procedure
CPT/HCPCS: 36902; 80048; 85025; C1894; C1769 ×3; C1725 ×2; J2250; J2001; J1170; Q9967; J3010

== ENCOUNTER → 2023-12-03 | Day surgery (SDC) | payer MEDICARE, OTHER ==
[2023-12-03] MEDS: SODIUM CHLORIDE 0.9% 500 ML 500 ML IV SCH (11:45)
[2023-12-03] MEDS: ALPRAZolam 0.5 MG TAB ONE (11:55)
[2023-12-03 12:06] LABS: Basophils # (A) 0.1 k/uL (0-0.2); Basophils % (A) 1 %; Eosinophils # (A) 0.3 k/uL (0-0.7); Eosinophils % (A) 5 %; HCT 39.5 % (39.0-53.0); HGB 12.8 gm/dL (13.0-17.5); Lymphocytes # (A) 0.9 k/uL (1.0-4.8); Lymphocytes % (A) 19 %; MCH 27.8 pg (25.0-35.0); MCHC 32.3 g/dL (31.0-37.0); MCV 86.2 fL (80.0-100.0); Mean Platelet Volume 7.8; Monocytes # (A) 0.4 k/uL (0-1.0); Monocytes % (A) 9 %; Neutrophils # (A) 3.1 k/uL (1.3-7.7); Neutrophils % (A) 63 %; Platelet Count 202 k/uL (150-450); RBC 4.58 m/uL (4.30-5.90); RDW 13.4 % (11.5-15.5); WBC 4.9 k/uL (3.8-10.6)
[2023-12-03 12:27] LABS: African American GFR (CKD) 13 (>60 ml/min/1.73 sqM); Anion Gap 4 mmol/L; Blood Urea Nitrogen 22 mg/dL (9-20); Calcium 9.3 mg/dL (8.4-10.2); Carbon Dioxide 33 mmol/L (22-30); Chloride 100 mmol/L (98-107); Glucose 127 mg/dL (74-99); Non-African American GFR(CKD) 11 (>60 ml/min/1.73 sqM); Potassium 4.6 mmol/L (3.5-5.1); Sodium 137 mmol/L (137-145)
[2023-12-03 12:52] VITALS: BP 142/67; PULSE 57; RESP 18; TEMP 98.3
== END ==
LOC: CATHCVL 10:54
PROVIDERS: ATTEND Surgery
DX: Z53.8 Procedure and treatment not carried out for other reasons (principal); N18.6 End stage renal disease; I77.0 Arteriovenous fistula, acquired
CPT/HCPCS: 80048; 85025

== ENCOUNTER → 2024-02-10 | Outpatient (CLI) | payer MEDICARE, OTHER ==
[2024-02-10 13:40] VITALS: BP 156/89; PULSE 90; RESP 16; TEMP 98.2; BMI 38.8
--- NOTE | 2024-02-10 13:44 | P.HPBAR ---
Bariatric H&P - History & Physicial H&P Date: 02/10/24 History & Physicial: Visit/CC: Initial Consult Patient initial contact: Initial weight: 129.841 kg Initial weight in pounds: 286.25 Height: 6 ft Initial BMI: 38.8 Last weight: Current weight: 129.841 kg Current weight in pounds: 286.25 Current BMI: 38.8 [place] body weight (based on NIH guidelines): 80.739 kg Excess body weight loss: 0.0% The patient is a 48 year-old M who presents for Bariatric Assessment. Patient is here today to discuss weight loss surgery. He is interested in sleeve gastrectomy. BMI today 38.8. Patient with history of diabetes, renal failure, hypertension, A-fib. Patient is interested in weight loss for improvement in his diabetes management and also so that he can be on the kidney transplant list. He was told he has to have a weight of under 250 to qualify for being placed on the kidney transplant list. He has had 10 pound weight loss in the last 1 month with Ozempic. No GERD, no DVT. No tobacco use. Patient denies GERD symptoms. No history of DVT or dysphagia. Review of Systems The patient denies any acute changes in vision or hearing, no dysphagia or odynophagia, no chest pain or shortness of breath, no dysuria or hematuria, no headache, no runny nose, no rectal bleeding or melena, no unexplained weight loss Past Medical History Past Medical History: Diabetes Mellitus, Hyperlipidemia, Hypertension, Prostate Disorder, Renal Disease, Sleep Apnea/CPAP/BIPAP Additional Past Medical History / Comment(s): renal disease-stage 5 (waiting kidney transplant), diabetic retinopathy with bilateral retinal bleeds, gout, no cpap used, gastroporesis, anemia, high potassium, edema to bilateral lower legs. usual hemodialysis schedule is History of Any Multi-Drug Resistant Organisms: None Reported Past Surgical History: Adenoidectomy, Appendectomy, Orthopedic Surgery, Tonsillectomy Additional Past Surgical History / Comment(s): UVPPP, renal biopsy, bilateral laser eye surgery for retinal bleeds, R knee arthroscopy, L knee open surgery for ACL, colonoscopy. dialysis port, left av fistula,Eye injections, Past Anesthesia/Blood Transfusion Reactions: No Reported Reaction Additional Past Anesthesia/Blood Transfusion Reaction / Comm: no known hx blood transfusion Smoking Status: Never smoker - Past Family History Mother Family Medical History: Cancer, Renal Disease Additional Family Medical History / Comment(s): ESRD with dialysis-mother of renal failure at the age of 77yrs Father Family Medical History: No Reported History Additional Family Medical History / Comment(s): Father is healthy Surgical - Exam Vital Signs Temp Pulse Resp BP 98.2 F 90 16 156/89 02/10/24 13:10 02/10/24 13:10 02/10/24 13:10 02/10/24 13:10 Physical exam: General: Well-developed, well-nourished HEENT: Normocephalic, sclerae nonicteric Abdomen: Nontender, nondistended Extremities: No edema, left upper extremity fistula Neuro: Alert and oriented Bariatric Assessment & Plan (1) Severe obesity (BMI 35.0-39.9) with comorbidity Narrative/Plan: 48-year-old male interested in weight loss surgery. Discussed the options of sleeve gastrectomy and gastric bypass. Patient would like to proceed with sleeve gastrectomy at this time. Continue Ozempic for now. If patient sees significant weight loss with his GLP-1 agonist he may consider holding off on surgery at that time. In the meanwhile we will obtain preoperative clearance from medicine, nephrology and cardiology. Patient will require preoperative EGD. We will see the patient back in the office following his upper endoscopy. Status: Acute Bariatric Checklist Checklist: Plan: Checklist: EGD: 1. Hiatal hernia: 2. H. Pylori: HgbA1c: Vitamin D: Smoking: Never smoker Primary care physician referral: Psychiatry clearance: Cardiology clearance: Sleep study: Diet journal: VTE risk score: VTE risk level: Rehab needs at discharge:
== END ==
LOC: BARWHC3 12:59
PROVIDERS: ATTEND Surgery
DX: E66.01 Morbid (severe) obesity due to excess calories (principal); E11.319 Type 2 diabetes mellitus with unspecified diabetic retinopathy without macular edema; I10 Essential (primary) hypertension; N19 Unspecified kidney failure; I48.91 Unspecified atrial fibrillation; Z94.0 Kidney transplant status; Z99.2 Dependence on renal dialysis; Z79.85 Long-term (current) use of injectable non-insulin antidiabetic drugs; Z68.38 Body mass index [BMI] 38.0-38.9, adult; Z79.899 Other long term (current) drug therapy; Z79.4 Long term (current) use of insulin
CPT/HCPCS: 99202

== ENCOUNTER → 2024-02-17 | Outpatient (CLI) | payer MEDICARE, OTHER ==
[2024-02-17 14:14] LABS: HCT 40.5 % (39.6-50.0); HGB 12.8 g/dL (13.0-17.0); MCHC 31.6 g/dL (32.0-37.0); MCV 85.4 FL (80.0-97.0); Mean Platelet Volume 9.7 FL (9.5-12.2); NRBC Per 100 WBC 0 X 10*3/uL (0.00-0.01); Platelet Count 217 X 10*3/uL (140-440); RBC 4.74 X 10*6/uL (4.40-5.60); RDW 14.4 % (11.5-14.5); WBC 3.98 X 10*3/uL (4.50-10.00)
[2024-02-17 15:21] LABS: ALT 20 U/L (10-49); AST 14 U/L (14-35); Albumin 4.3 g/dL (3.8-4.9); Albumin/Globulin Ratio 1.79 Ratio (1.60-3.17); Alkaline Phosphatase 98 U/L (41-126); BUN/Creat Ratio 4.83 Ratio (12.00-20.00); Blood Urea Nitrogen 30.9 mg/dL (9.0-27.0); Calcium 9.5 mg/dL (8.7-10.3); Carbon Dioxide 26.3 mmol/L (21.6-31.8); Chloride 96 mmol/L (96-109); Globulin 2.4 g/dL (1.6-3.3); Glucose 260 mg/dL (70-110); Iron 42 UG/DL (65-175); Potassium 5.3 mmol/L (3.5-5.5); Sodium 136 mmol/L (135-145); Total Bilirubin 0.3 mg/dL (0.3-1.2); Total Protein 6.7 g/dL (6.2-8.2)
[2024-02-19 10:04] LABS: Anabasine Urine <2.0 ng/mL (<2.0)
== END | disposition home or self-care (01) ==
LOC: LABWHC1 08:55
PROVIDERS: ATTEND Surgery
DX: E55.9 Vitamin D deficiency, unspecified (principal); E66.01 Morbid (severe) obesity due to excess calories
CPT/HCPCS: 84425; 80053; 82607; 82746; 83540; 85027; 82306; 83036; 36415; G0480; 80323

== ENCOUNTER → 2024-02-29 | Day surgery (SDC) | payer MEDICARE, OTHER ==
[~2024-02-29] MED LIST changes: -LACTATED RINGERS 1,000 ML IV SCH; -ONDANSETRON 4 MG/2 ML VIAL IVP ONE; +PROPOFOL 10 MG/ML 20 ML VIAL IV ONE; -ceFAZolin 3 GM in SODIUM CHLORIDE 0.9% 100 ML IVPB PRN; -fentaNYL (PF) 50 MCG/ML 2 ML AMP IV PRN
[2024-02-29] MEDS: LACTATED RINGERS 1,000 ML IV SCH (12:02)
[2024-02-29 12:06] LABS: Glucose,Whole Blood 111 mg/dL (70-110)
--- NOTE | 2024-02-29 12:38 | P.GSHP ---
History of Present Illness H&P Date: 02/29/24 Chief Complaint: GERD 48-year-old male here for upper endoscopy. Patient being evaluated for sleeve gastrectomy. Mild reflux symptoms at times. No dysphagia. Past Medical History Past Medical History: Diabetes Mellitus, Eye Disorder, Hyperlipidemia, Hypertension, Prostate Disorder, Renal Disease, Sleep Apnea/CPAP/BIPAP Additional Past Medical History / Comment(s): Future bariatric surgery. Rrenal disease-stage 5 (waiting kidney transplant), diabetic retinopathy with bilateral retinal bleeds, gout, no cpap used, gastroporesis, anemia, high potassium, edema to bilateral lower legs. usual hemodialysis schedule is -- History of Any Multi-Drug Resistant Organisms: None Reported Past Surgical History: Adenoidectomy, Appendectomy, Orthopedic Surgery, Tonsillectomy Additional Past Surgical History / Comment(s): UVPPP, renal biopsy, bilateral laser eye surgery for retinal bleeds, R knee arthroscopy, L knee open surgery fo r ACL, colonoscopy. dialysis port, left av fistula,Eye injections, Past Anesthesia/Blood Transfusion Reactions: No Reported Reaction Additional Past Anesthesia/Blood Transfusion Reaction / Comment(s): Takes more anesthesia than usual. no known hx blood transfusion Smoking Status: Never smoker - Past Family History Mother Family Medical History: Cancer, Renal Disease Additional Family Medical History / Comment(s): ESRD with dialysis-mother of renal failure at the age of 77yrs Father Family Medical History: No Reported History Additional Family Medical History / Comment(s): Father is healthy Medications and Allergies Home Medications Medication Instructions Recorded Confirmed Type allopurinoL [Zyloprim] 100 mg PO QAM 05/16/20 02/25/24 History ALPRAZolam [Xanax] 0.25 mg PO Q8H PRN 10/18/21 02/25/24 History Doxazosin [Cardura] 4 mg PO HS 10/18/21 02/25/24 History Vortioxetine Hydrobromide 20 mg PO QAM 10/18/21 02/25/24 History [Trintellix] Furosemide [Lasix] 40 mg PO BID 02/02/22 02/25/24 History Nortriptyline [Pamelor] 50 mg PO HS 02/02/22 02/25/24 History buPROPion HCL [Wellbutrin XL] 300 mg PO QAM 02/18/22 02/25/24 History [place]-3/Dha/Epa/Fish Oil [Fish Oil 1 cap PO BID 01/06/23 02/25/24 History 1,000 mg Softgel] Ergocalciferol (Vitamin D2) 1,250 mcg PO MOFR 07/07/23 02/25/24 History [Drisdol (50,000 Iu)] amLODIPine 5 mg PO QAM 07/07/23 02/25/24 History Apixaban [Eliquis] 2.5 mg PO BID 02/25/24 02/25/24 History Diltiazem Cd [Cardizem CD] 240 mg PO QAM 02/25/24 02/25/24 History Insulin Glargine,Hum.rec.anlog 56 units SQ HS 02/25/24 02/25/24 History [Toujeo Solostar] Pantoprazole [Protonix] 40 mg PO QAM 02/25/24 02/25/24 History Pravastatin Sodium [Pravachol] 40 mg PO HS 02/25/24 02/25/24 History Semaglutide [Ozempic] 2 mg SQ MO 02/25/24 02/29/24 History calcitrioL 0.25 mg PO QAM 02/25/24 02/25/24 History Allergies Allergy/AdvReac Type Severity Reaction Status Date / Time No Known Allergies Allergy Verified 02/29/24 11:55 Surgical - Exam Vital Signs Temp Pulse Resp BP Pulse Ox 97.2 F L 86 16 152/72 95 02/29/24 11:53 02/29/24 11:53 02/29/24 11:53 02/29/24 11:53 02/29/24 11:53 Physical exam: General: Well-developed, well-nourished HEENT: Normocephalic, sclerae nonicteric Abdomen: Nontender, nondistended Extremities: No edema Neuro: Alert and oriented Results - Labs 02/29/24 11:59 Abnormal Lab Results - Last 24 Hours (Table) 02/29/24 Range/Units 12:02 POC Glucose (mg/dL) 111 H (70-110) mg/dL Diabetes panel 02/29/24 Range/Units 11:59 Potassium 4.8 (3.5-5.1) mmol/L Pituitary panel 02/29/24 Range/Units 11:59 Potassium 4.8 (3.5-5.1) mmol/L Adrenal panel 02/29/24 Range/Units 11:59 Potassium 4.8 (3.5-5.1) mmol/L Assessment and Plan (1) GERD (gastroesophageal reflux disease) Narrative/Plan: Will proceed with EGD at this time Current Visit: Yes Status: Acute Code(s): K21.9 - GASTRO-ESOPHAGEAL REFLUX DISEASE WITHOUT ESOPHAGITIS SNOMED Code(s): 465896668
[2024-02-29 12:44] VITALS: RESP 16; TEMP 97.2
--- NOTE | 2024-02-29 12:44 | P.PCN ---
Date of Procedure: 02/29/24 Procedure(s) Performed: Preoperative Dx: GERD, presurgical Postoperative Dx: Mild gastritis, retained food, suspect gastroparesis Procedure: EGD with Bx Anesthesia: Sedation Endoscopist: Dr. De La Paz Specimens: Antrum Endoscopic Procedure: The patient was on the endoscopy table in the left decubitus position. The Olympus gastroscope was inserted into the oropharynx and passed under direct visualization to the region of the third portion of the duodenum. From that point the scope was slowly withdrawn inspecting all surfaces carefully. There were no neoplastic inflammatory or polypoid lesions throughout the duodenum. The pylorus was widely patent. The stomach was carefully inspected. There was a large volume of food within the stomach. This is despite the patient stopping his Ozempic 3 weeks ago. I could not visualize approximately 20% of the mucosal surfaces. There was no signs of outlet obstruction. A biopsy of the antrum took place to rule out H. pylori. Retroflexion revealed a large food bolus. It was difficult to see the hiatus well. No obvious hernia was seen. The esophagus was then carefully examined. There were no neoplastic inflammatory or polypoid lesions throughout the visualized esophagus. The patient was then taken to the recovery room in stable condition per anesthesia guidelines. Recommendations: Await biopsy results. Will discuss findings with patient. Possible gastric emptying study if patient would like to proceed with sleeve gastrectomy.
[2024-02-29 12:58] LABS: Glucose,Whole Blood 106 mg/dL (70-110)
[2024-02-29 13:43] VITALS: BP 153/78; PULSE 84
== END ==
LOC: ORWHC2ENDO 11:15
PROVIDERS: ATTEND Surgery
DX: K29.50 Unspecified chronic gastritis without bleeding (principal); K21.00 Gastro-esophageal reflux disease with esophagitis, without bleeding; I10 Essential (primary) hypertension; E78.5 Hyperlipidemia, unspecified; E11.9 Type 2 diabetes mellitus without complications; G47.33 Obstructive sleep apnea (adult) (pediatric); Z90.49 Acquired absence of other specified parts of digestive tract; Z90.89 Acquired absence of other organs; Z79.01 Long term (current) use of anticoagulants; Z79.899 Other long term (current) drug therapy
CPT/HCPCS: 88305; 84132; 43239; J2704

== ENCOUNTER 2024-03-22 14:23 | Emergency (ER) | payer MEDICARE, OTHER ==
--- NOTE | 2024-03-22 15:13 | ED ---
General Adult HPI - General Source: patient, RN notes reviewed Mode of arrival: ambulatory Limitations: no limitations <Dora Castaneda - Last Filed: 03/22/24 15:12> - General Source: RN notes reviewed, old records reviewed Mode of arrival: ambulatory Limitations: no limitations - History of Present Illness -: hour(s) Radiation: non-radiation Severity scale (1-10): 7 Consistency: constant Improves with: none Worsens with: none <Luis Fernando Carreno - Last Filed: 04/01/24 22:31> - General Chief complaint: Weakness Stated complaint: Tremors after Dialysis Time Seen by Provider: 03/22/24 15:13 - History of Present Illness Initial comments: Quick Note: This is a 48-year-old male who presents to the emergency department for tremors. Patient is on hemodialysis and states that in the middle of dialysis today started to develop tremors all over his body. These have since persisted since finishing dialysis. Denies any history of similar problems in the past. (Dora Castaneda) This is a 48 male to ER with significant of shakes and tremors occurring after dialysis with history of similar symptoms. No headache chest pain shortness of breath abdominal pain recent change in medications no fevers (Luis Fernando Carreno) - Related Data Home Medications Medication Instructions Recorded Confirmed allopurinoL [Zyloprim] 100 mg PO QAM 05/16/20 03/22/24 ALPRAZolam [Xanax] 0.25 mg PO Q8H PRN 10/18/21 03/22/24 Doxazosin [Cardura] 4 mg PO HS 10/18/21 03/22/24 Vortioxetine Hydrobromide 20 mg PO QAM 10/18/21 03/22/24 [Trintellix] Furosemide [Lasix] 40 mg PO BID 02/02/22 03/22/24 Nortriptyline [Pamelor] 50 mg PO HS 02/02/22 03/22/24 buPROPion HCL [Wellbutrin XL] 300 mg PO QAM 02/18/22 03/22/24 White Cloud-3/Dha/Epa/Fish Oil [Fish Oil 1 cap PO BID 01/06/23 03/22/24 1,000 mg Softgel] Ergocalciferol (Vitamin D2) 1,250 mcg PO MOFR 10/04/23 06/19/24 [Drisdol (50,000 Iu)] amLODIPine 5 mg PO QAM 07/07/23 03/22/24 Apixaban [Eliquis] 2.5 mg PO BID 02/25/24 03/22/24 Diltiazem Cd [Cardizem CD] 240 mg PO QAM 02/25/24 03/22/24 Insulin Glargine,Hum.rec.anlog 56 units SQ HS 02/25/24 03/22/24 [Toujeo Solostar] Pantoprazole [Protonix] 40 mg PO QAM 02/25/24 03/22/24 Pravastatin Sodium [Pravachol] 40 mg PO HS 02/25/24 03/22/24 Semaglutide [Ozempic] 2 mg SQ MO 02/25/24 03/22/24 calcitrioL 0.25 mg PO QAM 02/25/24 03/22/24 Lactulose 10 gm PO DAILY PRN 03/22/24 03/22/24 icosapent ethyL [Icosapent Ethyl] 2 gm PO BID-W/MEALS 03/22/24 03/22/24 Allergies Allergy/AdvReac Type Severity Reaction Status Date / Time No Known Allergies Allergy Verified 03/22/24 17:14 Review of Systems ROS Other: All systems not noted in ROS Statement are negative. <Dora Castaneda - Last Filed: 03/22/24 15:12> ROS Other: All systems not noted in ROS Statement are negative. <Luis Fernando Carreno - Last Filed: 04/01/24 22:31> ROS Statement: Those systems with pertinent positive or pertinent negative responses have been documented in the HPI. Past Medical History Past Medical History: Diabetes Mellitus, Eye Disorder, Hyperlipidemia, Hypertension, Prostate Disorder, Renal Disease, Sleep Apnea/CPAP/BIPAP Additional Past Medical History / Comment(s): Future bariatric surgery. Rrenal disease-stage 5 (waiting kidney transplant), diabetic retinopathy with bilateral retinal bleeds, gout, no cpap used, gastroporesis, anemia, high potassium, edema to bilateral lower legs. usual hemodialysis schedule is -- History of Any Multi-Drug Resistant Organisms: None Reported Past Surgical History: Adenoidectomy, Appendectomy, Orthopedic Surgery, Tonsillectomy Additional Past Surgical History / Comment(s): UVPPP, renal biopsy, bilateral laser eye surgery for retinal bleeds, R knee arthroscopy, L knee open surgery for ACL, colonoscopy. dialysis port, left av fistula,Eye injections, Past Anesthesia/Blood Transfusion Reactions: No Reported Reaction Additional Past Anesthesia/Blood Transfusion Reaction / Comment(s): Takes more anesthesia than usual. no known hx blood transfusion Past Psychological History: Anxiety, Depression Smoking Status: Never smoker Past Alcohol Use History: None Reported Past Drug Use History: None Reported - Past Family History Mother Family Medical History: Cancer, Renal Disease Additional Family Medical History / Comment(s): ESRD with dialysis-mother of renal failure at the age of 77yrs Father Family Medical History: No Reported History Additional Family Medical History / Comment(s): Father is healthy <Dora Castaneda - Last Filed: 03/22/24 15:12> General Exam Limitations: no limitations <Dora Castaneda - Last Filed: 03/22/24 15:12> General appearance: alert, in no apparent distress, anxious Head exam: Present: atraumatic, normocephalic, normal inspection Eye exam: Present: normal appearance, PERRL, EOMI. Absent: scleral icterus, conjunctival injection, periorbital swelling ENT exam: Present: normal exam, mucous membranes moist Neck exam: Present: normal inspection. Absent: tenderness, meningismus, lymphadenopathy Respiratory exam: Present: normal lung sounds bilaterally. Absent: respiratory distress, wheezes, rales, rhonchi, stridor Cardiovascular Exam: Present: regular rate, normal rhythm, normal heart sounds. Absent: systolic murmur, diastolic murmur, rubs, gallop, clicks GI/Abdominal exam: Present: soft, normal bowel sounds. Absent: distended, tenderness, guarding, rebound, rigid Extremities exam: Present: normal inspection, full ROM, normal capillary refill. Absent: tenderness, pedal edema, joint swelling, calf tenderness Back exam: Present: normal inspection Neurological exam: Present: alert, oriented X3, CN II-XII intact Psychiatric exam: Present: normal affect, normal mood Skin exam: Present: warm, dry, intact, normal color. Absent: rash <Luis Fernando Carreno - Last Filed: 06/29/24 22:31> - General Exam Comments Initial Comments: Visual Physical Exam Vital signs reviewed General: Well-appearing, nontoxic, no acute distress. Head: Normocephalic, atraumatic Eyes: PERRLA, EOMI ENT: Airway patent Chest: Nonlabored breathing Skin: No visual rash, normal skin tone Neuro: Alert and oriented 3 Musculoskeletal: No gross abnormalities (Dora Castaneda) Course <Luis Fernando Carreno - Last Filed: 04/01/24 22:31> Vital Signs 03/22/24 03/22/24 14:40 17:45 Temperature 98.3 F 98.1 F Pulse Rate 91 86 Respiratory 18 16 Rate Blood Pressure 158/88 154/100 O2 Sat by Pulse 97 97 Oximetry - Reevaluation(s) Reevaluation #1: Medical records reviewed (Luis Fernando Carreno) Reevaluation #2: Patient symptoms unchanged may be improving (Luis Fernando Carreno) Reevaluation #3: Patient informed of results and questions answered (Luis Fernando Carreno) Reevaluation #4: Was pt. sent in by a medical professional or institution (, PA, [employer], urgent care, hospital, or shelter...) When possible be specific @ -no Did you speak to anyone other than the patient for history (EMS, parent, family, police, friend...)? What history was obtained from this source @ -no Did you review nursing and triage notes (agree or disagree)? Why? @ -agree Are old charts reviewed (outside hosp., previous admission, EMS record, old EKG, old radiological studies, urgent care reports/EKG's, shelter records)? Report findings @ -yes Differential Diagnosis (chest pain, altered mental status, abdominal pain women, abdominal pain men, vaginal bleeding, weakness, fever, dyspnea, syncope, headache, dizziness, GI bleed, back pain, seizure, CVA, palpatations, mental health, musculoskeletal)? @ -prior EKG interpreted by me (3pts min.). @ -yes X-rays interpreted by me (1pt min.). @ -yes negative for acute disease CT interpreted by me (1pt min.). @ -no U/S interpreted by me (1pt. min.). @ -no What testing was considered but not performed or refused? (CT, X-rays, U/S, labs)? Why? @ -none What meds were considered but not given or refused? Why? @ -none Did you discuss the management of the patient with other professionals (professionals i.e. , PA, [employer], lab, RT, psych nurse, child protective services social worker, outreach librarian, teacher, air crew officer, case filler)? Give summary @ -no Was smoking cessation discussed for >3mins.? @ -no Was critical care preformed (if so, how long)? @ -no Were there social determinants of health that impacted care today? How? (Homelessness, low income, unemployed, alcoholism, drug addiction, transportation, low edu. Level, literacy, decrease access to med. care, half-way, rehab)? @ -none Was there de-escalation of care discussed even if they declined (Discuss DNR or withdrawal of care, Hospice)? DNR status @ -no What co-morbidities impacted this encounter? (DM, HTN, Smoking, COPD, CAD, Cancer, CVA, ARF, Chemo, Hep., AIDS, mental health diagnosis, sleep apnea, morbid obesity)? @ -none Was patient admitted / discharged? Hospital course, mention meds given and route, prescriptions, significant lab abnormalities, going to OR and other pertinent info. @ - 48 male with tremor after dialysis, symptoms are dramatically improved here in the ER lab testing is normal patient can be discharged home Discharge Undiagnosed new problem with uncertain prognosis? @ -no Drug Therapy requiring intensive monitoring for toxicity (Heparin, Nitro, Insulin, Cardizem)? @ -no Were any procedures done? @ -no Diagnosis/symptom? @ -Tremor after dialysis Acute, or Chronic, or Acute on Chronic? @ -Acute Uncomplicated (without systemic symptoms) or Complicated (systemic symptoms)? @ -Complicated Side effects of treatment? @ -no Exacerbation, Progression, or Severe Exacerbation? @ -exacerbation Poses a threat to patient's life @ -yes with chronic disease and dialysis (Luis Fernando Carreno) EKG Findings - EKG Comments: EKG Findings:: EKG is sinus 85 MD 174 QRS 92 QTc 412 - EKG Results: EKG: interpreted by ERMD <Luis Fernando Carreno - Last Filed: 04/01/24 22:31> Medical Decision Making <Dora Castaneda - Last Filed: 03/22/24 15:12> - Lab Data Result diagrams: 03/22/24 15:12 03/22/24 15:12 - EKG Data -: EKG Interpreted by Me <Luis Fernando Carreno - Last Filed: 04/01/24 22:31> - Medical Decision Making I performed the QuickNote portion of this chart. Signed Dora Castaneda PA-C. (Dora Castaneda) 48 male with tremor after dialysis, symptoms are dramatically improved here in the ER lab testing is normal patient can be discharged home (Luis Fernando Carreno) - Lab Data Lab Results 03/22/24 03/22/24 03/22/24 Range/Units 15:12 15:12 15:12 WBC 4.8 (3.8-10.6) k/uL RBC 4.31 (4.30-5.90) m/uL Hgb 11.6 L (13.0-17.5) gm/dL Hct 37.0 L (39.0-53.0) % MCV 85.8 (80.0-100.0) fL MCH 27.0 (25.0-35.0) pg MCHC 31.4 (31.0-37.0) g/dL RDW 14.3 (11.5-15.5) % Plt Count 207 (150-450) k/uL MPV 7.8 Neutrophils % 66 % Lymphocytes % 15 % Monocytes % 12 % Eosinophils % 4 % Basophils % 1 % Neutrophils # 3.1 (1.3-7.7) k/uL Lymphocytes # 0.7 L (1.0-4.8) k/uL Monocytes # 0.6 (0-1.0) k/uL Eosinophils # 0.2 (0-0.7) k/uL Basophils # 0.0 (0-0.2) k/uL Sodium 138 (137-145) mmol/L Potassium 4.4 (3.5-5.1) mmol/L Chloride 95 L (98-107) mmol/L Carbon Dioxide 38 H (22-30) mmol/L Anion Gap 5 mmol/L BUN 22 H (9-20) mg/dL Creatinine 4.46 H (0.66-1.25) mg/dL Est GFR (CKD-EPI)AfAm 17 (>60 ml/min/1.73 sqM) Est GFR (CKD-EPI)NonAf 14 (>60 ml/min/1.73 sqM) Glucose 117 H (74-99) mg/dL Plasma Lactic Acid [place] 0.9 (0.7-2.0) mmol/L Calcium 8.3 L (8.4-10.2) mg/dL Phosphorus 4.2 (2.5-4.5) mg/dL Magnesium 2.0 (1.6-2.3) mg/dL Total Bilirubin 0.5 (0.2-1.3) mg/dL AST 22 (17-59) U/L ALT 22 (4-49) U/L Alkaline Phosphatase 83 (38-126) U/L Total Protein 6.6 (6.3-8.2) g/dL Albumin 4.1 (3.5-5.0) g/dL Disposition <Dora Castaneda - Last Filed: 03/22/24 15:12> Is patient prescribed a controlled substance at d/c from ED?: No Time of Disposition: 17:00 <Luis Fernando Carreno - Last Filed: 04/01/24 22:31> Clinical Impression: Tremor, ESRD (end stage renal disease) on dialysis Disposition: HOME SELF-CARE Condition: Good Instructions (If sedation given, give patient instructions): Tremors (ED) Referrals: Hollis Ghosh Jr, [Primary Care Provider] - 1-2 days
[2024-03-22 15:59] LABS: Basophils % (A) 1 %; Eosinophils # (A) 0.2 k/uL (0-0.7); Eosinophils % (A) 4 %; HGB 11.6 gm/dL (13.0-17.5); Lymphocytes # (A) 0.7 k/uL (1.0-4.8); Lymphocytes % (A) 15 %; MCHC 31.4 g/dL (31.0-37.0); MCV 85.8 fL (80.0-100.0); Mean Platelet Volume 7.8; Monocytes # (A) 0.6 k/uL (0-1.0); Monocytes % (A) 12 %; Neutrophils # (A) 3.1 k/uL (1.3-7.7); Neutrophils % (A) 66 %; Platelet Count 207 k/uL (150-450); RBC 4.31 m/uL (4.30-5.90); RDW 14.3 % (11.5-15.5); WBC 4.8 k/uL (3.8-10.6)
[2024-03-22 16:16] LABS: ALT 22 U/L (4-49); AST 22 U/L (17-59); African American GFR (CKD) 17 (>60 ml/min/1.73 sqM); Albumin 4.1 g/dL (3.5-5.0); Alkaline Phosphatase 83 U/L (38-126); Anion Gap 5 mmol/L; Blood Urea Nitrogen 22 mg/dL (9-20); Calcium 8.3 mg/dL (8.4-10.2); Carbon Dioxide 38 mmol/L (22-30); Chloride 95 mmol/L (98-107); Glucose 117 mg/dL (74-99); Non-African American GFR(CKD) 14 (>60 ml/min/1.73 sqM); Phosphorus 4.2 mg/dL (2.5-4.5); Potassium 4.4 mmol/L (3.5-5.1); Sodium 138 mmol/L (137-145); Total Bilirubin 0.5 mg/dL (0.2-1.3); Total Protein 6.6 g/dL (6.3-8.2)
[2024-03-22] MEDS: LORazepam 2 MG/ML INJ IV STA (16:46)
[2024-03-22] MEDS: SODIUM CHLORIDE 0.9% 500 ML 500 ML IV STA (16:47)
[2024-03-22 17:47] VITALS: BP 154/100; PULSE 86; RESP 16; TEMP 98.1
== END 2024-03-22 17:45 | disposition home or self-care (01) ==
LOC: EC 14:23
DX: R25.1 Tremor, unspecified (principal); E11.22 Type 2 diabetes mellitus with diabetic chronic kidney disease; N18.6 End stage renal disease; Z99.2 Dependence on renal dialysis
CPT/HCPCS: 36415; 80053; 83605; 83735; 84100; 85025; 99285; 96374; 96375; J2060; J3360

== ENCOUNTER 2024-04-14 06:22 | Emergency (ER) | payer MEDICARE, OTHER ==
[2024-04-14 06:30] VITALS: RESP 18; TEMP 98.3
--- NOTE | 2024-04-14 06:43 | ED ---
Arrhythmia/Palpitations HPI - General Chief Complaint: Arrhythmia/Palpitations Stated Complaint: AFib Time Seen by Provider: 04/14/24 06:42 Source: patient, RN notes reviewed Mode of arrival: wheelchair Limitations: no limitations - History of Present Illness Initial Comments: 49-year-old male presented to the ER sent from dialysis for evaluation of atrial fibrillation. The past medical history significant of atrial fibrillation currently on Eliquis and Cardizem, end-stage renal disease on dialysis, diabetes and hypertension. Patient attends dialysis MWF last treatment on 04-12-2024, and completed his full treatment. Patient states he went to dialysis this morning for his treatment and was found to be in atrial fibrillation with RVR. They had him sit and wait for approximately 20 minutes without improvement and sent him to the ER for evaluation. Patient admits to taking his medications this morning around 4 am. He states he is feeling somewhat "cloudy". He states this is typical when he is in A-fib. His cloudiness started yesterday and has been persistent. He denies any chest pain, palpitations or shortness of breath. He does report mild peripheral edema but states this is typical. - Related Data Home Medications Medication Instructions Recorded Confirmed allopurinoL [Zyloprim] 100 mg PO QAM 05/16/20 03/22/24 ALPRAZolam [Xanax] 0.25 mg PO Q8H PRN 10/18/21 03/22/24 Doxazosin [Cardura] 4 mg PO HS 10/18/21 03/22/24 Vortioxetine Hydrobromide 20 mg PO QAM 10/18/21 03/22/24 [Trintellix] Furosemide [Lasix] 40 mg PO BID 02/02/22 03/22/24 Nortriptyline [Pamelor] 50 mg PO HS 02/02/22 03/22/24 buPROPion HCL [Wellbutrin XL] 300 mg PO QAM 02/18/22 03/22/24 Golden-3/Dha/Epa/Fish Oil [Fish Oil 1 cap PO BID 01/06/23 03/22/24 1,000 mg Softgel] Ergocalciferol (Vitamin D2) 1,250 mcg PO MOFR 07/07/23 03/22/24 [Drisdol (50,000 Iu)] amLODIPine 5 mg PO QAM 07/07/23 03/22/24 Apixaban [Eliquis] 2.5 mg PO BID 02/25/24 03/22/24 Diltiazem Cd [Cardizem CD] 240 mg PO QAM 02/25/24 03/22/24 Insulin Glargine,Hum.rec.anlog 56 units SQ HS 02/25/24 03/22/24 [Toujeo Solostar] Pantoprazole [Protonix] 40 mg PO QAM 02/25/24 03/22/24 Pravastatin Sodium [Pravachol] 40 mg PO HS 02/25/24 03/22/24 Semaglutide [Ozempic] 2 mg SQ MO 02/25/24 03/22/24 calcitrioL 0.25 mg PO QAM 02/25/24 03/22/24 Lactulose 10 gm PO DAILY PRN 03/22/24 03/22/24 icosapent ethyL [Icosapent Ethyl] 2 gm PO BID-W/MEALS 03/22/24 03/22/24 Allergies Allergy/AdvReac Type Severity Reaction Status Date / Time No Known Allergies Allergy Verified 04/14/24 06:26 Review of Systems ROS Statement: Those systems with pertinent positive or pertinent negative responses have been documented in the HPI. ROS Other: All systems not noted in ROS Statement are negative. Past Medical History Past Medical History: Diabetes Mellitus, Eye Disorder, Hyperlipidemia, Hypertension, Prostate Disorder, Renal Disease, Sleep Apnea/CPAP/BIPAP Additional Past Medical History / Comment(s): Future bariatric surgery. Rrenal disease-stage 5 (waiting kidney transplant), diabetic retinopathy with bilateral retinal bleeds, gout, no cpap used, gastroporesis, anemia, high potassium, edema to bilateral lower legs. usual hemodialysis schedule is -- History of Any Multi-Drug Resistant Organisms: None Reported, MRSA MDRO Source:: right chest wall port Past Surgical History: Adenoidectomy, Appendectomy, Orthopedic Surgery, Tonsillectomy Additional Past Surgical History / Comment(s): UVPPP, renal biopsy, bilateral laser eye surgery for retinal bleeds, R knee arthroscopy, L knee open surgery for ACL, colonoscopy. dialysis port, left av fistula,Eye injections, Past Anesthesia/Blood Transfusion Reactions: No Reported Reaction Additional Past Anesthesia/Blood Transfusion Reaction / Comment(s): Takes more anesthesia than usual. no known hx blood transfusion Past Psychological History: Anxiety, Depression Smoking Status: Never smoker Past Alcohol Use History: None Reported Past Drug Use History: None Reported - Past Family History Mother Family Medical History: Cancer, Renal Disease Additional Family Medical History / Comment(s): ESRD with dialysis-mother of renal failure at the age of 77yrs Father Family Medical History: No Reported History Additional Family Medical History / Comment(s): Father is healthy General Exam Limitations: no limitations General appearance: alert, in no apparent distress Respiratory exam: Present: normal lung sounds bilaterally. Absent: respiratory distress, wheezes, rales, rhonchi, stridor Cardiovascular Exam: Present: tachycardia, irregular rhythm, normal heart sounds Extremities exam: Present: full ROM, normal capillary refill, other (1+ pitting right pretibial edema. no edema to LLE). Absent: tenderness, pedal edema, joint swelling, calf tenderness Neurological exam: Present: alert, oriented X3, CN II-XII intact Skin exam: Present: warm, dry, intact, normal color. Absent: rash Course Vital Signs 04/14/24 04/14/24 04/14/24 06:27 06:45 07:54 Temperature 98.3 F Pulse Rate 130 H 105 H 112 H Respiratory 18 18 18 Rate Blood Pressure 159/97 130/77 119/71 O2 Sat by Pulse 96 93 L 94 L Oximetry 04/14/24 09:04 Temperature Pulse Rate 86 Respiratory 18 Rate Blood Pressure 123/85 O2 Sat by Pulse 98 Oximetry Medical Decision Making - Medical Decision Making Was pt. sent in by a medical professional or institution (, PA, TELEPHONE QUOTATION CLERK, urgent care, hospital, or alf...) When possible be specific @ -Patient sent from dialysis due to A-fib with RVR. Did you speak to anyone other than the patient for history (EMS, parent, family, police, friend...)? What history was obtained from this source @ -No Did you review nursing and triage notes (agree or disagree)? Why? @ -I reviewed and agree with nursing and triage notes Were old charts reviewed (outside hosp., previous admission, EMS record, old EKG, old radiological studies, urgent care reports/EKG's, alf records)? Report findings @ -No old charts were reviewed Differential Diagnosis (chest pain, altered mental status, abdominal pain women, abdominal pain men, vaginal bleeding, weakness, fever, dyspnea, syncope, headache, dizziness, GI bleed, back pain, seizure, CVA, palpatations, mental health, musculoskeletal)? @ -Differential Palpitations: Ventricular arrhythmias, atrial arrhythmias, myocardial infarction, anemia, thyrotoxicosis, electrolyte imbalance, hypokalemia, pulmonary embolism, pulmonary disease, drugs, alcohol, anxiety, stress....This is not meant to be an all-inclusive list. EKG interpreted by me (3pts min.). @ -As above X-rays interpreted by me (1pt min.). @ -Chest x-ray interpreted by me significant for mild cardiomegaly with prominent pulmonary vascular markings. CT interpreted by me (1pt min.). @ -None done U/S interpreted by me (1pt. min.). @ -None done What testing was considered but not performed or refused? (CT, X-rays, U/S, labs)? Why? @ -None What meds were considered but not given or refused? Why? @ -None Did you discuss the management of the patient with other professionals (professionals i.e. , PA, TELEPHONE QUOTATION CLERK, lab, RT, psych nurse, social services designee, art psychotherapist, teacher, strategic debriefing officer, manager case)? Give summary @ -No Was smoking cessation discussed for >3mins.? @ -No Was critical care preformed (if so, how long)? @ -No Were there social determinants of health that impacted care today? How? (Homelessness, low income, unemployed, alcoholism, drug addiction, transportation, low edu. Level, literacy, decrease access to med. care, halfway, rehab)? @ -No Was there de-escalation of care discussed even if they declined (Discuss DNR or withdrawal of care, Hospice)? DNR status @ -No What co-morbidities impacted this encounter? (DM, HTN, Smoking, COPD, CAD, Cancer, CVA, ARF, Chemo, Hep., AIDS, mental health diagnosis, sleep apnea, morbid obesity)? @ -End-stage renal disease on dialysis, atrial fibrillation on Eliquis and diltiazem, obese, diabetes Was patient admitted / discharged? Hospital course, mention meds given and route, prescriptions, significant lab abnormalities, going to OR and other pertinent info. @ -Discharge. 49-year-old male presented to ER with a chief complaint of atrial fibrillation with RVR. Patient sent by dialysis due to tachycardia. History and physical exam completed. Vitals upon arrival temperature 98.3, heart rate 130, respiratory rate 18, blood pressure 159/97, oxygen saturation 96% on room air. Exam remarkable for an irregular rhythm with normal heart sounds. Lungs clear to auscultation bilaterally. There is mild 1+ pretibial p itting edema. Laboratory studies obtained significant for normocytic normochromic anemia which is likely related to chronic kidney disease. Sodium 135, potassium 5.7 (sample hemolyzed), BUN 58, creatinine 8.22, troponin 0.040. TSH 3.2. All electrolyte abnormalities and elevated troponin believed to be related to patient's renal failure and is due for dialysis today as his last treatment was Wednesday. Upon reevaluation, patient resting comfortably in exam room in no signs of acute distress. Vitals upon reevaluation remarkable for heart rate 86, respiratory rate 18 blood pressure 123/85, oxygen saturation 98% on room air. Patient stable for discharge as tachycardia resolved. Dialysis nicanor ointment made by Lianet DAVIS, for 1 hour post discharge. Results discussed with patient, all questions answered. Patient discharged in stable condition and sent to dialysis appointment. Return parameters discussed. Patient verbally expressed understanding and agreement with care plan. Case discussed with ED attending, Dr. Elkins. Undiagnosed new problem with uncertain prognosis? @ -No Drug Therapy requiring intensive monitoring for toxicity (Heparin, Nitro, Insulin, Cardizem)? @ -No Were any procedures done? @ -No Diagnosis/symptom? @ -ESRD on dialysis/atrial fibrillation Acute, or Chronic, or Acute on Chronic? @ -Acute Uncomplicated (without systemic symptoms) or Complicated (systemic symptoms)? @ -Complicated Side effects of treatment? @ -No Exacerbation, Progression, or Severe Exacerbation? @ -No Poses a threat to life or bodily function? How? (Chest pain, USA, MD, pneumonia, PE, COPD, DKA, ARF, appy, cholecystitis, CVA, Diverticulitis, Homicidal, Suicidal, threat to staff... and all critical care pts) @ -Yes end-stage renal disease - Lab Data Result diagrams: 04/14/24 07:04 04/14/24 07:04 Lab Results 04/14/24 04/14/24 04/14/24 Range/Units 07:04 07:04 07:04 WBC 5.0 (3.8-10.6) k/uL RBC 4.02 L (4.30-5.90) m/uL Hgb 11.4 L (13.0-17.5) gm/dL Hct 35.2 L (39.0-53.0) % MCV 87.6 (80.0-100.0) fL MCH 28.4 (25.0-35.0) pg MCHC 32.4 (31.0-37.0) g/dL RDW 14.5 (11.5-15.5) % Plt Count 191 (150-450) k/uL MPV 7.6 Neutrophils % 71 % Lymphocytes % 12 % Monocytes % 9 % Eosinophils % 4 % Basophils % 1 % Neutrophils # 3.6 (1.3-7.7) k/uL Lymphocytes # 0.6 L (1.0-4.8) k/uL Monocytes # 0.5 (0-1.0) k/uL Eosinophils # 0.2 (0-0.7) k/uL Basophils # 0.0 (0-0.2) k/uL PT 10.6 (10.0-12.5) sec INR 1.0 (<1.2) APTT 25.8 (22.0-30.0) sec Sodium 135 L (137-145) mmol/L Potassium 5.7 H (3.5-5.1) mmol/L Chloride 101 (98-107) mmol/L Carbon Dioxide 24 (22-30) mmol/L Anion Gap 10 mmol/L BUN 58 H (9-20) mg/dL Creatinine 8.22 H* (0.66-1.25) mg/dL Est GFR (CKD-EPI)AfAm 8 (>60 ml/min/1.73 sqM) Est GFR (CKD-EPI)NonAf 7 (>60 ml/min/1.73 sqM) Glucose 145 H (74-99) mg/dL Calcium 9.0 (8.4-10.2) mg/dL Magnesium 2.3 (1.6-2.3) mg/dL Total Bilirubin 0.9 (0.2-1.3) mg/dL AST 36 (17-59) U/L ALT 24 (4-49) U/L Alkaline Phosphatase 68 (38-126) U/L Troponin I (0.000-0.034) ng/mL Total Protein 6.7 (6.3-8.2) g/dL Albumin 4.2 (3.5-5.0) g/dL TSH 3.210 (0.465-4.680) mIU/L 04/14/24 Range/Units 07:04 WBC (3.8-10.6) k/uL RBC (4.30-5.90) m/uL Hgb (13.0-17.5) gm/dL Hct (39.0-53.0) % MCV (80.0-100.0) fL MCH (25.0-35.0) pg MCHC (31.0-37.0) g/dL RDW (11.5-15.5) % Plt Count (150-450) k/uL MPV Neutrophils % % Lymphocytes % % Monocytes % % Eosinophils % % Basophils % % Neutrophils # (1.3-7.7) k/uL Lymphocytes # (1.0-4.8) k/uL Monocytes # (0-1.0) k/uL Eosinophils # (0-0.7) k/uL Basophils # (0-0.2) k/uL PT (10.0-12.5) sec INR (<1.2) APTT (22.0-30.0) sec Sodium (137-145) mmol/L Potassium (3.5-5.1) mmol/L Chloride (98-107) mmol/L Carbon Dioxide (22-30) mmol/L Anion Gap mmol/L BUN (9-20) mg/dL Creatinine (0.66-1.25) mg/dL Est GFR (CKD-EPI)AfAm (>60 ml/min/1.73 sqM) Est GFR (CKD-EPI)NonAf (>60 ml/min/1.73 sqM) Glucose (74-99) mg/dL Calcium (8.4-10.2) mg/dL Magnesium (1.6-2.3) mg/dL Total Bilirubin (0.2-1.3) mg/dL AST (17-59) U/L ALT (4-49) U/L Alkaline Phosphatase (38-126) U/L Troponin I 0.040 H* (0.000-0.034) ng/mL Total Protein (6.3-8.2) g/dL Albumin (3.5-5.0) g/dL TSH (0.465-4.680) mIU/L - EKG Data -: EKG Interpreted by Me EKG Comments: EKG taken at 6: 38 showing atrial flutter with RVR. No acute ST segment or T wave abnormalities. Ventricular rate 129, QRS duration 88, QT/QTc 307/383. - Radiology Data Radiology results: report reviewed, image reviewed Disposition Clinical Impression: ESRD (end stage renal disease) on dialysis, Atrial fibrillation Disposition: HOME SELF-CARE Condition: Stable Instructions (If sedation given, give patient instructions): A-fib (Atrial Fibrillation) (ED), End Stage Kidney Disease (ED) Additional Instructions: Attend dialysis today at 10 AM. Continue taking medications as prescribed. Follow-up with PCP. Return to the ER for new or worsening concerns. Is patient prescribed a controlled substance at d/c from ED?: No Referrals: Hollis Ghosh Jr, DO [Primary Care Provider] - 1-2 days Time of Disposition: 08:30
[2024-04-14 07:21] LABS: Basophils % (A) 1 %; Eosinophils # (A) 0.2 k/uL (0-0.7); Eosinophils % (A) 4 %; HCT 35.2 % (39.0-53.0); HGB 11.4 gm/dL (13.0-17.5); Lymphocytes # (A) 0.6 k/uL (1.0-4.8); Lymphocytes % (A) 12 %; MCH 28.4 pg (25.0-35.0); MCHC 32.4 g/dL (31.0-37.0); MCV 87.6 fL (80.0-100.0); Mean Platelet Volume 7.6; Monocytes # (A) 0.5 k/uL (0-1.0); Monocytes % (A) 9 %; Neutrophils # (A) 3.6 k/uL (1.3-7.7); Neutrophils % (A) 71 %; Platelet Count 191 k/uL (150-450); RBC 4.02 m/uL (4.30-5.90); RDW 14.5 % (11.5-15.5)
--- NOTE | 2024-04-14 07:32 | XR ---
EXAMINATION TYPE: XR chest 2V DATE OF EXAM: 04/14/2024 COMPARISON: 03/09/2023 INDICATION: Dysrhythmia TECHNIQUE: Frontal and lateral views of the chest are obtained. FINDINGS: The heart size is mildly prominent. The pulmonary vasculature is prominent. The lungs are clear. IMPRESSION: 1. Mild cardiomegaly with prominent pulmonary vascular markings. Correlate for overload.
[2024-04-14 07:48] LABS: Partial Thromboplastin Time 25.8 sec (22.0-30.0); Prothrombin Time 10.6 sec (10.0-12.5)
[2024-04-14 07:50] LABS: ALT 24 U/L (4-49); African American GFR (CKD) 8 (>60 ml/min/1.73 sqM); Anion Gap 10 mmol/L; Blood Urea Nitrogen 58 mg/dL (9-20); Carbon Dioxide 24 mmol/L (22-30); Chloride 101 mmol/L (98-107); Glucose 145 mg/dL (74-99); Non-African American GFR(CKD) 7 (>60 ml/min/1.73 sqM); Sodium 135 mmol/L (137-145); Total Bilirubin 0.9 mg/dL (0.2-1.3)
[2024-04-14 08:02] LABS: Potassium 5.7 mmol/L (3.5-5.1); Total Protein 6.7 g/dL (6.3-8.2)
[2024-04-14 08:03] LABS: AST 36 U/L (17-59); Albumin 4.2 g/dL (3.5-5.0); Alkaline Phosphatase 68 U/L (38-126); Magnesium 2.3 mg/dL (1.6-2.3)
[2024-04-14 09:05] VITALS: BP 123/85; PULSE 86
== END 2024-04-14 09:04 | disposition home or self-care (01) ==
LOC: EC 06:22
DX: I48.91 Unspecified atrial fibrillation (principal); E11.22 Type 2 diabetes mellitus with diabetic chronic kidney disease; E11.319 Type 2 diabetes mellitus with unspecified diabetic retinopathy without macular edema; N18.6 End stage renal disease; Z99.2 Dependence on renal dialysis; Z79.4 Long term (current) use of insulin; Z79.899 Other long term (current) drug therapy
CPT/HCPCS: 36415; 71046; 80053; 83735; 84443; 84484; 85025; 85610; 85730; 93005; 99285

== ENCOUNTER 2024-04-21 15:08 | Observation (INO) | payer MEDICARE, OTHER ==
[2024-04-21 15:55] LABS: Basophils % (A) 1 %; Eosinophils # (A) 0.2 k/uL (0-0.7); Eosinophils % (A) 4 %; HGB 11.6 gm/dL (13.0-17.5); Lymphocytes # (A) 0.7 k/uL (1.0-4.8); Lymphocytes % (A) 16 %; MCHC 33.2 g/dL (31.0-37.0); MCV 87.3 fL (80.0-100.0); Mean Platelet Volume 7.4; Monocytes # (A) 0.4 k/uL (0-1.0); Monocytes % (A) 9 %; Neutrophils # (A) 2.9 k/uL (1.3-7.7); Neutrophils % (A) 68 %; Platelet Count 208 k/uL (150-450); RBC 4.01 m/uL (4.30-5.90); RDW 14.3 % (11.5-15.5); WBC 4.2 k/uL (3.8-10.6)
[2024-04-21 16:16] LABS: ALT 20 U/L (4-49); AST 19 U/L (17-59); African American GFR (CKD) 14 (>60 ml/min/1.73 sqM); Albumin 4.4 g/dL (3.5-5.0); Alkaline Phosphatase 77 U/L (38-126); Anion Gap 10 mmol/L; Blood Urea Nitrogen 25 mg/dL (9-20); Calcium 8.8 mg/dL (8.4-10.2); Carbon Dioxide 30 mmol/L (22-30); Chloride 96 mmol/L (98-107); Glucose 173 mg/dL (74-99); Non-African American GFR(CKD) 12 (>60 ml/min/1.73 sqM); Potassium 4.3 mmol/L (3.5-5.1); Sodium 136 mmol/L (137-145); Total Bilirubin 0.6 mg/dL (0.2-1.3); Total Protein 6.8 g/dL (6.3-8.2)
--- NOTE | 2024-04-21 16:19 | ED ---
Arrhythmia/Palpitations HPI - General Source: patient, RN notes reviewed Mode of arrival: ambulatory Limitations: no limitations <Allison Dorado - Last Filed: 04/21/24 16:14> <Dominga Kingsley - Last Filed: 04/25/24 22:44> - General Chief Complaint: Arrhythmia/Palpitations Stated Complaint: Afib Time Seen by Provider: 04/21/24 16:14 - History of Present Illness Initial Comments: QN-49 year old male wit hx of paroxysmal atrial fibrillation presenting for atrial fibrillation since yesterday. states he has been having shortness of breath and heart palpitations. He presented for hemodialysis today where he was told he was in atrial fibrillation. he reports that his heart rate spiked to 120 and was told to come to the ER for evaluation. he is on eliquis and cardizem. (Allison Dorado) Patient is a 49-year-old gentleman presenting today for palpitations and chest pressure. Patient states that yesterday he felt himself go into atrial fibrillation which continued overnight. He states he did not come in immediately because he looked up his symptoms and the Internet said that he could wait for 24 hours if he had no other symptoms. He went to dialysis this morning and had a full run of dialysis. At dialysis his heart rate was in the 80s so he was sent home. During dialysis he did begin to experience substernal chest pressure. Nonradiating. Mild lower extremity edema. Intermittent palpitations and lightheadedness. Denies dizziness, numbness, weakness, cough, hemoptysis, nausea, vomiting, diarrhea, fever,or chills. Patient is on Eliquis for history of atrial fibrillation. (Dominga Kingsley) - Related Data Home Medications Medication Instructions Recorded Confirmed allopurinoL [Zyloprim] 100 mg PO DAILY 05/16/20 04/21/24 ALPRAZolam [Xanax] 0.25 mg PO Q8H PRN 10/18/21 04/21/24 Doxazosin [Cardura] 4 mg PO HS 10/18/21 04/21/24 Vortioxetine Hydrobromide 20 mg PO DAILY 10/18/21 04/21/24 [Trintellix] Furosemide [Lasix] 40 mg PO BID 02/02/22 04/21/24 Nortriptyline [Pamelor] 50 mg PO HS 02/02/22 04/21/24 buPROPion HCL [Wellbutrin XL] 300 mg PO DAILY 02/18/22 04/21/24 [place]-3/Dha/Epa/Fish Oil [Fish Oil 1 cap PO BID 01/06/23 04/21/24 1,000 mg Softgel] Ergocalciferol (Vitamin D2) 1,250 mcg PO MOFR 07/07/23 04/21/24 [Drisdol (50,000 Iu)] amLODIPine 10 mg PO DAILY 07/07/23 04/21/24 Apixaban [Eliquis] 2.5 mg PO BID 02/25/24 04/21/24 Diltiazem Cd [Cardizem CD] 240 mg PO DAILY 02/25/24 04/21/24 Insulin Glargine,Hum.rec.anlog 56 units SQ HS 02/25/24 04/21/24 [Toujeo Solostar] Pantoprazole [Protonix] 40 mg PO DAILY 02/25/24 04/21/24 Pravastatin Sodium [Pravachol] 40 mg PO HS 02/25/24 04/21/24 Semaglutide [Ozempic] 2 mg SQ MO 02/25/24 04/21/24 calcitrioL 0.25 mg PO DAILY 02/25/24 04/21/24 Lactulose 10 gm PO DAILY PRN 03/22/24 04/21/24 icosapent ethyL [Icosapent Ethyl] 2 gm PO BID-W/MEALS 03/22/24 04/21/24 Metoprolol Succinate (ER) [Toprol 100 mg PO DAILY 04/23/24 04/23/24 XL] NIFEdipine XL [Procardia XL] 60 mg PO DAILY 04/23/24 04/23/24 Allergies Allergy/AdvReac Type Severity Reaction Status Date / Time No Known Allergies Allergy Verified 04/21/24 18:05 Review of Systems ROS Other: All systems not noted in ROS Statement are negative. <Allison Dorado - Last Filed: 04/21/24 16:14> ROS Statement: Those systems with pertinent positive or pertinent negative responses have been documented in the HPI. Past Medical History Past Medical History: Diabetes Mellitus, Eye Disorder, Hyperlipidemia, Hypertension, Prostate Disorder, Renal Disease, Sleep Apnea/CPAP/BIPAP Additional Past Medical History / Comment(s): Future bariatric surgery. Rrenal disease-stage 5 (waiting kidney transplant), diabetic retinopathy with bilateral retinal bleeds, gout, no cpap used, gastroporesis, anemia, high potassium, edema to bilateral lower legs. usual hemodialysis schedule is -- History of Any Multi-Drug Resistant Organisms: None Reported, MRSA MDRO Source:: right chest wall port Past Surgical History: Adenoidectomy, Appendectomy, Orthopedic Surgery, Tonsillectomy Additional Past Surgical History / Comment(s): UVPPP, renal biopsy, bilateral laser eye surgery for retinal bleeds, R knee arthroscopy, L knee open surgery for ACL, colonoscopy. dialysis port, left av fistula,Eye injections, Past Anesthesia/Blood Transfusion Reactions: No Reported Reaction Additional Past Anesthesia/Blood Transfusion Reaction / Comment(s): Takes more anesthesia than usual. no known hx blood transfusion Past Psychological History: Anxiety, Depression Smoking Status: Never smoker Past Alcohol Use History: None Reported Past Drug Use History: None Reported - Past Family History Mother Family Medical History: Cancer, Renal Disease Additional Family Medical History / Comment(s): ESRD with dialysis-mother of renal failure at the age of 77yrs Father Family Medical History: No Reported History Additional Family Medical History / Comment(s): Father is healthy <Allison Dorado - Last Filed: 04/21/24 16:14> General Exam Limitations: no limitations <Allison Dorado - Last Filed: 04/21/24 16:14> <Dominga Kingsley - Last Filed: 04/25/24 22:44> - General Exam Comments Initial Comments: PE: CONSTITUTIONAL: no apparent distress, well appearing SKIN: warm, dry, no jaundice, hives or petechiae EYES: pupils are equally round, extraocular movements intact without nystagmus, clear conjunctiva, non-icteric sclera HENT: normocephalic, atraumatic, moist mucus membranes, oropharynx clear without exudates NECK: Nontender and supple with no nuchal rigidity, no lymphadenopathy, full range of motion PULMONARY: clear to auscultation without wheezes, rhonchi, or rales, normal excursion, no accessory muscle use and no stridor CARDIOVASCULAR: regular rate, rhythm, normal S1 and S2. No appreciated murmurs. Strong radial pulses with intact distal perfusion. Left bicep AV fistula with palpable thrill. GASTROINTESTINAL: soft, non-tender, non-distended, no palpable masses, no rebound or guarding GENITOURINARY: LYMPHATICS: Skin 1+ nonpitting edema in the distal bilateral lower extremities MUSCULOSKELETAL: Extremities are nontender to palpation and have no gross deformity, no edema, redness, or swelling NEUROLOGIC: _a/o x 3, GCS 15, normal mentation and speech. Moves all extremities x 4 without motor or sensory deficit PSYCHIATRIC: _normal mood and affect, thought process is clear and linear (Dominga Kingsley) Course Vital Signs 04/21/24 04/21/24 04/21/24 15:32 17:25 17:34 Temperature 98.8 F Pulse Rate 96 88 84 Pulse Rate [ Media Planner / Buyer ] Respiratory 18 20 20 Rate Blood Pressure 131/80 138/80 138/76 O2 Sat by Pulse 96 95 93 L Oximetry 04/21/24 04/21/24 04/21/24 18:34 19:00 19:06 Temperature Pulse Rate 91 84 Pulse Rate [ 80 Media Planner / Buyer ] Respiratory 16 18 Rate Blood Pressure 131/83 129/78 O2 Sat by Pulse 96 94 L Oximetry EKG Findings - EKG Comments: EKG Findings:: Sinus rhythm. Rate 93 bpm. IA interval 182 ms. QT/QTc 372/422 ms. Normal axis. No STEMI. Compared EKG performed on 02/18/2022, today new T wave inversion in V1, T wave more prominent in lead III otherwise no significant changes <Dominga Kingsley - Last Filed: 04/25/24 22:44> Medical Decision Making - Lab Data Result diagrams: 04/21/24 15:44 <Allison Dorado - Last Filed: 04/21/24 16:14> - Lab Data Result diagrams: 04/21/24 15:44 04/21/24 15:44 <Dominga Kingsley - Last Filed: 04/25/24 22:44> - Medical Decision Making Was pt. sent in by a medical professional or institution (, PA, RADIO MACHINIST, urgent care, hospital, or alf...) When possible be specific @ -No Did you speak to anyone other than the patient for history (EMS, parent, family, police, friend...)? What history was obtained from this source @ -No Did you review nursing and triage notes (agree or disagree)? Why? @ -I reviewed and agree with nursing and triage notes Were old charts reviewed (outside hosp., previous admission, EMS record, old EKG, old radiological studies, urgent care reports/EKG's, alf records)? Report findings @ -On 02/29/24 had upper endoscopy Differential Diagnosis (chest pain, altered mental status, abdominal pain women, abdominal pain men, vaginal bleeding, weakness, fever, dyspnea, syncope, headache, dizziness, GI bleed, back pain, seizure, CVA, palpatations, mental health, musculoskeletal)? @ -Not applicable EKG interpreted by me (3pts min.). @ -As above X-rays interpreted by me (1pt min.). @ -Radiologist read x-ray as "cardiomegaly and mild pulmonary vascular congestion, BNP for congestive heart failure", I reviewed chest x-ray and agree with radiologist interpretation, cardiomegaly and mild pulmonary vascular congestion noted. I see no pneumothorax, consolidations or obvious pleural effusions CT interpreted by me (1pt min.). @ -None done U/S interpreted by me (1pt. min.). @ -None done Did you discuss the management of the patient with other professionals (professionals i.e. , PA, RADIO MACHINIST, lab, RT, psych nurse, sexual assault social worker, health records technology teacher, teacher, safety security officer, rifle case repairer)? Give summary @ -No Was smoking cessation discussed for >3mins.? @ -No Was critical care preformed (if so, how long)? @ -No Were there social determinants of health that impacted care today? How? (Homelessness, low income, unemployed, alcoholism, drug addiction, transportation, low edu. Level, literacy, decrease access to med. care, skilled nursing, rehab)? @ -No Was there de-escalation of care discussed even if they declined (Discuss DNR or withdrawal of care, Hospice)? DNR status @ -No What co-morbidities impacted this encounter? (DM, HTN, Smoking, COPD, CAD, Cancer, CVA, ARF, Chemo, Hep., AIDS, mental health diagnosis, sleep apnea, morbid obesity)? @ -ESRD Was patient admitted / discharged? Hospital course, mention meds given and route, prescriptions, significant lab abnormalities, going to OR and other pertinent info. @ -Hospital course Patient admitted to Dr. Ghosh for observation- 49-year-old male presenting today for concerns for atrial fibrillation and chest pressure, EKG shows no signs of STEMI or arrhythmia, initial troponin less than 0.012, Hemoglobin stable at 11.6, last on 04/14/2020 411.4 BUN/creatinine 25/5.11, prior creatinine was 8, TSH 3.71. Patient agreeable with plan for admission. Admitted in stable condition. Undiagnosed new problem with uncertain prognosis? @ -No Drug Therapy requiring intensive monitoring for toxicity (Heparin, Nitro, Insulin, Cardizem)? @ -No Were any procedures done? @ -No Diagnosis/symptom? @ -Chest pain, palpitations Acute, or Chronic, or Acute on Chronic? @ -Acute Uncomplicated (without systemic symptoms) or Complicated (systemic symptoms)? @ -Complicated Side effects of treatment? @ -No Exacerbation, Progression, or Severe Exacerbation? @ -No Poses a threat to life or bodily function? How? (Chest pain, [place], [place], pneumonia, PE, COPD, DKA, ARF, appy, cholecystitis, CVA, Diverticulitis, Homicidal, Suicidal, threat to staff... and all critical care pts) @ -Yes chest pain, if chest pain found to be 2/2 underlying cardiac disease (Dominga Kingsley) - Lab Data Lab Results 04/21/24 04/21/24 04/21/24 Range/Units 15:44 15:44 15:44 WBC 4.2 (3.8-10.6) k/uL RBC 4.01 L (4.30-5.90) m/uL Hgb 11.6 L (13.0-17.5) gm/dL Hct 35.0 L (39.0-53.0) % MCV 87.3 (80.0-100.0) fL MCH 29.0 (25.0-35.0) pg MCHC 33.2 (31.0-37.0) g/dL RDW 14.3 (11.5-15.5) % Plt Count 208 (150-450) k/uL MPV 7.4 Neutrophils % 68 % Lymphocytes % 16 % Monocytes % 9 % Eosinophils % 4 % Basophils % 1 % Neutrophils # 2.9 (1.3-7.7) k/uL Lymphocytes # 0.7 L (1.0-4.8) k/uL Monocytes # 0.4 (0-1.0) k/uL Eosinophils # 0.2 (0-0.7) k/uL Basophils # 0.0 (0-0.2) k/uL PT 10.4 (10.0-12.5) sec INR 0.9 (<1.2) APTT 25.1 (22.0-30.0) sec Sodium 136 L (137-145) mmol/L Potassium 4.3 (3.5-5.1) mmol/L Chloride 96 L (98-107) mmol/L Carbon Dioxide 30 (22-30) mmol/L Anion Gap 10 mmol/L BUN 25 H (9-20) mg/dL Creatinine 5.11 H (0.66-1.25) mg/dL Est GFR (CKD-EPI)AfAm 14 (>60 ml/min/1.73 sqM) Est GFR (CKD-EPI)NonAf 12 (>60 ml/min/1.73 sqM) Glucose 173 H (74-99) mg/dL Estimated Ave Glu mg/dL mg/dL Hemoglobin A1c (<=6.0) % Calcium 8.8 (8.4-10.2) mg/dL Magnesium 2.0 (1.6-2.3) mg/dL Total Bilirubin 0.6 (0.2-1.3) mg/dL AST 19 (17-59) U/L ALT 20 (4-49) U/L Alkaline Phosphatase 77 (38-126) U/L Troponin I (0.000-0.034) ng/mL Total Protein 6.8 (6.3-8.2) g/dL Albumin 4.4 (3.5-5.0) g/dL TSH 3.710 (0.465-4.680) mIU/L 04/21/24 04/21/24 Range/Units 15:44 15:44 WBC (3.8-10.6) k/uL RBC (4.30-5.90) m/uL Hgb (13.0-17.5) gm/dL Hct (39.0-53.0) % MCV (80.0-100.0) fL MCH (25.0-35.0) pg MCHC (31.0-37.0) g/dL RDW (11.5-15.5) % Plt Count (150-450) k/uL MPV Neutrophils % % Lymphocytes % % Monocytes % % Eosinophils % % Basophils % % Neutrophils # (1.3-7.7) k/uL Lymphocytes # (1.0-4.8) k/uL Monocytes # (0-1.0) k/uL Eosinophils # (0-0.7) k/uL Basophils # (0-0.2) k/uL PT (10.0-12.5) sec INR (<1.2) APTT (22.0-30.0) sec Sodium (137-145) mmol/L Potassium (3.5-5.1) mmol/L Chloride (98-107) mmol/L Carbon Dioxide (22-30) mmol/L Anion Gap mmol/L BUN (9-20) mg/dL Creatinine (0.66-1.25) mg/dL Est GFR (CKD-EPI)AfAm (>60 ml/min/1.73 sqM) Est GFR (CKD-EPI)NonAf (>60 ml/min/1.73 sqM) Glucose (74-99) mg/dL Estimated Ave Glu mg/dL 137 mg/dL Hemoglobin A1c 6.4 H (<=6.0) % Calcium (8.4-10.2) mg/dL Magnesium (1.6-2.3) mg/dL Total Bilirubin (0.2-1.3) mg/dL AST (17-59) U/L ALT (4-49) U/L Alkaline Phosphatase (38-126) U/L Troponin I 0.012 (0.000-0.034) ng/mL Total Protein (6.3-8.2) g/dL Albumin (3.5-5.0) g/dL TSH (0.465-4.680) mIU/L Disposition <Allison Dorado - Last Filed: 04/21/24 16:14> <Dominga Kingsley - Last Filed: 04/25/24 22:44> Clinical Impression: Palpitations, Chest pain Disposition: ADMITTED IP TO THIS HOSP
[2024-04-21 16:22] LABS: INR 0.9 (<1.2); Partial Thromboplastin Time 25.1 sec (22.0-30.0); Prothrombin Time 10.4 sec (10.0-12.5)
--- NOTE | 2024-04-21 16:46 | XR ---
EXAMINATION TYPE: XR chest 2V DATE OF EXAM: 04/21/2024 4:40 PM CLINICAL INDICATION:Male, 49 years old with history of dysrhythmia; [facility] COMPARISON: Chest radiographs from; 04/14/2024 TECHNIQUE: XR chest 2V Frontal view of the chest. FINDINGS: Lungs/Pleura: There is no evidence of pleural effusion, focal consolidation, or pneumothorax. Pulmonary vascularity: Unremarkable. Heart/mediastinum: Cardiomediastinal silhouette is enlarged and stable. Musculoskeletal: No acute osseous pathology. IMPRESSION: Cardiomegaly and mild pulmonary vascular congestion. Correlate with BNP for congestive heart failure.
[2024-04-21] MEDS ORDERED: NALOXONE 0.4 MG/ML 1 ML VIAL IV PRN (17:25)
[2024-04-21] MEDS ORDERED: ACETAMINOPHEN TAB 325 MG TAB PO PRN (17:25)
[2024-04-21] MEDS: ASPIRIN 81 MG PO STA (18:42)
[2024-04-21 20:39] LABS: Glucose,Whole Blood 123 mg/dL (70-110)
[2024-04-21] MEDS ORDERED: DEXTROSE 50% SYRINGE 50 ML IVP PRN ×2 (22:11)
[2024-04-21] MEDS: PRAVASTATIN SODIUM 40 MG TAB PO SCH (22:49)
[2024-04-21] MEDS: ALPRAZolam 0.25 MG TAB PO PRN (22:49)
[2024-04-21] MEDS: APIXABAN 2.5 MG TABLET PO SCH (22:49)
[2024-04-21] MEDS: DOXAZOSIN 4 MG TAB PO SCH (22:49)
[2024-04-21] MEDS: NORTRIPTYLINE 25 MG CAP PO SCH (22:50)
[2024-04-21] MEDS: ERGOCALCIFEROL 1,250 MCG (50,000 IU) CAPSULE PO SCH (22:50)
[2024-04-21] MEDS: FAMOTIDINE 20 MG TAB PO SCH (22:50)
[2024-04-22 05:38] LABS: Glucose,Whole Blood 117 mg/dL (70-110)
[2024-04-22] MEDS: INSULIN ASPART (NovoLOG) 100 UNIT/ML VIAL SQ SCH (05:48)
[2024-04-22] MEDS: NON FORMULARY DRUG (Icosapent Ethyl [Icosapent Ethyl] 1 GM Capsule) PO SCH (05:49)
[2024-04-22] MEDS ORDERED: DILTIAZEM CD 240 MG CAP.ER.24H PO SCH (09:00)
[2024-04-22] MEDS ORDERED: NON FORMULARY DRUG (Omega-3/Dha/Epa/Fish Oil [Fish Oil 1,000 Mg Softgel] 1 EACH Capsule) PO SCH (09:00)
[2024-04-22] MEDS ORDERED: LACTULOSE 20 GM/30 ML CUP PO PRN (09:00)
[2024-04-22] MEDS: PANTOPRAZOLE 40 MG TABLET PO SCH (10:04)
[2024-04-22] MEDS: FUROSEMIDE 40 MG TAB PO SCH (10:05)
[2024-04-22] MEDS: allopurinoL 100 MG TAB PO SCH (10:05)
[2024-04-22] MEDS: FAMOTIDINE 20 MG TAB PO SCH (10:05)
[2024-04-22] MEDS: hydrALAZINE HCL 25 MG TAB PO SCH (10:05)
[2024-04-22] MEDS: amLODIPine 10 MG TAB PO SCH (10:05)
[2024-04-22] MEDS: METOPROLOL SUCCINATE (ER) 100 MG TAB.ER.24H PO SCH (10:06)
[2024-04-22] MEDS: buPROPion XL 150 MG TAB.ER.24H PO SCH (10:07)
[2024-04-22] MEDS: VORTIOXETINE HYDROBROMIDE 20 MG TABLET PO SCH (10:07)
--- NOTE | 2024-04-22 10:34 | P.HPIM ---
History of Present Illness H&P Date: 04/22/24 Chief Complaint: chest pain heart palpitations subjective 49-year-old male well-known to my practice as a long-standing history of type 2 diabetes hypertension end-stage renal disease hemodialysis dependent who is currently being worked up for kidney transplant. Patient presented to the hospital with complaint of chest pain or palpitations bones were negative patient was admitted for observation and evaluation, no nausea no vomiting no cough no wheeze Review of Systems Constitutional: Reports fatigue Ears, nose, mouth and throat: Reports as per HPI Cardiovascular: Reports palpitations (patient describes chest pressure and no overt chest pain) Respiratory: Reports as per HPI Genitourinary: Reports as per HPI Musculoskeletal: Reports as per HPI Integumentary: Reports as per HPI Neurological: Reports as per HPI Psychiatric: Reports anxiety, Reports depression Endocrine: Reports high blood sugars (high blood sugars are very rare patient's sugars have been fairly well controlled over the last year) Past Medical History Past Medical History: Diabetes Mellitus, Eye Disorder, Hyperlipidemia, Hypertension, Prostate Disorder, Renal Disease, Sleep Apnea/CPAP/BIPAP Additional Past Medical History / Comment(s): Future bariatric surgery. Rrenal disease-stage 5 (waiting kidney transplant), diabetic retinopathy with bilateral retinal bleeds, gout, no cpap used, gastroporesis, anemia, high potassium, edema to bilateral lower legs. usual hemodialysis schedule is - History of Any Multi-Drug Resistant Organisms: None Reported, MRSA Date of last positivie culture/infection: 2021 MDRO Source:: right chest wall port Past Surgical History: Adenoidectomy, Appendectomy, Orthopedic Surgery, Tonsillectomy Additional Past Surgical History / Comment(s): UVPPP, renal biopsy, bilateral laser eye surgery for retinal bleeds, R knee arthroscopy, L knee open surgery for ACL, colonoscopy. dialysis port, left av fistula,Eye injections, Past Anesthesia/Blood Transfusion Reactions: No Reported Reaction Additional Past Anesthesia/Blood Transfusion Reaction / Comment(s): Takes more anesthesia than usual. no known hx blood transfusion Past Psychological History: Anxiety, Depression Additional Psychological History / Comment(s): Pt resides alone. Smoking Status: Never smoker Past Alcohol Use History: None Reported Past Drug Use History: None Reported - Past Family History Mother Family Medical History: Cancer, Renal Disease Additional Family Medical History / Comment(s): ESRD with dialysis-mother of renal failure at the age of 77yrs Father Family Medical History: No Reported History Additional Family Medical History / Comment(s): Father is healthy Medications and Allergies Home Medications Medication Instructions Recorded Confirmed Type allopurinoL [Zyloprim] 100 mg PO DAILY 05/16/20 04/21/24 History ALPRAZolam [Xanax] 0.25 mg PO Q8H PRN 10/18/21 04/21/24 History Doxazosin [Cardura] 4 mg PO HS 10/18/21 04/21/24 History Vortioxetine Hydrobromide 20 mg PO DAILY 10/18/21 04/21/24 History [Trintellix] Furosemide [Lasix] 40 mg PO BID 02/02/22 04/21/24 History Nortriptyline [Pamelor] 50 mg PO HS 02/02/22 04/21/24 History buPROPion HCL [Wellbutrin XL] 300 mg PO DAILY 02/18/22 04/21/24 History [place]-3/Dha/Epa/Fish Oil [Fish Oil 1 cap PO BID 01/06/23 04/21/24 History 1,000 mg Softgel] Ergocalciferol (Vitamin D2) 1,250 mcg PO MOFR 07/07/23 04/21/24 History [Drisdol (50,000 Iu)] amLODIPine 10 mg PO DAILY 07/07/23 04/21/24 History Apixaban [Eliquis] 2.5 mg PO BID 02/25/24 04/21/24 History Diltiazem Cd [Cardizem CD] 240 mg PO DAILY 02/25/24 04/21/24 History Insulin Glargine,Hum.rec.anlog 56 units SQ HS 02/25/24 04/21/24 History [Toujeo Solostar] Pantoprazole [Protonix] 40 mg PO DAILY 02/25/24 04/21/24 History Pravastatin Sodium [Pravachol] 40 mg PO HS 02/25/24 04/21/24 History Semaglutide [Ozempic] 2 mg SQ MO 02/25/24 04/21/24 History calcitrioL 0.25 mg PO DAILY 02/25/24 04/21/24 History Lactulose 10 gm PO DAILY PRN 03/22/24 04/21/24 History icosapent ethyL [Icosapent Ethyl] 2 gm PO BID-W/MEALS 03/22/24 04/21/24 History Allergies Allergy/AdvReac Type Severity Reaction Status Date / Time No Known Allergies Allergy Verified 04/21/24 18:05 Physical Exam Osteopathic Statement: *. No significant issues noted on an osteopathic structural exam other than those noted in the History and Physical/Consult. Vitals: Vital Signs Temp Pulse Pulse Pulse Resp BP BP 04/22/24 07:00 98.3 F 83 18 163/84 04/22/24 02:00 86 04/22/24 01:59 98.4 F 86 16 162/88 04/21/24 22:49 83 04/21/24 20:28 98.2 F 83 17 172/93 04/21/24 19:06 80 04/21/24 19:00 84 18 129/78 04/21/24 18:34 91 16 131/83 04/21/24 17:34 84 20 138/76 04/21/24 17:25 88 20 138/80 04/21/24 15:32 98.8 F 96 18 131/80 Pulse Ox 04/22/24 07:00 94 L 04/22/24 02:00 04/22/24 01:59 96 04/21/24 22:49 04/21/24 20:28 94 L 04/21/24 19:06 04/21/24 19:00 94 L 04/21/24 18:34 96 04/21/24 17:34 93 L 04/21/24 17:25 95 04/21/24 15:32 96 Intake and Output 04/21/24 04/22/24 04/22/24 22:59 06:59 14:59 Other: Voiding Method Toilet # Voids 1 2 Weight 130 kg General: [Patient awake, alert and oriented times 3. Patient in no acute distress.] HEENT: [PERRL. EOMI. No pharyngeal erythema or exudate.] Neck: [No adenopathy.] Cardiac: [Heart regular in rate and rhythm. No S3. No S4. No clicks, rubs. No murmur.] Lungs: [Clear to auscultation bilaterally.] Abdomen: [No mass. No organomegaly. Bowel sounds presnt and normoactive in all 4 quadrants.] Extremes: [No edema no cyanosis no claudication normal pulses]dialysis access left : normal male genitalia Musculoskeletal: [No joint erythema, edema or tenderness.] Skin: [No rash.] Neurologic: [No lateralizing deficits. CN II - XII grossly intact.] Lymphatic: [No adenopathy.] Results CBC & Chem 7: 04/21/24 15:44 04/21/24 15:44 Labs: Abnormal Lab Results - Last 24 Hours (Table) 04/21/24 04/21/24 04/21/24 Range/Units 15:44 15:44 15:44 RBC 4.01 L (4.30-5.90) m/uL Hgb 11.6 L (13.0-17.5) gm/dL Hct 35.0 L (39.0-53.0) % Lymphocytes # 0.7 L (1.0-4.8) k/uL Sodium 136 L (137-145) mmol/L Chloride 96 L (98-107) mmol/L BUN 25 H (9-20) mg/dL Creatinine 5.11 H (0.66-1.25) mg/dL Glucose 173 H (74-99) mg/dL POC Glucose (mg/dL) (70-110) mg/dL Hemoglobin A1c 6.4 H (<=6.0) % 04/21/24 04/22/24 Range/Units 20:37 05:34 RBC (4.30-5.90) m/uL Hgb (13.0-17.5) gm/dL Hct (39.0-53.0) % Lymphocytes # (1.0-4.8) k/uL Sodium (137-145) mmol/L Chloride (98-107) mmol/L BUN (9-20) mg/dL Creatinine (0.66-1.25) mg/dL Glucose (74-99) mg/dL POC Glucose (mg/dL) 123 H 117 H (70-110) mg/dL Hemoglobin A1c (<=6.0) % Thrombosis Risk Factor Assmnt - DVT/VTE Prophylaxis DVT/VTE Prophylaxis: Pharmacologic Prophylaxis ordered - Choose All That Apply Any of the Below Risk Factors Present?: Yes Each Factor Represents 1 point: Age 41-60 years, Obesity (BMI >25) Other Risk Factors: No Thrombosis Risk Factor Assessment Total Risk Factor Score: 2 Thrombosis Risk Factor Assessment Level: Low Risk Assessment and Plan (1) KIRA (acute kidney injury) Current Visit: No Status: Acute Code(s): N17.9 - ACUTE KIDNEY FAILURE, UNSPECIFIED SNOMED Code(s): 92538638 (2) Atrial fibrillation Current Visit: No Status: Acute Code(s): I48.91 - UNSPECIFIED ATRIAL FIBRILLATION SNOMED Code(s): 87324158 (3) Chest pain Current Visit: No Status: Acute Code(s): R07.9 - CHEST PAIN, UNSPECIFIED SNOMED Code(s): 08271899 (4) DM (diabetes mellitus), secondary, with renal complications Current Visit: No Status: Acute Code(s): E13.29 - OTH DIABETES MELLITUS WITH OTH DIABETIC KIDNEY COMPLICATION SNOMED Code(s): 649643211 (5) ESRD (end stage renal disease) on dialysis Current Visit: No Status: Acute Code(s): N18.6 - END STAGE RENAL DISEASE; Z99.2 - DEPENDENCE ON RENAL DIALYSIS SNOMED Code(s): 016499302 (6) Hypertension associated with chronic kidney disease due to type 2 diabetes mellitus Current Visit: No Status: Acute Code(s): E11.22 - TYPE 2 DIABETES MELLITUS W DIABETIC CHRONIC KIDNEY DISEASE; I12.9 - HYPERTENSIVE CHRONIC KIDNEY DISEASE W STG 1-4/UNSP CHR KDNY SNOMED Code(s): 34703944720474 (7) Severe obesity (BMI 35.0-39.9) with comorbidity Current Visit: No Status: Acute Code(s): E66.01 - MORBID (SEVERE) OBESITY DUE TO EXCESS CALORIES SNOMED Code(s): 55564791610325 Plan: patient is a hospital for assessment observation and third troponin which was negative Cardiology consult was asked for Recent echo performed Patient recently worked up for bariatric surgery In anticipation for being placed on transplant list for kidney Further orders to follow Time with Patient: Greater than 30
[2024-04-22 12:14] LABS: Glucose,Whole Blood 102 mg/dL (70-110)
--- NOTE | 2024-04-22 14:58 | P.CRDCN ---
History of Present Illness Consult date: 04/22/24 Consult reason: atrial fibrillation History of present illness: patient is a 49-year-old male who follows in the office with Dr. Buitrago. He presented to the emergency room with Fernandez roach. the patient states he's been having episodes on and off at dialysis, however this most recent episode persisted for 24 hours. The patient has a known history of paroxysmal atrial fibrillation with recent event monitor showing a 7% PAF burden. DIAGNOSTICS: EKG shows sinus mechanism No atrial fibrillation noted on telemetry Echocardiogram in December showed preserved LV function with severe LVH and a large descending aorta Lexiscan in January showed fixed inferior defect consistent with diaphragmatic attenuation, no evidence of ischemia Lab data: WBC 4.2, hemoglobin 11.6, hematocrit 35.0, platelet 208, sodium 136, potassium 4.3, BUN 25, creatinine 5.11, hemoglobin A1c is 6.4, magnesium 2.0, AST 19, ALT 20, TSH 3.7 REVIEW OF SYSTEMS: No fever or chills. No cough or expectoration. No diaphoresis. Patient denies headache, dizziness, blurred vision, double vision. Patient denies any stomach discomfort. No nausea, vomiting. No hematochezia. No hematemesis. Denies any black stools or blood in his stools. Denies dysuria or hematuria. No muscle weakness or numbness. PHYSICAL EXAMINATION: This is a 49-year-old male in no apparent distress at the time of my examination. HEENT: Head is atraumatic, normocephalic. Pupils are equal, round. There is no jugular venous distention. No carotid bruit is heard. CHEST EXAMINATION: Lungs are clear to auscultation. No chest wall tenderness is noted on palpation or with deep breathing. HEART EXAMINATION: Heart regular rate and rhythm. S1, S2 heard. No murmurs, gallops or rub. ABDOMEN: Soft, nontender. Bowel sounds are heard. No organomegaly noted. EXTREMITIES: 2+ peripheral pulses with no evidence of peripheral edema and no calf tenderness noted. NEUROLOGIC EXAMINATION: Patient is awake, alert and oriented x3. FINAL ASSESSMENT AND PLAN: Paroxysmal atrial fibrillation End-stage renal disease, on dialysis Type 2 diabetes Hypertension PLAN: stop diltiazem Start metoprolol succinate 100 mg daily. Will increase 150 mg tomorrow Consider amiodarone if he continues to have breakthrough episodes of atrial fibrillation Consider Procardia instead of amlodipine if blood pressure remains uncontrolled Further recommendations to be based on clinical course I am dictating on behalf of Dr lA Yi's history/physical and assessment/plan. Past Medical History Past Medical History: Diabetes Mellitus, Eye Disorder, Hyperlipidemia, Hypertension, Prostate Disorder, Renal Disease, Sleep Apnea/CPAP/BIPAP Additional Past Medical History / Comment(s): Future bariatric surgery. Rrenal disease-stage 5 (waiting kidney transplant), diabetic retinopathy with bilateral retinal bleeds, gout, no cpap used, gastroporesis, anemia, high pot assium, edema to bilateral lower legs. usual hemodialysis schedule is -- History of Any Multi-Drug Resistant Organisms: None Reported, MRSA Date of last positivie culture/infection: 2021 MDRO Source:: right chest wall port Past Surgical History: Adenoidectomy, Appendectomy, Orthopedic Surgery, To nsillectomy Additional Past Surgical History / Comment(s): UVPPP, renal biopsy, bilateral laser eye surgery for retinal bleeds, R knee arthroscopy, L knee open surgery for ACL, colonoscopy. dialysis port, left av fistula,Eye injections, Past Anesthesia/Blood Transfusion Reactions: No Reported Reaction Additional Past Anesthesia/Blood Transfusion Reaction / Comment(s): Takes more anesthesia than usual. no known hx blood transfusion Past Psychological History: Anxiety, Depression Additional Psychological History / Comment(s): Pt resides alone. Smoking Status: Never smoker Past Alcohol Use History: None Reported Past Drug Use History: None Reported - Past Family History Mother Family Medical History: Cancer, Renal Disease Additional Family Medical History / Comment(s): ESRD with dialysis-mother of renal failure at the age of 77yrs Father Family Medical History: No Reported History Additional Family Medical History / Comment(s): Father is healthy Medications and Allergies Home Medications Medication Instructions Recorded Confirmed Type allopurinoL [Zyloprim] 100 mg PO DAILY 05/16/20 04/21/24 History ALPRAZolam [Xanax] 0.25 mg PO Q8H PRN 10/18/21 04/21/24 History Doxazosin [Cardura] 4 mg PO HS 10/18/21 04/21/24 History Vortioxetine Hydrobromide 20 mg PO DAILY 10/18/21 04/21/24 History [Trintellix] Furosemide [Lasix] 40 mg PO BID 02/02/22 04/21/24 History Nortriptyline [Pamelor] 50 mg PO HS 02/02/22 04/21/24 History buPROPion HCL [Wellbutrin XL] 300 mg PO DAILY 02/18/22 04/21/24 History [place]-3/Dha/Epa/Fish Oil [Fish Oil 1 cap PO BID 01/06/23 04/21/24 History 1,000 mg Softgel] Ergocalciferol (Vitamin D2) 1,250 mcg PO MOFR 07/07/23 04/21/24 History [Drisdol (50,000 Iu)] amLODIPine 10 mg PO DAILY 07/07/23 04/21/24 History Apixaban [Eliquis] 2.5 mg PO BID 02/25/24 04/21/24 History Diltiazem Cd [Cardizem CD] 240 mg PO DAILY 02/25/24 04/21/24 History Insulin Glargine,Hum.rec.anlog 56 units SQ HS 02/25/24 04/21/24 History [Toujeo Solostar] Pantoprazole [Protonix] 40 mg PO DAILY 02/25/24 04/21/24 History Pravastatin Sodium [Pravachol] 40 mg PO HS 02/25/24 04/21/24 History Semaglutide [Ozempic] 2 mg SQ MO 02/25/24 04/21/24 History calcitrioL 0.25 mg PO DAILY 02/25/24 04/21/24 History Lactulose 10 gm PO DAILY PRN 03/22/24 04/21/24 History icosapent ethyL [Icosapent Ethyl] 2 gm PO BID-W/MEALS 03/22/24 04/21/24 History Allergies Allergy/AdvReac Type Severity Reaction Status Date / Time No Known Allergies Allergy Verified 04/21/24 18:05 Physical Exam Vitals: Vital Signs Temp Pulse Pulse Resp BP BP Pulse Ox 04/22/24 02:00 86 04/22/24 01:59 98.4 F 86 16 162/88 96 04/21/24 22:49 83 04/21/24 20:28 98.2 F 83 17 172/93 94 L 04/21/24 19:06 80 04/21/24 19:00 84 18 129/78 94 L 04/21/24 18:34 91 16 131/83 96 04/21/24 17:34 84 20 138/76 93 L 04/21/24 17:25 88 20 138/80 95 04/21/24 15:32 98.8 F 96 18 131/80 96 Intake and Output 04/21/24 04/22/24 04/22/24 22:59 06:59 14:59 Other: Voiding Method Toilet # Voids 1 2 Weight 130 kg Results 04/21/24 15:44 04/21/24 15:44 Cardiac Enzymes 04/21/24 04/21/24 04/21/24 Range/Units 15:44 15:44 18:46 AST 19 (17-59) U/L Troponin I 0.012 0.013 (0.000-0.034) ng/mL 04/21/24 Range/Units 21:19 AST (17-59) U/L Troponin I 0.015 (0.000-0.034) ng/mL Coagulation 04/21/24 Range/Units 15:44 PT 10.4 (10.0-12.5) sec APTT 25.1 (22.0-30.0) sec CBC 04/21/24 Range/Units 15:44 WBC 4.2 (3.8-10.6) k/uL RBC 4.01 L (4.30-5.90) m/uL Hgb 11.6 L (13.0-17.5) gm/dL Hct 35.0 L (39.0-53.0) % Plt Count 208 (150-450) k/uL Comprehensive Metabolic Panel 04/21/24 Range/Units 15:44 Sodium 136 L (137-145) mmol/L Potassium 4.3 (3.5-5.1) mmol/L Chloride 96 L (98-107) mmol/L Carbon Dioxide 30 (22-30) mmol/L BUN 25 H (9-20) mg/dL Creatinine 5.11 H (0.66-1.25) mg/dL Glucose 173 H (74-99) mg/dL Calcium 8.8 (8.4-10.2) mg/dL AST 19 (17-59) U/L ALT 20 (4-49) U/L Alkaline Phosphatase 77 (38-126) U/L Total Protein 6.8 (6.3-8.2) g/dL Albumin 4.4 (3.5-5.0) g/dL Current Medications Generic Name Dose Route Start Last Admin Trade Name Kady PRN Reason Stop Dose Admin Acetaminophen 650 mg 04/21/24 17:25 Acetaminophen Tab 325 Mg Tab PO Q6HR PRN Mild Pain or Fever > 100.5 Allopurinol 100 mg 04/22/24 09:00 Allopurinol 100 Mg Tab PO DAILY GIAN Alprazolam 0.25 mg 04/21/24 22:07 04/21/24 22:49 Alprazolam 0.25 Mg Tab PO 0.25 mg Q8H PRN Administration Anxiety Amlodipine Besylate 10 mg 04/22/24 09:00 Amlodipine 10 Mg Tab PO DAILY GIAN Apixaban 2.5 mg 04/21/24 22:07 04/21/24 22:49 Apixaban 2.5 Mg Tablet PO 2.5 mg BID GIAN Administration Protocol Bupropion HCl 300 mg 04/22/24 09:00 Bupropion Xl 150 Mg Tab.Er.24h PO DAILY GIAN Calcitriol 0.25 mcg 04/22/24 09:00 Calcitriol 0.25 Mcg Cap PO DAILY GIAN Dextrose/Water 25 ml 04/21/24 22:11 Dextrose 50% Syringe 50 Ml IVP PER PROTOCOL PRN Hypoglycemia Protocol Dextrose/Water 50 ml 04/21/24 22:11 Dextrose 50% Syringe 50 Ml IVP PER PROTOCOL PRN Hypoglycemia Protocol Doxazosin Mesylate 4 mg 04/21/24 22:30 04/21/24 22:49 Doxazosin 4 Mg Tab PO 4 mg HS GIAN Administration Ergocalciferol 1,250 mcg 04/21/24 22:30 04/21/24 22:50 Ergocalciferol 1,250 Mcg (50,000 Iu) Capsule PO Not Given MOFR GIAN Famotidine 20 mg 04/22/24 09:00 Famotidine 20 Mg Tab PO DAILY GIAN Furosemide 40 mg 04/22/24 09:00 Furosemide 40 Mg Tab PO BID GIAN Hydralazine HCl 25 mg 04/22/24 09:00 Hydralazine Hcl 25 Mg Tab PO TID GIAN Insulin Aspart 0 unit 04/22/24 07:30 04/22/24 05:48 Insulin Aspart (Novolog) 100 Unit/Ml Vial SQ Not Given ACHS GIAN Protocol Lactulose 10 gm 04/22/24 09:00 Lactulose 20 Gm/30 Ml Cup PO DAILY PRN Constipation Metoprolol Succinate 100 mg 04/22/24 09:00 Metoprolol Succinate (Er) 100 Mg Tab.Er.24h PO DAILY GIAN Naloxone HCl 0.2 mg 04/21/24 17:25 Naloxone 0.4 Mg/Ml 1 Ml Vial IV Q2M PRN Opioid Reversal Non-Formulary Medication 2 gm 04/22/24 07:30 04/22/24 05:49 Icosapent Ethyl [Icosapent Ethyl] PO Not Given BID-W/MEALS GIAN Nortriptyline HCl 50 mg 04/21/24 22:30 04/21/24 22:50 Nortriptyline 25 Mg Cap PO 50 mg HS GIAN Administration Pantoprazole Sodium 40 mg 04/22/24 09:00 Pantoprazole 40 Mg Tablet PO DAILY GIAN Pravastatin Sodium 40 mg 04/21/24 22:30 04/21/24 22:49 Pravastatin Sodium 40 Mg Tab PO 40 mg HS GIAN Administration Vortioxetine 20 mg 04/22/24 09:00 Vortioxetine Hydrobromide 20 Mg Tablet PO DAILY [facility] Intake and Output 04/21/24 04/22/24 04/22/24 22:59 06:59 14:59 Other: Voiding Method Toilet # Voids 1 2 Weight 130 kg 04/21/24 15:44 04/21/24 15:44
[2024-04-22 15:15] VITALS: RESP 16
[2024-04-22 17:21] LABS: Glucose,Whole Blood 105 mg/dL (70-110)
[2024-04-22 20:37] LABS: Glucose,Whole Blood 140 mg/dL (70-110)
[2024-04-23 02:18] VITALS: PULSE 68
[2024-04-23 06:10] LABS: Glucose,Whole Blood 91 mg/dL (70-110)
[2024-04-23] MEDS ORDERED: hydrALAZINE HCL 25 MG TAB PO PRN (08:05)
[2024-04-23 08:24] VITALS: BP 155/83; TEMP 97.9
--- NOTE | 2024-04-23 11:22 | P.DS ---
Providers Date of admission: 04/21/24 17:28 Expected date of discharge: 04/23/24 Attending physician: Hollis Ghosh Consults: 04/21/24 17:25 Consult Physician Routine Consulting Provider: Gallo Chinchilla Consult Reason/Comments: Chest pressure, paroxysmal a fib Do you want consulting provider notified?: Yes Primary care physician: Hollis Ghosh General: [Patient awake, alert and oriented times 3. Patient in no acute distress.] HEENT: [PERRL. EOMI. No pharyngeal erythema or exudate.] Neck: [No adenopathy.] Cardiac: [Heart regular in rate and rhythm. No S3. No S4. No clicks, rubs. No murmur.] Lungs: [Clear to auscultation bilaterally.] Abdomen: [No mass. No organomegaly. Bowel sounds presnt and normoactive in all 4 quadrants.] Extremes: [No edema no cyanosis no claudication normal pulses dialysis access left arm : normal male genitalia Musculoskeletal: [No joint erythema, edema or tenderness.] Skin: [No rash.] Neurologic: [No lateralizing deficits. CN II - XII grossly intact.] Lymphatic: [No adenopathy.] - Discharge Diagnosis(es) (1) KIRA (acute kidney injury) Current Visit: No Status: Acute (2) Atrial fibrillation Current Visit: No Status: Acute (3) Chest pain Current Visit: No Status: Acute (4) DM (diabetes mellitus), secondary, with renal complications Current Visit: No Status: Acute (5) ESRD (end stage renal disease) on dialysis Current Visit: No Status: Acute (6) Hypertension associated with chronic kidney disease due to type 2 diabetes mellitus Current Visit: No Status: Acute (7) Severe obesity (BMI 35.0-39.9) with comorbidity Current Visit: No Status: Acute Plan - Discharge Summary Discharge Rx Participant: Yes New Discharge Prescriptions: No Action allopurinoL [Zyloprim] 100 mg PO DAILY Vortioxetine Hydrobromide [Trintellix] 20 mg PO DAILY ALPRAZolam [Xanax] 0.25 mg PO Q8H PRN PRN Reason: Anxiety Nortriptyline [Pamelor] 50 mg PO HS calcitrioL 0.25 mg PO DAILY Pravastatin Sodium [Pravachol] 40 mg PO HS Pantoprazole [Protonix] 40 mg PO DAILY Semaglutide [Ozempic] 2 mg SQ MO Insulin Glargine,Hum.rec.anlog [Toujeo Solostar] 56 units SQ HS Diltiazem Cd [Cardizem CD] 240 mg PO DAILY Lactulose 10 gm PO DAILY PRN PRN Reason: Constipation Doxazosin [Cardura] 4 mg PO HS Furosemide [Lasix] 40 mg PO BID buPROPion HCL [Wellbutrin XL] 300 mg PO DAILY [place]-3/Dha/Epa/Fish Oil [Fish Oil 1,000 mg Softgel] 1 cap PO BID amLODIPine 10 mg PO DAILY Ergocalciferol (Vitamin D2) [Drisdol (50,000 Iu)] 1,250 mcg PO MOFR Apixaban [Eliquis] 2.5 mg PO BID icosapent ethyL [Icosapent Ethyl] 2 gm PO BID-W/MEALS Discharge Medication List allopurinoL [Zyloprim] 100 mg PO DAILY 05/16/20 [History] ALPRAZolam [Xanax] 0.25 mg PO Q8H PRN 10/18/21 [History] Doxazosin [Cardura] 4 mg PO HS 10/18/21 [History] Vortioxetine Hydrobromide [Trintellix] 20 mg PO DAILY 10/18/21 [History] Furosemide [Lasix] 40 mg PO BID 02/02/22 [History] Nortriptyline [Pamelor] 50 mg PO HS 02/02/22 [History] buPROPion HCL [Wellbutrin XL] 300 mg PO DAILY 02/18/22 [History] [place]-3/Dha/Epa/Fish Oil [Fish Oil 1,000 mg Softgel] 1 cap PO BID 01/06/23 [History] Ergocalciferol (Vitamin D2) [Drisdol (50,000 Iu)] 1,250 mcg PO MOFR 07/07/23 [History] amLODIPine 10 mg PO DAILY 07/07/23 [History] Apixaban [Eliquis] 2.5 mg PO BID 02/25/24 [History] Diltiazem Cd [Cardizem CD] 240 mg PO DAILY 02/25/24 [History] Insulin Glargine,Hum.rec.anlog [Toujeo Solostar] 56 units SQ HS 02/25/24 [History] Pantoprazole [Protonix] 40 mg PO DAILY 02/25/24 [History] Pravastatin Sodium [Pravachol] 40 mg PO HS 02/25/24 [History] Semaglutide [Ozempic] 2 mg SQ MO 02/25/24 [History] calcitrioL 0.25 mg PO DAILY 02/25/24 [History] Lactulose 10 gm PO DAILY PRN 03/22/24 [History] icosapent ethyL [Icosapent Ethyl] 2 gm PO BID-W/MEALS 03/22/24 [History] Metoprolol Succinate (ER) [Toprol XL] 100 mg PO DAILY 04/23/24 [History] NIFEdipine XL [Procardia XL] 60 mg PO DAILY 04/23/24 [History] Follow up Appointment(s)/Referral(s): Hollis Ghosh Jr, DO [Primary Care Provider] - 1-2 days Kory Buitrago DO [STAFF PHYSICIAN] - 1 Week Discharge Disposition: HOME SELF-CARE
--- NOTE | 2024-04-23 11:58 | P.PN ---
Subjective Progress Note Date: 04/23/24 The patient is a 49-year-old male who follows in the office with Dr. Buitrago. He presented to the emergency room with Fernandez roach. the patient states he's been having episodes on and off at dialysis, however this most recent episode persisted for 24 hours. The patient has a known history of paroxysmal atrial fibrillation with recent event monitor showing a 7% PAF burden. yesterday the patient's diltiazem was discontinued as he is on 2 calcium channel blockers and he was transitioned to oral beta blockers. Heart rates have been well controlled. Blood pressures do remain elevated as he has been taking as needed doses of hydralazine. He states he feels well from a cardiac standpoint. He is ready to be discharged. GENERAL: Well-appearing, well-nourished and in no acute distress. NECK: Supple without JVD or thyromegaly. LUNGS: Breath sounds clear to auscultation bilaterally. Respiration equal and unlabored. No wheezes, rales or rhonchi. HEART: Regular rate and rhythm without murmurs, rubs or gallops. S1 and S2 heard. EXTREMITIES: Normal range of motion, no edema. No clubbing or cyanosis. Pe ripheral pulses intact and strong. TELEMETRY: sinus rhythm overnight IMPRESSION: Paroxysmal atrial fibrillation End-stage renal disease, on dialysis Type 2 diabetes Hypertension PLAN: Switch to Procardia Consider amiodarone if needed Followup with Dr Buitrago in 1 week I am dictating on behalf of Dr Al Yi's history/physical and assessment/plan. Objective - Vital Signs Vital signs: Vital Signs Temp 97.9 F 04/23/24 07:00 Pulse 68 04/23/24 07:00 Resp 16 04/23/24 07:00 BP 155/83 04/23/24 07:00 Pulse Ox 96 04/23/24 07:00 FiO2 Intake & Output 04/22/24 04/23/24 04/23/24 18:59 06:59 18:59 Intake Total 118 354 Balance 118 354 Intake: Oral 118 354 Other: Voiding Method Toilet # Voids 2 1 # Bowel Movements 1 - Labs CBC & Chem 7: 04/21/24 15:44 04/21/24 15:44 Labs: Abnormal Lab Results - Last 24 Hours (Table) 07/20/24 Range/Units 20:35 POC Glucose (mg/dL) 140 H (70-110) mg/dL
== END 2024-04-23 11:40 | disposition home or self-care (01) ==
LOC: EC 15:08 → 6NMEDSUR 17:28
PROVIDERS: ADMIT Family Medicine; ATTEND Family Medicine
DX: N17.9 Acute kidney failure, unspecified (principal); I48.0 Paroxysmal atrial fibrillation; R07.89 Other chest pain; I12.0 Hypertensive chronic kidney disease with stage 5 chronic kidney disease or end stage renal disease; N18.6 End stage renal disease; E11.22 Type 2 diabetes mellitus with diabetic chronic kidney disease; E11.43 Type 2 diabetes mellitus with diabetic autonomic (poly)neuropathy; K31.84 Gastroparesis; F32.A Depression, unspecified; F41.9 Anxiety disorder, unspecified; E78.5 Hyperlipidemia, unspecified; G47.30 Sleep apnea, unspecified; E66.01 Morbid (severe) obesity due to excess calories; Z68.38 Body mass index [BMI] 38.0-38.9, adult; Z99.2 Dependence on renal dialysis; Z79.01 Long term (current) use of anticoagulants; Z79.4 Long term (current) use of insulin; Z79.85 Long-term (current) use of injectable non-insulin antidiabetic drugs; Z79.899 Other long term (current) drug therapy
CPT/HCPCS: 99285; 36415; 93005 ×2; 80053; 83735; 84443; 84484; 85025; 85610; 85730; 83036; 71046; G0378 ×3

== ENCOUNTER 2024-12-08 05:46 | Day surgery (SDC) | payer MEDICARE, OTHER ==
[2024-12-08] MEDS: SODIUM CHLORIDE 0.9% 1,000 ML IV SCH (06:10)
[2024-12-08] MEDS: IV FLUID CONTINUATION 1,000 ML IV ONE (06:12)
[2024-12-08 06:16] VITALS: RESP 16; TEMP 99
[2024-12-08 06:27] LABS: Basophils % (A) 0 %; Eosinophils # (A) 0.3 k/uL (0-0.7); Eosinophils % (A) 7 %; HCT 38.5 % (39.0-53.0); HGB 12.3 gm/dL (13.0-17.5); Lymphocytes # (A) 0.6 k/uL (1.0-4.8); Lymphocytes % (A) 14 %; MCH 29.9 pg (25.0-35.0); MCHC 31.9 g/dL (31.0-37.0); MCV 93.8 fL (80.0-100.0); Mean Platelet Volume 8.5; Monocytes # (A) 0.5 k/uL (0-1.0); Monocytes % (A) 10 %; Neutrophils # (A) 3.1 k/uL (1.3-7.7); Neutrophils % (A) 67 %; Platelet Count 170 k/uL (150-450); RDW 13.7 % (11.5-15.5); WBC 4.6 k/uL (3.8-10.6)
[2024-12-08 06:41] LABS: African American GFR (CKD) 13 (>60 ml/min/1.73 sqM); Anion Gap 6 mmol/L; Blood Urea Nitrogen 22 mg/dL (9-20); Calcium 9.2 mg/dL (8.4-10.2); Carbon Dioxide 35 mmol/L (22-30); Chloride 92 mmol/L (98-107); Glucose 125 mg/dL (74-99); Non-African American GFR(CKD) 11 (>60 ml/min/1.73 sqM); Potassium 4.9 mmol/L (3.5-5.1); Sodium 133 mmol/L (137-145)
[2024-12-08] MEDS: MIDAZOLAM 2 MG/2 ML VIAL IVP ONE ×3 (07:22→07:33)
[2024-12-08] MEDS: fentaNYL (PF) 50 MCG/ML 2 ML AMP IVP ONE ×2 (07:22→07:32)
[2024-12-08] MEDS: LIDOCAINE 1% INJ 10MG/ML (20 ML MDV) SQ ONE (07:22)
[2024-12-08] MEDS: IOPAMIDOL-370 100ML BTL INJ ONE (07:42)
--- NOTE | 2024-12-08 07:51 | P.OP ---
Date of Procedure: 12/08/24 Preoperative Diagnosis: Left upper extremity dysfunctional arteriovenous fistula with possible outflow stenosis End-stage renal disease on hemodialysis Postoperative Diagnosis: Same, outflow stenosis at the cephalic sweep Procedure(s) Performed: Left upper extremity fistulogram with balloon angioplasty of the outflow stenosis Conscious sedation x 26 minutes Anesthesia: local Surgeon: Mando Mccarty Estimated Blood Loss (ml): 2 Pathology: none sent Condition: stable Disposition: PACU Indications for Procedure: 49-year-old gentleman with history of end-stage renal disease on hemodialysis via left upper extremity arteriovenous fistula presents to the hospital secondary to increased bleeding after dialysis due to possible outflow stenosis. He presents for fistulogram and possible balloon angioplasty of the outflow. Operative Findings: Outflow stenosis at the cephalic sleep due to size discrepancy of his fistula roughly 60% Description of Procedure: After written informed consent was obtained the patient all risks benefits competitions were described the patient is brought to the [facility] and laid in a supine position with their left arm outstretched on an armboard. The area of the arm was prepped and draped in usual sterile fashion. Utilizing local anesthetic the fistula was accessed under ultrasound guidance and a 6-[place] sheath was placed. Fistulogram was then obtained demonstrating outflow stenosis at the cephalic sweep and tortuosity at the mid upper arm which demonstrated some pseudo stenosis. 035 Glidewire was then placed across the lesion and balloon angioplasty was performed with a 10 x 40 mm balloon as well as at the tortuosity site. Once completed final fistulogram was obtained demonstrating brisk flow through these areas with improvement of approximately 20% at the cephalic sweep. Inflow was assessed during the angioplasty which demonstrated no stenosis. All guidewires and catheters were then removed and sheath was removed after suture was placed for hemostasis. Patient tolerated the procedure well and had a good palpable thrill at the conclusion of the procedure.
--- NOTE | 2024-12-08 08:17 | IR ---
EXAMINATION TYPE: IR fistula/abscess/sinus tract DATE OF EXAM: 12/08/2024 CLINICAL INDICATION: Male, 49 years old with history of Thrombosed fistula, 5.1m/25.6DAP, Lt arm fist cha puncture, s, TECHNIQUE: Fluoroscopy. COMPARISON: None. FINDINGS: Fluoroscopic guidance was provided during left arm fistula puncture procedure performed by Dr. Mccarty. A total of 5.1 minute of fluoroscopic time was utilized during the procedure and 133 s pot images was acquired. Please refer to procedure note for further details. TOTAL DAP = 25.6 Gy cm2 IMPRESSION: As Above. [facility], , 12/08/2024 8:15 AM
[2024-12-08 08:58] VITALS: BP 145/78; PULSE 75
== END 2024-12-08 09:11 | disposition home or self-care (01) ==
LOC: CATHCVL 05:46
PROVIDERS: ATTEND Surgery
DX: T82.858A Stenosis of other vascular prosthetic devices, implants and grafts, initial encounter (principal); N18.6 End stage renal disease; Z99.2 Dependence on renal dialysis; I12.0 Hypertensive chronic kidney disease with stage 5 chronic kidney disease or end stage renal disease; E11.22 Type 2 diabetes mellitus with diabetic chronic kidney disease; D63.1 Anemia in chronic kidney disease
CPT/HCPCS: 80048; 85025; 36902; J2250; J2003; J3010; Q9967

== ENCOUNTER 2024-12-22 15:46 | Emergency (ER) | payer MEDICARE, OTHER ==
[2024-12-22 15:53] LABS: Glucose,Whole Blood 125 mg/dL (70-110)
--- NOTE | 2024-12-22 17:00 | ED ---
General Adult HPI - General Chief complaint: Neuro Symptoms/Deficit Stated complaint: Tremors Time Seen by Provider: 12/22/24 15:56 Source: patient Mode of arrival: ambulatory Limitations: no limitations - History of Present Illness Initial comments: Patient is a 49-year-old gentleman past medical history of diabetes, ESRD on dialysis M/ W/ F presenting today for tremors and itchiness. Patient states that as he was finishing dialysis this afternoon he began to become tremulous and felt very itchy. He states he developed hives on his forehead. Did complete entire round of dialysis during which they removed 3 L. This has happened once before to the patient and notes no one was really sure what caused it though thought it may have been an electrolyte issue. The nurses at dialysis that sent pt in advised to check a phosphorus level. Pt denies fevers, throat swelling, nausea, vomiting, abdominal pain, shortness of breath or chest pain. No meds p ta. - Related Data Home Medications Medication Instructions Recorded Confirmed allopurinoL [Zyloprim] 100 mg PO DAILY 05/16/20 12/06/24 ALPRAZolam [Xanax] 0.25 mg PO Q8H PRN 10/18/21 12/06/24 Doxazosin [Cardura] 4 mg PO HS 10/18/21 12/06/24 Vortioxetine Hydrobromide 20 mg PO DAILY 10/18/21 12/06/24 [Trintellix] Furosemide [Lasix] 40 mg PO BID 02/02/22 12/06/24 Nortriptyline [Pamelor] 50 mg PO HS 02/02/22 12/06/24 buPROPion HCL [Wellbutrin XL] 300 mg PO DAILY 02/18/22 12/06/24 [place]-3/Dha/Epa/Fish Oil [Fish Oil 1 cap PO BID 01/06/23 12/06/24 1,000 mg Softgel] Ergocalciferol (Vitamin D2) 1,250 mcg PO MOFR 07/07/23 12/06/24 [Drisdol (50,000 Iu)] Apixaban [Eliquis] 2.5 mg PO BID 02/25/24 12/08/24 Diltiazem Cd [Cardizem CD] 240 mg PO DAILY 02/25/24 12/06/24 Pantoprazole [Protonix] 40 mg PO DAILY 02/25/24 12/06/24 Pravastatin Sodium [Pravachol] 40 mg PO HS 02/25/24 12/06/24 Semaglutide [Ozempic] 2 mg SQ MO 02/25/24 12/08/24 calcitrioL 0.25 mg PO DAILY 02/25/24 12/06/24 Lactulose 10 gm PO DAILY PRN 03/22/24 12/06/24 icosapent ethyL [Icosapent Ethyl] 2 gm PO BID-W/MEALS 03/22/24 12/06/24 Metoprolol Succinate (ER) [Toprol 100 mg PO DAILY 04/23/24 12/06/24 XL] NIFEdipine XL [Procardia XL] 60 mg PO DAILY 04/23/24 12/06/24 Allergies Allergy/AdvReac Type Severity Reaction Status Date / Time No Known Allergies Allergy Verified 12/06/24 11:11 Review of Systems ROS Statement: Those systems with pertinent positive or pertinent negative responses have been documented in the HPI. ROS Other: All systems not noted in ROS Statement are negative. Past Medical History Past Medical History: Diabetes Mellitus, Dialysis, Eye Disorder, Hyperlipidemia, Hypertension, Prostate Disorder, Renal Disease, Sleep Apnea/CPAP/BIPAP Additional Past Medical History / Comment(s): Future bariatric surgery. Rrenal disease-stage 5 (waiting kidney transplant), diabetic retinopathy with bilateral retinal bleeds, gout, no cpap used, gastroporesis, anemia, high potassium, edema to bilateral lower legs. usual hemodialysis schedule is -- History of Any Multi-Drug Resistant Organisms: None Reported, MRSA Date of last positivie culture/infection: 2021 MDRO Source:: right chest wall port Past Surgical History: Adenoidectomy, Appendectomy, Bariatric Surgery, Orthopedic Surgery, Tonsillectomy Additional Past Surgical History / Comment(s): UVPPP, renal biopsy, bilateral laser eye surgery for retinal bleeds, R knee arthroscopy, L knee open surgery for ACL, colonoscopy. dialysis port, left av fistula,Eye injections,. gastric bypass Past Anesthesia/Blood Transfusion Reactions: No Reported Reaction Additional Past Anesthesia/Blood Transfusion Reaction / Comment(s): Takes more anesthesia than usual. no known hx blood transfusion Past Psychological History: Anxiety, Depression Smoking Status: Never smoker Past Alcohol Use History: None Reported Past Drug Use History: None Reported - Past Family History Mother Family Medical History: Cancer, Renal Disease Additional Family Medical History / Comment(s): ESRD with dialysis-mother of renal failure at the age of 77yrs Father Family Medical History: No Reported History Additional Family Medical History / Comment(s): Father is healthy General Exam - General Exam Comments Initial Comments: PE: CONSTITUTIONAL: No apparent distress, well appearing SKIN: Warm, dry, no jaundice, scant hives across forehead EYES: Pupils are equally round, extraocular movements intact without nystagmus, clear conjunctiva, non-icteric sclera HENT: Normocephalic, atraumatic, moist mucus membranes, oropharynx clear without exudates, no tongue swelling NECK: , Full range of motion, normal appearance PULMONARY: Clear to auscultation without wheezes, rhonchi, or rales, normal excursion, no accessory muscle use and no stridor CARDIOVASCULAR: Regular rate, rhythm, normal S1 and S2. No appreciated murmurs, rubs or gallops. Strong radial pulses with intact distal perfusion, palpable thrill at LUE fistula. No lower extremity edema GASTROINTESTINAL: Soft, active bowel sounds throughout, non-tender, non- distended, no palpable masses, no rebound or guarding. No hepatosplenomegaly MUSCULOSKELETAL: Extremities have no gross deformity, no edema, redness, or swelling. No calf swelling NEUROLOGIC:_a/o x 3, GCS 15, normal mentation and speech. Moves all extremities x 4 without motor or sensory deficit PSYCHIATRIC:_normal mood and affect, thought process is clear and linear Limitations: no limitations Course Vital Signs 12/22/24 12/22/24 12/22/24 15:47 18:26 18:29 Temperature 97.9 F Pulse Rate 78 73 Pulse Rate [ 71 Sitting] Pulse Rate [ 71 Standing] Pulse Rate [ 69 Supine] Respiratory 18 16 Rate Blood Pressure 143/78 172/103 Blood Pressure 156/92 [Right Arm Sitting] Blood Pressure 129/77 [Right Arm Standing] Blood Pressure 170/89 [Right Arm Supine] O2 Sat by Pulse 96 97 Oximetry 12/22/24 20:09 Temperature 98.9 F Pulse Rate 68 Pulse Rate [ Sitting] Pulse Rate [ Standing] Pulse Rate [ Supine] Respiratory 17 Rate Blood Pressure 154/89 Blood Pressure [Right Arm Sitting] Blood Pressure [Right Arm Standing] Blood Pressure [Right Arm Supine] O2 Sat by Pulse 96 Oximetry - Reevaluation(s) Reevaluation #1: Labs and imaging reviewed. Grossly within normal limits. Abnormal values not concerning for acute pathology related to presenting complaint.. On reassessm ent patient endorses improvement of tremors he is still somewhat itchy he has just received Benadryl and prednisone. He is significantly hypertensive and is due for his antihypertensives. This we ordered. Patiently reevaluated status post IV Benadryl no symptoms have resolved will be discharged home 12/22/24 18:31 EKG Findings - EKG Comments: EKG Findings:: Sinus rhythm rate [address] interval 156 ms QT/QTc 422/445 ms, normal CT interval, normal axis, no ST elevations or depressions, no arrhythmia Medical Decision Making - Medical Decision Making Was pt. sent in by a medical professional or institution (, PA, SHORT ORDER COOK, urgent care, hospital, or penitentiary...) When possible be specific @ -No Did you speak to anyone other than the patient for history (EMS, parent, family, police, friend...)? What history was obtained from this source @ -No Did you review nursing and triage notes (agree or disagree)? Why? @ -I reviewed nursing and triage notes- Patient notes that patient states he complains of tremors of the body and itching of the face and arms, started 20 minutes before the end of dialysis today, blood glucose 125 in triage. I agree triage note, patient endorses the same to myself Were old charts reviewed (outside hosp., previous admission, EMS record, old EKG, old radiological studies, urgent care reports/EKG's, penitentiary records)? Report findings @ -Medical records reviewed- Reviewed medical records, patient presented to the ER on 04/21/2024 when he had presented for shortness of breath and palpitations and was ultimately admitted for palpitations and chest pain Differential Diagnosis (chest pain, altered mental status, abdominal pain women, abdominal pain men, vaginal bleeding, weakness, fever, dyspnea, syncope, headache, dizziness, GI bleed, back pain, seizure, CVA, palpatations, mental health, musculoskeletal)? @Differential diagnosis remains broad however top considerations include hypoglycemia, orthostatic hypotension, anemia, allergic reaction/anaphylaxis, uremia, electrolyte abnormality does not all-inclusive list EKG interpreted by me (3pts min.). @ -As above X-rays interpreted by me (1pt min.). @ -None done CT interpreted by me (1pt min.). @ -None done U/S interpreted by me (1pt. min.). @ -None done What testing was considered but not performed or refused? (CT, X-rays, U/S, labs)? Why? @ -None What meds were considered but not given or refused? Why? @ -None Did you discuss the management of the patient with other professionals (professionals i.e. , PA, SHORT ORDER COOK, lab, RT, psych nurse, high school social studies tutor, clinical project leader, teacher, dispatch officer, casey saw operator)? Give summary @ -No Was smoking cessation discussed for >3mins.? @ -No Was critical care preformed (if so, how long)? @ -No Were there social determinants of health that impacted care today? How? (Homelessness, low income, unemployed, alcoholism, drug addiction, transporta tion, low edu. Level, literacy, decrease access to med. care, skilled nursing, rehab)? @ -No Was there de-escalation of care discussed even if they declined (Discuss DNR or withdrawal of care, Hospice)? @ -No What co-morbidities impacted this encounter? (DM, HTN, Smoking, COPD, CAD, Cancer, CVA, ARF, Chemo, Hep., AIDS, mental health diagnosis, sleep apnea, morbid obesity)? @ -ESRD on dialysis, hypertension Was patient admitted / discharged? Hospital course, mention meds given and route, prescriptions, significant lab abnormalities, going to OR and other pertinent info. @ -Discharge -This is a pleasant 49-year-old gentleman presenting after completion of dialysis due to experiencing tremors itching and hives as he was completing dialysis. States this happened once before when he first started dialysis.Vital signs on arrival show patient mildly hypertensive with blood pressure 143/78, pulse ox 96%, respiratory rate 18 RA 78 temperature 97.9 degrees. On my assessment patient is resting comfortably no acute distress. Has faint hives on forehead, no stridor, no wheezes, no nausea vomiting or hyp eractive bowel sounds. No additional signs or symptoms to indicate anaphylaxis. Differential diagnosis as above. Will obtain basic labs including CMP, CBC mag and Phos levels, patient will be treated with Benadryl and steroids and small 250 mL fluid bolus. Patient agreeable plan of care. On reassessment patient endorsed improvement of symptoms. Patient did have orthostatic positive blood pressure readings and has received a small fluid bolus. He is hypertensive now and is due for his home antihypertensives. Currently pending completion of workup, home antihypertensives were ordered. Labs reviewed. Grossly within normal limits. Abnormal values not concerning for acute pathology related to presenting complaint, overall electrolytes are within normal limits including process of the potassium. Additionally, on reassessment patient endorsed resolution of symptoms, blood pressure improved. He feels he is ready for discharge home. Patient discharged in improved condition In my medical judgment there is currently no evidence of an immediate life- threatening or surgical condition. Discharge is therefore indicated at this time. Discharge treatment instructions, follow up instructions, and appropriate emergency department return precautions were discussed with the patient and/or medical decision maker. Patient and/or medical decision maker expressed understanding of and agreed with the treatment plan, follow up instructions, and emergency department return precaution. All patient's and/or medical decision maker's questions were answered. The patient was instructed to return to the ED for any changes in symptoms, persistent symptoms, inability to obtain proper follow-up or for any further concerns. Patient received verbal and written instructions for this condition. Undiagnosed new problem with uncertain prognosis? @ -No Drug Therapy requiring intensive monitoring for toxicity (Heparin, Nitro, Insulin, Cardizem)? @ -No Were any procedures done? @ -No Diagnosis/symptom? @Dialysis complication Acute, or Chronic, or Acute on Chronic? @Acute Uncomplicated (without systemic symptoms) or Complicated (systemic symptoms)? @Uncomplicated Side effects of treatment? @ -No Exacerbation, Progression, or Severe Exacerbation? @ -No Poses a threat to life or bodily function? How? (Chest pain, [place], [place], pneumonia, PE, COPD, DKA, ARF, appy, cholecystitis, CVA, Diverticulitis, Homicidal, Suicidal, threat to staff... and all critical care pts) @ -No - Lab Data Result diagrams: 12/22/24 17:28 12/22/24 17:28 Lab Results 12/22/24 12/22/24 12/22/24 Range/Units 15:51 17:28 17:28 WBC 5.0 (3.8-10.6) k/uL RBC 3.91 L (4.30-5.90) m/uL Hgb 11.6 L (13.0-17.5) gm/dL Hct 36.1 L (39.0-53.0) % MCV 92.5 (80.0-100.0) fL MCH 29.6 (25.0-35.0) pg MCHC 32.0 (31.0-37.0) g/dL RDW 13.1 (11.5-15.5) % Plt Count 181 (150-450) k/uL MPV 7.5 Neutrophils % 73 % Lymphocytes % 12 % Monocytes % 7 % Eosinophils % 6 % Basophils % 1 % Neutrophils # 3.6 (1.3-7.7) k/uL Lymphocytes # 0.6 L (1.0-4.8) k/uL Monocytes # 0.3 (0-1.0) k/uL Eosinophils # 0.3 (0-0.7) k/uL Basophils # 0.0 (0-0.2) k/uL PT 10.5 (10.0-12.5) sec INR 0.9 (<1.2) APTT 24.2 (22.0-30.0) sec Sodium (137-145) mmol/L Potassium (3.5-5.1) mmol/L Chloride (98-107) mmol/L Carbon Dioxide (22-30) mmol/L Anion Gap mmol/L BUN (9-20) mg/dL Creatinine (0.66-1.25) mg/dL Est GFR (CKD-EPI)AfAm (>60 ml/min/1.73 sqM) Est GFR (CKD-EPI)NonAf (>60 ml/min/1.73 sqM) Glucose (74-99) mg/dL POC Glucose (mg/dL) 125 H (70-110) mg/dL POC Glu [employer] Laboratory Assistant ID Karlee Rodriguez Calcium (8.4-10.2) mg/dL Ionized Calcium Konstantin (4.5-5.3) mg/dL Phosphorus (2.5-4.5) mg/dL Magnesium (1.6-2.3) mg/dL Total Bilirubin (0.2-1.3) mg/dL AST (17-59) U/L ALT (4-49) U/L Alkaline Phosphatase (38-126) U/L Troponin I (0.000-0.034) ng/mL Total Protein (6.3-8.2) g/dL Albumin (3.5-5.0) g/dL 12/22/24 12/22/24 12/22/24 Range/Units 17:28 17:28 18:36 WBC (3.8-10.6) k/uL RBC (4.30-5.90) m/uL Hgb (13.0-17.5) gm/dL Hct (39.0-53.0) % MCV (80.0-100.0) fL MCH (25.0-35.0) pg MCHC (31.0-37.0) g/dL RDW (11.5-15.5) % Plt Count (150-450) k/uL MPV Neutrophils % % Lymphocytes % % Monocytes % % Eosinophils % % Basophils % % Neutrophils # (1.3-7.7) k/uL Lymphocytes # (1.0-4.8) k/uL Monocytes # (0-1.0) k/uL Eosinophils # (0-0.7) k/uL Basophils # (0-0.2) k/uL PT (10.0-12.5) sec INR (<1.2) APTT (22.0-30.0) sec Sodium 137 (137-145) mmol/L Potassium 4.7 (3.5-5.1) mmol/L Chloride 95 L (98-107) mmol/L Carbon Dioxide 34 H (22-30) mmol/L Anion Gap 8 mmol/L BUN 25 H (9-20) mg/dL Creatinine 4.46 H (0.66-1.25) mg/dL Est GFR (CKD-EPI)AfAm 16 (>60 ml/min/1.73 sqM) Est GFR (CKD-EPI)NonAf 14 (>60 ml/min/1.73 sqM) Glucose 128 H (74-99) mg/dL POC Glucose (mg/dL) 123 H (70-110) mg/dL POC Glu [employer] Laboratory Assistant ID Hicks Angelica Calcium 8.7 (8.4-10.2) mg/dL Ionized Calcium Konstantin 4.5 (4.5-5.3) mg/dL Phosphorus 4.3 (2.5-4.5) mg/dL Magnesium 2.2 (1.6-2.3) mg/dL Total Bilirubin 0.5 (0.2-1.3) mg/dL AST 20 (17-59) U/L ALT 28 (4-49) U/L Alkaline Phosphatase 75 (38-126) U/L Troponin I 0.015 (0.000-0.034) ng/mL Total Protein 7.2 (6.3-8.2) g/dL Albumin 4.3 (3.5-5.0) g/dL Disposition Clinical Impression: Dialysis complication Disposition: HOME SELF-CARE Condition: Good Instructions (If sedation given, give patient instructions): General Allergic Reaction (ED) Additional Instructions: Every disease is a spectrum and a small chance still exists that a serious condition could develop, for this reason, please monitor yourself closely for n ew, changing or worsening symptoms, return of symptoms, difficulty in breathing, throat swelling, nausea and vomiting, dizziness, chest pain, return of hives or new rash, fever, inability to tolerate/keep down fluids or your medications, inability to follow up with outpatient providers as instructed and should you experience these symptoms or should you have any further concerns for your wellbeing please return to the ED or call 911 immediately. PLEASE call your primary care physician as soon as possible to arrange / discuss plan for followup appointment. Appointment in the next 1-3 days is strongly encouraged if possible. PLEASE let us know here before you leave if there is anything further we can do to be of any assistance. Take care and feel Better! Is patient prescribed a controlled substance at d/c from ED?: No Referrals: Hollis Ghosh Jr, DO [Primary Care Provider] - 1-2 days
[2024-12-22 17:37] LABS: Ionized Calcium 4.5 mg/dL (4.5-5.3)
[2024-12-22 17:44] LABS: Basophils % (A) 1 %; Eosinophils # (A) 0.3 k/uL (0-0.7); Eosinophils % (A) 6 %; HCT 36.1 % (39.0-53.0); HGB 11.6 gm/dL (13.0-17.5); Lymphocytes # (A) 0.6 k/uL (1.0-4.8); Lymphocytes % (A) 12 %; MCH 29.6 pg (25.0-35.0); MCV 92.5 fL (80.0-100.0); Mean Platelet Volume 7.5; Monocytes # (A) 0.3 k/uL (0-1.0); Monocytes % (A) 7 %; Neutrophils # (A) 3.6 k/uL (1.3-7.7); Neutrophils % (A) 73 %; Platelet Count 181 k/uL (150-450); RBC 3.91 m/uL (4.30-5.90); RDW 13.1 % (11.5-15.5)
[2024-12-22 17:46] LABS: ALT 28 U/L (4-49); AST 20 U/L (17-59); African American GFR (CKD) 16 (>60 ml/min/1.73 sqM); Albumin 4.3 g/dL (3.5-5.0); Alkaline Phosphatase 75 U/L (38-126); Anion Gap 8 mmol/L; Blood Urea Nitrogen 25 mg/dL (9-20); Calcium 8.7 mg/dL (8.4-10.2); Carbon Dioxide 34 mmol/L (22-30); Chloride 95 mmol/L (98-107); Glucose 128 mg/dL (74-99); Magnesium 2.2 mg/dL (1.6-2.3); Non-African American GFR(CKD) 14 (>60 ml/min/1.73 sqM); Phosphorus 4.3 mg/dL (2.5-4.5); Potassium 4.7 mmol/L (3.5-5.1); Sodium 137 mmol/L (137-145); Total Bilirubin 0.5 mg/dL (0.2-1.3); Total Protein 7.2 g/dL (6.3-8.2)
[2024-12-22 17:48] LABS: INR 0.9 (<1.2); Partial Thromboplastin Time 24.2 sec (22.0-30.0); Prothrombin Time 10.5 sec (10.0-12.5)
[2024-12-22] MEDS: SODIUM CHLORIDE 0.9% 500 ML 250 ML IV ONE (18:22)
[2024-12-22] MEDS: diphenhydrAMINE 50 MG/ML 1 ML VIAL IVP STA (18:22)
[2024-12-22] MEDS: predniSONE 50 MG TAB PO STA (18:22)
[2024-12-22 18:37] LABS: Glucose,Whole Blood 123 mg/dL (70-110)
[2024-12-22] MEDS: DILTIAZEM CD 240 MG CAP.ER.24H PO SCH (19:21)
[2024-12-22] MEDS: METOPROLOL SUCCINATE (ER) 100 MG TAB.ER.24H PO SCH (19:22)
[2024-12-22 20:14] VITALS: BP 154/89; PULSE 68; RESP 17; TEMP 98.9
== END 2024-12-22 20:14 | disposition home or self-care (01) ==
LOC: EC 15:46
DX: T80.89XA Other complications following infusion, transfusion and therapeutic injection, initial encounter (principal)
CPT/HCPCS: 36415; 93005; 80053; 82330; 83735; 84100; 84484; 85025; 85610; 85730; 99285; 96374; J1200; J7512

== ENCOUNTER 2025-02-23 21:55 | Emergency (ER) | payer MEDICARE, OTHER ==
[2025-02-23 22:00] VITALS: TEMP 98.2
[2025-02-23 22:41] LABS: Basophils # (A) 0.06 10*3/uL (0.00-0.10); Basophils % (A) 1.4 %; Eosinophils # (A) 0.21 10*3/uL (0.04-0.35); Eosinophils % (A) 4.9 %; HCT 34.1 % (39.6-50.0); HGB 11.2 g/dL (13.0-17.0); Lymphocytes # (A) 0.65 10*3/uL (0.90-5.00); Lymphocytes % (A) 15.2 %; MCH 29.6 pg (27.0-32.0); MCHC 32.8 g/dL (32.0-37.0); Mean Platelet Volume 9.2 fL (9.5-12.2); Monocytes # (A) 0.62 10*3/uL (0.20-1.00); Monocytes % (A) 14.5 %; Neutrophils # (A) 2.73 10*3/uL (1.80-7.70); Neutrophils % (A) 63.8 %; Platelet Count 157 10*3/uL (140-440); RBC 3.79 10*6/uL (4.40-5.60); RDW 13.5 % (11.5-14.5); WBC 4.28 10*3/uL (4.50-10.00)
[2025-02-23 23:09] LABS: ALT 16 U/L (4-49); AST 17 U/L (17-59); African American GFR (CKD) 11 (>60 ml/min/1.73 sqM); Albumin 4.5 g/dL (3.5-5.0); Alkaline Phosphatase 81 U/L (38-126); Anion Gap 13 mmol/L; Blood Urea Nitrogen 29 mg/dL (9-20); Calcium 9.5 mg/dL (8.4-10.2); Carbon Dioxide 33 mmol/L (22-30); Chloride 94 mmol/L (98-107); Glucose 94 mg/dL (74-99); Non-African American GFR(CKD) 9 (>60 ml/min/1.73 sqM); Potassium 4.6 mmol/L (3.5-5.1); Sodium 140 mmol/L (137-145); Total Bilirubin 0.6 mg/dL (0.2-1.3); Total Protein 7.3 g/dL (6.3-8.2)
[2025-02-23 23:13] VITALS: BP 157/91; PULSE 71; RESP 16
--- NOTE | 2025-02-23 23:32 | ED ---
General Adult HPI - General Chief complaint: Recheck/Abnormal Lab/Rx Stated complaint: High blood pressure Time Seen by Provider: 02/23/25 22:11 Source: patient Mode of arrival: ambulatory Limitations: no limitations - History of Present Illness Initial comments: 49-year-old male presenting with chief complaint of high blood pressure. He is a dialysis patient, he had dialysis earlier today. He was recently admitted for low blood pressure, states that he had some medications changed he was instructed by his PCP to monitor his blood pressure regularly. He checked his blood pressure tonight routinely and noted it to be over 200 systolic. He took his nighttime medications and came to the ER. He denies any chest pain, difficulty breathing, blurred vision, abdominal pain, nausea, vomiting. States he has a small headache which normally happens since he has started taking Imdur. - Related Data Home Medications Medication Instructions Recorded Confirmed allopurinoL [Zyloprim] 100 mg PO DAILY 05/16/20 02/18/25 ALPRAZolam [Xanax] 0.25 mg PO Q8H PRN 10/18/21 02/18/25 Doxazosin [Cardura] 4 mg PO HS 10/18/21 02/18/25 Vortioxetine Hydrobromide 20 mg PO DAILY 10/18/21 02/18/25 [Trintellix] Furosemide [Lasix] 40 mg PO BID 02/02/22 02/18/25 Ergocalciferol (Vitamin D2) 1,250 mcg PO MOFR 07/07/23 02/18/25 [Drisdol (50,000 Iu)] Apixaban [Eliquis] 2.5 mg PO BID 02/25/24 02/18/25 Diltiazem Cd [Cardizem CD] 240 mg PO DAILY 02/25/24 02/18/25 Pantoprazole [Protonix] 40 mg PO DAILY 02/25/24 02/18/25 Pravastatin Sodium [Pravachol] 40 mg PO HS 02/25/24 02/18/25 calcitrioL 0.25 mg PO DAILY 02/25/24 02/18/25 icosapent ethyL [Icosapent Ethyl] 2 gm PO BID-W/MEALS 03/22/24 02/18/25 Gabapentin [Neurontin] 100 mg PO HS 02/18/25 02/18/25 Nortriptyline [Pamelor] 50 mg PO HS 02/18/25 02/18/25 buPROPion XL [Wellbutrin XL] 300 mg PO DAILY 02/18/25 02/18/25 Previous Rx's Medication Instructions Recorded Isosorbide Mononitrate ER [Imdur] 30 mg PO DAILY #30 tab 02/20/25 Metoprolol Succinate (ER) [Toprol 50 mg PO DAILY #30 tab 02/20/25 XL] Sevelamer [Renvela] 1,600 mg PO TID-W/MEALS #180 tab 02/20/25 Sevelamer [Renvela] 800 mg PO TID BETWEEN MEALS PRN 02/20/25 #90 tab hydrALAZINE HCL [Apresoline] 50 mg PO TID #90 tab 02/21/25 Allergies Allergy/AdvReac Type Severity Reaction Status Date / Time No Known Allergies Allergy Verified 02/23/25 22:00 Review of Systems ROS Statement: Those systems with pertinent positive or pertinent negative responses have been documented in the HPI. ROS Other: All systems not noted in ROS Statement are negative. Past Medical History Past Medical History: Diabetes Mellitus, Dialysis, Eye Disorder, Hyperlipidemia, Hypertension, Prostate Disorder, Renal Disease, Sleep Apnea/CPAP/BIPAP Additional Past Medical History / Comment(s): Obesity bariatric surgery/ gastric bypass. ARIAS. PAF. DM2. diabetic retinopathy with bilateral retinal bleeds, gout, no cpap used, gastroporesis, anemia, high potassium, edema to bilateral lower legs. usual hemodialysis schedule is -- History of Any Multi-Drug Resistant Organisms: None Reported, MRSA Date of last positivie culture/infection: 2021 MDRO Source:: right chest wall port Past Surgical History: Adenoidectomy, Appendectomy, Bariatric Surgery, Orthopedic Surgery, Tonsillectomy Additional Past Surgical History / Comment(s): UVPPP, renal biopsy, bilateral laser eye surgery for retinal bleeds, R knee arthroscopy, L knee open surgery for ACL, colonoscopy. dialysis port, left av fistula,Eye injections,. gastric bypass Past Anesthesia/Blood Transfusion Reactions: No Reported Reaction Additional Past Anesthesia/Blood Transfusion Reaction / Comment(s): Takes more anesthesia than usual. no known hx blood transfusion Past Psychological History: Anxiety, Depression Smoking Status: Never smoker Past Alcohol Use History: None Reported Past Drug Use History: None Reported - Past Family History Mother Family Medical History: Cancer, Renal Disease Additional Family Medical History / Comment(s): ESRD with dialysis-mother of renal failure at the age of 77yrs Father Family Medical History: No Reported History Additional Family Medical History / Comment(s): Father is healthy General Exam Limitations: no limitations General appearance: alert, in no apparent distress Head exam: Present: atraumatic, normocephalic, normal inspection Eye exam: Present: normal appearance, EOMI Neck exam: Present: normal inspection. Absent: meningismus Respiratory exam: Present: normal lung sounds bilaterally. Absent: respiratory distress, wheezes, rales, rhonchi, stridor Cardiovascular Exam: Present: regular rate, normal rhythm, normal heart sounds. Absent: systolic murmur, diastolic murmur, rubs, gallop, clicks Neurological exam: Present: alert, oriented X3 Psychiatric exam: Present: normal affect, normal mood Skin exam: Present: warm, dry, normal color Course Vital Signs 02/23/25 02/23/25 21:59 23:12 Temperature 98.2 F Pulse Rate 75 71 Respiratory 18 16 Rate Blood Pressure 178/85 157/91 O2 Sat by Pulse 96 95 Oximetry Medical Decision Making - Medical Decision Making Was pt. sent in by a medical professional or institution (, PA, CHEMICAL LAB SUPERVISOR, urgent care, hospital, or intermediate...) When possible be specific @ -No Did you speak to anyone other than the patient for history (EMS, parent, family, police, friend...)? What history was obtained from this source @ -No Did you review nursing and triage notes (agree or disagree)? Why? @ -I reviewed and agree with nursing and triage notes Were old charts reviewed (outside hosp., previous admission, EMS record, old EKG, old radiological studies, urgent care reports/EKG's, intermediate records)? Report findings @ -No old charts were reviewed Differential Diagnosis (chest pain, altered mental status, abdominal pain women, abdominal pain men, vaginal bleeding, weakness, fever, dyspnea, syncope, headache, dizziness, GI bleed, back pain, seizure, CVA, palpatations, mental health, musculoskeletal)? @ -Differential includes PR, CVA, hypertensive crisis, not an all-inclusive list EKG interpreted by me (3pts min.). @ -EKG shows sinus rhythm ventricular rate 71. NV interval 172. QRS 91. QT 428. QTc 450. X-rays interpreted by me (1pt min.). @ -None done CT interpreted by me (1pt min.). @ -None done U/S interpreted by me (1pt. min.). @ -None done What testing was considered but not performed or refused? (CT, X-rays, U/S, labs)? Why? @ -None What meds were considered but not given or refused? Why? @ -None Did you discuss the management of the patient with other professionals (professionals i.e. , PA, CHEMICAL LAB SUPERVISOR, lab, RT, psych nurse, social services technician, corporate strategy analyst, teacher, duty officer, case supervisor)? Give summary @ -No Was smoking cessation discussed for >3mins.? @ -No Was critical care preformed (if so, how long)? @ -No Were there social determinants of health that impacted care today? How? (Homelessness, low income, unemployed, alcoholism, drug addiction, transportation, low edu. Level, literacy, decrease access to med. care, fpc, rehab)? @ -No Was there de-escalation of care discussed even if they declined (Discuss DNR or withdrawal of care, Hospice)? DNR status @ -No What co-morbidities impacted this encounter? (DM, HTN, Smoking, COPD, CAD, Cancer, CVA, ARF, Chemo, Hep., AIDS, mental health diagnosis, sleep apnea, morbid obesity)? @ -None Was patient admitted / discharged? Hospital course, mention meds given and route, prescriptions, significant lab abnormalities, going to OR and other pe rtinent info. @ -49-year-old male present with chief complaint of high blood pressure. Patient routinely checked his blood pressure tonight and noticed it to be over 200 systolic. He took his nighttime medications and came to the ER. He feels well at this time. He has a mild headache which he states has been happening regularly since starting Imdur and he was told this is a known side effect. History and physical examination are conducted. BUN 29 creatinine 6.39, consistent with his CKD. While here blood pressure has come down, initially 178/85 but now 157/91 with no intervention. On reassessment patient is resting comfortably showing no acute signs of distress. He is educated on today's findings. Discharged. Follow-up with PCP. Report back to ER with any new or worsening symptoms. Discussed return parameters and answered all questions. Patient conveyed verbal understanding and agreed to the plan. I discussed this case in detail with my attending Dr. Rocha Undiagnosed new problem with uncertain prognosis? @ -No Drug Therapy requiring intensive monitoring for toxicity (Heparin, Nitro, Insulin, Cardizem)? @ -No Were any procedures done? @ -No Diagnosis/symptom? @ -Hypertension Acute, or Chronic, or Acute on Chronic? @ -Acute on chronic Uncomplicated (without systemic symptoms) or Complicated (systemic symptoms)? @ -Uncomplicated Side effects of treatment? @ -No Exacerbation, Progression, or Severe Exacerbation? @ -No Poses a threat to life or bodily function? How? (Chest pain, USA, PR, pneumonia, PE, COPD, DKA, ARF, appy, cholecystitis, CVA, Diverticulitis, Homicidal, Suicidal, threat to staff... and all critical care pts) @ -No immediate threat at this time - Lab Data Result diagrams: 02/23/25 22:31 02/23/25 22:31 Lab Results 02/23/25 02/23/25 Range/Units 22:31 22:31 WBC 4.28 L (4.50-10.00) 10*3/uL RBC 3.79 L (4.40-5.60) 10*6/uL Hgb 11.2 L (13.0-17.0) g/dL Hct 34.1 L (39.6-50.0) % MCV 90.0 (80.0-97.0) fL MCH 29.6 (27.0-32.0) pg MCHC 32.8 (32.0-37.0) g/dL Plt Count 157 (140-440) 10*3/uL MPV 9.2 L (9.5-12.2) fL Immature Gran % (Auto) 0.2 % Neutrophils % 63.8 % Lymphocytes % 15.2 % Monocytes % 14.5 % Eosinophils % 4.9 % Basophils % 1.4 % Immature Gran # 0.01 (0.00-0.04) 10*3/uL Neutrophils # 2.73 (1.80-7.70) 10*3/uL Lymphocytes # 0.65 L (0.90-5.00) 10*3/uL Monocytes # 0.62 (0.20-1.00) 10*3/uL Eosinophils # 0.21 (0.04-0.35) 10*3/uL Basophils # 0.06 (0.00-0.10) 10*3/uL Sodium 140 (137-145) mmol/L Potassium 4.6 (3.5-5.1) mmol/L Chloride 94 L (98-107) mmol/L Carbon Dioxide 33 H (22-30) mmol/L Anion Gap 13 mmol/L BUN 29 H (9-20) mg/dL Creatinine 6.39 H (0.66-1.25) mg/dL Est GFR (CKD-EPI)AfAm 11 (>60 ml/min/1.73 sqM) Est GFR (CKD-EPI)NonAf 9 (>60 ml/min/1.73 sqM) Glucose 94 (74-99) mg/dL Calcium 9.5 (8.4-10.2) mg/dL Total Bilirubin 0.6 (0.2-1.3) mg/dL AST 17 (17-59) U/L ALT 16 (4-49) U/L Alkaline Phosphatase 81 (38-126) U/L Total Protein 7.3 (6.3-8.2) g/dL Albumin 4.5 (3.5-5.0) g/dL Disposition Clinical Impression: Hypertension Disposition: HOME SELF-CARE Condition: Good Instructions (If sedation given, give patient instructions): Hypertension (ED) Additional Instructions: Follow-up with PCP. Report back to ER with any new or worsening symptoms. Is patient prescribed a controlled substance at d/c from ED?: No Referrals: Hollis Ghosh Jr, DO [Primary Care Provider] - 1-2 days Time of Disposition: 23:32
== END 2025-02-24 | disposition home or self-care (01) ==
LOC: EC 21:55
DX: I10 Essential (primary) hypertension (principal); Z79.899 Other long term (current) drug therapy
CPT/HCPCS: 36415; 80053; 85025; 93005; 99283

== ENCOUNTER 2025-04-20 09:36 | Day surgery (SDC) | payer MEDICARE, OTHER ==
[2025-04-19 10:18] VITALS: BMI 36.4
[2025-04-20] MEDS: IV FLUID CONTINUATION 1,000 ML IV ONE (09:42)
[2025-04-20] MEDS: SODIUM CHLORIDE 0.9% 500 ML 500 ML IV SCH (09:51)
[2025-04-20 10:00] LABS: Glucose,Whole Blood 124 mg/dL (70-110)
[2025-04-20 10:09] LABS: Basophils # (A) 0.04 10*3/uL (0.00-0.10); Basophils % (A) 0.9 %; Eosinophils # (A) 0.20 10*3/uL (0.04-0.35); Eosinophils % (A) 4.6 %; HCT 36.2 % (39.6-50.0); HGB 12.2 g/dL (13.0-17.0); Lymphocytes # (A) 0.73 10*3/uL (0.90-5.00); Lymphocytes % (A) 16.7 %; MCH 30.3 pg (27.0-32.0); MCHC 33.7 g/dL (32.0-37.0); MCV 90.0 fL (80.0-97.0); Monocytes # (A) 0.51 10*3/uL (0.20-1.00); Monocytes % (A) 11.6 %; Neutrophils # (A) 2.88 10*3/uL (1.80-7.70); Neutrophils % (A) 65.7 %; Platelet Count 162 10*3/uL (140-440); RBC 4.02 10*6/uL (4.40-5.60); RDW 12.9 % (11.5-14.5); WBC 4.38 10*3/uL (4.50-10.00)
[2025-04-20 10:24] VITALS: RESP 16; TEMP 98.3
[2025-04-20 10:24] LABS: African American GFR (CKD) 7 (>60 ml/min/1.73 sqM); Anion Gap 15 mmol/L; Blood Urea Nitrogen 54 mg/dL (9-20); Calcium 9.2 mg/dL (8.4-10.2); Carbon Dioxide 26 mmol/L (22-30); Chloride 99 mmol/L (98-107); Glucose 129 mg/dL (74-99); Non-African American GFR(CKD) 6 (>60 ml/min/1.73 sqM); Potassium 5.2 mmol/L (3.5-5.1); Sodium 140 mmol/L (137-145)
[2025-04-20] MEDS: ALPRAZolam 0.25 MG TAB PO STA (10:28)
[2025-04-20] MEDS: MIDAZOLAM 2 MG/2 ML VIAL IVP ONE ×2 (12:12→12:22)
[2025-04-20] MEDS: fentaNYL (PF) 50 MCG/1 ML VIAL IVP ONE (12:12)
[2025-04-20] MEDS: LIDOCAINE 1% INJ 10MG/ML (20 ML MDV) SQ ONE (12:15)
[2025-04-20] MEDS: IOPAMIDOL-300 100ML BTL INJ ONE (12:52)
--- NOTE | 2025-04-20 13:12 | P.OP ---
Description of Procedure: Date: 04/20/2025 Preoperative diagnosis: End-stage renal disease, increased bleeding after dialysis possible outflow stenosis Postoperative diagnosis: Same, outflow stenosis at the distal cephalic vein Procedure: Left upper extremity fistulogram with ultrasound guided access, percutaneous balloon angioplasty of the outflow stenosis at the distal cephalic vein Surgeon: Mando Mccarty DO Anesthesia : Local Estimated blood loss: Minimal Complications: None Condition: Stable Disposition: Palpable thrill left upper extremity fistula Indications: 50-year-old gentleman with history of end-stage renal disease on hemodialysis via left upper extremity arteriovenous fistula presented to the office secondary to increased time holding pressure due to increased bleeding after dialysis. He states dialysis itself has not been going bad and his clearance has been good. He presents today for fistulogram and possible balloon angioplasty. Operative narrative: After written informed consent was obtained the patient all risks benefits complications were described the patient is brought to the Wildlife Officer and laid in a supine position with their left arm outstretched on an armboard. The area of the arm was prepped and draped in usual sterile fashion. Utilizing local anesthetic the fistula was accessed under ultrasound guidance and a 6-Vietnamese sheath was placed. Fistulogram was then obtained demonstrating some stenosis at the cephalic sweep at the shoulder due to the size discrepancy between the large fistula and normal-sized axillary vein and distal cephalic vein. Guidewire was then placed across this area and balloon angioplasty was performed with a 10 x 40 mm balloon. Final fistulogram was obtained demonstrating improved flow through this area. There was no central venous stenosis within the chest. All guidewires and catheters were then removed and suture was placed at the access site. Patient tolerated procedure well and was sent back to recovery.
--- NOTE | 2025-04-20 13:18 | IR ---
EXAMINATION TYPE: IR fistula/abscess/sinus tract DATE OF EXAM: 04/20/2025 12:54 PM COMPARISON: Pre Operative Images if available both CT/MRI or plain film CLINICAL INDICATION: Male, 50 years old with history of DIALYSIS, 2.6 M/35.2314 DAP,LT BRACHIAL PUNCT URE SUTURED, MA; TECHNIQUE: IR fistula/abscess/sinus tract, multiple fluoroscopic images provided for procedure. DAP: 35.2314 mGym2 Gycm2 uGym2 cGycm2 or equivalent. FINDINGS: IMPRESSION: 1. Report was generated for administrative purposes only. 2. Please see the operative/procedural note for further details. [facility], , 04/20/2025 1:15 PM
[2025-04-20 13:45] VITALS: BP 129/67; PULSE 81
== END 2025-04-20 13:46 | disposition home or self-care (01) ==
LOC: CATHCVL 09:36
PROVIDERS: ATTEND Surgery
DX: T82.858A Stenosis of other vascular prosthetic devices, implants and grafts, initial encounter (principal); N18.6 End stage renal disease; Z99.2 Dependence on renal dialysis
CPT/HCPCS: 80048; 85025; 36902; J2250; J2003; Q9967; J3010